=== PATIENT | male | born 1940 | race Caucasian/White ===

== ENCOUNTER 2023-12-04 20:51 | Emergency (ER) | payer MEDICARE, SELFPAY ==
--- NOTE | ~2023-12-04 | CT_ITS ---
EXAMINATION: CT brain wo con DATE: 12/04/2023 22:21 INDICATION: Head trauma TECHNIQUE: Computed tomography (CT) of the head was performed without intravenous contrast. Sagittal and coronal reconstructions were performed. The mA was adjusted according to patient size. Iterative reconstruction technique was employed. The dose-length product was 605.33 mGy-cm. COMPARISON: None FINDINGS: No fracture. Small region of encephalomalacia in the left parietal lobe consistent with old infarct. No acute intracranial hemorrhage, acute infarction or abnormal extra axial fluid collection. There is moderate scattered white matter hypoattenuation consistent with chronic small vessel ischemic diseas e. Symmetric prominence of the sulci and ventricles consistent with moderate age-appropriate diffuse cerebral volume loss. No mass/mass effect. Changes of bilateral intraocular lens replacement. The orb its and mastoid air cells are normal. Mild mucosal thickening the paranasal sinuses. IMPRESSION: 1. No fracture or acute intracranial process. 2. 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 3. Age-related changes including moderate diffuse volume loss and moderate scattered white matter hyp oattenuation consistent with chronic small vessel ischemic disease. Reviewed, dictated and finalized at location A. IN COIL WINDER IMPRESSION: 1. No fracture or acute intracranial process. 2. 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 3. Age-related changes including moderate diffuse volume loss and moderate scat tered white matter hypoattenuation consistent with chronic small vessel ischemi c disease.
--- NOTE | ~2023-12-04 | CT_ITS ---
EXAMINATION: CT cervical spine wo con DATE: 12/04/2023 22:25 INDICATION: Neck pain post fall TECHNIQUE: Computed tomography (CT) of the cervical spine was performed without intravenous contrast. Automated exposure control and iterative reconstruction technique were employed. The dose-length pro duct was 254.24 mGy-cm. COMPARISON: None FINDINGS: 3 mm anterolisthesis C5 on C6. 2 mm anterolisthesis C7 on T1. There is anterior fusion at C6-C7. Vert ebral body heights are normal. Small nondisplaced fracture extending along the anterior rim of the newell perior endplate of T3. There are some sclerosis in the underlying anterosuperior aspect of the verteb ral body which could be degenerative in etiology or trabecular impaction such with the fracture and s uggesting a hyperflexion injury. No other fractures identified. Severe atlantoaxial osteoarthritis wi th calcite pannus surrounding the dens. Moderate to severe disc height loss at C3-C4, C5-C6 and T1-T2 . Moderate disc height loss at C4-C5, T1-T2 and T3-T4. Mild disc height loss at C2-C3 and T2-T3. Disc bulges and posterior disc osteophyte complexes resulting in mild central canal stenosis from C2-C3 t hrough C5-C6. Additional mild central canal stenosis resulting from hypertrophic change at the fused C6-C7 disc space. There is multilevel moderate to severe cervical facet and uncovertebral osteoarthri tis which contributes to mild to moderate neural foraminal stenosis bilaterally at multiple levels in the cervical and upper thoracic spine. Atherosclerotic calcification is at the bilateral carotid bul bs. Cervical soft tissues are otherwise unremarkable. Mild emphysema the visualized upper lungs with mild biapical pleural-parenchymal scarring. IMPRESSION: 1. Small nondisplaced fracture along the anterior rim of the superior endplate of T3 likely related t o a hyperflexion injury. No acute osseous abnormality in the cervical spine. 2. Moderate to severe cervical and upper thoracic spondylosis. Reviewed, dictated and finalized at location A. STERED PHYSICAL THERAPIST IMPRESSION: 1. Small nondisplaced fracture along the anterior rim of the superior endplate of T3 likely related to a hyperflexion injury. No acute osseous abnormality in the cervical spine. 2. Moderate to severe cervical and upper thoracic spondylosis.
--- NOTE | ~2023-12-04 | XR_ITS ---
EXAMINATION: XR hip RT 2V w AP pelvis DATE: 12/04/2023 22:36 INDICATION: Right hip pain post fall TECHNIQUE: Anteroposterior view of the pelvis and anteroposterior and frog-leg lateral views of the r ight hip were obtained. COMPARISON: None. FINDINGS: Bone alignment is normal. No fracture. Mild osteoarthritis at the bilateral hips. Moderate osteoarthr itis at the bilateral sacroiliac joints. There is at least moderate lower lumbar spondylosis with lik angel severe facet osteoarthritis. A few phleboliths in the pelvis. IMPRESSION: 1. Degenerative skeletal changes in the pelvis and more prominently at the lower lumbar spine with no acute osseous abnormality. Reviewed, dictated and finalized at location A. DWORKS DESIGNER IMPRESSION: 1. Degenerative skeletal changes in the pelvis and more prominently at the lowe r lumbar spine with no acute osseous abnormality.
--- NOTE | ~2023-12-04 | XR_ITS ---
EXAMINATION: XR hand RT min 3V DATE: 12/04/2023 22:35 INDICATION: Right hand pain post fall TECHNIQUE: Posteroanterior, oblique and lateral views of the right hand were obtained. COMPARISON: None. FINDINGS: There is widening of the scapholunate interval along with increased scapholunate angle consistent wit h age-indeterminate tear of the scapholunate ligament. Bone alignment is otherwise normal. No fractur e. Polyarticular osteoarthritis, moderate severity at the distal radioulnar, wrist, triscaphe, first carpometacarpal, first metacarpophalangeal and second-fourth distal interphalangeal joints. Mild oste oarthritis at the remaining metacarpophalangeal and interphalangeal joints. Diffuse osteopenia. Soft tissues are unremarkable. IMPRESSION: 1. Age-indeterminate tear of the scapholunate ligament with widening of the scapholunate interval and increased scapholunate angle consistent with secondary dorsal intercalated segment instability (DISI ). 2. 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 Reviewed, dictated and finalized at location A. FINISHER IMPRESSION: 1. Age-indeterminate tear of the scapholunate ligament with widening of the sca pholunate interval and increased scapholunate angle consistent with secondary d orsal intercalated segment instability (DISI). 2. 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
[2023-12-04 20:52] VITALS: BP 102/78; PULSE 84; RESP 14; TEMP 37.2; O2SAT 98
--- NOTE | 2023-12-04 21:01 | ECG_ITS ---
Measurements Intervals [place] Rate: 80 P: 104 DE: 170 QRS: 42 QRSD: 101 T: 0 QT: 321 QTc: 371 Interpretive Statements SINUS RHYTHM ATRIAL AND VENTRICULAR PREMATURE COMPLEXES LOW QRS VOLTAGE IN PRECORDIAL LEADS MINIMAL Q WAVES- INFERIOR LEADS BORDERLINE ST-T WAVE ABNORMALITY- ANTEROLAT/INF LEADS BASELINE ARTIFACT- I, II, III, AVR, AVF, V1-V6 BORDERLINE ECG NO PREVIOUS ECG AVAILABLE FOR COMPARISON Electronically Signed On 12-05-2023 5:52:37 STRIPE MARKER by Tj Mosley D.O.
[2023-12-04 21:02] LABS: Glucose Point of Care 99 mg/dl (65-105)
[2023-12-04 22:13] VITALS: BP 194/63; PULSE 73; RESP 15; O2SAT 96
[2023-12-05 01:20] LABS: Appearance Urine Turbid (Clear); Color Urine Amber (Yellow)
[2023-12-05 01:21] LABS: Protein Urine 2+ mg/dL (Negative)
[2023-12-05 01:22] LABS: Glucose Urine UA Negative (Negative); Ketones Urine Negative (Negative)
[2023-12-05 01:23] LABS: Bilirubin Urine Negative (Negative); Blood Urine 3+ (Negative); Leukocyte Esterase Ur 3+ LEU/UL (Negative); Nitrate Urine Positive (Negative)
[2023-12-05 01:24] LABS: Bacteria Urine 2+ /hpf; RBC Urine >100 /hpf (0-2); WBC Clumps Urine Present /HPF; WBC Urine >100 /hpf
[2023-12-05 01:25] LABS: Non Pathogenic Casts Present
[2023-12-05 01:29] LABS: Add Urine Microscopic? YES
--- NOTE | 2023-12-05 01:32 | ED.GENADULT ---
HPI - General Adult General Chief complaint: Fall Stated complaint: FALL Time Seen by Provider: 12/04/23 21:53 History of Present Illness HPI narrative: patient is 83-year-old gentleman who presents to emergency department with chief complaint of fall while getting into his wheelchair patient fell backwards landing on the back of his head and right hip the patient also pulled out his Barry during this point as well the patient states that he has a little bit discomfort in his neck and also pain in his right hip area Related Data Allergies Allergy/AdvReac Type Severity Reaction Status Date / Time diphtheria toxoid,adsorbed Allergy Unknown Verified 12/04/23 21:02 fish derived Allergy Unknown Verified 12/04/23 21:02 iodine Allergy Unknown Verified 12/04/23 21:02 tetanus toxoid, adsorbed Allergy Unknown Verified 12/04/23 21:02 tositumomab Allergy Unknown Verified 12/04/23 21:02 Review of Systems Review of Systems: A 10 system review of systems was completed on the patient and is negative except for what is stated in the HPI. Nursing and ancillary documentation was reviewed. Exam Narrative: GENERAL: Well-appearing, well-nourished, and in no acute distress. HEAD: Normocephalic, atraumatic. EYES: PERRLA and EOMI. ENT: Nares clear, no rhinorrhea or epistaxis. Mucous membranes moist. NECK: Supple. CHEST: Clear to auscultation. No respiratory distress. HEART: Regular rate and rhythm. No murmur heard. Normal peripheral pulses. ABDOMEN: Soft, nontender, nondistended, normal active bowel sounds. EXTREMITIES: Normal range of motion. No edema. SKIN: Warm, dry, no rash. NEURO: No focal deficits. Alert and oriented x1. PSYCH: Normal mood and affect. Course Vital Signs Vital signs: Vital Signs Temperature 37.2 C 12/04/23 20:52 Pulse Rate 84 12/04/23 20:52 Respiratory Rate 14 12/04/23 20:52 Blood Pressure 102/78 12/04/23 20:52 Pulse Oximetry 98 12/04/23 20:52 Oxygen Delivery Room Air 12/04/23 20:52 Temperature 37.2 C 12/04/23 20:52 Pulse Rate 73 12/04/23 22:13 Respiratory Rate 15 12/04/23 22:13 Blood Pressure 194/63 H 12/04/23 22:13 Pulse Oximetry 96 12/04/23 22:13 Oxygen Delivery Room Air 12/04/23 20:52 Medical Decision Making MDM Narrative Medical decision making narrative: differential diagnosis includes intracranial hemorrhage, cervical spine fracture, hip fracture plain film x-rays were obtained of the hip and hand on the right side he showed no evidence of fracture. Patient does have full range of motion of both extremities CT head showed no evidence of acute intracranial hemorrhage CT C-spine showed a T3 endplate fracture that is not displaced Vital Signs Vital Signs: Vital Signs Temperature 37.2 C 12/04/23 20:52 Pulse Rate 84 12/04/23 20:52 Respiratory Rate 14 12/04/23 20:52 Blood Pressure 102/78 12/04/23 20:52 Pulse Oximetry 98 12/04/23 20:52 Oxygen Delivery Room Air 12/04/23 20:52 Temperature 37.2 C 12/04/23 20:52 Pulse Rate 73 12/04/23 22:13 Respiratory Rate 15 12/04/23 22:13 Blood Pressure 194/63 H 12/04/23 22:13 Pulse Oximetry 96 12/04/23 22:13 Oxygen Delivery Room Air 12/04/23 20:52 Lab Data Labs: Lab Results 12/04/23 12/05/23 Range/Units 20:59 00:37 POC Capillary Glucose 99 (65-105) mg/dl Urine Color Judy (Yellow) Urine Appearance Turbid H (Clear) Urine pH 6.0 (5.0-9.0) Ur Specific [place] 1.020 (1.001-1.035) Urine Protein 2+ H (Negative) mg/dL Urine Glucose (UA) Negative (Negative) mg/dL Urine Ketones Negative (Negative) mg/dL Ur Blood (Man) 3+ H (Negative) Urine Nitrate Positive H (Negative) Urine Bilirubin Negative (Negative) Urine Urobilinogen 1.0 (<2.0) mg/dL Leukocyte Esterase Rfl 3+ H (Negative) TONY/UL Urine RBC >100 H (0-2) /hpf Urine WBC >100 H /hpf Urine WBC Clumps Present H (None) /HPF Urine
== END 2023-12-05 03:00 ==
PROVIDERS: Emergency Provider Emergency Medicine
DX: S22.038A Other fracture of third thoracic vertebra, initial encounter for closed fracture (principal); S79.911A Unspecified injury of right hip, initial encounter; N39.0 Urinary tract infection, site not specified; M47.812 Spondylosis without myelopathy or radiculopathy, cervical region; M47.814 Spondylosis without myelopathy or radiculopathy, thoracic region; I49.1 Atrial premature depolarization; I49.3 Ventricular premature depolarization; R94.31 Abnormal electrocardiogram [ECG] [EKG]; M18.9 Osteoarthritis of first carpometacarpal joint, unspecified; M19.041 Primary osteoarthritis, right hand; M19.031 Primary osteoarthritis, right wrist; W18.39XA Other fall on same level, initial encounter
CPT/HCPCS: 70450; 72125; 73130; 73502; 81001; 82948; 87077; 87086; 87147; 87186; 93005; 99284

== ENCOUNTER 2023-12-24 14:31 | Emergency (ER) | payer MEDICARE, SELFPAY ==
[2023-12-24 14:34] VITALS: BP 132/80; PULSE 74; RESP 19; TEMP 36.7; O2SAT 99
--- NOTE | 2023-12-24 16:25 | ED.MALEGU ---
HPI - Male Genitourinary General Chief complaint: Urogenital-Male Stated complaint: hematuria Time Seen by Provider: 12/24/23 14:32 History of Present Illness HPI Narrative: Patient is an 83-year-old male presenting with hematuria. Patient is coming from a nursing facility. He has a chronic indwelling Barry and he pulled out today. He then developed hematuria. Patient is A&O x1 at baseline. History is limited secondary to his dementia. Denies current complaints. Related Data Allergies Allergy/AdvReac Type Severity Reaction Status Date / Time diphtheria toxoid,adsorbed Allergy Unknown Verified 12/04/23 21:02 fish derived Allergy Unknown Verified 12/04/23 21:02 iodine Allergy Unknown Verified 12/04/23 21:02 tetanus toxoid, adsorbed Allergy Unknown Verified 12/04/23 21:02 tositumomab Allergy Unknown Verified 12/04/23 21:02 Review of Systems Review of Systems: ROS unobtainable: Yes unobtainable due to mental status and other (underlying dementia) Exam Narrative: GENERAL: Nontoxic, no acute distress, pleasantly demented HEAD: Normocephalic, atraumatic. EYES: PERRLA and EOMI. ENT: Mucous membranes moist. NECK: Supple. CHEST: No respiratory distress. HEART: Regular rate and rhythm ABDOMEN: Soft, nontender, nondistended EXTREMITIES: Normal range of motion. No edema. SKIN: Warm, dry, no rash. NEURO: Alert and oriented x1 PSYCH: Normal mood and affect. Course Vital Signs Vital signs: Vital Signs Temperature 98.1 F 12/24/23 14:34 Pulse Rate 74 12/24/23 14:34 Respiratory Rate 19 12/24/23 14:34 Blood Pressure 132/80 12/24/23 14:34 Pulse Oximetry 99 12/24/23 14:34 Oxygen Delivery Room Air 12/24/23 14:34 Temperature 98.1 F 12/24/23 14:34 Pulse Rate 79 12/24/23 18:37 Respiratory Rate 20 12/24/23 18:37 Blood Pressure 142/76 H 12/24/23 18:37 Pulse Oximetry 97 12/24/23 18:37 Oxygen Delivery Room Air 12/24/23 14:34 MDM - Male Genitourinary MDM Narrative Medical decision making narrative: 83-year-old male presenting with hematuria after pulling out his Barry catheter. Vitals stable. Exam remarkable for the above. UA is concerning for UTI. Patient was actually just here a couple of weeks ago and treated for a UTI. His urine at that time grew MRSA and E coli. Both are sensitive to Macrobid which will start today. Barry catheter was replaced, is draining well. Will send in for Macrobid. Recommend PCP follow-up. Discharged in stable condition. Differential Diagnosis Differential diagnosis: Likely urinary tract infection, urethritis and other ( Barry catheter complication) Medical Records Attestation: I reviewed the patient's medical records. Lab Data Attestation: I reviewed the patient's lab results. Labs: Lab Results 12/24/23 Range/Units 16:29 Urine Color Yellow (Yellow) Urine Appearance Turbid H (Clear) Urine pH 7.0 (5.0-9.0) Ur Specific [place] 1.022 (1.001-1.035) Urine Protein 1+ H (Negative) mg/dL Urine Glucose (UA) Negative (Negative) mg/dL Urine Ketones Trace H (Negative) mg/dL Ur Blood (Man) 3+ H (Negative) Urine Nitrate Negative (Negative) Urine Bilirubin Negative (Negative) Urine Urobilinogen 2.0 H (<2.0) mg/dL Add Ur Microanalysis Reviewed Leukocyte Esterase Rfl 3+ H (Negative) TONY/UL Urine RBC >100 H (0-2) /hpf Urine WBC >100 H /hpf Ur Squamous Epith Cells None seen (Few) /hpf Calcium Oxalate Crystal Present (None) /hpf Urine Bacteria 4+ H /hpf Urine Casts 6-10 Critical Care Time Critical Care Time Critical Care Time: No Discharge Plan Discharge Clinical Impression: Urinary tract infection, Encounter for Barry catheter replacement Patient Disposition: NH Senior Care/Asst Living Condition: Stable Instructions: Antibiotic Form, Urinary Tract Infection in Men (ED), Barry Catheter Placement and Care (ED) Additional Instructions: we have started you on
[2023-12-24 16:52] LABS: Appearance Urine Turbid (Clear); Bacteria Urine 4+ /hpf; Bilirubin Urine Negative (Negative); Blood Urine 3+ (Negative); Calcium Oxalate Crystals Urine Present /hpf; Color Urine Yellow (Yellow); Glucose Urine UA Negative (Negative); Ketones Urine Trace mg/dL (Negative); Leukocyte Esterase Ur 3+ LEU/UL (Negative); Need Manual Microscopic Reviewed; Nitrate Urine Negative (Negative); Protein Urine 1+ mg/dL (Negative); RBC Urine >100 /hpf (0-2); Specific Grav Ur 1.022 (1.001-1.035); Squamous Epithelial Cell Urine None seen /hpf (Few); WBC Urine >100 /hpf
[2023-12-24 17:15] LABS: Add Urine Microscopic? YES
[2023-12-24] MEDS: NITROFURANTOIN MONOHYD MACROCR 100 MG CAP PO (18:25)
[2023-12-24 18:37] VITALS: BP 142/76; PULSE 79; RESP 20; O2SAT 97
== END 2023-12-24 18:39 ==
PROVIDERS: Emergency Provider Emergency Medicine; PCP Nurse Practitioner Family
DX: N39.0 Urinary tract infection, site not specified (principal); Z46.6 Encounter for fitting and adjustment of urinary device
CPT/HCPCS: 51702; 81001; 87077; 87086; 87186; 99283; A9270

== ENCOUNTER 2024-01-06 09:31 | Emergency (ER) | payer MEDICARE, SELFPAY ==
[2024-01-06 09:33] VITALS: BP 104/54; PULSE 68; RESP 14; TEMP 36.5; O2SAT 97
--- NOTE | 2024-01-06 10:01 | ED.MALEGU ---
HPI - Male Genitourinary General Chief complaint: Urogenital-Male Stated complaint: catheter pulled out Time Seen by Provider: 01/06/24 09:56 Source: patient Mode of arrival: ambulatory Limitations: no limitations History of Present Illness HPI Narrative: This is a 83-year-old male that presents to the emergency department for dislodged Alonzo catheter. Patient reportedly pulled out his catheter at nursing facility. They noted some bleeding after this which prompted to send him in for evaluation. Patient is alert and oriented x1, resting comfortably. His Alonzo catheter was advanced and balloon reinflated in the ED. Is now draining well. No active bleeding Related Data Allergies Allergy/AdvReac Type Severity Reaction Status Date / Time diphtheria toxoid,adsorbed Allergy Unknown Verified 01/06/24 09:39 fish derived Allergy Unknown Verified 01/06/24 09:39 iodine Allergy Unknown Verified 01/06/24 09:39 tetanus toxoid, adsorbed Allergy Unknown Verified 01/06/24 09:39 tositumomab Allergy Unknown Verified 01/06/24 09:39 Review of Systems Review of Systems: ROS unobtainable: Yes unobtainable due to medical condition [facility] Past Medical History Medical History (Updated 01/06/24 @ 11:09 by Nimisha Callaway PA-C) History of dementia History of hyperlipidemia History of hypertension History of hypothyroidism Social History Social History (Updated 01/06/24 @ 10:05 by Nimisha Callaway PA-C) Substance use: never Exam Narrative: GENERAL: Elderly, well-nourished, and in no acute distress. HEAD: Normocephalic, atraumatic. EYES: EOMI. ENT: Nares clear, no rhinorrhea or epistaxis. Mucous membranes moist. CHEST: Clear to auscultation. No respiratory distress. No wheezes rales or rhonchi HEART: Regular rate and rhythm. No murmur heard. Normal peripheral pulses. ABDOMEN: Soft, nontender, nondistended, normal active bowel sounds. EXTREMITIES: Normal range of motion. No edema. SKIN: Warm, dry, no rash. NEURO: No focal deficits. Alert and oriented x1. PSYCH: Normal mood and affect Course Course Emergency Course: UA with evidence of infection. No further bleeding while in the ED. Will be started on oral antibiotics based on previous culture results Vital Signs Vital signs: Vital Signs Temperature 97.7 F 01/06/24 09:33 Pulse Rate 68 01/06/24 09:33 Respiratory Rate 14 01/06/24 09:33 Blood Pressure 104/54 L 01/06/24 09:33 Pulse Oximetry 97 01/06/24 09:33 Oxygen Delivery Room Air 01/06/24 09:33 Temperature 97.7 F 01/06/24 09:33 Pulse Rate 68 01/06/24 09:33 Respiratory Rate 14 01/06/24 09:33 Blood Pressure 104/54 L 01/06/24 09:33 Pulse Oximetry 97 01/06/24 09:33 Oxygen Delivery Room Air 01/06/24 09:33 MDM - Male Genitourinary MDM Narrative Medical decision making narrative: Patient presents to the emergency department for Alonzo catheter malfunction. Patient had pulled out partially at the nursing facility. It was not anchored to his leg. We were able to deflate balloon and advance it and reinflate. It is draining well. There has been no active bleeding while he has been in the ED. Catheter was anchored to his leg. UA obtained which shows evidence of infection. Will be started on Macrobid based on his previous culture results. Given warnings to return to the ER Differential Diagnosis Differential diagnosis: Likely urinary tract infection and other (alonzo catheter malfunction) Lab Data Attestation: I reviewed the patient's lab results. Labs: Lab Results 01/06/24 Range/Units 10:28 Urine Color Yellow (Yellow) Urine Appearance Turbid H (Clear) Urine pH 6.0 (5.0-9.0) Ur Specific [place] 1.018 (1.001-1.035) Urine Protein 1+ H (Negative) mg/dL Urine Glucose (UA) Negative (Negative) mg/dL Urine Ketones Trace H (Negative) mg/dL Ur Blood (Man) 3+ H (Negative) Urine Nitrate Positive H (Negative) Urine Bilirubin Negative (Negative)
--- NOTE | 2024-01-06 10:21 | PC.NURSE ---
Sitter at bedside due to pt attempting to get up, pulling at alonzo.
[2024-01-06 10:51] LABS: Appearance Urine Turbid (Clear); Bacteria Urine 4+ /hpf; Bilirubin Urine Negative (Negative); Blood Urine 3+ (Negative); Color Urine Yellow (Yellow); Glucose Urine UA Negative (Negative); Ketones Urine Trace mg/dL (Negative); Leukocyte Esterase Ur 3+ LEU/UL (Negative); Need Manual Microscopic Reviewed; Nitrate Urine Positive (Negative); Non Pathogenic Casts >20; Protein Urine 1+ mg/dL (Negative); RBC Urine >100 /hpf (0-2); Specific Grav Ur 1.018 (1.001-1.035); Squamous Epithelial Cell Urine Occasional /hpf (Few); WBC Urine >100 /hpf
[2024-01-06 11:01] LABS: Add Urine Microscopic? YES
[2024-01-06 11:17] VITALS: BP 111/65; PULSE 70; RESP 17; O2SAT 96
--- NOTE | 2024-01-06 11:49 | PC.NURSE ---
Lunch tray ordered for pt while awaiting EMS back to [place], sitter remains at bedside.
== END 2024-01-06 13:07 ==
PROVIDERS: Emergency Provider Physician Assistant; PCP Nurse Practitioner Family
DX: T83.021A Displacement of indwelling urethral catheter, initial encounter (principal); N39.0 Urinary tract infection, site not specified; F03.90 Unspecified dementia, unspecified severity, without behavioral disturbance, psychotic disturbance, mood disturbance, and anxiety; E78.5 Hyperlipidemia, unspecified; I10 Essential (primary) hypertension; E03.9 Hypothyroidism, unspecified
CPT/HCPCS: 51702; 81001; 87077; 87086; 87186; 99283

== ENCOUNTER 2024-02-17 07:45 | Emergency (ER) | payer MEDICARE, SELFPAY ==
[2024-02-17 07:41] VITALS: BP 142/75; PULSE 81; RESP 18; TEMP 36.3; O2SAT 98
--- NOTE | 2024-02-17 08:04 | ED.MALEGU ---
HPI - Male Genitourinary General Chief complaint: Urogenital-Male Stated complaint: unable to urinate Time Seen by Provider: 02/17/24 07:47 Source: EMS and RN notes reviewed Mode of arrival: EMS Limitations: dementia History of Present Illness HPI Narrative: 83-year-old with a history of dementia was brought in for urinary retention patient had his Barry catheter removed yesterday and was unable to urinate all night long. Complaint: other (Urinary retention) Onset (ago): day(s) (1) Duration: constant Context: other (Recent removal of Barry catheter) Associated symptoms: Reports denies other symptoms Related Data Allergies Allergy/AdvReac Type Severity Reaction Status Date / Time diphtheria toxoid,adsorbed Allergy Unknown Verified 01/06/24 09:39 fish derived Allergy Unknown Verified 01/06/24 09:39 iodine Allergy Unknown Verified 01/06/24 09:39 tetanus toxoid, adsorbed Allergy Unknown Verified 01/06/24 09:39 tositumomab Allergy Unknown Verified 01/06/24 09:39 Review of Systems Review of Systems: ROS unobtainable: Yes other (Dementia) PMFSH Past Medical History Medical History History of dementia History of hyperlipidemia History of hypertension History of hypothyroidism Social History Social History Substance use: never Exam Narrative: GENERAL: Well-appearing, well-nourished, and in no acute distress. HEAD: Normocephalic, atraumatic. EYES: PERRLA and EOMI. ENT: Nares clear, no rhinorrhea or epistaxis. NECK: Supple. CHEST: Clear to auscultation. No respiratory distress. HEART: Regular rate and rhythm. No murmur heard. Normal peripheral pulses. ABDOMEN: Soft, nontender, nondistended, normal active bowel sounds. EXTREMITIES: Normal range of motion. No edema. SKIN: Warm, dry, no rash. NEURO: No focal deficits. Alert and oriented x1 PSYCH: Normal mood and affect. Course Course Emergency Course: Patient had some suprapubic fullness Barry catheter was placed clear urine. UA is positive for uti , i did reviewed his Urine cultures from previous visit positive for ecoli and pseudomonas sensitive to Cipro . will discharge to [place] with Cipro Vital Signs Vital signs: Vital Signs Temperature 36.3 C L 02/17/24 07:41 Pulse Rate 81 02/17/24 07:41 Respiratory Rate 18 02/17/24 07:41 Blood Pressure 142/75 H 02/17/24 07:41 Pulse Oximetry 98 02/17/24 07:41 Oxygen Delivery Room Air 02/17/24 07:41 Temperature 36.3 C L 02/17/24 07:41 Pulse Rate 73 02/17/24 08:22 Respiratory Rate 18 02/17/24 08:22 Blood Pressure 147/71 H 02/17/24 08:22 Pulse Oximetry 98 02/17/24 08:22 Oxygen Delivery Room Air 02/17/24 07:41 MDM - Male Genitourinary Lab Data Labs: Lab Results 02/17/24 Range/Units 08:19 Urine Color Yellow (Yellow) Urine Appearance Cloudy H (Clear) Urine pH 7.0 (5.0-9.0) Ur Specific [place] 1.018 (1.001-1.035) Urine Protein Negative (Negative) mg/dL Urine Glucose (UA) Negative (Negative) mg/dL Urine Ketones Trace H (Negative) mg/dL Ur Blood (Man) Negative (Negative) Urine Nitrate Negative (Negative) Urine Bilirubin Negative (Negative) Urine Urobilinogen 1.0 (<2.0) mg/dL Leukocyte Esterase Rfl 3+ H (Negative) TONY/UL Urine RBC 3-5 H (0-2) /hpf Urine WBC >100 H (0-3) /hpf Ur Squamous Epith Cells None seen (Few) /hpf Urine Bacteria 4+ H /hpf Urine Casts 0-2 Urine Characteristics Clear Discharge Plan Discharge Clinical Impression: Acute retention of urine Urinary tract infection Qualifiers: Urinary tract infection type: site unspecified Hematuria presence: without hematuria Qualified Code(s): N39.0 - Urinary tract infection, site not specified Patient Disposition: NH Fdc/Asst Living Condition: Stable Instructio
[2024-02-17 08:22] VITALS: BP 147/71; PULSE 73; RESP 18; O2SAT 98
[2024-02-17 08:31] LABS: Appearance Urine Cloudy (Clear); Bacteria Urine 4+ /hpf; Bilirubin Urine Negative (Negative); Blood Urine Negative (Negative); Color Urine Yellow (Yellow); Glucose Urine UA Negative (Negative); Ketones Urine Trace mg/dL (Negative); Leukocyte Esterase Ur 3+ LEU/UL (Negative); Nitrate Urine Negative (Negative); Non Pathogenic Casts 0-2; Protein Urine Negative (Negative); Specific Grav Ur 1.018 (1.001-1.035); Squamous Epithelial Cell Urine None Seen /hpf (Few); WBC Urine >100 /hpf (0-3)
[2024-02-17 08:45] LABS: Add Urine Microscopic? YES
[2024-02-17 09:46] VITALS: BP 135/68; PULSE 74; RESP 18; O2SAT 100
== END 2024-02-17 10:02 ==
PROVIDERS: Emergency Provider Family Medicine; PCP Nurse Practitioner Family
DX: N39.0 Urinary tract infection, site not specified (principal); R33.9 Retention of urine, unspecified; F03.90 Unspecified dementia, unspecified severity, without behavioral disturbance, psychotic disturbance, mood disturbance, and anxiety; I10 Essential (primary) hypertension; E78.5 Hyperlipidemia, unspecified; E03.9 Hypothyroidism, unspecified
CPT/HCPCS: 81001; 87077; 87086; 87088; 87181; 99283

== ENCOUNTER 2024-02-24 13:12 | Emergency (ER) | payer MEDICARE, SELFPAY ==
[2024-02-24] VITALS (7 sets, daily range): BP systolic 107–127; BP diastolic 48–77; PULSE 61–72; RESP 14–16; TEMP 36.3–36.6; O2SAT 97–100
--- NOTE | ~2024-02-24 | XR_ITS ---
EXAMINATION: XR chest 1V DATE: 02/24/2024 14:02 INDICATION: Fall. TECHNIQUE: A single frontal view of the chest was obtained on 2 radiographs. COMPARISON: None. FINDINGS: There is a moderate-sized loculated right pleural effusion. There is a diffuse interstitial pattern in the lungs. There are airspace opacities in all right lung zones with a peripheral predomi nance. No pneumothorax. The heart size is normal. Median sternotomy wires and mediastinal surgical cl ips are seen, likely from prior coronary artery bypass grafting. There is a healing fracture of left ninth rib. IMPRESSION: 1. Moderate-sized loculated right pleural effusion. 2. Diffuse lung disease, right worse than left, consistent with pulmonary edema versus pneumonia. Reviewed, dictated and finalized at location E.
--- NOTE | ~2024-02-24 | XR_ITS ---
EXAMINATION: XR pelvis 1-2V DATE: 02/24/2024 14:02 INDICATION: Fall. TECHNIQUE: An anteroposterior view of the pelvis was obtained. COMPARISON: Pelvis and right hip radiographs 12/04/2023 FINDINGS: There is lumbar levoscoliosis and severe spondylosis. No fracture. There is mild osteoarthr itis of the hips. A catheter overlies the bladder. IMPRESSION: 1. Mild osteoarthritis of the hips. Reviewed, dictated and finalized at location E.
--- NOTE | ~2024-02-24 | CT_ITS ---
EXAMINATION: CT cervical spine wo con DATE: 02/24/2024 13:56 INDICATION: Neck pain. Fall. TECHNIQUE: Computed tomography (CT) of the cervical spine was performed without intravenous contrast. Automated exposure control and iterative reconstruction technique were employed. The dose-length pro duct was 216.71 mGy-cm. COMPARISON: CT cervical spine 12/04/23 FINDINGS: There is a loculated right pleural effusion. There is 2 mm anterolisthesis of C5 on C6 and C7 on T1. There is interbody fusion at C6-C7. There is mild chronic anterior wedging of T1, T2, and T 3 vertebral bodies. There is mildly decreased disc height at C2-C3, severely decreased disc height at C3-C4, C4-C5, and C5-C6, and mildly decreased disc height at C7-T1. The following disc levels are sp ecifically discussed: C2-C3: There is severe right and moderate left uncovertebral joint osteoarthritis. There is severe bi lateral facet joint osteoarthritis. There is mild right neural foraminal stenosis. There is mild cent ral canal stenosis. C3-C4: There is severe bilateral uncovertebral joint osteoarthritis. There is severe bilateral facet joint osteoarthritis. There is mild right and moderate left neural foraminal stenosis. There is mild central canal stenosis. C4-C5: There is severe bilateral uncovertebral joint osteoarthritis. There is moderate right and emeka re left facet joint osteoarthritis. There is mild bilateral neural foraminal stenosis. There is mild central canal stenosis. C5-C6: There is severe bilateral uncovertebral joint osteoarthritis. There is severe bilateral facet joint osteoarthritis. There is mild bilateral neural foraminal stenosis. There is mild central canal stenosis. C6-C7: There is moderate bilateral uncovertebral joint hypertrophy. There is mild bilateral facet nick nt hypertrophy. There is mild bilateral neural foraminal stenosis. There is mild central canal stenos is. C7-T1: There is mild bilateral uncovertebral joint osteoarthritis. There is severe bilateral facet nish int osteoarthritis. There is moderate right and mild left neural foraminal stenosis. There is no cent ral canal stenosis. IMPRESSION: 1. No acute fracture. 2. Severe cervical spondylosis. 3. Loculated right pleural effusion. Reviewed, dictated and finalized at location E.
--- NOTE | ~2024-02-24 | CT_ITS ---
EXAMINATION: CT brain wo con DATE: 02/24/2024 13:55 INDICATION: Fall. TECHNIQUE: Computed tomography (CT) of the head was performed without intravenous contrast. The mA wa s adjusted according to patient size. Iterative reconstruction technique was employed. The dose-lengt h product was 605.33 mGy-cm. COMPARISON: Head CT 12/04/2023 FINDINGS: There is an old infarct in left parietal lobe. There is an old infarct in the left caudate nucleus. There are scattered areas of low attenuation in the cerebral white matter. There is no intra cranial hemorrhage, acute infarction, or abnormal intracranial mass lesion. The ventricles are normal in size. There is mild mucosal thickening in the paranasal sinuses. The mastoid air cells are normal . There are likely changes of ocular lens replacement surgeries. IMPRESSION: 1. 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 2. Stable mild nonspecific cerebral white matter disease, which likely represents chronic small vesse l ischemic disease. Reviewed, dictated and finalized at location E. IMPRESSION: 1. 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 2. Stable mild nonspecific cerebral white matter disease, which likely represen ts chronic small vessel ischemic disease.
--- NOTE | 2024-02-24 13:35 | ED.FALL ---
HPI - Fall General Chief Complaint: Fall Stated Complaint: witnessed fall History of Present Illness HPI Narrative: Patient is an 83-year-old male with history of dementia here after a witnessed fall. He reportedly was in a seated position and fell forward hitting his face on the ground. Fall was witnessed by staff. No reported LOC. Patient was initially complaining of some pain to staff, was transported in for evaluation. Patient currently denying any pain or injuries. Family reportedly did not want patient transported into the ER. Related Data Allergies Allergy/AdvReac Type Severity Reaction Status Date / Time diphtheria toxoid,adsorbed Allergy Unknown Verified 01/06/24 09:39 fish derived Allergy Unknown Verified 01/06/24 09:39 iodine Allergy Unknown Verified 01/06/24 09:39 tetanus toxoid, adsorbed Allergy Unknown Verified 01/06/24 09:39 tositumomab Allergy Unknown Verified 01/06/24 09:39 Review of Systems Review of Systems: ROS unobtainable: Yes unobtainable due to mental status (dementia) PMFSH Past Medical History Medical History History of dementia History of hyperlipidemia History of hypertension History of hypothyroidism Social History Social History Substance use: never Exam Narrative: GENERAL: Well-appearing, well-nourished, and in no acute distress. HEAD: Normocephalic, atraumatic. EYES: PERRLA and EOMI. ENT: Nares clear. Mucous membranes moist. NECK: Supple. No c-spine tenderness, stepoffs. CHEST: Clear to auscultation. No respiratory distress. No chest wall tenderness. HEART: Regular rate and rhythm. Normal peripheral pulses. ABDOMEN: Soft, nontender, nondistended. EXTREMITIES: Normal range of motion. No edema. No pelvis tenderness, normal ROM of hips bilaterally. Bilateral upper and lower extremities atraumatic with no obvious injuries or pain. SKIN: Warm, dry, no rash. NEURO: No focal deficits. Alert and oriented x1 Course Course Emergency Course: Chart review performed, patient here after a witnessed fall at his halfway out of a wheelchair. Triage vitals normal. Last visit here was on 02/17/2024, was seen for urinary retention, had a Barry catheter replaced. They note history of dementia as well in their note. Patient seen evaluated, nontoxic appearing, no obvious traumatic injury appreciated on exam. Will do screening CT head, cervical spine, chest x-ray, pelvis x-ray and anticipate discharge back to facility. CT brain and cervical spine negative for acute injury. Pelvis XR negative. Moderate sized loculated effusion on the right side. Pulmonary edema versus pneumonia bilaterally, worse on the right than the left. Patient has had no hypoxia he has been here in the emergency department. I did discuss the case with patient's prior contact, his daughter Irena. Discussed options regarding admission for possible drainage of the pleural effusion versus coordinating this outpatient given he has had no respiratory symptoms and this was found incidentally. She would prefer to have him discharged to coordinated through his facility. The results of pertinent diagnostic studies and exam findings were discussed. The patient?s provisional diagnosis and plan of care were discussed with the family. The patient and/or present family expressed understanding of the diagnosis and plan. The nurse was instructed to provide written instructions and appropriate follow-up information. The patient understands their need and responsibility to obtain additional follow-up as instructed. The risks of medications administered and prescribed were discussed with the family. Vital Signs Vital signs: Vital Signs Temperature 97.6 F 02/24/24 13:25 Pulse Rate 72 02/24/24 13:25 Respiratory Rate 16 02/24/24 13:25 Blood Pressure 117/74 02/24/24 13:25 Pulse Oximetry 97 02/24/24 13:25 Oxygen
== END 2024-02-24 18:14 ==
PROVIDERS: Emergency Provider Student in an Organized Health Care Education/Training Program; PCP Nurse Practitioner Family
DX: J90 Pleural effusion, not elsewhere classified (principal); Z04.3 Encounter for examination and observation following other accident; W07.XXXA Fall from chair, initial encounter; F03.90 Unspecified dementia, unspecified severity, without behavioral disturbance, psychotic disturbance, mood disturbance, and anxiety; E78.5 Hyperlipidemia, unspecified; I10 Essential (primary) hypertension; E03.9 Hypothyroidism, unspecified
CPT/HCPCS: 70450; 71045; 72125; 72170; 99284

== ENCOUNTER 2024-03-02 13:39 | Emergency (ER) | payer MEDICARE, SELFPAY ==
--- NOTE | ~2024-03-02 | CT_ITS ---
EXAMINATION: CT chest abdomen pelvis wo con DATE: 03/02/2024 14:49 INDICATION: AMS, abdominal pain . TECHNIQUE: Computed tomography (CT) of the chest, abdomen, and pelvis was performed with 100 mL Omnip aque-350 intravenous contrast. Automated exposure control and iterative reconstruction technique were employed. The dose-length product was 402.02 mGy-cm. COMPARISON: None FINDINGS: Exam limited by noncontrast technique and arm down positioning. CHEST: No thoracic aortic injury, within the limits of noncontrast examination. Moderate atherosclerotic luis cifications. No mediastinal hematoma. No pericardial effusion. Heavy coronary artery calcification. Aortic valve calcification. No acute lung injury. Right lower lobe consolidation, likely compressive atelectasis. Sub six mill[address] right upper lobe nodule. No pneumothorax. Large volume right pleural fluid collection, mostly simple density with small volume layering hyperdense material. ABDOMEN/PELVIS: No solid organ injury. Simple right renal cysts. 9 mm right midpole calcification. No evidence of bowel or mesenteric injury. Mild diffuse mesenteric edema. Scattered diverticuli witho ut diverticulosis. No free fluid or free air. No retroperitoneal hematoma. Atherosclerotic calcifications. Pelvic contents are atraumatic. Urinary bladder decompressed by Barry catheter. Multiple urinary blad addis calcifications. Rectal wall thickening. MUSCULOSKELETAL: No acute fracture. Subacute left lateral ninth and posterior 12th rib fractures. No fracture or traumatic malalignment of the thoracic or lumbar spine. IMPRESSION: Large right pleural effusion. Small volume layering hyperdensity within the fluid may represent prote inaceous or hemorrhagic material. Right lower lobe atelectasis. Subacute left rib fractures. No other traumatic, or potentially traumatic process detected in the chest, abdomen, or pelvis. Sub-6 mm right upper lobe nodule, requiring no additional evaluation unless the patient is at high ri sk, in which case consider an optional low-dose noncontrast CT of the chest in 12 months. Mild diffuse mesenteric edema. Nonobstructive right nephrolithiasis. Bladder stones and calcifications around the Barry catheter balloon. Correlate for Barry function and consider tube exchange depending on date of placement. Rectal wall thickening, may represent proctitis, a rectal wall mass is not excluded. Reviewed, dictated and finalized at location K. IMPRESSION: Large right pleural effusion. Small volume layering hyperdensity within the flu id may represent proteinaceous or hemorrhagic material. Right lower lobe atelec tasis. Subacute left rib fractures. No other traumatic, or potentially traumatic process detected in the chest, abd omen, or pelvis. Sub-6 mm right upper lobe nodule, requiring no additional evaluation unless the patient is at high risk, in which case consider an optional low-dose noncontra st CT of the chest in 12 months. Mild diffuse mesenteric edema. Nonobstructive right nephrolithiasis. Bladder stones and calcifications around the Brary catheter balloon. Correlate for Barry function and consider tube exchange depending on date of placement. Rectal wall thickening, may represent proctitis, a rectal wall mass is not excl uded.
--- NOTE | ~2024-03-02 | CT_ITS ---
EXAMINATION: CT brain wo con DATE: 03/02/2024 14:49 INDICATION: trauma . TECHNIQUE: Computed tomography (CT) of the head was performed without intravenous contrast. The mA wa s adjusted according to patient size. Iterative reconstruction technique was employed. The dose-lengt h product was 605.33 mGy-cm. COMPARISON: 02/24/2024. FINDINGS: No acute intracranial hemorrhage or extra-axial fluid collection. No hydrocephalus, mass, or herniation. No acute ischemic infarct. Unremarkable dural venous sinus attenuation. No acute osseous abnormality. Small retention cyst/polyp in the left maxillary sinus, the remaining aerated spaces are clear. Moderate atrophy and chronic white matter change. Atherosclerotic intracranial calcification. Bilater al lens replacements. Focal left parietal encephalomalacia. Old lacunar infarct in the left caudate h ead. IMPRESSION: No acute intracranial process. Reviewed, dictated and finalized at location K.
--- NOTE | ~2024-03-02 | XR_ITS ---
EXAMINATION: XR chest 2V Exam Date/Time: 03/02/2024 14:45 CDT HISTORY: weakness Comparison: 02/24/2024. RESULT: Lines, tubes, and devices: Intact sternotomy wires. Mediastinal surgical clips and ostial markers. Lungs and pleura: Slightly improved diffuse reticular opacities. Slightly improved right lung airspa ce disease. Slightly decreased right costophrenic angle blunting. Cardiomediastinal silhouette: Stable. Other: No acute osseous or upper abdominal finding. IMPRESSION: Improving edema/pneumonia and right pleural effusion. Reviewed, dictated and finalized at location K.
[2024-03-02 13:40] VITALS: BP 131/70; PULSE 82; RESP 16; TEMP 36.6; O2SAT 100
[2024-03-02 13:59] LABS: Basophils Percent Auto 0.3 % (0.2-1.2); Eosinophils Absolute Auto 0.1 K/mm3 (0-0.3); Eosinophils Percent Auto 0.9 % (0-4.4); Hematocrit 28.9 % (42.0-52.0); Hemoglobin 8.5 g/dL (14.0-18.0); Immature Granulocyte Absolute 0.04 K/mm3 (0.00-0.031); Immature Granulocyte Percent A 0.4 % (0-0.5); Lymphocytes Absolute Auto 1.49 K/mm3 (0.9-3.2); Lymphocytes Percent Auto 13.9 % (18.3-44.2); Mean Corpuscular HGB Conc 29.4 g/dl (32-36); Mean Corpuscular Hemoglobin 25.7 pg (26-34); Mean Corpuscular Volume 87.3 fl (80-100); Mean Platelet Volume 9.9 fl (7.4-10.4); Monocytes Absolute Auto 0.5 K/mm3 (0.1-0.6); Monocytes Percent Auto 4.4 % (2.6-8.5); Neutrophils Absolute Auto 8.6 K/mm3 (1.3-6.7); Neutrophils Percent Auto 80.1 % (45.5-73.1); Platelet Count Result 196 k/mm3 (150-375); Red Blood Count 3.31 M/mm3 (4.6-6.20); Red Cell Distribution Width 21.2 % (11.5-14.5); White Blood Count 10.7 K/mm3 (4.5-10.0)
--- NOTE | 2024-03-02 14:06 | ECG_ITS ---
Measurements Intervals [place] Rate: 81 P: 61 VA: 199 QRS: 47 QRSD: 107 T: -16 QT: 299 Avg RR: 738 QTc: 336 QTcB: 348 QTcF: 330 Interpretive Statements SINUS RHYTHM WITH OCCASIONAL VENTRICULAR PREMATURE COMPLEXES POSSIBLE INFERIOR MYOCARDIAL INFARCTION, PROBALBY OLD [30 ms Q WAVE IN II/aVF] BORDERLINE ECG SEE SCANNED COPY FOR SIGNATURE MTDD
[2024-03-02 14:17] LABS: Alanine Aminotransferase 27 U/L (6-50); Albumin Level 2.8 g/dL (3.5-5.1); Alkaline Phosphatase 172 U/L (38-126); Anion Gap 4 mmol/L (4-12); Aspartate Amino Transferase 30 U/L (17-59); Bilirubin,Total 0.4 mg/dL (0.2-1.3); Blood Urea Nitrogen 13 mg/dL (9-20); Carbon Dioxide 28 mmol/L (22-30); Chloride 109 mmol/L (98-107); Estimated CRCL calculation 55 ml/min; Estimated Glomerular Filt Rate > 60; Glucose 131 mg/dL (65-110); Potassium 3.1 mmol/L (3.4-5.0); Sodium 141 mmol/L (137-145)
[2024-03-02 14:20] LABS: Hypochromasia 1+; Platelet Estimate Adequate (Adequate); Schistocytes Rare
--- NOTE | 2024-03-02 14:26 | PC.NURSE ---
#16 FR alonzo catheter removed, urine dark angely with foul odor. Alonzo replaced with #16 FR. less than 20 ml obtained with new device. Pts penis with transverse laceration draining pus.
--- NOTE | 2024-03-02 14:29 | ED.FALL ---
HPI - Fall General Chief Complaint: Fall Stated Complaint: repeated falls Time Seen by Provider: 03/02/24 13:45 History of Present Illness HPI Narrative: 83-year-old male presenting emergency department for evaluation of increased generalized weakness and frequent falls over the last few days. Patient does complain of lower abdominal tenderness but denies any pain. Patient does have known dementia. Patient is resting comfortably in the emergency department and appears to be in no distress. Related Data Allergies Allergy/AdvReac Type Severity Reaction Status Date / Time diphtheria toxoid,adsorbed Allergy Unknown Verified 01/06/24 09:39 fish derived Allergy Unknown Verified 01/06/24 09:39 iodine Allergy Unknown Verified 01/06/24 09:39 tetanus toxoid, adsorbed Allergy Unknown Verified 01/06/24 09:39 [email or web address] Allergy Unknown Verified 01/06/24 09:39 Review of Systems Review of Systems: All systems reviewed & are unremarkable except as noted in HPI and below PMFSH Past Medical History Medical History History of dementia History of hyperlipidemia History of hypertension History of hypothyroidism Social History Social History Substance use: never Exam Narrative: APPEARANCE: Well appearing, no pain, no distress, well-nourished. HEAD: normocephalic, atraumatic. EYES: PERRLA/EOMI, conjunctivae clear. NOSE: Normal no drainage EARS:TMS clear with good light reflex. THROAT: Pharynx clear, no exudate. NECK: Supple. No adenopathy, no masses. RESPIRATORY: Airway patent, respirations nonlabored. Clear to auscultation bilaterally, no rales, rhonchi, wheezing. CARDIOVASCULAR: Regular rate and rhythm without murmurs rubs or gallops. ABDOMINAL: Soft, suprapubic tenderness to palpation MUSCULOSKELETAL: Moves all extremities. Strength/ROM intact, No edema, No calf tenderness. NEURO: Alert. Cranial nerves II through XII intact. Good gait. Good coordination SKIN: Warm, dry. Normal Color Course Course Emergency Course: [age] old male was discharged back to his care facility. Vital Signs Vital signs: Vital Signs Temperature 97.9 F 03/02/24 13:40 Pulse Rate 82 03/02/24 13:40 Respiratory Rate 16 03/02/24 13:40 Blood Pressure 131/70 03/02/24 13:40 Pulse Oximetry 100 03/02/24 13:40 Oxygen Delivery Room Air 03/02/24 13:40 Temperature 97.9 F 03/02/24 13:40 Pulse Rate 88 03/02/24 15:50 Respiratory Rate 16 03/02/24 15:50 Blood Pressure 166/93 H 03/02/24 15:50 Pulse Oximetry 98 03/02/24 15:50 Oxygen Delivery Room Air 03/02/24 13:40 MDM - Fall MDM Narrative Medical decision making narrative: 83-year-old male presenting to the emergency department for evaluation per having increased falls. Patient's head CT was negative. Patient's abdominal CT did show a known pleural effusion. Patient is afebrile but does have leukocytosis of 10.7 hemoglobin 8.5. No previous hemoglobins are on file. CMP shows no acute abnormality. UA does have high bacteria and white blood cells, patient may be colonized. Urine culture is pending. Case was discussed with the patient's family and she prefers to have the patient transferred back to his facility. Differential Diagnosis Differential diagnosis: Likely concussion with loss of consciousness and concussion without loss of consciousness Lab Data Attestation: I reviewed the patient's lab results. 03/02/24 13:55 03/02/24 13:55 Labs: Lab Results 03/02/24 03/02/24 Range/Units 13:55 15:08 WBC 10.7 H (4.5-10.0) K/mm3 RBC 3.31 L (4.6-6.20) M/mm3 Hgb 8.5 L (14.0-18.0) g/dL Hct 28.9 L (42.0-52.0) % MCV 87.3 (80-100) fl MCH 25.7 L (26-34) pg MCHC 29.4 L (32-36) g/dl RDW 21.2 H (11.5-14.5) % Plt Count 196 (150-375) k/mm3 MPV 9.9 (7.4-10.4) fl Immature Gran % (Auto) 0.4
--- NOTE | 2024-03-02 14:34 | PC.NURSE ---
No abrasion, bruising or laceration noted from frequent falls reported by NH
[2024-03-02] MEDS: SODIUM CHLORIDE 0.9% IV 1,000 ML 500 ML IV CONT (14:56)
[2024-03-02 14:57] VITALS: BP 123/71; PULSE 75; RESP 16; O2SAT 97
[2024-03-02 15:48] LABS: Appearance Urine Turbid (Clear); Bacteria Urine 4+ /hpf; Bilirubin Urine Negative (Negative); Blood Urine 3+ (Negative); Color Urine Yellow (Yellow); Glucose Urine UA Negative (Negative); Ketones Urine Trace mg/dL (Negative); Leukocyte Esterase Ur 3+ LEU/UL (Negative); Need Manual Microscopic Reviewed; Nitrate Urine Negative (Negative); Protein Urine 2+ mg/dL (Negative); RBC Urine >100 /hpf (0-2); Specific Grav Ur 1.021 (1.001-1.035); Squamous Epithelial Cell Urine None Seen /hpf (Few); WBC Urine >100 /hpf (0-3); pH Urine 6.5 (5.0-9.0)
[2024-03-02 15:49] LABS: Add Urine Microscopic? YES
[2024-03-02 15:50] VITALS: BP 166/93; PULSE 88; RESP 16; O2SAT 98
--- NOTE | 2024-03-02 16:37 | PC.NURSE ---
Pts daughter Irena Zamorano called per Dr. Lewis request. Informed of ER visit POC to send back to [facility] for further follow up for UTI & pleural effusion. Daughter in agreement with POC. Informed urine results may be from colonization.
== END 2024-03-02 18:10 ==
PROVIDERS: Emergency Provider Emergency Medicine; PCP Nurse Practitioner Family
DX: R29.6 Repeated falls (principal); J90 Pleural effusion, not elsewhere classified; R82.998 Other abnormal findings in urine; F03.90 Unspecified dementia, unspecified severity, without behavioral disturbance, psychotic disturbance, mood disturbance, and anxiety; I10 Essential (primary) hypertension; E78.5 Hyperlipidemia, unspecified; E03.9 Hypothyroidism, unspecified
CPT/HCPCS: 36415; 51702; 70450; 71046; 71250; 74176; 80053; 81001; 85025; 87086; 93005; 96360; 99284; J7030

== ENCOUNTER 2024-03-08 21:58 | Inpatient (IN) | payer MEDICARE, SELFPAY ==
--- NOTE | ~2024-03-08 | XR_ITS ---
EXAMINATION: XR chest 1V DATE: 03/10/2024 11:40 INDICATION: Altered mental status TECHNIQUE: frontal view of the chest was obtained. COMPARISON: Chest CT dated 03/02/2024 FINDINGS: Opacities in the right mid and lower lung zone corresponding to a prior right pleural effusion with a ssociated atelectasis. Superimposed pneumonia not excludable. Left lung remains clear with no left pl eural effusion. No pneumothorax. Heart size is normal. Median sternotomy wires, ostial markers and me diastinal surgical clips consistent with prior coronary artery bypass grafting. Degenerative changes in the spine and at both shoulders with loose osteochondral bodies along the right long head biceps tendon sheath. IMPRESSION: 1. Opacities in the right mid and lower lung zone likely related to persistent small to moderate-size d pleural effusion with associated atelectasis and/or pneumonia. Reviewed, dictated and finalized at location A. IMPRESSION: 1. Opacities in the right mid and lower lung zone likely related to persistent small to moderate-sized pleural effusion with associated atelectasis and/or pne umonia.
--- NOTE | ~2024-03-08 | CT_ITS ---
EXAMINATION: CT brain wo con DATE: 03/10/2024 12:02 INDICATION: Altered mental status TECHNIQUE: Computed tomography (CT) of the head was performed without intravenous contrast. Sagittal and coronal reconstructions were performed. The mA was adjusted according to patient size. Iterative reconstruction technique was employed. The dose-length product was 605.33 mGy-cm. 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 Additional small old lacunar infarct at the head of the left ca udate nucleus. There is moderate scattered white matter hypoattenuation consistent with chronic small vessel ischemic disease. No acute intracranial hemorrhage, acute infarction or abnormal extra axial fluid collection. Symmetric prominence of the sulci and ventricles consistent with moderate age-appro priate diffuse cerebral volume loss. No mass/mass effect. Changes of bilateral intraocular lens repla cement. Small mucous retention cyst in the left maxillary sinus. Mastoid air cells and middle ear cav ities are clear. Intracranial calcified cerebral atherosclerosis is noted. IMPRESSION: 1. 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 No acute intracranial process. 2. Age-related changes including moderate diffuse volume loss and moderate scattered white matter hyp oattenuation consistent with chronic small vessel ischemic disease. Reviewed, dictated and finalized at location A. IMPRESSION: 1. 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 No acute intracranial process. 2. Age-related changes including moderate diffuse volume loss and moderate scat tered white matter hypoattenuation consistent with chronic small vessel ischemi c disease.
[2024-03-08 21:58] VITALS: BP 130/118; PULSE 97; RESP 20; TEMP 36.2; O2SAT 100
[2024-03-08 22:18] VITALS: BP 140/74; PULSE 95; RESP 19; O2SAT 98
--- NOTE | 2024-03-08 22:41 | ED.GENADULT ---
HPI - General Adult General Chief complaint: Urogenital-Male Stated complaint: no urine output Time Seen by Provider: 03/08/24 22:01 Source: patient Mode of arrival: EMS Limitations: altered mental status History of Present Illness HPI narrative: This is an 83-year-old male with PMH of dementia, HLD, HTN, indwelling Alonzo catheter who presents to the ED via EMS from [facility] for decreased urine output. Staff reports that his Alonzo bag was not draining for the past 24 hours. They were able to pull some dark brown urine, about 25 mL. The staff here notes that the patient is grabbing at alonzo and grimacing. They report that he says yes to pain but does not say where. When asked the patient was hurting he is not able to give any kind of meaningful response. He is noted to be A&O x1 baseline. Per chart review, patient has had numerous visits to this ER with multiple documented UTIs. On arrival our nursing staff was able to replace the Alonzo catheter and got initial 600 mL of urine off. While I am in the room with the urine bag is almost full to 1 L. Related Data Allergies Allergy/AdvReac Type Severity Reaction Status Date / Time diphtheria toxoid,adsorbed Allergy Unknown Verified 01/06/24 09:39 fish derived Allergy Unknown Verified 01/06/24 09:39 iodine Allergy Unknown Verified 01/06/24 09:39 tetanus toxoid, adsorbed Allergy Unknown Verified 01/06/24 09:39 [email or web address] Allergy Unknown Verified 02 09:39 Review of Systems Review of Systems: All systems as dictated in [facility] Past Medical History Medical History History of dementia History of hyperlipidemia History of hypertension History of hypothyroidism Social History Social History Substance use: never Exam Narrative: GENERAL: Appears elderly and frail. HEAD: Normocephalic, atraumatic. EYES: PERRLA and EOMI. ENT: Nares clear, no rhinorrhea or epistaxis. Mucous membranes moist. Oropharynx without tonsillar hypertrophy exudate or other lesions. NECK: Supple. No adenopathy or masses. CHEST: No respiratory distress. Clear to auscultation. No wheezes rales or rhonchi HEART: Regular rate and rhythm. No murmur heard. Normal peripheral pulses. ABDOMEN: Soft, nontender, nondistended, normal active bowel sounds. MSK: Normal range of motion. No edema. SKIN: Warm, dry, no rash. NEURO: Alert. Turns his head when I call his name. Not he able to participate with history or further mental status exam. Moves extremities spontaneously PSYCH: Normal mood and affect. Urine bag is actively draining dark urine. Course Course Emergency Course: Patient's nurse was able to get in contact with family member. They family member states that based on his presentation today, it sounds like he is very much in his mental status baseline. Vital Signs Vital signs: Vital Signs Temperature 97.1 F L 03/08/24 21:58 Pulse Rate 97 03/08/24 21:58 Respiratory Rate 20 03/08/24 21:58 Blood Pressure 130/118 H 03/08/24 21:58 Pulse Oximetry 100 03/08/24 21:58 Oxygen Delivery Room Air 03/08/24 21:58 Temperature 97.1 F L 03/08/24 21:58 Pulse Rate 93 03/09/24 01:23 Respiratory Rate 12 03/09/24 01:23 Blood Pressure 129/70 03/09/24 01:23 Pulse Oximetry 97 03/09/24 01:23 Oxygen Delivery Room Air 03/08/24 21:58 Medical Decision Making [facility] Narrative Medical decision making narrative: This is a 83-year-old male who presents to the ED from [facility] for chief complaint of decreased urine output. The patient has indwelling Alonzo catheter had significant sediment and was replaced here. Immediately drained 600 mL of fluid. Vitals are normal. Afebrile. Mental status baseline according to [facility] and family member over the phone. Lab work shows elevated white count 13.5. CMP shows slight elevation in BUN as well
--- NOTE | 2024-03-08 22:56 | PC.NURSE ---
Attempted to call [facility] for more information on patient. No answer.
--- NOTE | 2024-03-08 23:00 | PC.NURSE ---
this rn assumed care of patient. this rn took patient report from Reanna Suarez.
[2024-03-08 23:01] LABS: Basophils Percent Auto 0.1 % (0.2-1.2); Hematocrit 29.9 % (42.0-52.0); Hemoglobin 8.9 g/dL (14.0-18.0); Immature Granulocyte Absolute 0.06 K/mm3 (0.00-0.031); Immature Granulocyte Percent A 0.4 % (0-0.5); Lymphocytes Absolute Auto 0.68 K/mm3 (0.9-3.2); Mean Corpuscular HGB Conc 29.8 g/dl (32-36); Mean Corpuscular Hemoglobin 25.5 pg (26-34); Mean Corpuscular Volume 85.7 fl (80-100); Mean Platelet Volume 9.7 fl (7.4-10.4); Monocytes Absolute Auto 0.4 K/mm3 (0.1-0.6); Monocytes Percent Auto 2.7 % (2.6-8.5); Neutrophils Absolute Auto 12.4 K/mm3 (1.3-6.7); Neutrophils Percent Auto 91.8 % (45.5-73.1); Platelet Count Result 241 k/mm3 (150-375); Red Blood Count 3.49 M/mm3 (4.6-6.20); Red Cell Distribution Width 21.7 % (11.5-14.5); White Blood Count 13.5 K/mm3 (4.5-10.0)
[2024-03-08 23:11] VITALS: BP 120/55; PULSE 86; RESP 20; O2SAT 99
[2024-03-08 23:16] LABS: Alanine Aminotransferase 22 U/L (6-50); Albumin Level 2.8 g/dL (3.5-5.1); Alkaline Phosphatase 130 U/L (38-126); Anion Gap 3 mmol/L (4-12); Aspartate Amino Transferase 24 U/L (17-59); Bilirubin,Total 0.5 mg/dL (0.2-1.3); Blood Urea Nitrogen 21 mg/dL (9-20); Calcium 9.2 mg/dL (8.4-10.2); Carbon Dioxide 30 mmol/L (22-30); Chloride 111 mmol/L (98-107); Estimated CRCL calculation 40 ml/min; Estimated Glomerular Filt Rate > 60; Glucose 135 mg/dL (65-110); Potassium 3.5 mmol/L (3.4-5.0); Sodium 144 mmol/L (137-145)
[2024-03-08 23:16] LABS: Appearance Urine Turbid (Clear); Bilirubin Urine Negative (Negative); Blood Urine Trace (Negative); Glucose Urine UA Negative (Negative); Ketones Urine Trace mg/dL (Negative); Leukocyte Esterase Ur 3+ LEU/UL (Negative); Nitrate Urine Negative (Negative); Protein Urine 4+ mg/dL (Negative); Specific Grav Ur 1.017 (1.001-1.035); Urobilinogen Urine 0.2 mg/dL (<2.0); pH Urine 8.5 (5.0-9.0)
[2024-03-08 23:18] LABS: Lactic Acid Reflex 2.1 mmol/L (0.7-2.0)
[2024-03-08 23:19] LABS: Color Urine Brown (Yellow)
[2024-03-08 23:22] LABS: Bacteria Urine 3+ /hpf
[2024-03-08 23:22] LABS: CRP 3.6 mg/dL (<1.0)
[2024-03-08 23:23] LABS: Squamous Epithelial Cell Urine Rare /hpf (Few); WBC Urine 31-50 /hpf (0-3)
[2024-03-08 23:28] LABS: Add Urine Microscopic? YES; Amorphous Sediment Urine Moderate
[2024-03-08 23:32] LABS: Platelet Estimate Adequate (Adequate)
[2024-03-08 23:33] LABS: Hypochromasia 1+; Poikilocytosis 1+; Schistocytes Rare
[2024-03-08] MEDS: SODIUM CHLORIDE 0.9% IV 1,000 ML 999 ML IV CONT (23:33)
--- NOTE | 2024-03-08 23:42 | PC.NURSE ---
this rn spoke with nasir, pt guardian who states pt is normally not able to answer questions. pt guardian also states that pt usually mumbles to communicate and sometimes pt is able to follow commands. pt has a hx of dementia.
[2024-03-09] VITALS (8 sets, daily range): BP systolic 102–129; BP diastolic 66–77; PULSE 74–100; RESP 12–20; TEMP 36.6–37; O2SAT 97–100; BMI 18.4
[2024-03-09] MEDS: SODIUM CHLORIDE 0.9% IV 500 ML 999 ML IV CONT (00:14)
[2024-03-09] MEDS: AMPICILLIN SULB 1.5 GM/NS 50ML 1.5 GM/50 ML VIAL IVPB (00:14)
--- NOTE | 2024-03-09 00:39 | PC.NURSE ---
this rn spoke with GEOVANNY Rawls from [facility] to give update on pt.
[2024-03-09] MEDS: SODIUM CHLORIDE 0.9% IV 1,000 ML 75 ML IV CONT ×2 (01:15→17:11)
[2024-03-09 01:32] LABS: Procalcitonin 0.1 ng/mL
[2024-03-09 02:07] LABS: Reflex Lactic Acid Yes or No Add Lactic
--- NOTE | 2024-03-09 02:31 | ADMGEN ---
This patient, Stewart La, was admitted to Medical Room 344-01. Patient/family oriented to hospital policies and general routines including ID bracelet, bed and alarms, visiting hours, pain management, procedures, bathroom and other care routines, personal items, smoking policy, room service/diet, and visiting hours. Information on how to activate the Rapid Response Team has been discussed. Patient/Family are encouraged to report perceived risks to care and to ask questions if they do not understand what they are told or what they should do.
--- NOTE | 2024-03-09 02:48 | PM.IMHP ---
H&P: HPI History of Present Illness Date/Time: 03/09/24 02:48 Chief Complaint: No urine output from catheter Narrative: 83-year-old male with past medical history of advanced dementia, normocytic anemia, hypothyroidism, essential hypertension, COPD nephrolithiasis, and BPH with chronic urinary retention with chronic Barry catheter who presented to the ER from [facility] via EMS due to decreased urine output from Barry catheter. The patient has been to our ER 7 times in November, 4 of which were due to dislodgement of the Barry catheter or recurrent urinary retention and to which were due to falls. Patient's Barry catheter initially been removed on February 15 and had to be replaced on the due to recurrent retention. At that time patient's urine culture grew out Enterococcus which was pansensitive. He had a repeat urine culture performed on the return visit that was negative. He was evaluated at that time due to worsening generalized weakness and increased falls. CT Imaging at that time demonstrated large right pleural effusion and right lower lobe atelectasis, subacute left rib fractures, 6 mm right upper lobe lung nodule, diffuse mesenteric edema, nonobstructive right nephrolithiasis, bladder stones and calcifications around the catheter balloon and rectal wall thickening may represent proctitis with mass not exclude. With chest x-ray at that time demonstrated improving edema/pneumonia and right pleural effusion. It appears patient was discharged back to [facility] facility without intervention as he did not have evidence of acute infection. Family for for the patient be transferred back to the facility. Today the patient was brought in the patient had no urine output in 24 hours. The staff at the residential was eventually able to get out 25 mL of dark brown urine. Patient was grabbing at the Barry catheter in grimacing. He was moaning and appeared to be in pain but could not verbalize. ER staff checked with the patient's family who stated that this was the patient's baseline that he would ground moan when asked questions but was not specifically able to answer questions. In the ER patient's Barry catheter was exchanged at which time nursing staff cot return of immediate 700 mL of urine output in greater than 1 L of urine output prior to leaving the ER. The patient's white count had increased from 10 up to 13.5 but hemoglobin remains stable. Patient did have mild lactic acidosis at 2.1 his BUN has slightly increased to 21. His CRP was mildly elevated at 3.6 and urine was brown in color turbid with 4+ protein trace ketones, 3+ esterase 3-5 RBCs and 31-50 wbc's with moderate sediment in 3+ bacteria urine was sent for culture and the patient was started on Unasyn due to patient's prior urine culture from 2 ER visits ago growing out pansensitive Enterococcus. Patient does have known history of bladder stones and nonobstructing nephrolithiasis. Patient had significant improvement in evidence of his discomfort after Barry catheter was exchanged. Patient was given 1 L fluid bolus and was started on gentle IV fluid hydration at 75 mL an hour. The patient is subsequently admitted for observation. At the time of my evaluation the patient was having intermittent episodes witnessed apnea while sleeping. He would wake up to loud verbal and noxious stimuli but would fall back asleep quickly. Patient did not follow commands or answer questions. Source of information is from various ER records, residential records in physician report. Extensive chart review was completed including multiple imaging studies from November through February of this year. Review of Systems Review of Systems: ROS unobtainable: Yes unobtainable due to medical condition (Dementia) [facility] Past Medical History Medical History (Updated 03/09/24 @ 03:27 by Amena Aviles, DO) Bladder stone BPH with urinary obstruction Chronic indwelling Barry catheter COPD (chronic obst
[2024-03-09 03:37] LABS: Lactic Acid 1.4 mmol/L (0.7-2.0)
[2024-03-09] MEDS: AMPICILLIN SULB 3 GM/NS 100 ML 3 GM/100 ML VIAL IVPB ×3 (05:03→17:11)
[2024-03-09] MEDS: CLOPIDOGREL BISULFATE 75 MG TABLET PO (08:49)
[2024-03-09] MEDS: TAMSULOSIN HCL 0.4 MG CAPSULE PO (08:49)
[2024-03-09] MEDS: METOPROLOL SUCCINATE EXT REL 12.5 MG TABCR PO ×2 (08:49→20:43)
[2024-03-09] MEDS: FINASTERIDE 5 MG TABLET PO (08:49)
[2024-03-09] MEDS: SERTRALINE HCL 25 MG TABLET PO (08:50)
[2024-03-09] MEDS: UMECLIDINIUM BROMIDE 62.5 MCG ELLIPTA 1 PUFF INHALATION (11:10)
[2024-03-09] MEDS: QUEtiapine FUMARATE 25 MG TABLET PO ×2 (12:04→20:45)
[2024-03-09] MEDS: PYRIDOXINE HCL 50 MG TABLET 100 MG PO (12:04)
[2024-03-09] MEDS: QUEtiapine FUMARATE 25 MG TABLET 50 MG PO ×2 (12:04→20:45)
--- NOTE | 2024-03-09 13:35 | PM.IMPN ---
Progress Note: A&P Assessment and Plan (1) UTI (urinary tract infection) due to urinary indwelling Barry catheter: Qualifiers: Indwelling urinary catheter type: indwelling urethral catheter Encounter type: initial encounter Qualified Code(s): T83.511A - Infection and inflammatory reaction due to indwelling urethral catheter, initial encounter; N39.0 - Urinary tract infection, site not specified Code(s): T83.511A - Infection and inflammatory reaction due to indwelling urethral catheter, initial encounter; N39.0 - Urinary tract infection, site not specified Status: Acute Assessment and Plan: Suspected urinary tract infection given elevated white count and in the setting of obstructed Barry catheter with abnormal urinalysis. Patient been placed on empiric antibiotic therapy with Unasyn is patient has previously grown out Enterococcus within the last month. Urine cultures pending. Blood culture pending. Adjust antibiotics to culture results. (2) Obstruction of Barry catheter: Qualifiers: Encounter type: initial encounter Qualified Code(s): T83.091A - Other mechanical complication of indwelling urethral catheter, initial encounter Code(s): T83.091A - Other mechanical complication of indwelling urethral catheter, initial encounter Status: Acute Assessment and Plan: Likely due to sediment possibly associated with acute infection. (3) BPH with urinary obstruction: Code(s): N40.1 - Benign prostatic hyperplasia with lower urinary tract symptoms; N13.8 - Other obstructive and reflux uropathy Status: Acute Assessment and Plan: Continue home Flomax and finasteride. (4) Chronic indwelling Barry catheter: Code(s): Z97.8 - Presence of other specified devices Status: Acute Assessment and Plan: See above (5) Pleural effusion on right: Code(s): J90 - Pleural effusion, not elsewhere classified Status: Acute Assessment and Plan: Chronic and asymptomatic. Not likely attributing to the patient's current admission. (6) Hypothyroidism: Qualifiers: Hypothyroidism type: unspecified Qualified Code(s): E03.9 - Hypothyroidism, unspecified Code(s): E03.9 - Hypothyroidism, unspecified Status: Acute Assessment and Plan: Continue home levothyroxine (7) Dementia: Qualifiers: Dementia type: vascular dementia Dementia severity: severe Dementia behavioral or psychological symptom: with other behavioral disturbance Qualified Code(s): F01.C18 - Vascular dementia, severe, with other behavioral disturbance Code(s): F03.90 - Unspecified dementia, unspecified severity, without behavioral disturbance, psychotic disturbance, mood disturbance, and anxiety Status: Acute Assessment and Plan: Continue home psychiatric and depression medications. Avoid additional sedating medications. Placed on fall precautions. 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 When I examined the patient he was able to be awoken. He was unable to answer questions but was able to eat with assistance. It appears that patient's baseline is A&O times 0. Plan to continue IV antibiotics. Urine cultures pending. Exam Narrative: GENERAL: Comfortable, no acute distress, HENMT: moist mucous membranes EYES: EOM intact b/l NECK: no lymphadenopathy RESPIRATORY: clear to auscultation, no increased respiratory effort CARDIO: Regular rate and rhythm GI: soft, nontender, bowel sounds present SKIN/EXTREMITIES: no rashes, no edema, no redness or tenderness NEURO: A&O x0 Objective Data Vital Signs Vital Signs: Vital Signs - 24 hr 03/08/24 21:58 03/08/24 22:18 03/08/24 23:11 Temperature 97.1 F L Pulse Rate 97 95 86 Respiratory Ra
--- NOTE | 2024-03-09 14:37 | PCCCNOTE ---
On 03/09/24, the student, [Cynthia Roberts], provided care and completed [facility] documentation on this patient. I have reviewed the student's documentation and agree with the findings.
[2024-03-09] MEDS: ATORVASTATIN 40 MG TABLET 80 MG PO (20:45)
[2024-03-10] MEDS: AMPICILLIN SULB 3 GM/NS 100 ML 3 GM/100 ML VIAL IVPB ×4 (00:06→17:24)
[2024-03-10 04:56] VITALS: BP 112/63; PULSE 91; RESP 14; TEMP 36.4; O2SAT 95
[2024-03-10 05:44] LABS: Hematocrit 25.5 % (42.0-52.0); Hemoglobin 7.5 g/dL (14.0-18.0); Mean Corpuscular HGB Conc 29.4 g/dl (32-36); Mean Corpuscular Hemoglobin 25.7 pg (26-34); Mean Corpuscular Volume 87.3 fl (80-100); Platelet Count Result 182 k/mm3 (150-375); Red Blood Count 2.92 M/mm3 (4.6-6.20); Red Cell Distribution Width 21.6 % (11.5-14.5); White Blood Count 9.3 K/mm3 (4.5-10.0)
[2024-03-10 05:58] LABS: Anion Gap 0 mmol/L (4-12); Blood Urea Nitrogen 12 mg/dL (9-20); Calcium 8.4 mg/dL (8.4-10.2); Carbon Dioxide 27 mmol/L (22-30); Chloride 118 mmol/L (98-107); Estimated CRCL calculation 54 ml/min; Estimated Glomerular Filt Rate > 60; Glucose 80 mg/dL (65-110); Potassium 2.8 mmol/L (3.4-5.0); Sodium 145 mmol/L (137-145)
[2024-03-10] MEDS: POTASSIUM CHLORIDE 20 MEQ ER TABLET 40 MEQ PO (06:13)
[2024-03-10] MEDS: LEVOTHYROXINE SODIUM 125 MCG TABLET PO (06:14)
[2024-03-10] MEDS: POTASSIUM CHLORIDE INJ 40 MEQ in SODIUM CHLORIDE 0.9% IV 500 ML 130 MEQ IVPB (06:22)
[2024-03-10 06:26] LABS: Magnesium 1.7 mg/dL (1.6-2.3)
[2024-03-10] MEDS: SODIUM CHLORIDE 0.9% IV 1,000 ML 75 ML IV CONT (06:35)
[2024-03-10 08:50] LABS: Iron 17 ug/dL (49-181)
[2024-03-10 09:00] LABS: Percent Iron Saturation 9 % (20-50)
[2024-03-10] MEDS: CLOPIDOGREL BISULFATE 75 MG TABLET PO (09:09)
[2024-03-10] MEDS: QUEtiapine FUMARATE 25 MG TABLET PO ×2 (09:09→20:27)
[2024-03-10] MEDS: PYRIDOXINE HCL 50 MG TABLET 100 MG PO (09:09)
[2024-03-10 09:10] VITALS: PULSE 76; RESP 14; O2SAT 95
[2024-03-10] MEDS: QUEtiapine FUMARATE 25 MG TABLET 50 MG PO ×2 (09:10→20:27)
[2024-03-10] MEDS: TAMSULOSIN HCL 0.4 MG CAPSULE PO (09:10)
[2024-03-10] MEDS: SERTRALINE HCL 25 MG TABLET PO (09:10)
[2024-03-10] MEDS: FINASTERIDE 5 MG TABLET PO (09:10)
[2024-03-10] MEDS: METOPROLOL SUCCINATE EXT REL 12.5 MG TABCR PO ×2 (09:10→20:27)
[2024-03-10 09:58] LABS: Folic Acid 4.7 ng/mL (2.76->20)
--- NOTE | 2024-03-10 11:43 | PM.IMPN ---
Progress Note: A&P Assessment and Plan (1) UTI (urinary tract infection) due to urinary indwelling Barry catheter: Qualifiers: Encounter type: initial encounter Indwelling urinary catheter type: indwelling urethral catheter Qualified Code(s): T83.511A - Infection and inflammatory reaction due to indwelling urethral catheter, initial encounter; N39.0 - Urinary tract infection, site not specified Code(s): T83.511A - Infection and inflammatory reaction due to indwelling urethral catheter, initial encounter; N39.0 - Urinary tract infection, site not specified Status: Acute Assessment and Plan: Suspected urinary tract infection given elevated white count and in the setting of obstructed Barry catheter with abnormal urinalysis. Patient been placed on empiric antibiotic therapy with Unasyn is patient has previously grown out Enterococcus within the last month. Urine culture final, mixed genital estrdaa. Blood culture pending. Adjust antibiotics to culture results. (2) Pneumonia: Code(s): J18.9 - Pneumonia, unspecified organism Status: Acute Assessment and Plan: Concern for infection and UC came back no growth. CXR concerning for PNA but not treated on 03/02/24. Repeat CXR again showing PNA (personal read) Rocephin started on 03/08. Add Azithromycin on 03/10 Albuterol PRN Mucinex PRN (3) Anemia: Code(s): D64.9 - Anemia, unspecified Status: Acute Assessment and Plan: Patient presented with a hemoglobin of 8.9. A couple weeks ago patient's hemoglobin was 8.5. Patient received labs over 24 hours and repeat labs showed a hemoglobin of 7.5. Anemia workup with iron, ferritin, TIBC, % saturation, TSH, B12 and folate ordered. Patient with low iron and % saturation Iron infusion x3 Continue to monitor H&H. (4) Obstruction of Barry catheter: Qualifiers: Encounter type: initial encounter Qualified Code(s): T83.091A - Other mechanical complication of indwelling urethral catheter, initial encounter Code(s): T83.091A - Other mechanical complication of indwelling urethral catheter, initial encounter Status: Acute Assessment and Plan: Likely due to sediment possibly associated with acute infection. (5) BPH with urinary obstruction: Code(s): N40.1 - Benign prostatic hyperplasia with lower urinary tract symptoms; N13.8 - Other obstructive and reflux uropathy Status: Acute Assessment and Plan: Continue home Flomax and finasteride. (6) Chronic indwelling Barry catheter: Code(s): Z97.8 - Presence of other specified devices Status: Acute Assessment and Plan: See above (7) Pleural effusion on right: Code(s): J90 - Pleural effusion, not elsewhere classified Status: Acute Assessment and Plan: Chronic and asymptomatic. Not likely attributing to the patient's current admission. (8) Hypothyroidism: Qualifiers: Hypothyroidism type: unspecified Qualified Code(s): E03.9 - Hypothyroidism, unspecified Code(s): E03.9 - Hypothyroidism, unspecified Status: Acute Assessment and Plan: Continue home levothyroxine (9) Dementia: Qualifiers: Dementia behavioral or psychological symptom: with other behavioral disturbance Dementia severity: severe Dementia type: vascular dementia Qualified Code(s): F01.C18 - Vascular dementia, severe, with other behavioral disturbance Code(s): F03.90 - Unspecified dementia, unspecified severity, without behavioral disturbance, psychotic disturbance, mood disturbance, and anxiety Status: Acute Assessment and Plan: Continue home psychiatric and depression medications. Avoid additional sedating medications. Placed on fall precautions. Plan Patient not eating well and pocketing food: swallow eval was ordered. Subjective Date/time seen:
[2024-03-10] MEDS: UMECLIDINIUM BROMIDE 62.5 MCG ELLIPTA 1 PUFF INHALATION (11:52)
--- NOTE | 2024-03-10 12:16 | PCSTNOTE ---
Bedside swallowing evaluation completed. Report of a witnessed choking episode. Per nurse patient has been unable to swallow pills. Patient positioned upright with head of bed elevated. Unable to follow commands. Trials of thin liquid by spoon and cup were followed by coughing. Vocal quality could not be assessed due to patient not responding to most questions. Trial of pureed consistency by spoon, noted increased oral transit time and delayed triggering of swallow, but no signs of aspiration (no coughing or shortness of breath). Moderately thickened liquids given by straw were also within normal limits, no signs of aspiration observed. Recommendation: pureed diet with moderately thickened liquids, no straws, crush pills and place in applesauce or yogurt. A modified barium swallow study could be completed to determine more specific details regarding aspiration, however, at this point in time patient's altered mental status would need to be taken into consideration. Patient would need to be able to follow simple instructions to participate in MBSS. No further speech therapy is recommended. Thank you for the referral of this patient.
[2024-03-10] MEDS: IRON SUCROSE COMPLEX 500 MG in SODIUM CHLORIDE 0.9% IV 250 ML 79 MG IVPB (12:49)
[2024-03-10 12:59] LABS: Anion Gap 2 mmol/L (4-12); Blood Urea Nitrogen 12 mg/dL (9-20); Calcium 8.9 mg/dL (8.4-10.2); Carbon Dioxide 23 mmol/L (22-30); Chloride 122 mmol/L (98-107); Estimated CRCL calculation 62 ml/min; Estimated Glomerular Filt Rate > 60; Glucose 115 mg/dL (65-110); Potassium 3.7 mmol/L (3.4-5.0); Sodium 147 mmol/L (137-145)
[2024-03-10 14:05] VITALS: BP 120/50; PULSE 81; RESP 18; TEMP 36.5; O2SAT 96
[2024-03-10] MEDS: DEXTROSE 5%/LACTATED RINGERS 1,000 ML 75 ML IV CONT ×2 (14:17→20:31)
[2024-03-10 17:50] LABS: Free T4 Free Thyroxine Reflex 1.22 ng/dL (0.78-2.19)
[2024-03-10] MEDS: AZITHROMYCIN 500 MG/NS 250 ML 500 MG/250 ML BAG 250 MG IVPB (18:30)
[2024-03-10 19:09] LABS: Total Triiodothyronine (T3) 0.58 NG/ML (0.97-1.69)
[2024-03-10] MEDS: ATORVASTATIN 40 MG TABLET 80 MG PO (20:26)
[2024-03-10 20:27] VITALS: PULSE 72
[2024-03-10 22:17] VITALS: BP 145/62; PULSE 84; RESP 16; TEMP 37.1; O2SAT 95
[2024-03-11] MEDS: AMPICILLIN SULB 3 GM/NS 100 ML 3 GM/100 ML VIAL IVPB ×3 (01:16→12:33)
[2024-03-11] MEDS: LEVOTHYROXINE SODIUM 125 MCG TABLET PO (05:18)
[2024-03-11 05:27] LABS: Hematocrit 26.5 % (42.0-52.0); Hemoglobin 7.8 g/dL (14.0-18.0); Mean Corpuscular HGB Conc 29.4 g/dl (32-36); Mean Corpuscular Hemoglobin 26.2 pg (26-34); Mean Corpuscular Volume 88.9 fl (80-100); Mean Platelet Volume 9.6 fl (7.4-10.4); Platelet Count Result 183 k/mm3 (150-375); Red Blood Count 2.98 M/mm3 (4.6-6.20); Red Cell Distribution Width 21.8 % (11.5-14.5); White Blood Count 8.4 K/mm3 (4.5-10.0)
[2024-03-11 06:47] VITALS: BP 135/58; PULSE 83; RESP 16; TEMP 36.3; O2SAT 94
[2024-03-11] MEDS: UMECLIDINIUM BROMIDE 62.5 MCG ELLIPTA 1 PUFF INHALATION (08:05)
[2024-03-11 08:07] VITALS: O2SAT 95
[2024-03-11 08:40] LABS: Anion Gap -2 mmol/L (4-12); Blood Urea Nitrogen 10 mg/dL (9-20); Calcium 8.8 mg/dL (8.4-10.2); Carbon Dioxide 30 mmol/L (22-30); Chloride 119 mmol/L (98-107); Estimated CRCL calculation 62 ml/min; Estimated Glomerular Filt Rate > 60; Glucose 92 mg/dL (65-110); Potassium 3.3 mmol/L (3.4-5.0); Sodium 147 mmol/L (137-145)
[2024-03-11] MEDS: AZITHROMYCIN 500 MG/NS 250 ML 500 MG/250 ML BAG 250 MG IVPB (09:37)
[2024-03-11] MEDS: METOPROLOL SUCCINATE EXT REL 12.5 MG TABCR PO ×2 (09:41→20:53)
[2024-03-11] MEDS: QUEtiapine FUMARATE 25 MG TABLET 50 MG PO ×2 (09:41→20:56)
[2024-03-11] MEDS: PYRIDOXINE HCL 50 MG TABLET 100 MG PO (09:41)
[2024-03-11] MEDS: FINASTERIDE 5 MG TABLET PO (09:41)
[2024-03-11] MEDS: SERTRALINE HCL 25 MG TABLET PO (09:41)
[2024-03-11] MEDS: CLOPIDOGREL BISULFATE 75 MG TABLET PO (09:41)
[2024-03-11] MEDS: TAMSULOSIN HCL 0.4 MG CAPSULE PO (09:41)
[2024-03-11] MEDS: QUEtiapine FUMARATE 25 MG TABLET PO ×2 (09:41→20:55)
[2024-03-11] MEDS: DEXTROSE 5%/LACTATED RINGERS 1,000 ML 75 ML IV CONT (09:48)
[2024-03-11 11:33] VITALS: BMI 18.4
[2024-03-11] MEDS: IRON SUCROSE COMPLEX 500 MG in SODIUM CHLORIDE 0.9% IV 250 ML 79 MG IVPB (11:34)
[2024-03-11] MEDS: POTASSIUM CHLORIDE 20 MEQ ER TABLET 40 MEQ PO (12:32)
--- NOTE | 2024-03-11 13:58 | PM.IMPN ---
Progress Note: A&P Assessment and Plan (1) Pneumonia: Code(s): J18.9 - Pneumonia, unspecified organism Status: Acute Assessment and Plan: Concern for infection and UC came back no growth. CXR concerning for PNA but not treated on 03/02/24. Repeat CXR again showing PNA (personal read) Rocephin started on 03/08. Add Azithromycin on 03/10 Albuterol PRN, Mucinex PRN Mental status improving with therapy. Consider discharge tomorrow if he continues to improve. (2) Anemia: Code(s): D64.9 - Anemia, unspecified Status: Acute Assessment and Plan: Patient presented with a hemoglobin of 8.9. A couple weeks ago patient's hemoglobin was 8.5. Patient received labs over 24 hours and repeat labs showed a hemoglobin of 7.5. Anemia workup with iron, ferritin, TIBC, % saturation, TSH, B12 and folate ordered. Patient with low iron and % saturation Iron infusion x3 Continue to monitor H&H. (3) UTI (urinary tract infection) due to urinary indwelling Barry catheter: Qualifiers: Indwelling urinary catheter type: indwelling urethral catheter Encounter type: initial encounter Qualified Code(s): T83.511A - Infection and inflammatory reaction due to indwelling urethral catheter, initial encounter; N39.0 - Urinary tract infection, site not specified Code(s): T83.511A - Infection and inflammatory reaction due to indwelling urethral catheter, initial encounter; N39.0 - Urinary tract infection, site not specified Status: Ruled-out Assessment and Plan: Suspected urinary tract infection given elevated white count and in the setting of obstructed Barry catheter with abnormal urinalysis. Patient been placed on empiric antibiotic therapy with Unasyn is patient has previously grown out Enterococcus within the last month. Urine culture final, mixed genital estrada. Blood culture NGTD. (4) Obstruction of Barry catheter: Qualifiers: Encounter type: initial encounter Qualified Code(s): T83.091A - Other mechanical complication of indwelling urethral catheter, initial encounter Code(s): T83.091A - Other mechanical complication of indwelling urethral catheter, initial encounter Status: Chronic Assessment and Plan: Likely due to sediment possibly associated with acute infection. (5) BPH with urinary obstruction: Code(s): N40.1 - Benign prostatic hyperplasia with lower urinary tract symptoms; N13.8 - Other obstructive and reflux uropathy Status: Chronic Assessment and Plan: Continue home Flomax and finasteride. (6) Chronic indwelling Barry catheter: Code(s): Z97.8 - Presence of other specified devices Status: Chronic Assessment and Plan: See above (7) Pleural effusion on right: Code(s): J90 - Pleural effusion, not elsewhere classified Status: Acute Assessment and Plan: Chronic and asymptomatic. Not likely attributing to the patient's current admission. (8) Hypothyroidism: Qualifiers: Hypothyroidism type: unspecified Qualified Code(s): E03.9 - Hypothyroidism, unspecified Code(s): E03.9 - Hypothyroidism, unspecified Status: Chronic Assessment and Plan: Continue home levothyroxine (9) Dementia: Qualifiers: Dementia type: vascular dementia Dementia severity: severe Dementia behavioral or psychological symptom: with other behavioral disturbance Qualified Code(s): F01.C18 - Vascular dementia, severe, with other behavioral disturbance Code(s): F03.90 - Unspecified dementia, unspecified severity, without behavioral disturbance, psychotic disturbance, mood disturbance, and anxiety Status: Chronic Assessment and Plan: Continue home psychiatric and depression medications. Avoid additional sedating medications. Placed on fall precautions. Plan Patient not eating
[2024-03-11 14:00] VITALS: BP 128/61; PULSE 80; RESP 18; TEMP 36.6; O2SAT 99
[2024-03-11 20:53] VITALS: PULSE 74
[2024-03-11] MEDS: ATORVASTATIN 40 MG TABLET 80 MG PO (20:53)
[2024-03-11] MEDS: AMOXICILLIN/CLAVULANATE K 875-125 MG TAB 1 TABLET PO (20:54)
[2024-03-11 22:00] VITALS: BP 133/68; PULSE 74; RESP 16; TEMP 36.6; O2SAT 94
[2024-03-12] MEDS: DEXTROSE 5%/LACTATED RINGERS 1,000 ML 75 ML IV CONT (05:54)
[2024-03-12] MEDS: LEVOTHYROXINE SODIUM 125 MCG TABLET PO (05:55)
[2024-03-12 06:00] VITALS: BP 139/66; PULSE 77; RESP 16; TEMP 36.1; O2SAT 95
[2024-03-12 06:09] LABS: Hematocrit 25.6 % (42.0-52.0); Hemoglobin 7.3 g/dL (14.0-18.0); Mean Corpuscular HGB Conc 28.5 g/dl (32-36); Mean Corpuscular Hemoglobin 25.5 pg (26-34); Mean Corpuscular Volume 89.5 fl (80-100); Mean Platelet Volume 9.4 fl (7.4-10.4); Platelet Count Result 167 k/mm3 (150-375); Red Blood Count 2.86 M/mm3 (4.6-6.20); Red Cell Distribution Width 21.3 % (11.5-14.5)
[2024-03-12 06:19] LABS: Anion Gap 1 mmol/L (4-12); Blood Urea Nitrogen 10 mg/dL (9-20); Calcium 9.2 mg/dL (8.4-10.2); Carbon Dioxide 27 mmol/L (22-30); Chloride 118 mmol/L (98-107); Estimated CRCL calculation 62 ml/min; Estimated Glomerular Filt Rate > 60; Glucose 103 mg/dL (65-110); Potassium 3.2 mmol/L (3.4-5.0); Sodium 146 mmol/L (137-145)
[2024-03-12] MEDS: UMECLIDINIUM BROMIDE 62.5 MCG ELLIPTA 1 PUFF INHALATION (08:31)
[2024-03-12 08:32] VITALS: O2SAT 95
--- NOTE | 2024-03-12 09:23 | P.CONGI_ITS ---
I, Jesús Jackman MD, have provided a substantive portion of the care of this patient and discussed the patient with my Nurse Practitioner. I have reviewed any new relevant radiographic and laboratory results including medications. I agree with her documentation as noted below.?I personally performed the medical decision making and much of the history and exam for this encounter. briefly, he has advanced dementia and history mostly from records. He has complication with BPH and Barry, here for decrease urine output and UTI, also found to have pneumonia, anemia with hgb mid 7, CT scan noted possible proctitis and primary asked to evaluate patient. Plan is to do colonoscopy probably in 2 days, hold plavix for now and assess if colon is source of anemia. Assessment and Plan Assessment and plan (1) Abnormal digestive system diagnostic imaging: Code(s): R93.3 - Abnormal findings on diagnostic imaging of other parts of digestive tract Status: Acute (2) Iron deficiency anemia: Qualifiers: Iron deficiency anemia type: chronic blood loss Qualified Code(s): D50.0 - Iron deficiency anemia secondary to blood loss (chronic) Code(s): D50.9 - Iron deficiency anemia, unspecified Status: Acute (3) Hypernatremia: Code(s): E87.0 - Hyperosmolality and hypernatremia Status: Acute (4) Hypokalemia: Code(s): E87.6 - Hypokalemia Status: Acute (5) Proctitis: Code(s): K62.89 - Other specified diseases of anus and rectum Status: Acute Plan 1) Abnormal imaging digestive/proctitis: Patient with advanced dementia unable to provide any EGD or colonoscopy history. Patient with multiple ER visits since November for indwelling Barry catheter complications. During 1 of these workups he had a CT of 03/02/2024 and was noted to have rectal wall thickening which may represent colitis but rectal mass cannot be excluded. No prior abdominal imaging for comparison. CRP elevated at 3.6. Patient currently on Plavix and was on Plavix prior to admission. * Continue antibiotics * Stool studies ordered to R/O infectious etiology * Depending on hospital course and if hospitalist is ok with holding Plavix for a minimum of 3 days and electrolytes are corrected we can consider inpatient colonoscopy 2) Iron deficiency anemia: Likely mixed etiology. Labs show HGB 7, HCT 26, platelets 167, iron 17, TIBC 182, iron saturation 9%, ferritin 75. B12 folate normal. No signs of active GI bleeding noted. * Patient receiving IV iron, continue * Primary care team to continue monitoring H/H and transfuse as needed to keep Hgb > 7 3) Hypernatremia/hypokalemia: Labs today show sodium 146 and potassium at 3.2. * Primary care team to monitor and correct prior to possible colonoscopy GI Consult Note Consult date/time: 03/12/24 09:23 Reason for consult: Anemia and possible rectal mass HPI: Stewart La is a 83 year old male With past medical surgical history including advanced dementia, hypothyroidism, HTN, COPD, BPH with urinary retention and chronic Barry catheter. Patient presented to the emergency room from [facility] for decreased urine output. Since the beginning of the year the patient has been seen 7 times for Barry catheter complications. Patient with severe dementia so unable to provide any subjective information For past medical history ENDOSCOPY HISTORY: Past EGD and colonoscopy history unknown IMAGING: CT chest/abd/pelvis w/o contrast 03/02/2024 CHEST: No thoracic aortic injury, w
--- NOTE | 2024-03-12 09:23 | WPDGICN ---
Assessment and Plan Assessment and plan (1) Abnormal digestive system diagnostic imaging: Code(s): R93.3 - Abnormal findings on diagnostic imaging of other parts of digestive tract Status: Acute (2) Iron deficiency anemia: Qualifiers: Iron deficiency anemia type: chronic blood loss Qualified Code(s): D50.0 - Iron deficiency anemia secondary to blood loss (chronic) Code(s): D50.9 - Iron deficiency anemia, unspecified Status: Acute (3) Hypernatremia: Code(s): E87.0 - Hyperosmolality and hypernatremia Status: Acute (4) Hypokalemia: Code(s): E87.6 - Hypokalemia Status: Acute (5) Proctitis: Code(s): K62.89 - Other specified diseases of anus and rectum Status: Acute Plan 1) Abnormal imaging digestive/proctitis: Patient with advanced dementia unable to provide any EGD or colonoscopy history. Patient with multiple ER visits since November for indwelling Barry catheter complications. During 1 of these workups he had a CT of 03/02/2024 and was noted to have rectal wall thickening which may represent colitis but rectal mass cannot be excluded. No prior abdominal imaging for comparison. CRP elevated at 3.6. Patient currently on Plavix and was on Plavix prior to admission. Continue antibiotics Stool studies ordered to R/O infectious etiology Depending on hospital course and if hospitalist is ok with holding Plavix for a minimum of 3 days and electrolytes are corrected we can consider inpatient colonoscopy 2) Iron deficiency anemia: Likely mixed etiology. Labs show HGB 7, HCT 26, platelets 167, iron 17, TIBC 182, iron saturation 9%, ferritin 75. B12 folate normal. No signs of active GI bleeding noted. Patient receiving IV iron, continue Primary care team to continue monitoring H/H and transfuse as needed to keep Hgb > 7 3) Hypernatremia/hypokalemia: Labs today show sodium 146 and potassium at 3.2. Primary care team to monitor and correct prior to possible colonoscopy GI Consult Note Consult date/time: 03/12/24 09:23 Reason for consult: Anemia and possible rectal mass HPI: Stewart La is a 83 year old male With past medical surgical history including advanced dementia, hypothyroidism, HTN, COPD, BPH with urinary retention and chronic Barry catheter. Patient presented to the emergency room from [place] for decreased urine output. Since the beginning of the year the patient has been seen 7 times for Barry catheter complications. Patient with severe dementia so unable to provide any subjective information For past medical history ENDOSCOPY HISTORY: Past EGD and colonoscopy history unknown IMAGING: CT chest/abd/pelvis w/o contrast 03/02/2024 CHEST: No thoracic aortic injury, within the limits of noncontrast examination. Moderate atherosclerotic calcifications. No mediastinal hematoma.? No pericardial effusion. Heavy coronary artery calcification. Aortic valve calcification. No acute lung injury. Right lower lobe consolidation, likely compressive atelectasis. Sub six millimeter right upper lobe nodule. No pneumothorax. Large volume right pleural fluid collection, mostly simple density with small volume layering hyperdense material. ABDOMEN/PELVIS: No solid organ injury. Simple right renal cysts. 9 mm right midpole calcification. No evidence of bowel or mesenteric injury. Mild diffuse mesenteric edema. Scattered diverticuli without diverticulosis. No free fluid or free air. No retroperitoneal hematoma. Atherosclerotic calcifications. Pelvic contents are atraumatic. Urinary bladder decompressed by Barry catheter. Multiple urinary bladder calcifications. Rectal wall thickening. MUSCULOSKELETAL: No acute fracture. Subacute left lateral ninth and posterior 12th rib fractures. No fracture or traumatic malalignment of the thoracic or lumbar spine. IMPRESSION: L
[2024-03-12] MEDS: SERTRALINE HCL 25 MG TABLET PO (10:37)
[2024-03-12] MEDS: PYRIDOXINE HCL 50 MG TABLET 100 MG PO (10:37)
[2024-03-12] MEDS: AMOXICILLIN/CLAVULANATE K 875-125 MG TAB 1 TABLET PO ×2 (10:37→20:36)
[2024-03-12] MEDS: AZITHROMYCIN 250 MG TABLET 500 MG PO (10:37)
[2024-03-12] MEDS: QUEtiapine FUMARATE 25 MG TABLET PO ×2 (10:37→20:36)
[2024-03-12] MEDS: TAMSULOSIN HCL 0.4 MG CAPSULE PO (10:37)
[2024-03-12] MEDS: CLOPIDOGREL BISULFATE 75 MG TABLET PO (10:37)
[2024-03-12 10:38] VITALS: PULSE 100
[2024-03-12] MEDS: FINASTERIDE 5 MG TABLET PO (10:38)
[2024-03-12] MEDS: METOPROLOL SUCCINATE EXT REL 12.5 MG TABCR PO ×2 (10:38→20:36)
[2024-03-12] MEDS: IRON SUCROSE COMPLEX 500 MG in SODIUM CHLORIDE 0.9% IV 250 ML 79 MG IVPB (10:43)
[2024-03-12] MEDS: QUEtiapine FUMARATE 25 MG TABLET 50 MG PO ×2 (10:45→20:36)
--- NOTE | 2024-03-12 13:26 | P.CDI_ITS ---
CDI Query Clarification Request BMI 18.4 Nutritional Diagnostic Statement Severe protein calorie malnutrition as related to inadequate protein- energy intake with increased protein energy needs in setting of chronic disease as evidenced by minimal oral intake for >1-2 months; severe subcutaneous fat loss (orbital fat pads) and severe muscle wasting (temporalis). Please refer to the comprehensive nutrition assessment for further information. Please clarify severity of protein calorie malnutrition if known: * Mild * Moderate * Severe * Other/Unspecified
[2024-03-12 14:27] VITALS: BP 124/66; PULSE 71; RESP 16; TEMP 36.2; O2SAT 98
--- NOTE | 2024-03-12 15:11 | PM.IMPN ---
Progress Note: A&P Assessment and Plan (1) Pneumonia: Code(s): J18.9 - Pneumonia, unspecified organism Status: Acute Assessment and Plan: Concern for infection and UC came back no growth. CXR concerning for PNA but not treated on 03/02/24. Repeat CXR again showing PNA (personal read) Rocephin started on 03/08, then transition to Augmentin on 03/11 Azithromycin on 03/10 Albuterol PRN, Mucinex PRN Mental status improving with therapy. Consider discharge tomorrow if he continues to improve. (2) Anemia: Code(s): D64.9 - Anemia, unspecified Status: Acute Assessment and Plan: Patient presented with a hemoglobin of 8.9. A couple weeks ago patient's hemoglobin was 8.5. Patient received labs over 24 hours and repeat labs showed a hemoglobin of 7.5. Anemia workup with iron, ferritin, TIBC, % saturation, TSH, B12 and folate ordered. Patient with low iron and % saturation Iron infusion x3 Continue to monitor H&H. CT of the chest abdomen pelvis on 03/02/2024 showed rectal wall thickening. Mass not excluded. Could be the cause of patient's anemia. Okay to hold Plavix for 3 days for colonoscopy. (3) UTI (urinary tract infection) due to urinary indwelling Barry catheter: Qualifiers: Encounter type: initial encounter Indwelling urinary catheter type: indwelling urethral catheter Qualified Code(s): T83.511A - Infection and inflammatory reaction due to indwelling urethral catheter, initial encounter; N39.0 - Urinary tract infection, site not specified Code(s): T83.511A - Infection and inflammatory reaction due to indwelling urethral catheter, initial encounter; N39.0 - Urinary tract infection, site not specified Status: Ruled-out Assessment and Plan: Suspected urinary tract infection given elevated white count and in the setting of obstructed Barry catheter with abnormal urinalysis. Patient been placed on empiric antibiotic therapy with Unasyn is patient has previously grown out Enterococcus within the last month. Urine culture final, mixed genital estrada. Blood culture NGTD. (4) Obstruction of Barry catheter: Qualifiers: Encounter type: initial encounter Qualified Code(s): T83.091A - Other mechanical complication of indwelling urethral catheter, initial encounter Code(s): T83.091A - Other mechanical complication of indwelling urethral catheter, initial encounter Status: Chronic Assessment and Plan: Likely due to sediment possibly associated with acute infection. (5) BPH with urinary obstruction: Code(s): N40.1 - Benign prostatic hyperplasia with lower urinary tract symptoms; N13.8 - Other obstructive and reflux uropathy Status: Chronic Assessment and Plan: Continue home Flomax and finasteride. (6) Chronic indwelling Barry catheter: Code(s): Z97.8 - Presence of other specified devices Status: Chronic Assessment and Plan: See above (7) Pleural effusion on right: Code(s): J90 - Pleural effusion, not elsewhere classified Status: Acute Assessment and Plan: Chronic and asymptomatic. Not likely attributing to the patient's current admission. (8) Hypothyroidism: Qualifiers: Hypothyroidism type: unspecified Qualified Code(s): E03.9 - Hypothyroidism, unspecified Code(s): E03.9 - Hypothyroidism, unspecified Status: Chronic Assessment and Plan: Continue home levothyroxine (9) Dementia: Qualifiers: Dementia behavioral or psychological symptom: with other behavioral disturbance Dementia severity: severe Dementia type: vascular dementia Qualified Code(s): F01.C18 - Vascular dementia, severe, with other behavioral disturbance Code(s): F03.90 - Unspecified dementia, unspecified severity, without behavioral disturbance, psychotic disturbance, mood disturbance, an
[2024-03-12] MEDS: POTASSIUM CHLORIDE 20 MEQ PACKET (FOR LIQUID) 40 MEQ PO (16:32)
[2024-03-12 20:35] VITALS: BP 141/70; PULSE 74; RESP 20; TEMP 36.4; O2SAT 95
[2024-03-12 20:36] VITALS: PULSE 77
[2024-03-12] MEDS: ATORVASTATIN 40 MG TABLET 80 MG PO (20:36)
[2024-03-12] MEDS: ACETAMINOPHEN 325 MG TABLET 650 MG PO (20:39)
[2024-03-13] MEDS: LEVOTHYROXINE SODIUM 125 MCG TABLET PO (04:58)
[2024-03-13 05:06] VITALS: BP 123/74; PULSE 60; RESP 20; TEMP 36.7; O2SAT 98
[2024-03-13 05:47] LABS: Hematocrit 27.3 % (42.0-52.0); Hemoglobin 7.6 g/dL (14.0-18.0); Mean Corpuscular HGB Conc 27.8 g/dl (32-36); Mean Corpuscular Volume 93.5 fl (80-100); Mean Platelet Volume 10.1 fl (7.4-10.4); Platelet Count Result 175 k/mm3 (150-375); Red Blood Count 2.92 M/mm3 (4.6-6.20); Red Cell Distribution Width 21.2 % (11.5-14.5); White Blood Count 6.6 K/mm3 (4.5-10.0)
[2024-03-13 06:17] LABS: Anion Gap 3 mmol/L (4-12); Blood Urea Nitrogen 9 mg/dL (9-20); Carbon Dioxide 23 mmol/L (22-30); Chloride 115 mmol/L (98-107); Estimated CRCL calculation 73 ml/min; Estimated Glomerular Filt Rate > 60; Glucose 73 mg/dL (65-110); Potassium 3.8 mmol/L (3.4-5.0); Sodium 141 mmol/L (137-145)
[2024-03-13] MEDS: UMECLIDINIUM BROMIDE 62.5 MCG ELLIPTA 1 PUFF INHALATION (08:08)
[2024-03-13 08:13] VITALS: O2SAT 96
[2024-03-13] MEDS: AZITHROMYCIN 250 MG TABLET 500 MG PO (09:06)
[2024-03-13] MEDS: QUEtiapine FUMARATE 25 MG TABLET PO ×2 (09:06→21:12)
[2024-03-13] MEDS: PYRIDOXINE HCL 50 MG TABLET 100 MG PO (09:06)
[2024-03-13] MEDS: QUEtiapine FUMARATE 25 MG TABLET 50 MG PO ×2 (09:06→21:12)
[2024-03-13 09:07] VITALS: PULSE 66
[2024-03-13] MEDS: TAMSULOSIN HCL 0.4 MG CAPSULE PO (09:07)
[2024-03-13] MEDS: AMOXICILLIN/CLAVULANATE K 875-125 MG TAB 1 TABLET PO ×2 (09:07→21:12)
[2024-03-13] MEDS: SERTRALINE HCL 25 MG TABLET PO (09:07)
[2024-03-13] MEDS: METOPROLOL SUCCINATE EXT REL 12.5 MG TABCR PO ×2 (09:07→21:11)
[2024-03-13] MEDS: FINASTERIDE 5 MG TABLET PO (09:07)
--- NOTE | 2024-03-13 09:37 | PM.IMPN ---
Progress Note: A&P Assessment and Plan (1) Severe protein-calorie malnutrition: Code(s): E43 - Unspecified severe protein-calorie malnutrition Status: Acute (2) BPH with urinary obstruction: Code(s): N40.1 - Benign prostatic hyperplasia with lower urinary tract symptoms; N13.8 - Other obstructive and reflux uropathy Status: Chronic (3) Iron deficiency anemia: Qualifiers: Iron deficiency anemia type: chronic blood loss Qualified Code(s): D50.0 - Iron deficiency anemia secondary to blood loss (chronic) Code(s): D50.9 - Iron deficiency anemia, unspecified Status: Acute (4) Mass in rectum: Code(s): K62.89 - Other specified diseases of anus and rectum Status: Acute (5) UTI (urinary tract infection) due to urinary indwelling Barry catheter: Qualifiers: Encounter type: initial encounter Indwelling urinary catheter type: indwelling urethral catheter Qualified Code(s): T83.511A - Infection and inflammatory reaction due to indwelling urethral catheter, initial encounter; N39.0 - Urinary tract infection, site not specified Code(s): T83.511A - Infection and inflammatory reaction due to indwelling urethral catheter, initial encounter; N39.0 - Urinary tract infection, site not specified Status: Ruled-out (6) Obstruction of Barry catheter: Qualifiers: Encounter type: initial encounter Qualified Code(s): T83.091A - Other mechanical complication of indwelling urethral catheter, initial encounter Code(s): T83.091A - Other mechanical complication of indwelling urethral catheter, initial encounter Status: Chronic (7) Chronic indwelling Barry catheter: Code(s): Z97.8 - Presence of other specified devices Status: Chronic (8) Pneumonia: Code(s): J18.9 - Pneumonia, unspecified organism Status: Acute (9) Proctitis: Code(s): K62.89 - Other specified diseases of anus and rectum Status: Acute Plan Pneumonia Bronchodilators. Chest x-ray Opacities in the right mid and lower lung zone likely related to persistent small to moderate-sized pleural effusion with associated atelectasis and/or pneumonia. incentive spirometry while awake. antibiotic therapy amoxicillin/azithromycin supplemental oxygen therapy to maintain oxygen 92% CMP/CBC daily Proctitis GI consulted CT of 03/02/2024 and was noted to have rectal wall thickening which may represent colitis but rectal mass cannot be excluded.? No prior abdominal imaging? for comparison. CRP elevated at 3.6. Patient currently on Plavix and was on Plavix prior to admission. Continue antibiotics Stool studies ordered to R/O infectious etiology Plavix being held for 3 days for colonoscopy Anemia Noted iron deficiency IV iron Iron PO started H&H daily Transfuse Hgb < 7.0 BPH and indwelling catheter Urine cultures and blood cultures Negative Resume Proscar and Flomax Monitor for retention from Barry catheter HX HTN: Resumed home medications/BP per unit protocol HX Dementia: Resumed sertraline/Seroquel HX of hypothyroidism: Resume levothyroxine HX CVA: Holding Plavix for colonoscopy Code status: DNR/DNI DVT prophylaxis: SCDs Stress ulcer prophylaxis: Protonix 40 daily PT/OT notes: PT/OT pending Disposition: Patient continues admission until placement is completed. Patient DNR/DNI family does not want any further interventions. Time Spent With Patient Time with patient: 15 - 25 minutes Subjective Date/time seen: 03/13/24 09:37 Interval history: 03/13: Patient alert to name but does not respond to appropriately when asked questions. RN spoke to family who requested patient be a DNR/DNI and do not want any further interventions including a colonoscopy. CC currently working on new placement. HGb 7.6 today will continue to monitor and transfuse <7.0 Review of Systems Review of S
[2024-03-13] MEDS: FERROUS SULFATE 325 MG TABLET DR PO ×2 (12:21→18:11)
--- NOTE | 2024-03-13 13:20 | PCPTNOTE ---
Attempted to see patient for PT, however patient unable to stay awake long enough to participate. Attempted multiple times to wake patient up to participate with therapy. Patient would open his eyes but would not keep them open.
[2024-03-13 14:00] VITALS: BP 130/77; PULSE 70; RESP 20; TEMP 36.6; O2SAT 96
--- NOTE | 2024-03-13 15:10 | WPDGIPROGNO ---
Progress Note: A&P Assessment and Plan (1) Proctitis: Code(s): K62.89 - Other specified diseases of anus and rectum Status: Acute Assessment and Plan: found by CT scan Family decided against colonoscopy, they do not want invasive procedures given advanced age and dementia will sign off (2) Iron deficiency anemia: Qualifiers: Iron deficiency anemia type: chronic blood loss Qualified Code(s): D50.0 - Iron deficiency anemia secondary to blood loss (chronic) Code(s): D50.9 - Iron deficiency anemia, unspecified Status: Acute Assessment and Plan: probably multifactorial, CT scan noted abnormal rectum (3) Dementia: Qualifiers: Dementia type: vascular dementia Dementia severity: severe Dementia behavioral or psychological symptom: with other behavioral disturbance Qualified Code(s): F01.C18 - Vascular dementia, severe, with other behavioral disturbance Code(s): F03.90 - Unspecified dementia, unspecified severity, without behavioral disturbance, psychotic disturbance, mood disturbance, and anxiety Status: Chronic (4) BPH with urinary obstruction: Code(s): N40.1 - Benign prostatic hyperplasia with lower urinary tract symptoms; N13.8 - Other obstructive and reflux uropathy Status: Chronic Subjective Date/time seen: 03/13/24 15:10 Interval history: he is awake but confused no major changes per staff Review of Systems Review of Systems: All systems reviewed & are unremarkable except as noted in HPI and below Exam Const: General: comfortable HENMT: Face/Nose/Sinus: Normal nares present Eyes: Sclera: sclerae normal Neck: Neck: supple Resp: Effort & Inspection: normal respiratory effort Cardio: Rate: regular rate GI: GI Palp: Yes Soft to palpation and No Tenderness to palpation present (GI) Urinary Catheter: Urinary Catheter: patent and draining Skin: General skin exam: normal color Neuro: Other: awake, alert but confused Extrem: General: normal to inspection Objective Data Vital Signs Vital Signs: Vital Signs - 24 hr 03/12/24 20:35 03/12/24 20:36 03/13/24 05:06 Temperature 97.6 F 98.0 F Pulse Rate 74 77 60 Respiratory Rate 20 20 Blood Pressure 141/70 H 123/74 Pulse Oximetry 95 98 Oxygen Delivery 03/13/24 08:13 03/13/24 09:07 03/13/24 08:00 Temperature Pulse Rate 66 Respiratory Rate Blood Pressure Pulse Oximetry 96 Oxygen Delivery Room Air Room Air 03/13/24 14:00 Temperature 97.9 F Pulse Rate 70 Respiratory Rate 20 Blood Pressure 130/77 Pulse Oximetry 96 Oxygen Delivery Intake/Output Intake/Output: Intake & Output 03/10/24 03/11/24 03/12/24 03/13/24 23:59 23:59 23:59 23:59 Intake Total 2782.5 3621.2 995 440 Output Total 1200 3000 1100 1000 Balance 1582.5 621.2 -785 -560 Meds/Results Medications: Active Medications Generic Name Dose Route Start Last Admin Trade Name Freq PRN Reason Stop Dose Admin Acetaminophen 650 mg 03/09/24 00:52 03/12/24 20:39 Acetaminophen 325 Mg Tablet PO 650 mg Q4H PRN Administration Mild Pain (1-3) or Fever Albuterol 2 puff 03/09/24 03:11 Albuterol Sulfate (*Sp) Aerosol 1 Puff INHALATION Q6HRT PRN Wheezing Albuterol 2.5 mg 03/10/24 12:43 Albuterol Sulfate Neb 2.5 Mg/3 Ml Inh INHALATION Q6HRT PRN Shortness Of Breath Amoxicillin/Clavulanate Potassium 1 tablet 03/11/24 21:00 03/13/24 09:07 Amoxicillin/Clavulanate K 875-125 Mg Tab PO 03/14/24 21:01 1 tablet Q12HR SAYRA Administration Atorvastatin Calcium 80 mg 03/09/24 21:00 03/12/24 20:36 Atorvastatin 40 Mg Tablet PO 80 mg HS SAYRA Administration Clopidogrel Bisulfate 75 mg 03/09/24 09:00 03/12/24 10:37 Clopidogrel Bisulfate 75 Mg Tablet PO 75 mg DAILY SAYRA Administration Ferrous Sulfate 325 mg 03/13/24 09:45 03/13/24 12:21 Ferrous Sulfate [address] PO 325 mg BID SAYRA Admi
[2024-03-13 21:03] VITALS: BP 145/75; PULSE 82; RESP 18; TEMP 36.5; O2SAT 95
[2024-03-13 21:11] VITALS: PULSE 82
[2024-03-13] MEDS: ATORVASTATIN 40 MG TABLET 80 MG PO (21:12)
[2024-03-14 04:49] VITALS: BP 136/71; PULSE 73; RESP 16; TEMP 36.5; O2SAT 97
[2024-03-14] MEDS: LEVOTHYROXINE SODIUM 125 MCG TABLET PO (04:57)
[2024-03-14 07:35] VITALS: PULSE 81; RESP 16; O2SAT 95
[2024-03-14] MEDS: UMECLIDINIUM BROMIDE 62.5 MCG ELLIPTA 1 PUFF INHALATION (07:35)
[2024-03-14] MEDS: FERROUS SULFATE 325 MG TABLET DR PO ×2 (08:43→17:18)
[2024-03-14] MEDS: FINASTERIDE 5 MG TABLET PO (08:43)
[2024-03-14] MEDS: TAMSULOSIN HCL 0.4 MG CAPSULE PO (08:43)
[2024-03-14] MEDS: AMOXICILLIN/CLAVULANATE K 875-125 MG TAB 1 TABLET PO ×2 (08:43→21:03)
[2024-03-14] MEDS: SERTRALINE HCL 25 MG TABLET PO (08:43)
[2024-03-14] MEDS: QUEtiapine FUMARATE 25 MG TABLET PO ×2 (08:44→21:03)
[2024-03-14] MEDS: PYRIDOXINE HCL 50 MG TABLET 100 MG PO (08:44)
[2024-03-14] MEDS: QUEtiapine FUMARATE 25 MG TABLET 50 MG PO ×2 (08:44→21:03)
--- NOTE | 2024-03-14 08:47 | PM.IMPN ---
Progress Note: A&P Assessment and Plan (1) Severe protein-calorie malnutrition: Code(s): E43 - Unspecified severe protein-calorie malnutrition Status: Acute (2) BPH with urinary obstruction: Code(s): N40.1 - Benign prostatic hyperplasia with lower urinary tract symptoms; N13.8 - Other obstructive and reflux uropathy Status: Chronic (3) Iron deficiency anemia: Qualifiers: Iron deficiency anemia type: chronic blood loss Qualified Code(s): D50.0 - Iron deficiency anemia secondary to blood loss (chronic) Code(s): D50.9 - Iron deficiency anemia, unspecified Status: Acute (4) Mass in rectum: Code(s): K62.89 - Other specified diseases of anus and rectum Status: Acute (5) UTI (urinary tract infection) due to urinary indwelling Barry catheter: Qualifiers: Encounter type: initial encounter Indwelling urinary catheter type: indwelling urethral catheter Qualified Code(s): T83.511A - Infection and inflammatory reaction due to indwelling urethral catheter, initial encounter; N39.0 - Urinary tract infection, site not specified Code(s): T83.511A - Infection and inflammatory reaction due to indwelling urethral catheter, initial encounter; N39.0 - Urinary tract infection, site not specified Status: Ruled-out (6) Obstruction of Barry catheter: Qualifiers: Encounter type: initial encounter Qualified Code(s): T83.091A - Other mechanical complication of indwelling urethral catheter, initial encounter Code(s): T83.091A - Other mechanical complication of indwelling urethral catheter, initial encounter Status: Chronic (7) Chronic indwelling Barry catheter: Code(s): Z97.8 - Presence of other specified devices Status: Chronic (8) Pneumonia: Code(s): J18.9 - Pneumonia, unspecified organism Status: Acute (9) Proctitis: Code(s): K62.89 - Other specified diseases of anus and rectum Status: Acute Plan Pneumonia Bronchodilators. Chest x-ray Opacities in the right mid and lower lung zone likely related to persistent small to moderate-sized pleural effusion with associated atelectasis and/or pneumonia. incentive spirometry while awake. antibiotic therapy amoxicillin/azithromycin supplemental oxygen therapy to maintain oxygen 92% CMP/CBC daily Proctitis GI consulted CT of 03/02/2024 and was noted to have rectal wall thickening which may represent colitis but rectal mass cannot be excluded.? No prior abdominal imaging? for comparison. CRP elevated at 3.6. Patient currently on Plavix and was on Plavix prior to admission. Continue antibiotics Stool studies ordered to R/O infectious etiology Plavix being held for 3 days for colonoscopy 03/14: Family refused colonoscopy will resume plavix Anemia Noted iron deficiency IV iron Iron PO started H&H daily Transfuse Hgb < 7.0 03/14 Hgb 8.5 stable BPH and indwelling catheter Urine cultures and blood cultures Negative Resume Proscar and Flomax Monitor for retention from Barry catheter HX HTN: Resumed home medications/BP per unit protocol HX Dementia: Resumed sertraline/Seroquel HX of hypothyroidism: Resume levothyroxine HX CVA: Holding Plavix for colonoscopy Code status: DNR/DNI DVT prophylaxis: SCDs Stress ulcer prophylaxis: Protonix 40 daily PT/OT notes: PT/OT pending Disposition: Patient continues admission until placement is completed. Patient DNR/DNI family does not want any further interventions. Time Spent With Patient Time with patient: 15 - 25 minutes Subjective Date/time seen: 03/14/24 08:47 Interval history: 03/13: Patient alert to name but does not respond to appropriately when asked questions. RN spoke to family who requested patient be a DNR/DNI and do not want any further interventions including a colonoscopy. CC currently working on new placement. HGb 7.6 today josué
[2024-03-14 09:01] VITALS: PULSE 72
[2024-03-14] MEDS: METOPROLOL SUCCINATE EXT REL 12.5 MG TABCR PO ×2 (09:01→21:01)
[2024-03-14] MEDS: CLOPIDOGREL BISULFATE 75 MG TABLET PO (09:02)
[2024-03-14 09:03] LABS: Hematocrit 28.7 % (42.0-52.0); Hemoglobin 8.5 g/dL (14.0-18.0); Mean Corpuscular HGB Conc 29.6 g/dl (32-36); Mean Corpuscular Hemoglobin 26.2 pg (26-34); Mean Corpuscular Volume 88.3 fl (80-100); Mean Platelet Volume 10.2 fl (7.4-10.4); Platelet Count Result 189 k/mm3 (150-375); Red Blood Count 3.25 M/mm3 (4.6-6.20); Red Cell Distribution Width 20.9 % (11.5-14.5); White Blood Count 9.9 K/mm3 (4.5-10.0)
[2024-03-14 09:15] LABS: Alanine Aminotransferase 29 U/L (6-50); Albumin Level 2.7 g/dL (3.5-5.1); Alkaline Phosphatase 128 U/L (38-126); Anion Gap 3 mmol/L (4-12); Aspartate Amino Transferase 37 U/L (17-59); Bilirubin,Total 0.4 mg/dL (0.2-1.3); Blood Urea Nitrogen 15 mg/dL (9-20); Calcium 8.9 mg/dL (8.4-10.2); Carbon Dioxide 27 mmol/L (22-30); Chloride 111 mmol/L (98-107); Estimated CRCL calculation 62 ml/min; Estimated Glomerular Filt Rate > 60; Glucose 92 mg/dL (65-110); Potassium 3.3 mmol/L (3.4-5.0); Sodium 141 mmol/L (137-145)
--- NOTE | 2024-03-14 09:19 | PCPTNOTE ---
Attempted to see patient for PT, however patient was eating breakfast.
--- NOTE | 2024-03-14 13:10 | PCOTNOTE ---
Per RN, very sleepy, Patient unable to stay awake and can not participate this date.
[2024-03-14 14:00] VITALS: BP 138/56; PULSE 80; RESP 20; TEMP 36.4; O2SAT 93
--- NOTE | 2024-03-14 15:20 | PM.DS ---
DS: Admitting Diagnosis Discharge Date 03/14/2024 Admitting Diagnosis PNA/Anemia/Indwelling alonzo catheter malfunction/Urine retention DS: Discharge Diagnosis Discharge Diagnosis (1) Severe protein-calorie malnutrition: Code(s): E43 - Unspecified severe protein-calorie malnutrition Status: Acute (2) BPH with urinary obstruction: Code(s): N40.1 - Benign prostatic hyperplasia with lower urinary tract symptoms; N13.8 - Other obstructive and reflux uropathy Status: Chronic (3) Iron deficiency anemia: Qualifiers: Iron deficiency anemia type: chronic blood loss Qualified Code(s): D50.0 - Iron deficiency anemia secondary to blood loss (chronic) Code(s): D50.9 - Iron deficiency anemia, unspecified Status: Acute (4) Mass in rectum: Code(s): K62.89 - Other specified diseases of anus and rectum Status: Acute (5) UTI (urinary tract infection) due to urinary indwelling Alonzo catheter: Qualifiers: Indwelling urinary catheter type: indwelling urethral catheter Encounter type: initial encounter Qualified Code(s): T83.511A - Infection and inflammatory reaction due to indwelling urethral catheter, initial encounter; N39.0 - Urinary tract infection, site not specified Code(s): T83.511A - Infection and inflammatory reaction due to indwelling urethral catheter, initial encounter; N39.0 - Urinary tract infection, site not specified Status: Ruled-out (6) Obstruction of Alonzo catheter: Qualifiers: Encounter type: initial encounter Qualified Code(s): T83.091A - Other mechanical complication of indwelling urethral catheter, initial encounter Code(s): T83.091A - Other mechanical complication of indwelling urethral catheter, initial encounter Status: Chronic (7) Chronic indwelling Alonzo catheter: Code(s): Z97.8 - Presence of other specified devices Status: Chronic (8) Pneumonia: Code(s): J18.9 - Pneumonia, unspecified organism Status: Acute (9) Proctitis: Code(s): K62.89 - Other specified diseases of anus and rectum Status: Acute Plan Pneumonia Bronchodilators. Chest x-ray Opacities in the right mid and lower lung zone likely related to persistent small to moderate-sized pleural effusion with associated atelectasis and/or pneumonia. incentive spirometry while awake. antibiotic therapy amoxicillin/azithromycin supplemental oxygen therapy to maintain oxygen 92% CMP/CBC daily Proctitis GI consulted CT of 03/02/2024 and was noted to have rectal wall thickening which may represent colitis but rectal mass cannot be excluded.? No prior abdominal imaging? for comparison. CRP elevated at 3.6. Patient currently on Plavix and was on Plavix prior to admission. Continue antibiotics Stool studies ordered to R/O infectious etiology Plavix being held for 3 days for colonoscopy 03/14: Family refused colonoscopy will resume plavix Anemia Noted iron deficiency IV iron Iron PO started H&H daily Transfuse Hgb < 7.0 03/14 Hgb 8.5 stable BPH and indwelling catheter Urine cultures and blood cultures Negative Resume Proscar and Flomax Monitor for retention from Alonzo catheter HX HTN: Resumed home medications/BP per unit protocol HX Dementia: Resumed sertraline/Seroquel HX of hypothyroidism: Resume levothyroxine HX CVA: Holding Plavix for colonoscopy Code status: DNR/DNI DS: Summary Hospital Course Reason for hospitalization: PNA/Anemia/Indwelling alonzo catheter malfunction/Urine retention Hospital Course: Admission: Medical Record Chief Complaint: No urine output from catheter Narrative: 83-year-old male with past medical history of advanced dementia, normocytic anemia, hypothyroidism, essential hypertension, COPD nephrolithiasis, and BPH with chronic urinary retention with chronic Alonzo catheter who presented to the ER from [facility]
[2024-03-14 16:40] LABS: SARS-CoV-2 RNA PCR Negative (Negative)
--- NOTE | 2024-03-14 19:00 | PC.NURSE ---
RN spoke with [facility] and they stated they spoke with their machine operator assistant and they are not expecting this patient until tomorrow as they have no beds available today. RN updated tire technician.
[2024-03-14 21:01] VITALS: PULSE 80
[2024-03-14] MEDS: ATORVASTATIN 40 MG TABLET 80 MG PO (21:01)
[2024-03-14 21:03] VITALS: BP 129/67; PULSE 80; RESP 18; TEMP 36.6; O2SAT 97
[2024-03-15 05:17] VITALS: BP 133/83; PULSE 71; RESP 16; TEMP 36.4; O2SAT 96
[2024-03-15] MEDS: LEVOTHYROXINE SODIUM 125 MCG TABLET PO (05:21)
[2024-03-15 06:10] LABS: Hematocrit 29.1 % (42.0-52.0); Hemoglobin 8.6 g/dL (14.0-18.0); Mean Corpuscular HGB Conc 29.6 g/dl (32-36); Mean Corpuscular Volume 87.9 fl (80-100); Mean Platelet Volume 10.3 fl (7.4-10.4); Platelet Count Result 199 k/mm3 (150-375); Red Blood Count 3.31 M/mm3 (4.6-6.20); Red Cell Distribution Width 21.6 % (11.5-14.5); White Blood Count 8.4 K/mm3 (4.5-10.0)
[2024-03-15 06:30] LABS: Alanine Aminotransferase 23 U/L (6-50); Albumin Level 2.5 g/dL (3.5-5.1); Alkaline Phosphatase 119 U/L (38-126); Anion Gap 2 mmol/L (4-12); Aspartate Amino Transferase 28 U/L (17-59); Bilirubin,Total 0.4 mg/dL (0.2-1.3); Blood Urea Nitrogen 13 mg/dL (9-20); Calcium 8.9 mg/dL (8.4-10.2); Carbon Dioxide 26 mmol/L (22-30); Chloride 112 mmol/L (98-107); Estimated CRCL calculation 62 ml/min; Estimated Glomerular Filt Rate > 60; Glucose 85 mg/dL (65-110); Potassium 3.2 mmol/L (3.4-5.0); Sodium 140 mmol/L (137-145)
--- NOTE | 2024-03-15 06:55 | PM.DS ---
DS: Admitting Diagnosis Discharge Date 03/15/2024 Admitting Diagnosis PNA/Anemia/Indwelling alonzo catheter malfunction/Urine retention DS: Discharge Diagnosis Discharge Diagnosis (1) Severe protein-calorie malnutrition: Code(s): E43 - Unspecified severe protein-calorie malnutrition Status: Acute (2) BPH with urinary obstruction: Code(s): N40.1 - Benign prostatic hyperplasia with lower urinary tract symptoms; N13.8 - Other obstructive and reflux uropathy Status: Chronic (3) Iron deficiency anemia: Qualifiers: Iron deficiency anemia type: chronic blood loss Qualified Code(s): D50.0 - Iron deficiency anemia secondary to blood loss (chronic) Code(s): D50.9 - Iron deficiency anemia, unspecified Status: Acute (4) Mass in rectum: Code(s): K62.89 - Other specified diseases of anus and rectum Status: Acute (5) UTI (urinary tract infection) due to urinary indwelling Alonzo catheter: Qualifiers: Encounter type: initial encounter Indwelling urinary catheter type: indwelling urethral catheter Qualified Code(s): T83.511A - Infection and inflammatory reaction due to indwelling urethral catheter, initial encounter; N39.0 - Urinary tract infection, site not specified Code(s): T83.511A - Infection and inflammatory reaction due to indwelling urethral catheter, initial encounter; N39.0 - Urinary tract infection, site not specified Status: Ruled-out (6) Obstruction of Alonzo catheter: Qualifiers: Encounter type: initial encounter Qualified Code(s): T83.091A - Other mechanical complication of indwelling urethral catheter, initial encounter Code(s): T83.091A - Other mechanical complication of indwelling urethral catheter, initial encounter Status: Chronic (7) Chronic indwelling Alonzo catheter: Code(s): Z97.8 - Presence of other specified devices Status: Chronic (8) Pneumonia: Code(s): J18.9 - Pneumonia, unspecified organism Status: Acute (9) Proctitis: Code(s): K62.89 - Other specified diseases of anus and rectum Status: Acute Plan Pneumonia Bronchodilators. Chest x-ray Opacities in the right mid and lower lung zone likely related to persistent small to moderate-sized pleural effusion with associated atelectasis and/or pneumonia. incentive spirometry while awake. antibiotic therapy amoxicillin/azithromycin supplemental oxygen therapy to maintain oxygen 92% CMP/CBC daily Proctitis GI consulted CT of 03/02/2024 and was noted to have rectal wall thickening which may represent colitis but rectal mass cannot be excluded.? No prior abdominal imaging? for comparison. CRP elevated at 3.6. Patient currently on Plavix and was on Plavix prior to admission. Continue antibiotics Stool studies ordered to R/O infectious etiology Plavix being held for 3 days for colonoscopy 03/14: Family refused colonoscopy will resume plavix Anemia Noted iron deficiency IV iron Iron PO started H&H daily Transfuse Hgb < 7.0 03/14 Hgb 8.5 stable BPH and indwelling catheter Urine cultures and blood cultures Negative Resume Proscar and Flomax Monitor for retention from Alonzo catheter HX HTN: Resumed home medications/BP per unit protocol HX Dementia: Resumed sertraline/Seroquel HX of hypothyroidism: Resume levothyroxine HX CVA: Holding Plavix for colonoscopy Code status: DNR/DNI DS: Summary Hospital Course Reason for hospitalization: PNA/Anemia/Indwelling alonzo catheter malfunction/Urine retention Hospital Course: Admission:? Medical Record Chief Complaint: No urine output from catheter Narrative: 83-year-old male with past medical history of advanced dementia, normocytic anemia, hypothyroidism, essential hypertension, COPD nephrolithiasis, and BPH with chronic urinary retention with chronic Alonzo catheter who presented to the ER from [facility]
[2024-03-15] MEDS: UMECLIDINIUM BROMIDE 62.5 MCG ELLIPTA 1 PUFF INHALATION (08:18)
[2024-03-15 08:19] VITALS: O2SAT 95
[2024-03-15 09:41] VITALS: PULSE 101
[2024-03-15] MEDS: METOPROLOL SUCCINATE EXT REL 12.5 MG TABCR PO (09:41)
[2024-03-15] MEDS: SERTRALINE HCL 25 MG TABLET PO (09:44)
[2024-03-15] MEDS: QUEtiapine FUMARATE 25 MG TABLET PO (09:44)
[2024-03-15] MEDS: CLOPIDOGREL BISULFATE 75 MG TABLET PO (09:45)
[2024-03-15] MEDS: PYRIDOXINE HCL 50 MG TABLET 100 MG PO (09:45)
[2024-03-15] MEDS: FERROUS SULFATE 325 MG TABLET DR PO (09:45)
[2024-03-15] MEDS: QUEtiapine FUMARATE 25 MG TABLET 50 MG PO (09:45)
[2024-03-15] MEDS: FINASTERIDE 5 MG TABLET PO (09:45)
[2024-03-15] MEDS: POTASSIUM CHLORIDE 20 MEQ PACKET (FOR LIQUID) 40 MEQ PO (09:46)
== END 2024-03-15 14:46 | DRG 698 ==
LOC: ANHED 03-09 01:54 → ANH3MED 03-09 02:12
PROVIDERS: Internal Medicine Critical Care Medicine; Admitting Provider Internal Medicine; Emergency Provider Physician Assistant; PCP Nurse Practitioner Family; Visit Provider Nurse Practitioner Family
DX: T83.091A Other mechanical complication of indwelling urethral catheter, initial encounter (principal); E43 Unspecified severe protein-calorie malnutrition; J18.9 Pneumonia, unspecified organism; N13.8 Other obstructive and reflux uropathy; Z68.1 Body mass index [BMI] 19.9 or less, adult; J90 Pleural effusion, not elsewhere classified; E87.21 Acute metabolic acidosis; N40.1 Benign prostatic hyperplasia with lower urinary tract symptoms; R33.8 Other retention of urine; F03.90 Unspecified dementia, unspecified severity, without behavioral disturbance, psychotic disturbance, mood disturbance, and anxiety; E03.9 Hypothyroidism, unspecified; D50.9 Iron deficiency anemia, unspecified; K62.89 Other specified diseases of anus and rectum; N21.0 Calculus in bladder; N20.0 Calculus of kidney; Z11.52 Encounter for screening for COVID-19; Z74.01 Bed confinement status
CPT/HCPCS: 36415; 70450; 71045; 80048; 80053; 81001; 82607; 82728; 82746; 83540; 83550; 83605; 83735; 84145; 84439; 84443; 84480; 85025; 85027; 86140; 87040; 87086; 87088; 87635; 92610; 94640; 96361; 96365; 96375; 97110; 97161; 97165; 97530; 99285; A9270; G0378; J0295; J0456; J1756; J3480; J7030; J7040; J7050; J7121

== ENCOUNTER 2024-03-19 12:06 | Emergency (ER) | payer MEDICARE, SELFPAY ==
--- NOTE | ~2024-03-19 | CT_ITS ---
EXAMINATION: CT cervical spine wo con DATE: 03/19/2024 12:32 INDICATION: Neck pain. Trauma. TECHNIQUE: Computed tomography (CT) of the cervical spine was performed without intravenous contrast. Automated exposure control and iterative reconstruction technique were employed. The dose-length pro duct was 166.45 mGy-cm. COMPARISON: CT cervical spine 02/24/2024 FINDINGS: There is mild emphysema. There is mild scarring at the lung apices. There is a small locula sofía right pleural effusion. There is 2 mm anterolisthesis of C5 on C6 and C7 on T1. There is mild chr onic anterior wedging of T2 and T3 vertebral bodies. There is moderately decreased disc height at C2- C3 and severely decreased disc height at C3-C4, C4-C5, and C5-C6. There is interbody fusion at C6-C7. The following disc levels are specifically discussed: C2-C3: There is mild bilateral uncovertebral joint osteoarthritis. There is severe bilateral facet nish int osteoarthritis. There is mild bilateral neural foraminal stenosis. There is mild central canal st enosis. C3-C4: There is severe bilateral uncovertebral joint osteoarthritis. There is severe bilateral facet joint osteoarthritis. There is mild right and moderate left neural foraminal stenosis. There is mild central canal stenosis. C4-C5: There is severe bilateral uncovertebral joint osteoarthritis. There is severe bilateral facet joint osteoarthritis. There is mild right and moderate left neural foraminal stenosis. There is mild central canal stenosis. C5-C6: There is severe bilateral uncovertebral joint osteoarthritis. There is severe bilateral facet joint osteoarthritis. There is mild bilateral neural foraminal stenosis. There is mild central canal stenosis. C6-C7: There is mild bilateral uncovertebral joint hypertrophy. There is ankylosis of left facet join t with mild hypertrophy. There is mild bilateral neural foraminal stenosis. There is mild central can al stenosis. C7-T1: There is no uncovertebral joint osteoarthritis. There is severe bilateral facet joint osteoart hritis. There is moderate right and mild left neural foraminal stenosis. There is no central canal st enosis. IMPRESSION: 1. No fracture. 2. Severe cervical spondylosis. 3. Loculated small right pleural effusion. Reviewed, dictated and finalized at location E.
--- NOTE | ~2024-03-19 | XR_ITS ---
EXAMINATION: XR knee RT 3V DATE: 03/19/2024 12:37 INDICATION: Right knee pain. Fall. TECHNIQUE: 3 views of right knee were obtained. COMPARISON: None. FINDINGS: There is varus angulation at the knee. No fracture. There is moderate osteoarthritis of med ial and patellofemoral compartments and mild osteoarthritis of lateral compartment. There is a small knee joint effusion. There are surgical clips in the medial calf. IMPRESSION: 1. Moderate right knee osteoarthritis. 2. Small right knee joint effusion. Reviewed, dictated and finalized at location E.
--- NOTE | ~2024-03-19 | CT_ITS ---
EXAMINATION: CT brain wo con DATE: 03/19/2024 12:32 INDICATION: Head injury. TECHNIQUE: Computed tomography (CT) of the head was performed without intravenous contrast. The mA wa s adjusted according to patient size. Iterative reconstruction technique was employed. The dose-lengt h product was 605.33 mGy-cm. COMPARISON: Head CT 03/10/2024 FINDINGS: There is an old infarct in left caudate nucleus. There is an old infarct in left parietal l obe. There is no intracranial hemorrhage, acute infarction, or abnormal intracranial mass lesion. The re are scattered areas of low attenuation in the cerebral white matter. The ventricles are normal in size. There are likely changes of ocular lens replacement surgeries. There is mild mucosal thickening in the paranasal sinuses. The mastoid air cells are normal. IMPRESSION: 1. Old infarcts involving the left caudate nucleus and left parietal lobe. 2. Stable moderate nonspecific cerebral white matter disease, which likely represents chronic small v essel ischemic disease. Reviewed, dictated and finalized at location E. IMPRESSION: 1. Old infarcts involving the left caudate nucleus and left parietal lobe. 2. Stable moderate nonspecific cerebral white matter disease, which likely repr esents chronic small vessel ischemic disease.
[2024-03-19 12:06] VITALS: BP 135/61; PULSE 69; RESP 12; TEMP 36.6; O2SAT 100
[2024-03-19 12:16] VITALS: BP 130/61; PULSE 70; RESP 13; O2SAT 100
[2024-03-19 12:41] VITALS: BP 126/69; PULSE 66; RESP 12; O2SAT 100
[2024-03-19 12:46] VITALS: BP 113/74; PULSE 67; RESP 15; O2SAT 100
[2024-03-19 13:00] VITALS: PULSE 74; RESP 14
--- NOTE | 2024-03-19 13:15 | ED.FALL ---
HPI - Fall General Chief Complaint: Fall Stated Complaint: fall Time Seen by Provider: 03/19/24 12:06 History of Present Illness HPI Narrative: This is an 83-year-old male, with history of stroke and dementia with baseline orientation status to self only, brought in by EMS from his longterm after a ground level fall. EMS reports nursing staff noted the patient was seated in a wheelchair, when he pitched himself forward and fell. He reportedly struck his head but did not lose consciousness. Patient complains of right knee pain but has no other complaints at this time. Review of longterm documentation shows patient is DNR. Related Data Home Medications Medication Instructions Recorded Confirmed acetaminophen 325 mg tablet 650 mg PO Q6H PRN Pain (Scale 03/09/24 03/09/24 Score 1-3) albuterol sulfate 90 mcg/actuation 2 puff inhalation Q6H PRN Wheezing 03/09/24 03/09/24 aerosol inhaler atorvastatin 80 mg tablet 80 mg PO HS 03/09/24 03/09/24 clopidogrel 75 mg tablet 75 mg PO DAILY 03/09/24 03/09/24 finasteride 5 mg tablet 5 mg PO DAILY 03/09/24 03/09/24 levothyroxine 125 mcg tablet 125 mcg PO DAILY 03/09/24 03/09/24 metoprolol succinate 25 mg 12.5 mg PO BID 03/09/24 03/09/24 tablet,extended release 24 hr pyridoxine (vitamin B6) 100 mg PO DAILY 03/09/24 03/09/24 quetiapine 25 mg tablet 25 mg PO BID 03/09/24 03/09/24 quetiapine 50 mg tablet 50 mg PO BID 03/09/24 03/09/24 sennosides 8.6 mg capsule (senna) 17.2 mg PO DAILY PRN Constipation 03/09/24 03/09/24 sertraline 25 mg tablet 25 mg PO DAILY 03/09/24 03/09/24 tamsulosin 0.4 mg capsule 0.4 mg PO DAILY 03/09/24 03/09/24 tiotropium bromide 18 mcg capsule 18 mcg inhalation DAILY 03/09/24 03/09/24 with inhalation device (Spiriva with HandiHaler) Allergies Allergy/AdvReac Type Severity Reaction Status Date / Time diphtheria toxoid,adsorbed Allergy Unknown Verified 03/19/24 12:23 fish derived Allergy Unknown Verified 03/19/24 12:23 iodine Allergy Unknown Verified 03/19/24 12:23 tetanus toxoid, adsorbed Allergy Unknown Verified 03/19/24 12:23 tositumomab Allergy Unknown Verified 03/19/24 12:23 Review of Systems Review of Systems: ROS unobtainable: Yes unobtainable due to mental status (Baseline dementia) PMFSH Past Medical History Medical History Bladder stone BPH with urinary obstruction Chronic indwelling Barry catheter COPD (chronic obstructive pulmonary disease) CVA (cerebral vascular accident) Focal left parietal encephalomalacia, old lacunar infarct left caudate nucleus, moderate atrophy and chronic white matter changes Dementia Essential hypertension History of nephrolithiasis Hyperlipidemia Hypothyroidism Normocytic hypochromic anemia Pleural effusion on right Surgical History Surgical History Status post cataract extraction of both eyes with insertion of intraocular lens Family History Family History Other Unknown family medical history Social History Social History Social History: Patient resides at [facility]. Code status: Full code (per longterm documentation) Smoking status: Unknown if ever smoked Alcohol intake: unknown Substance use: unknown Spiritual care concerns: No Exam Narrative: GENERAL: Well-developed, well-nourished, and in no acute distress. HEAD: Normocephalic, atraumatic. A 0.5 cm laceration is noted over the right parietal scalp, well-approximated with Steri-Strips. No active bleeding or purulent drainage is noted. EYES: PERRLA and EOMI. ENT: Nares clear, no rhinorrhea or epistaxis. Mucous membranes moist. Oropharynx without tonsillar hypertrophy exudate or other lesions. NECK: Supple. No midline spine tenderness to palpation, no step-off or crepitus CHEST: C
[2024-03-19 13:31] VITALS: BP 136/72; PULSE 68; RESP 13; O2SAT 99
== END 2024-03-19 14:29 ==
PROVIDERS: Emergency Provider Preventive Medicine Aerospace Medicine
DX: S01.01XA Laceration without foreign body of scalp, initial encounter (principal); S80.211A Abrasion, right knee, initial encounter; F03.90 Unspecified dementia, unspecified severity, without behavioral disturbance, psychotic disturbance, mood disturbance, and anxiety; J44.9 Chronic obstructive pulmonary disease, unspecified; N40.1 Benign prostatic hyperplasia with lower urinary tract symptoms; N13.8 Other obstructive and reflux uropathy; D50.9 Iron deficiency anemia, unspecified; Z66 Do not resuscitate; Z86.73 Personal history of transient ischemic attack (TIA), and cerebral infarction without residual deficits; Z87.442 Personal history of urinary calculi; W05.0XXA Fall from non-moving wheelchair, initial encounter
CPT/HCPCS: 70450; 72125; 73562; 99284

== ENCOUNTER 2024-03-21 03:58 | Emergency (ER) | payer MEDICARE, SELFPAY ==
--- NOTE | ~2024-03-21 | CT_ITS ---
CT head without contrast Indication: Status post fall COMPARISON: 03/19/2024 Technique: Serial scans were obtained through the brain without the administration of contrast. Dose reduction technique was used on this scan by utilizing automated exposure control and iterative recon struction technique. The dose-length product (DLP) was 605.33 mGy-cm. Findings: There is no evidence of intracranial hemorrhage, mass lesion, or acute infarct. Stable foca l left parietal lobe infarct. Stable lacunar infarct left caudate nucleus. The ventricles and subarac hnoid spaces are dilated, consistent with moderate atrophy. Low attenuation regions are seen within the periventricular white matter bilaterally, likely representing changes from chronic microvascular ischemic disease. There is no evidence of edema, mass effect or midline shift. The visualized paran franklyn sinuses and mastoid air cells are clear. Impression: No intracranial hemorrhage, mass, or acute infarct. Stable chronic infarcts, as above. Atrophy and chronic white matter changes, as above. Reviewed, dictated and finalized at location . Impression: No intracranial hemorrhage, mass, or acute infarct. Stable chronic infarcts, as above. Atrophy and chronic white matter changes, as above.
--- NOTE | ~2024-03-21 | CT_ITS ---
Noncontrast CT scan of the cervical spine Technique: Multiple contiguous axial [address] images of the cervical spine were obtained and rec onstructed in 2D sagittal and coronal planes on the acquisition scanner. Dose reduction technique was used on this scan by utilizing automated exposure control, adjustment of the mA and/or kV according to patient size. The dose-length product (DLP) was 144.34 mGy-cm. Clinical History: Pain COMPARISON: 03/19/2024 Findings: No acute fracture or subluxation identified. Osseous alignment is unchanged. Stable fusion across the C6-C7 disc space. There is advanced degenerative change at the articulation of the odontoi d process with the anterior arch of C1. Advanced facet joint degenerative change of the cervical spin e are stable from prior exam. Degenerative disc narrowing is again present, advanced at C3-C4, C4-C5, and C5-C6. There is left neural foraminal narrowing at C3-C4. There is bilateral neural foraminal na rrowing at C4-C5, C5-C6, and probably C6-C7. Partially imaged right apical pleural effusion present. No prevertebral soft tissue swelling. Impression: No acute abnormality. Stable advanced degenerative spondylosis, as detailed above. Partially imaged pleural effusion the right lung apex. Reviewed, dictated and finalized at [facility]. Impression: No acute abnormality. Stable advanced degenerative spondylosis, as detailed above. Partially imaged pleural effusion the right lung apex.
[2024-03-21 03:59] VITALS: BP 115/58; PULSE 70; RESP 12; O2SAT 94
--- NOTE | 2024-03-21 05:28 | ED.FALL ---
HPI - Fall General Chief Complaint: Fall Stated Complaint: falls Time Seen by Provider: 03/21/24 04:26 History of Present Illness HPI Narrative: Patient is an 83-year-old male who presents to the emergency department this morning from his [facility] due to two falls. Patient does have dementia and is alert and oriented to person only at baseline. One of the falls was witnessed and the other was not. Patient is currently denying any pain. He does have skin tears to his right forearm, otherwise, he is moving all 4 extremities spontaneously. Denies any headaches or neck pain. No additional concerns at this time. Related Data Home Medications Medication Instructions Recorded Confirmed acetaminophen 325 mg tablet 650 mg PO Q6H PRN Pain (Scale 03/09/24 03/09/24 Score 1-3) albuterol sulfate 90 mcg/actuation 2 puff inhalation Q6H PRN Wheezing 03/09/24 03/09/24 aerosol inhaler atorvastatin 80 mg tablet 80 mg PO HS 03/09/24 03/09/24 clopidogrel 75 mg tablet 75 mg PO DAILY 03/09/24 03/09/24 finasteride 5 mg tablet 5 mg PO DAILY 03/09/24 03/09/24 levothyroxine 125 mcg tablet 125 mcg PO DAILY 03/09/24 03/09/24 metoprolol succinate 25 mg 12.5 mg PO BID 03/09/24 03/09/24 tablet,extended release 24 hr pyridoxine (vitamin B6) 100 mg PO DAILY 03/09/24 03/09/24 quetiapine 25 mg tablet 25 mg PO BID 03/09/24 03/09/24 quetiapine 50 mg tablet 50 mg PO BID 03/09/24 03/09/24 sennosides 8.6 mg capsule (senna) 17.2 mg PO DAILY PRN Constipation 03/09/24 03/09/24 sertraline 25 mg tablet 25 mg PO DAILY 03/09/24 03/09/24 tamsulosin 0.4 mg capsule 0.4 mg PO DAILY 03/09/24 03/09/24 tiotropium bromide 18 mcg capsule 18 mcg inhalation DAILY 03/09/24 03/09/24 with inhalation device (Spiriva with HandiHaler) Allergies Allergy/AdvReac Type Severity Reaction Status Date / Time diphtheria toxoid,adsorbed Allergy Unknown Verified 03/21/24 04:17 fish derived Allergy Unknown Verified 03/21/24 04:17 iodine Allergy Unknown Verified 03/21/24 04:17 tetanus toxoid, adsorbed Allergy Unknown Verified 03/21/24 04:17 tositumomab Allergy Unknown Verified 03/21/24 04:17 Review of Systems Review of Systems: Unable to obtain fluid view of systems secondary to patient's dementia. [facility] Past Medical History Medical History Bladder stone BPH with urinary obstruction Chronic indwelling Barry catheter COPD (chronic obstructive pulmonary disease) CVA (cerebral vascular accident) Focal left parietal encephalomalacia, old lacunar infarct left caudate nucleus, moderate atrophy and chronic white matter changes Dementia Essential hypertension History of nephrolithiasis Hyperlipidemia Hypothyroidism Normocytic hypochromic anemia Pleural effusion on right Surgical History Surgical History Status post cataract extraction of both eyes with insertion of intraocular lens Family History Family History Other Unknown family medical history Social History Social History Social History: Patient resides at [facility]. Code status: Full code (per fpc documentation) Smoking status: Unknown if ever smoked Alcohol intake: unknown Substance use: unknown Spiritual care concerns: No Exam Narrative: General: Awake and alert, afebrile, in no acute distress. Cardiovascular: Regular rate and rhythm, no murmurs, rubs or gallops, no peripheral edema. Respiratory: Clear to auscultation bilaterally, no tachypnea, no wheezing, no rhonchi, no rubs, no respiratory distress. Abdomen: Soft, nontender, nondistended, no rebound, no guarding, no peritoneal signs. Musculoskeletal: No joint swelling or deformity, normal muscle tone, no cervical, thoracic or lumbar midline tenderness to palpation.. Skin: Two skin tears noted al
[2024-03-21 06:08] VITALS: BP 125/66; PULSE 71; RESP 16; O2SAT 94
[2024-03-21 06:51] VITALS: BP 119/80; PULSE 71; RESP 16; O2SAT 94
== END 2024-03-21 07:13 ==
PROVIDERS: Emergency Provider Emergency Medicine
DX: S51.811A Laceration without foreign body of right forearm, initial encounter (principal); S09.90XA Unspecified injury of head, initial encounter; S51.011A Laceration without foreign body of right elbow, initial encounter; F03.90 Unspecified dementia, unspecified severity, without behavioral disturbance, psychotic disturbance, mood disturbance, and anxiety; I10 Essential (primary) hypertension; J44.9 Chronic obstructive pulmonary disease, unspecified; E78.5 Hyperlipidemia, unspecified; E03.9 Hypothyroidism, unspecified; N40.1 Benign prostatic hyperplasia with lower urinary tract symptoms; D50.9 Iron deficiency anemia, unspecified; Z86.73 Personal history of transient ischemic attack (TIA), and cerebral infarction without residual deficits; Z96.1 Presence of intraocular lens; Z98.42 Cataract extraction status, left eye; Z98.41 Cataract extraction status, right eye; W19.XXXA Unspecified fall, initial encounter
CPT/HCPCS: 12001; 51702; 70450; 72125; 99284

== ENCOUNTER 2024-03-24 17:01 | Emergency (ER) | payer MEDICARE, SELFPAY ==
--- NOTE | ~2024-03-24 | CT_ITS ---
EXAMINATION: CT cervical spine wo con DATE: 03/24/2024 18:02 INDICATION: Head injury. Neck pain. TECHNIQUE: Computed tomography (CT) of the cervical spine was performed without intravenous contrast. Automated exposure control and iterative reconstruction technique were employed. The dose-length pro duct was 234.52 mGy-cm. COMPARISON: CT cervical spine 03/21/2024 FINDINGS: There is a moderate-sized loculated right pleural effusion. There is 11 degrees levoscolios is of the cervicothoracic spine. There is 2 mm anterolisthesis of C5 on C6 and C7 on T1. There is int erbody fusion at C6-C7. There is mild chronic anterior wedging of T2 vertebral body. There is mildly decreased disc height at C2-C3, severely decreased disc height from C3-C4 through C5-C6, and mildly d ecreased disc height at C7-T1. The following disc levels are specifically discussed: C2-C3: There is mild bilateral uncovertebral joint osteoarthritis. There is severe bilateral facet nish int osteoarthritis. There is no neural foraminal stenosis. There is no central canal stenosis. C3-C4: There is mild right and severe left uncovertebral joint osteoarthritis. There is severe bilate ral facet joint osteoarthritis. There is mild bilateral neural foraminal stenosis. There is mild cent ral canal stenosis. C4-C5: There is severe bilateral uncovertebral joint osteoarthritis. There is moderate right and emeka re left facet joint osteoarthritis. There is moderate bilateral neural foraminal stenosis. There is m ild central canal stenosis. C5-C6: There is severe bilateral uncovertebral joint osteoarthritis. There is severe bilateral facet joint osteoarthritis. There is mild bilateral neural foraminal stenosis. There is mild central canal stenosis. C6-C7: There is moderate bilateral uncovertebral joint hypertrophy. There is ankylosis of left facet joint without hypertrophy. There is mild bilateral neural foraminal stenosis. There is mild central c anal stenosis. C7-T1: There is no uncovertebral joint osteoarthritis. There is severe bilateral facet joint osteoart hritis. There is moderate right and mild left neural foraminal stenosis. There is no central canal st enosis. IMPRESSION: 1. No fracture. 2. Severe cervical spondylosis. 3. Moderate-sized loculated right pleural effusion. Reviewed, dictated and finalized at location E.
--- NOTE | ~2024-03-24 | XR_ITS ---
EXAMINATION: XR chest 2V DATE: 03/24/2024 17:40 INDICATION: Fall. TECHNIQUE: Frontal and lateral views of the chest were obtained. COMPARISON: Chest view 03/10/2024 FINDINGS: There is a moderate sized loculated right pleural effusion. There is a small left pleural e ffusion. There are airspace opacities in all right lung zones and in the left lower lung zone. No pne umothorax. The heart size is normal. Median sternotomy wires and mediastinal surgical clips are seen, likely from prior coronary artery bypass grafting. IMPRESSION: 1. Moderate-sized loculated right pleural effusion. Small left pleural effusion. 2. Airspace opacities in right lung and left lower lung zone with interval worsening, consistent with atelectasis versus pneumonia. Reviewed, dictated and finalized at location E. IMPRESSION: 1. Moderate-sized loculated right pleural effusion. Small left pleural effusion . 2. Airspace opacities in right lung and left lower lung zone with interval wors ening, consistent with atelectasis versus pneumonia.
--- NOTE | ~2024-03-24 | XR_ITS ---
EXAMINATION: XR pelvis 1-2V DATE: 03/24/2024 17:41 INDICATION: Fall. TECHNIQUE: An anteroposterior view of the pelvis was obtained. COMPARISON: Pelvis radiograph 02/24/2024 FINDINGS: Bone alignment is normal. No fracture. There is mild osteoarthritis of the hips. IMPRESSION: 1. Mild osteoarthritis of the hips. Reviewed, dictated and finalized at location E.
--- NOTE | ~2024-03-24 | CT_ITS ---
EXAMINATION: CT brain wo con DATE: 03/24/2024 18:02 INDICATION: Head injury. Fall. TECHNIQUE: Computed tomography (CT) of the head was performed without intravenous contrast. The mA wa s adjusted according to patient size. Iterative reconstruction technique was employed. The dose-lengt h product was 908.00 mGy-cm. COMPARISON: Head CT 03/21/2024 FINDINGS: There are scattered areas of low attenuation in the cerebral white matter. There is an old infarct in left parietal lobe. There is an old infarct in left caudate nucleus. There is no intracran ial hemorrhage, acute infarction, or abnormal intracranial mass lesion. The ventricles are normal in size. There are likely changes of ocular lens replacement surgeries. There is mild mucosal thickening in the paranasal sinuses. The mastoid air cells are normal. IMPRESSION: 1. Old infarcts in left caudate nucleus and left parietal lobe. 2. Stable moderate nonspecific cerebral white matter disease, which likely represents chronic small v essel ischemic disease. Reviewed, dictated and finalized at location E. IMPRESSION: 1. Old infarcts in left caudate nucleus and left parietal lobe. 2. Stable moderate nonspecific cerebral white matter disease, which likely repr esents chronic small vessel ischemic disease.
--- NOTE | ~2024-03-24 | CT_ITS ---
EXAMINATION: CT thoracic lumbar wo con DATE: 03/24/2024 18:03 INDICATION: Back pain. Fall. TECHNIQUE: Computed tomography (CT) of the thoracic and lumbar spine was performed without intravenou s contrast. Automated exposure control and iterative reconstruction technique were employed. The dose -length product was 1008.00 mGy-cm. COMPARISON: None FINDINGS: CT THORACIC SPINE: There is a moderate-sized loculated right pleural effusion with mild pleural thick ening. There is a small left pleural effusion. There are coronary artery calcifications. There are ca lcifications of the aortic valve. There is a 6 mm nodule in right lung upper lobe. There is mild emph ysema. There is mild atelectasis bilaterally. There are old healed bilateral rib fractures. There is kyphosis of thoracic spine. There are chronic compression fractures of T2 and T3 with less than 1/5 l oss of height. There is mild chronic anterior wedging of T8-T10 vertebral bodies. There is 4 degrees dextrocurvature of thoracic spine. There is decreased disc height at multiple levels, severe at T1-T2 , T6-T7, T8-T9, and T10-T11. There is multilevel facet joint osteoarthritis. There is mild neural for aminal stenosis at multiple levels bilaterally. There is mild central canal stenosis from T9-T10 thro h T12-L1. CT LUMBAR SPINE: There is a 6 mm stone right kidney. There is a 2.6 cm cyst in right kidney. There is calcified atherosclerosis of the aorta and many of the other arteries. There is a 2.4 cm stone versu s cluster of stones in the bladder. Stool distends the rectum. There is 11 degrees levoscoliosis of t horacolumbar spine. S1 is a transitional segment. There is mild chronic anterior wedging of L2 and L5 vertebral bodies. There is mildly decreased disc height at L1-L2 and decreased disc height from L2-L 3 through L5-S1. The following disc levels are specifically discussed: L1-L2: The disc is bulging. There is severe bilateral facet joint osteoarthritis. There is mild later al neural foraminal stenosis. There is mild central canal stenosis. L2-L3: The disc is bulging. There is moderate right and mild left facet joint osteoarthritis. There i s moderate right and mild left neural foraminal stenosis. There is mild central canal stenosis. L3-L4: The disc is bulging. There is severe right and mild left facet joint osteoarthritis. There is moderate bilateral neural foraminal stenosis. There is mild central canal stenosis. L4-L5: The disc is bulging. There is severe bilateral facet joint osteoarthritis. There is moderate b ilateral neural foraminal stenosis. There is mild central canal stenosis. L5-S1: The disc is bulging. There is severe bilateral facet joint osteoarthritis. There is moderate b ilateral neural foraminal stenosis. There is mild central canal stenosis. IMPRESSION: 1. No acute fracture. 2. Severe thoracic and lumbar spondylosis. 3. Moderate-sized loculated right pleural effusion. Small left pleural effusion. 4. Bladder stones. Nonobstructing right kidney stone. 5. 6 mm pulmonary nodule, probably benign. Consider noncontrast low-dose chest CT in 6-12 months. Reviewed, dictated and finalized at location E. IMPRESSION: 1. No acute fracture. 2. Severe thoracic and lumbar spondylosis. 3. Moderate-sized loculated right pleural effusion. Small left pleural effusion . 4. Bladder stones. Nonobstructing right kidney stone. 5. 6 mm pulmonary nodule, probably benign. Consider noncontrast low-dose chest CT in 6-12 months.
[2024-03-24 17:02] VITALS: BP 132/53; PULSE 72; RESP 17; TEMP 36.4; O2SAT 98
--- NOTE | 2024-03-24 17:09 | ECG_ITS ---
SEE SCANNED COPY FOR CONFIRMED REPORT MTDD
[2024-03-24 17:26] LABS: Basophils Percent Auto 0.6 % (0.2-1.2); Eosinophils Absolute Auto 0.2 K/mm3 (0-0.3); Eosinophils Percent Auto 2.4 % (0-4.4); Hematocrit 30.3 % (42.0-52.0); Hemoglobin 9.3 g/dL (14.0-18.0); Immature Granulocyte Absolute 0.02 K/mm3 (0.00-0.031); Immature Granulocyte Percent A 0.3 % (0-0.5); Lymphocytes Absolute Auto 1.42 K/mm3 (0.9-3.2); Lymphocytes Percent Auto 19.9 % (18.3-44.2); Mean Corpuscular HGB Conc 30.7 g/dl (32-36); Mean Corpuscular Hemoglobin 27.7 pg (26-34); Mean Corpuscular Volume 90.2 fl (80-100); Mean Platelet Volume 9.3 fl (7.4-10.4); Monocytes Absolute Auto 0.5 K/mm3 (0.1-0.6); Monocytes Percent Auto 6.7 % (2.6-8.5); Neutrophils Percent Auto 70.1 % (45.5-73.1); Platelet Count Result 210 k/mm3 (150-375); Red Blood Count 3.36 M/mm3 (4.6-6.20); Red Cell Distribution Width 23.8 % (11.5-14.5); White Blood Count 7.1 K/mm3 (4.5-10.0)
[2024-03-24 17:29] LABS: Add Urine Microscopic? YES; Appearance Urine Clear (Clear); Bacteria Urine 1+ /hpf; Bilirubin Urine Negative (Negative); Blood Urine Negative (Negative); Color Urine Yellow (Yellow); Glucose Urine UA Negative (Negative); Ketones Urine Negative (Negative); Leukocyte Esterase Ur 1+ LEU/UL (Negative); Nitrate Urine Negative (Negative); Non Pathogenic Casts 0-2; Protein Urine Negative (Negative); RBC Urine 0-2 /hpf (0-2); Specific Grav Ur 1.012 (1.001-1.035); Squamous Epithelial Cell Urine None Seen /hpf (Few); pH Urine 7.5 (5.0-9.0)
--- NOTE | 2024-03-24 17:31 | ED.FALL ---
HPI - Fall General Chief Complaint: Fall Stated Complaint: fall - head lac Time Seen by Provider: 03/24/24 17:08 Source: patient, EMS and RN notes reviewed Mode of arrival: EMS Limitations: dementia History of Present Illness HPI Narrative: This is a 83-year-old male that presents to the emergency department after a fall today with head injury. Patient is not able to provide much history due to his dementia. Reportedly patient fell at his facility and hit the back of his head. Patient was found on the floor. He does not report any pain currently. Related Data Home Medications Medication Instructions Recorded Confirmed acetaminophen 325 mg tablet 650 mg PO Q6H PRN Pain (Scale 03/09/24 03/09/24 Score 1-3) albuterol sulfate 90 mcg/actuation 2 puff inhalation Q6H PRN Wheezing 03/09/24 03/09/24 aerosol inhaler atorvastatin 80 mg tablet 80 mg PO HS 03/09/24 03/09/24 clopidogrel 75 mg tablet 75 mg PO DAILY 03/09/24 03/09/24 finasteride 5 mg tablet 5 mg PO DAILY 03/09/24 03/09/24 levothyroxine 125 mcg tablet 125 mcg PO DAILY 03/09/24 03/09/24 metoprolol succinate 25 mg 12.5 mg PO BID 03/09/24 03/09/24 tablet,extended release 24 hr pyridoxine (vitamin B6) 100 mg PO DAILY 03/09/24 03/09/24 quetiapine 25 mg tablet 25 mg PO BID 03/09/24 03/09/24 quetiapine 50 mg tablet 50 mg PO BID 03/09/24 03/09/24 sennosides 8.6 mg capsule (senna) 17.2 mg PO DAILY PRN Constipation 03/09/24 03/09/24 sertraline 25 mg tablet 25 mg PO DAILY 03/09/24 03/09/24 tamsulosin 0.4 mg capsule 0.4 mg PO DAILY 03/09/24 03/09/24 tiotropium bromide 18 mcg capsule 18 mcg inhalation DAILY 03/09/24 03/09/24 with inhalation device (Spiriva with HandiHaler) Allergies Allergy/AdvReac Type Severity Reaction Status Date / Time diphtheria toxoid,adsorbed Allergy Unknown Verified 03/21/24 04:17 fish derived Allergy Unknown Verified 03/21/24 04:17 iodine Allergy Unknown Verified 03/21/24 04:17 tetanus toxoid, adsorbed Allergy Unknown Verified 03/21/24 04:17 tositumomab Allergy Unknown Verified 03/21/24 04:17 Review of Systems Review of Systems: ROS unobtainable: Yes unobtainable due to medical condition PMFSH Past Medical History Medical History Bladder stone BPH with urinary obstruction Chronic indwelling Barry catheter COPD (chronic obstructive pulmonary disease) CVA (cerebral vascular accident) Focal left parietal encephalomalacia, old lacunar infarct left caudate nucleus, moderate atrophy and chronic white matter changes Dementia Essential hypertension History of nephrolithiasis Hyperlipidemia Hypothyroidism Normocytic hypochromic anemia Pleural effusion on right Surgical History Surgical History Status post cataract extraction of both eyes with insertion of intraocular lens Family History Family History Other Unknown family medical history Social History Social History Social History: Patient resides at [facility]. Code status: Full code (per group home documentation) Smoking status: Unknown if ever smoked Alcohol intake: unknown Substance use: unknown Spiritual care concerns: No Exam Narrative: GENERAL: Elderly, well-nourished, and in no acute distress. HEAD: Normocephalic. 3cm linear laceration into subcutaneous tissue to the top mid scalp EYES: PERRLA and EOMI. ENT: Nares clear, no rhinorrhea or epistaxis. Mucous membranes moist. Oropharynx without tonsillar hypertrophy exudate or other lesions. Bilateral TMs pearly cantor non-bulging NECK: Supple. No adenopathy or masses. Tender to palpation of midline lower cervical spine CHEST: No respiratory distress. Diminished lung sounds at the bases. No wheezes rales or rhonchi HEART: Regular rate and rhythm. No murmur heard. Normal periphera
[2024-03-24 17:36] LABS: Creatine Kinase 30 U/L (55-170)
[2024-03-24 17:38] LABS: Alanine Aminotransferase 31 U/L (6-50); Albumin Level 2.8 g/dL (3.5-5.1); Alkaline Phosphatase 175 U/L (38-126); Anion Gap 2 mmol/L (4-12); Aspartate Amino Transferase 41 U/L (17-59); Bilirubin,Total 0.3 mg/dL (0.2-1.3); Blood Urea Nitrogen 10 mg/dL (9-20); Calcium 8.8 mg/dL (8.4-10.2); Carbon Dioxide 28 mmol/L (22-30); Chloride 110 mmol/L (98-107); Estimated CRCL calculation 70 ml/min; Estimated Glomerular Filt Rate > 60; Glucose 110 mg/dL (65-110); Potassium 3.6 mmol/L (3.4-5.0); Prothrombin Time 13.9 Seconds (11.1-14.7); Sodium 140 mmol/L (137-145)
[2024-03-24 17:39] LABS: Partial Thromboplastin Time 36.6 Seconds (22.3-36.8)
--- NOTE | 2024-03-24 17:46 | PC.NURSE ---
Pt to CT/XRAY via stretcher at this time.
[2024-03-24 17:47] LABS: Platelet Estimate Adequate (Adequate)
[2024-03-24 17:54] LABS: Anisocytosis 2+; Schistocytes None Seen
[2024-03-24 18:55] VITALS: BP 141/71; PULSE 69; RESP 12; O2SAT 100
[2024-03-24 18:57] VITALS: TEMP 36.4
[2024-03-24 19:44] VITALS: BP 142/65; PULSE 82; RESP 16; O2SAT 100
== END 2024-03-24 20:20 ==
PROVIDERS: Emergency Medicine; Emergency Provider Physician Assistant
DX: S01.01XA Laceration without foreign body of scalp, initial encounter (principal); J90 Pleural effusion, not elsewhere classified; R91.1 Solitary pulmonary nodule; F03.90 Unspecified dementia, unspecified severity, without behavioral disturbance, psychotic disturbance, mood disturbance, and anxiety; J44.9 Chronic obstructive pulmonary disease, unspecified; N40.1 Benign prostatic hyperplasia with lower urinary tract symptoms; N13.8 Other obstructive and reflux uropathy; D50.9 Iron deficiency anemia, unspecified; E78.5 Hyperlipidemia, unspecified; E03.9 Hypothyroidism, unspecified; Z66 Do not resuscitate; Z86.73 Personal history of transient ischemic attack (TIA), and cerebral infarction without residual deficits; Z87.442 Personal history of urinary calculi; Z96.1 Presence of intraocular lens; Z98.42 Cataract extraction status, left eye; Z98.41 Cataract extraction status, right eye; M16.0 Bilateral primary osteoarthritis of hip; R90.82 White matter disease, unspecified; M47.812 Spondylosis without myelopathy or radiculopathy, cervical region; M47.816 Spondylosis without myelopathy or radiculopathy, lumbar region; M47.814 Spondylosis without myelopathy or radiculopathy, thoracic region; W19.XXXA Unspecified fall, initial encounter
CPT/HCPCS: 12002; 36415; 70450; 71046; 72125; 72128; 72131; 72170; 80053; 81001; 82550; 85025; 85610; 85730; 87077; 87086; 87088; 87186; 93005; 99284

== ENCOUNTER 2024-04-07 03:17 | Emergency (ER) | payer MEDICARE, SELFPAY ==
--- NOTE | ~2024-04-07 | CT_ITS ---
EXAMINATION: CT brain wo con DATE: 04/07/2024 03:59 INDICATION: Head injury. Patient fell out of chair. Erythema of right side of forehead. TECHNIQUE: Computed tomography (CT) of the head was performed without intravenous contrast. The mA wa s adjusted according to patient size. Iterative reconstruction technique was employed. Exam dose: 60 5.33 mGy-cm total exam DLP. COMPARISON: March 24, 2024 CT brain FINDINGS: Vertebral and carotid siphon internal carotid artery calcifications. There is nonspecific d iminished attenuation the cerebral white matter, likely due to chronic small vessel ischemic changes. Old infarct left parietal lobe and left caudate nucleus. There is central and cortical cerebral atrophy with prominence of the temporal horns. There is modera te cerebellar atrophy as well. No intracranial mass lesion or hemorrhage or more recent cerebrovascular accident, midline shift or m ass effect or subdural or epidural hematoma is detected. Small mucous retention cyst or polyp of the lateral wall of left maxillary antrum. The mastoid air ce lls and included paranasal sinuses are otherwise unremarkable. No fracture or bone destruction of the cranial fold. IMPRESSION: No skull fracture or acute intracranial finding Assessment change since March 24, 2024 Reviewed, dictated and finalized at Location [facility]. Reviewed, dictated and finalized at location A.
--- NOTE | ~2024-04-07 | XR_ITS ---
XR ankle RT min 3V DATE: 04/07/2024 03:54 INDICATION: Right ankle pain TECHNIQUE: 4 views COMPARISON: None FINDINGS: Plantar calcaneal enthesopathy without associated erosive change or periostitis. No fracture or dislocation of the ankle or disruption of the ankle mortise. No periosteal reaction or bone destruction. IMPRESSION: No fracture or dislocation of the ankle Plantar calcaneal enthesopathy Reviewed, dictated and finalized at location A.
--- NOTE | ~2024-04-07 | XR_ITS ---
XR knee LT 3V DATE: 04/07/2024 03:54 INDICATION: Left knee pain TECHNIQUE: 3 views including crosstable lateral COMPARISON: None FINDINGS: Moderate suprapatellar knee joint effusion. There is tricompartment osteoarthritis, most prominent at the medial compartment where there is moder ately severe loss of joint space height. No fracture, dislocation, periosteal reaction or bone destruction, radiopaque interarticular loose rocio dy or chondrocalcinosis is noted. Femoral arterial calcification. IMPRESSION: Tricompartment osteoarthritis, most prominent at the medial compartment Moderate suprapatellar knee joint effusion Reviewed, dictated and finalized at location A. IMPRESSION: Tricompartment osteoarthritis, most prominent at the medial compart ment Moderate suprapatellar knee joint effusion
--- NOTE | ~2024-04-07 | XR_ITS ---
XR knee RT 3V DATE: 04/07/2024 03:54 INDICATION: Right knee pain TECHNIQUE: 3 views including crosstable lateral COMPARISON: None FINDINGS: Moderate suprapatellar knee joint effusion. There is moderately severe loss of height of the medial compartment joint space. There is periarticul ar spurring at all 3 compartments. No fracture, dislocation, periosteal reaction or bone destruction is detected. Arterial calcifications. There are surgical clips along the medial lower leg. IMPRESSION: Tricompartment osteoarthritis, most severe at the medial compartment Moderate suprapatellar knee joint effusion Reviewed, dictated and finalized at location A. IMPRESSION: Tricompartment osteoarthritis, most severe at the medial compartmen t Moderate suprapatellar knee joint effusion
--- NOTE | ~2024-04-07 | CT_ITS ---
EXAMINATION: CT cervical spine wo con DATE: 04/07/2024 03:59 INDICATION: Fall out of chair. Head injury. Erythema over right forehead. TECHNIQUE: Computed tomography (CT) of the cervical spine was performed without intravenous contrast. Automated exposure control and iterative reconstruction technique were employed. Exam dose: 200.39 mGy-cm total exam DLP. COMPARISON: None FINDINGS: C1 and C2 are normally aligned. There is no degenerative change at the articulation of the anterior arch of C1 and odontoid process of C2. There is fusion at C6-7 intervertebral disc space. Mild degenerative disease at C2-3 and moderately severe degenerative disease at C3-4, C4-5 and C5-6. There is 1.9 mm anterolisthesis at C5-6. There is prominent degenerative change at the apophyseal nick nts throughout the cervical spine. There is prominent uncovertebral joint spurring in the mid and low er cervical spine. There is prominent upper thoracic spine degenerative disc disease. No fracture or dislocation or long facet or prevertebral soft tissue swelling is detected. Status post sternotomy. Particularly prominent hypertrophic degenerative changes at both sternoclavic ular joints Right pleural effusion extends up to the apical area. IMPRESSION: Severe cervical and upper thoracic spondylosis; no fracture or dislocation or locked fac et Reviewed, dictated and finalized at [facility]. Reviewed, dictated and finalized at location A. IMPRESSION: Severe cervical and upper thoracic spondylosis; no fracture or dis location or locked facet
[2024-04-07 03:23] VITALS: BP 127/67; PULSE 63; RESP 16; TEMP 36.6; O2SAT 100
--- NOTE | 2024-04-07 03:28 | ED.FALL ---
HPI - Fall General Chief Complaint: Fall Stated Complaint: fall History of Present Illness HPI Narrative: This is an 83-year-old male, with history of stroke on Plavix and dementia (baseline orientation times 1-2) brought in by EMS from his senior care after a suspected ground level fall. EMS reports her, nursing staff at his senior care found the patient groin on all four limbs this evening. Previously, the patient was seen sleeping in his recliner. The patient is not sure if he hit his head. He complains of mild bilateral knee pain and right ankle pain. He has no other complaints at this time. Related Data Home Medications Medication Instructions Recorded Confirmed acetaminophen 325 mg tablet 650 mg PO Q6H PRN Pain (Scale 03/09/24 03/09/24 Score 1-3) albuterol sulfate 90 mcg/actuation 2 puff inhalation Q6H PRN Wheezing 03/09/24 03/09/24 aerosol inhaler atorvastatin 80 mg tablet 80 mg PO HS 03/09/24 03/09/24 clopidogrel 75 mg tablet 75 mg PO DAILY 03/09/24 03/09/24 finasteride 5 mg tablet 5 mg PO DAILY 03/09/24 03/09/24 levothyroxine 125 mcg tablet 125 mcg PO DAILY 03/09/24 03/09/24 metoprolol succinate 25 mg 12.5 mg PO BID 03/09/24 03/09/24 tablet,extended release 24 hr pyridoxine (vitamin B6) 100 mg PO DAILY 03/09/24 03/09/24 quetiapine 25 mg tablet 25 mg PO BID 03/09/24 03/09/24 quetiapine 50 mg tablet 50 mg PO BID 03/09/24 03/09/24 sennosides 8.6 mg capsule (senna) 17.2 mg PO DAILY PRN Constipation 03/09/24 03/09/24 sertraline 25 mg tablet 25 mg PO DAILY 03/09/24 03/09/24 tamsulosin 0.4 mg capsule 0.4 mg PO DAILY 03/09/24 03/09/24 tiotropium bromide 18 mcg capsule 18 mcg inhalation DAILY 03/09/24 03/09/24 with inhalation device (Spiriva with HandiHaler) Allergies Allergy/AdvReac Type Severity Reaction Status Date / Time diphtheria toxoid,adsorbed Allergy Unknown Verified 04/25/24 04:17 fish derived Allergy Unknown Verified 03/21/24 04:17 iodine Allergy Unknown Verified 03/21/24 04:17 tetanus toxoid, adsorbed Allergy Unknown Verified 03/21/24 04:17 tositumomab Allergy Unknown Verified 03/21/24 04:17 Review of Systems Review of Systems: All systems reviewed & are unremarkable except as noted in HPI and below PMFSH Past Medical History Medical History Bladder stone BPH with urinary obstruction Chronic indwelling Barry catheter COPD (chronic obstructive pulmonary disease) CVA (cerebral vascular accident) Focal left parietal encephalomalacia, old lacunar infarct left caudate nucleus, moderate atrophy and chronic white matter changes Dementia Essential hypertension History of nephrolithiasis Hyperlipidemia Hypothyroidism Normocytic hypochromic anemia Pleural effusion on right Surgical History Surgical History Status post cataract extraction of both eyes with insertion of intraocular lens Family History Family History Other Unknown family medical history Social History Social History Social History: Patient resides at [facility]. Code status: Full code (per senior care documentation) Smoking status: Unknown if ever smoked Alcohol intake: unknown Substance use: unknown Spiritual care concerns: No Exam Narrative: GENERAL: Well-developed, well-nourished, and in no acute distress. HEAD: Normocephalic, atraumatic. EYES: PERRLA and EOMI. ENT: Nares clear, no rhinorrhea or epistaxis. Mucous membranes moist. Oropharynx without tonsillar hypertrophy exudate or other lesions. NECK: Supple. No midline spine tenderness to palpation, no step-off or crepitus CHEST: Clear to auscultation. No respiratory distress. No wheezes rales or rhonchi HEART: Regular rate and rhythm. No murmur heard. Normal peripheral pulses. ABDOMEN: Soft, nontender, no
[2024-04-07] MEDS: ACETAMINOPHEN 500 MG TABLET 1000 MG PO (03:34)
[2024-04-07 06:10] VITALS: BP 131/79; PULSE 70; RESP 16; O2SAT 97
[2024-04-07 06:57] VITALS: BP 125/52; PULSE 72; RESP 17; O2SAT 96
--- NOTE | 2024-04-07 06:58 | PC.NURSE ---
Report called to Ekta at [facility]. ED certified legal secretary specialist arranged transport. transport ETA 35 mins.
[2024-04-07 09:55] VITALS: BP 136/66; PULSE 70; RESP 18; O2SAT 96
[2024-04-07 10:59] VITALS: BP 114/76; PULSE 66; RESP 18; TEMP 36.4; O2SAT 100
== END 2024-04-07 11:00 ==
PROVIDERS: Emergency Provider Preventive Medicine Aerospace Medicine
DX: S89.92XA Unspecified injury of left lower leg, initial encounter (principal); S89.91XA Unspecified injury of right lower leg, initial encounter; S99.911A Unspecified injury of right ankle, initial encounter; F03.90 Unspecified dementia, unspecified severity, without behavioral disturbance, psychotic disturbance, mood disturbance, and anxiety; J44.9 Chronic obstructive pulmonary disease, unspecified; I10 Essential (primary) hypertension; E78.5 Hyperlipidemia, unspecified; E03.9 Hypothyroidism, unspecified; N40.0 Benign prostatic hyperplasia without lower urinary tract symptoms; D50.9 Iron deficiency anemia, unspecified; Z96.1 Presence of intraocular lens; Z98.42 Cataract extraction status, left eye; Z98.41 Cataract extraction status, right eye; Z87.442 Personal history of urinary calculi; M77.31 Calcaneal spur, right foot; M17.0 Bilateral primary osteoarthritis of knee; M47.812 Spondylosis without myelopathy or radiculopathy, cervical region; M47.814 Spondylosis without myelopathy or radiculopathy, thoracic region; W19.XXXA Unspecified fall, initial encounter
CPT/HCPCS: 70450; 72125; 73562; 73610; 99284; A9270

== ENCOUNTER 2024-05-02 07:15 | Inpatient (IN) | payer MEDICARE, SELFPAY ==
[2024-05-02] VITALS (17 sets, daily range): BP systolic 106–131; BP diastolic 58–90; PULSE 71–102; RESP 15–21; TEMP 36.6–37.1; O2SAT 90–100
--- NOTE | ~2024-05-02 | XR_ITS ---
Portable chest x-ray Comparison: 05/02/2024 Clinical History: Effusion Findings: Moderate right pleural effusion is unchanged. There is bibasilar/perihilar pulmonary edema . Cardiomediastinal silhouette is stable. Bones and soft tissues are unremarkable. Impression: Stable moderate right pleural effusion. Mild pulmonary edema pattern, as above. Reviewed, dictated and finalized at [facility]. Impression: Stable moderate right pleural effusion. Mild pulmonary edema pattern, as above.
--- NOTE | ~2024-05-02 | XR_ITS ---
EXAMINATION: [id number] DATE: 05/10/2024 10:10 INDICATION: Status post right thoracentesis TECHNIQUE: frontal view of the chest was obtained. COMPARISON: Chest radiograph dated 05/06/2024 FINDINGS: Interval decrease in size of a now very small right pleural effusion postthoracentesis with blunting at the costophrenic angle. Mild peripheral predominant opacities at the right lower lung zone most li china associated atelectasis although differential includes pneumonia. Small calcified nodule at the l ateral left midlung zone consistent with old granulomatous disease. There are also skin folds along t he lateral left lung. No pneumothorax or left-sided pleural effusion. The cardiomediastinal silhouett e is normal. Median sternotomy wires, ostial markers and mediastinal surgical clips consistent with p rior coronary artery bypass grafting. Osteoarthritis of the bilateral glenohumeral joints with loose osteochondral bodies along the long head biceps tendon sheaths. IMPRESSION: 1. Significant decrease in size of a now very small right pleural effusion with associated peripheral opacities in the right lower lung and favor atelectasis over pneumonia. Reviewed, dictated and finalized at location A.
--- NOTE | ~2024-05-02 | XR_ITS ---
EXAMINATION: XR chest 1V portable DATE: 05/02/2024 09:03 INDICATION: Cough. TECHNIQUE: A single frontal view of the chest was obtained. COMPARISON: Chest 2 views 03/24/2024 FINDINGS: There is a moderate-sized loculated right pleural effusion. A calcified left lung nodule an d calcified left hilar lymph nodes are consistent with old granulomatous disease. There are airspace opacities in right mid and lower lung zones. No pneumothorax. The heart size is normal. Median sterno dereck wires and mediastinal surgical clips are seen, likely from prior coronary artery bypass grafting . IMPRESSION: 1. Stable moderate-sized loculated right pleural effusion. 2. Airspace opacities in right mid and lower lung zones, consistent with atelectasis versus pneumonia . Reviewed, dictated and finalized at location A. IMPRESSION: 1. Stable moderate-sized loculated right pleural effusion. 2. Airspace opacities in right mid and lower lung zones, consistent with atelec tasis versus pneumonia.
--- NOTE | ~2024-05-02 | US_ITS ---
EXAMINATION: US thoracentesis DATE: 05/10/2024 10:13 INDICATION: Right pleural effusion TECHNIQUE: The procedure and its risks and benefits were discussed with the patient. Potential risks discussed included bleeding, infection, and pneumothorax. The patient understood the risks and agreed to proceed. The skin was prepped and draped in sterile fashion. 1% lidocaine was used for local anes thesia. Under ultrasound guidance, a 5 Fr catheter with trochar was advanced into the right pleural e ffusion. Fluid was aspirated. The catheter was removed, and a dressing was applied. There were no imm ediate complications. FINDINGS: Ultrasound images demonstrate a small to moderate-sized right pleural effusion and the catheter withi n the fluid. IMPRESSION: 1. Successful ultrasound-guided thoracentesis yielding 1000 mL of dark angely-colored fluid. Reviewed, dictated and finalized at location A. IMPRESSION: 1. Successful ultrasound-guided thoracentesis yielding 1000 mL of dark angely-c olored fluid.
--- NOTE | ~2024-05-02 | CT_ITS ---
EXAMINATION:CT diagnostic chest wo con DATE: 05/02/2024 13:33 INDICATION: Loculated pleural effusion. TECHNIQUE: Computed tomography (CT) of the chest was performed without intravenous contrast. Automate d exposure control and iterative reconstruction technique were employed. The dose-length product (DLP ) was 153.46 mGy-cm. COMPARISON: Chest CT 03/02/2024 FINDINGS: There is moderate emphysema. There is a moderate-sized loculated right pleural effusion. Th ere is mild scarring at the lung apices. There is mild atelectasis in the lungs. Calcified bilateral pulmonary nodules and calcified right hilar lymph nodes are consistent with old granulomatous disease . There is a 4 mm nodule in left upper lobe, likely benign. The heart size is normal. There are coron amira artery calcifications. No pericardial effusion. Calcifications in the spleen are consistent with old granulomatous disease. There is severe thoracic spondylosis. IMPRESSION: 1. Stable moderate-sized loculated right pleural effusion. 2. Moderate emphysema. Reviewed, dictated and finalized at location A.
[2024-05-02 07:38] LABS: Basophils Percent Auto 0.2 % (0.2-1.2); Hematocrit 33.4 % (42.0-52.0); Hemoglobin 10.7 g/dL (14.0-18.0); Immature Granulocyte Absolute 0.13 K/mm3 (0.00-0.031); Immature Granulocyte Percent A 0.7 % (0-0.5); Lymphocytes Absolute Auto 0.62 K/mm3 (0.9-3.2); Lymphocytes Percent Auto 3.3 % (18.3-44.2); Mean Corpuscular Hemoglobin 28.6 pg (26-34); Mean Corpuscular Volume 89.3 fl (80-100); Mean Platelet Volume 9.1 fl (7.4-10.4); Monocytes Absolute Auto 0.6 K/mm3 (0.1-0.6); Monocytes Percent Auto 2.9 % (2.6-8.5); Neutrophils Absolute Auto 17.7 K/mm3 (1.3-6.7); Neutrophils Percent Auto 92.9 % (45.5-73.1); Platelet Count Result 240 k/mm3 (150-375); Red Blood Count 3.74 M/mm3 (4.6-6.20); Red Cell Distribution Width 21.5 % (11.5-14.5)
[2024-05-02 07:46] LABS: INR 1.1; Prothrombin Time 14.4 Seconds (11.1-14.7)
[2024-05-02 07:47] LABS: Partial Thromboplastin Time 37.2 Seconds (22.3-36.8)
[2024-05-02 07:53] LABS: Alanine Aminotransferase 31 U/L (6-50); Alkaline Phosphatase 129 U/L (38-126); Anion Gap 5 mmol/L (4-12); Aspartate Amino Transferase 36 U/L (17-59); Bilirubin,Total 0.5 mg/dL (0.2-1.3); Blood Urea Nitrogen 26 mg/dL (9-20); Carbon Dioxide 27 mmol/L (22-30); Chloride 105 mmol/L (98-107); Estimated Glomerular Filt Rate > 60; Glucose 131 mg/dL (65-110); Potassium 4.2 mmol/L (3.4-5.0); Sodium 137 mmol/L (137-145)
[2024-05-02 08:01] LABS: Platelet Estimate Adequate (Adequate)
[2024-05-02 08:02] LABS: Anisocytosis 1+; Hypochromasia 1+; Poikilocytosis 1+; Schistocytes Rare
[2024-05-02] MEDS: PANTOPRAZOLE SODIUM IV 40 MG VIAL IV PUSH ×2 (08:07→20:13)
--- NOTE | 2024-05-02 08:17 | ED.GIBLEED ---
HPI - GI Bleed General Chief complaint: GI Bleed Stated complaint: gi bleed Time Seen by Provider: 05/02/24 07:50 History of Present Illness HPI Narrative: Pt reportedly had episode of coffe ground emesis this morning at [place]. Pt has some epigastric abdominal pain. Pt denies rectal bleeding now but reportedly told RN on arrival he passed some bright red blood. Related Data Home Medications Medication Instructions Recorded Confirmed acetaminophen 325 mg tablet 650 mg PO Q6H PRN Pain (Scale 03/09/24 03/09/24 Score 1-3) albuterol sulfate 90 mcg/actuation 2 puff inhalation Q6H PRN Wheezing 03/09/24 03/09/24 aerosol inhaler atorvastatin 80 mg tablet 80 mg PO HS 03/09/24 03/09/24 clopidogrel 75 mg tablet 75 mg PO DAILY 03/09/24 03/09/24 finasteride 5 mg tablet 5 mg PO DAILY 03/09/24 03/09/24 levothyroxine 125 mcg tablet 125 mcg PO DAILY 03/09/24 03/09/24 metoprolol succinate 25 mg 12.5 mg PO BID 03/09/24 03/09/24 tablet,extended release 24 hr pyridoxine (vitamin B6) 100 mg PO DAILY 03/09/24 03/09/24 quetiapine 25 mg tablet 25 mg PO BID 03/09/24 03/09/24 quetiapine 50 mg tablet 50 mg PO BID 03/09/24 03/09/24 sennosides 8.6 mg capsule (senna) 17.2 mg PO DAILY PRN Constipation 03/09/24 03/09/24 sertraline 25 mg tablet 25 mg PO DAILY 03/09/24 03/09/24 tamsulosin 0.4 mg capsule 0.4 mg PO DAILY 03/09/24 03/09/24 tiotropium bromide 18 mcg capsule 18 mcg inhalation DAILY 03/09/24 03/09/24 with inhalation device (Spiriva with HandiHaler) Allergies Allergy/AdvReac Type Severity Reaction Status Date / Time diphtheria toxoid,adsorbed Allergy Unknown Verified 05/02/24 07:30 fish derived Allergy Unknown Verified 05/02/24 07:30 iodine Allergy Unknown Verified 05/02/24 07:30 tetanus toxoid, adsorbed Allergy Unknown Verified 05/02/24 07:30 tositumomab Allergy Unknown Verified 05/02/24 07:30 Review of Systems Review of Systems: All systems reviewed & are unremarkable except as noted in HPI and below PMFSH Past Medical History Medical History Bladder stone BPH with urinary obstruction Chronic indwelling Barry catheter COPD (chronic obstructive pulmonary disease) CVA (cerebral vascular accident) Focal left parietal encephalomalacia, old lacunar infarct left caudate nucleus, moderate atrophy and chronic white matter changes Dementia Essential hypertension History of nephrolithiasis Hyperlipidemia Hypothyroidism Normocytic hypochromic anemia Pleural effusion on right Surgical History Surgical History Status post cataract extraction of both eyes with insertion of intraocular lens Family History Family History Other Unknown family medical history Social History Social History Social History: Patient resides at [facility]. Code status: Full code (per snf documentation) Smoking status: Unknown if ever smoked Alcohol intake: unknown Substance use: unknown Spiritual care concerns: No Exam Const: General: healthy appearing Nutritional Appearance: well nourished Orientation/consciousness: patient oriented x3 Limitations: no limitations Eyes: Conjunctivae: conjunctivae normal Neck: Neck: normal visual inspection Chest: Chest palpation & inspection: normal inspection of the chest Resp: Effort & Inspection: normal respiratory effort Auscultation: clear to auscultation bilaterally Cardio: Rate: regular rate Rhythm: regular rhythm GI: GI Palp: Yes Soft to palpation and Yes Tenderness to palpation present (GI) (epigastrum and LUQ) Skin: General skin exam: normal color Rashes: no rashes Wounds: no wounds Neuro: General: patient oriented x3, moves all extremities and no focal motor deficits Speech: normal speech Extrem: General: normal to inspection
--- NOTE | 2024-05-02 09:43 | PM.IMHP ---
H&P: HPI History of Present Illness Date/Time: 05/02/24 09:43 Chief Complaint: Episode of coffee ground emesis in the morning at the intermediate Narrative: The patient is 83-year-old male with history of CVA, dementia, hypothyroidism, BPH, anxiety, COPD, hypertension on Plavix was brought to the emergency room from a intermediate due to suspected coffee-ground emesis as reported by the nursing staff. Patient was sleeping in his recliner and was noted that he was in some discomfort then also noticed some coffee ground emesis along with a fall. Patient patient also complains complain of some knee pain no chest pain no shortness no fever chills nausea no diarrhea no tarry stools. Patient recently was admitted about 3 months ago seen by GI he refused a colonoscopy patient hemoglobin at that time was 8.5 and stable patient was also diagnosed with proctitis Review of Systems Review of Systems: All systems reviewed & are unremarkable except as noted in HPI and below PMFSH Past Medical History Medical History Bladder stone BPH with urinary obstruction Chronic indwelling Barry catheter COPD (chronic obstructive pulmonary disease) CVA (cerebral vascular accident) Focal left parietal encephalomalacia, old lacunar infarct left caudate nucleus, moderate atrophy and chronic white matter changes Dementia Essential hypertension History of nephrolithiasis Hyperlipidemia Hypothyroidism Normocytic hypochromic anemia Pleural effusion on right Surgical History Surgical History Status post cataract extraction of both eyes with insertion of intraocular lens Family History Family History Other Unknown family medical history Social History Social History Social History: Patient resides at [facility]. Code status: Full code (per intermediate documentation) Smoking status: Unknown if ever smoked Alcohol intake: unknown Substance use: unknown Spiritual care concerns: No Meds Home Medications and Allergies Home Medications Medication Instructions Recorded Confirmed Type acetaminophen 325 mg tablet 650 mg PO Q6H PRN Pain (Scale 03/09/24 03/09/24 History Score 1-3) albuterol sulfate 90 mcg/actuation 2 puff inhalation Q6H PRN Wheezing 03/09/24 03/09/24 History aerosol inhaler atorvastatin 80 mg tablet 80 mg PO HS 03/09/24 03/09/24 History clopidogrel 75 mg tablet 75 mg PO DAILY 03/09/24 03/09/24 History finasteride 5 mg tablet 5 mg PO DAILY 03/09/24 03/09/24 History levothyroxine 125 mcg tablet 125 mcg PO DAILY 03/09/24 03/09/24 History metoprolol succinate 25 mg 12.5 mg PO BID 03/09/24 03/09/24 History tablet,extended release 24 hr pyridoxine (vitamin B6) 100 mg PO DAILY 03/09/24 03/09/24 History quetiapine 25 mg tablet 25 mg PO BID 03/09/24 03/09/24 History quetiapine 50 mg tablet 50 mg PO BID 03/09/24 03/09/24 History sennosides 8.6 mg capsule (senna) 17.2 mg PO DAILY PRN Constipation 03/09/24 03/09/24 History sertraline 25 mg tablet 25 mg PO DAILY 03/09/24 03/09/24 History tamsulosin 0.4 mg capsule 0.4 mg PO DAILY 03/09/24 03/09/24 History tiotropium bromide 18 mcg capsule 18 mcg inhalation DAILY 03/09/24 03/09/24 History with inhalation device (Spiriva with HandiHaler) amoxicillin 875 mg-potassium 1 tablet PO Q12H #8 tabs 03/14/24 Rx clavulanate 125 mg tablet ferrous sulfate 325 mg (65 mg 325 mg PO BID #60 tabs 03/14/24 Rx iron) tablet,delayed release Allergies Allergy/AdvReac Type Severity Reaction Status Date / Time diphtheria toxoid,adsorbed Allergy Unknown Verified 05/02/24 07:30 fish derived Allergy Unknown Verified 05/02/24 07:30 iodine Allergy Unknown Verified 05/02/24 07:30 tetanus toxoid, adsorbed Allergy Unknown Verified 05/02/24 07:30 tositu
[2024-05-02] MEDS: cefTRIAXone 2 GM/NS 100 ML 2 GM/100 ML BAG IVPB (10:33)
[2024-05-02 10:34] LABS: Appearance Urine Cloudy (Clear); Bacteria Urine 4+ /hpf; Bilirubin Urine Negative (Negative); Blood Urine Non-Hemolyzed Trace (Negative); Color Urine Yellow (Yellow); Glucose Urine UA Negative (Negative); Ketones Urine Negative (Negative); Leukocyte Esterase Ur 3+ LEU/UL (Negative); Nitrate Urine Positive (Negative); Protein Urine 1+ mg/dL (Negative); RBC Urine 0-2 /hpf (0-2); Specific Grav Ur 1.011 (1.001-1.035); Squamous Epithelial Cell Urine None Seen /hpf (Few); Urobilinogen Urine 0.2 mg/dL (<2.0); WBC Urine >100 /hpf (0-3); pH Urine 8.5 (5.0-9.0)
[2024-05-02 10:46] LABS: Add Urine Microscopic? YES
[2024-05-02 10:51] LABS: Alanine Aminotransferase 28 U/L (6-50); Albumin Level 3.1 g/dL (3.5-5.1); Alkaline Phosphatase 126 U/L (38-126); Anion Gap 8 mmol/L (4-12); Aspartate Amino Transferase 36 U/L (17-59); Bilirubin,Total 0.6 mg/dL (0.2-1.3); Blood Urea Nitrogen 29 mg/dL (9-20); Calcium 8.9 mg/dL (8.4-10.2); Carbon Dioxide 25 mmol/L (22-30); Chloride 105 mmol/L (98-107); Estimated Glomerular Filt Rate 58; Glucose 119 mg/dL (65-110); Potassium 4.5 mmol/L (3.4-5.0); Sodium 138 mmol/L (137-145)
--- NOTE | 2024-05-02 11:10 | ADMGEN ---
This patient, Stewart La, was admitted to Medical Room 245-. Patient/family oriented to hospital policies and general routines including ID bracelet, bed and alarms, visiting hours, pain management, procedures, bathroom and other care routines, personal items, smoking policy, room service/diet, and visiting hours. Information on how to activate the Rapid Response Team has been discussed. Patient/Family are encouraged to report perceived risks to care and to ask questions if they do not understand what they are told or what they should do.
[2024-05-02] MEDS: DEXTROSE 5%/0.45% SOD CHL 1,000 ML 100 ML IV CONT (12:50)
[2024-05-02] MEDS: AZITHROMYCIN 500 MG/NS 250 ML 500 MG/250 ML BAG 250 MG IVPB (12:50)
[2024-05-02] MEDS: IPRATROPIUM 0.5 MG/ALBUTEROL SULFATE 2.5 MG AMPUL.NEB 3 ML INHALATION ×2 (13:40→21:23)
--- NOTE | 2024-05-02 14:25 | WPDGICN ---
Assessment and Plan Assessment and plan (1) Coffee ground emesis: Code(s): K92.0 - Hematemesis Status: Acute Assessment and Plan: probably esophagitis or pud but h/h stable continue with iv protonix no more episodes I had lengthy discussion with POA and she is against any invasive procedures given advanced age and dementia, continue with medical support (2) Acute GI bleeding: Code(s): K92.2 - Gastrointestinal hemorrhage, unspecified Status: Acute Assessment and Plan: no egd for now ok to advance diet as tolerated (3) Pleural effusion on right: Code(s): J90 - Pleural effusion, not elsewhere classified Status: Acute Assessment and Plan: CT scan reviewed (4) Iron deficiency anemia: Qualifiers: Iron deficiency anemia type: chronic blood loss Qualified Code(s): D50.0 - Iron deficiency anemia secondary to blood loss (chronic) Code(s): D50.9 - Iron deficiency anemia, unspecified Status: Acute Assessment and Plan: no scopes monitor (5) Chronic indwelling Barry catheter: Code(s): Z97.8 - Presence of other specified devices Status: Chronic (6) Dementia: Qualifiers: Dementia type: vascular dementia Dementia severity: severe Dementia behavioral or psychological symptom: with other behavioral disturbance Qualified Code(s): F01.C18 - Vascular dementia, severe, with other behavioral disturbance Code(s): F03.90 - Unspecified dementia, unspecified severity, without behavioral disturbance, psychotic disturbance, mood disturbance, and anxiety Status: Chronic Assessment and Plan: needs full care at custodial GI Consult Note Consult date/time: 05/02/24 14:25 Reason for consult: coffee ground emesis HPI: Stewart La is a 83 year old male with advanced dementia, chronic anemia, hypothyroidism, essential hypertension, COPD, and BPH with chronic urinary retention with chronic Barry catheter who came form custodial after witness emesis. I could not get any history from him. He had episode of coffee ground emesis and admitted to hospital. Recently was in the hospital after found to have more anemia hgb7-8, CT scan showed possible proctitis, family decided against any invasive procedures. Hgb now 10, bun 29. He is hemodynamically stable, no more report of bleeding. He did not provide any history. CT scan showed stable Rt sided pleural effusion Review of Systems Review of Systems: ROS unobtainable: Yes unobtainable due to mental status PMFSH Past Medical History Medical History (Updated 05/02/24 @ 14:29 by Jesús Jackman MD) Bladder stone BPH with urinary obstruction Chronic indwelling Barry catheter Coffee ground emesis COPD (chronic obstructive pulmonary disease) CVA (cerebral vascular accident) Focal left parietal encephalomalacia, old lacunar infarct left caudate nucleus, moderate atrophy and chronic white matter changes Dementia Essential hypertension History of nephrolithiasis Hyperlipidemia Hypothyroidism Normocytic hypochromic anemia Pleural effusion on right Surgical History Surgical History Status post cataract extraction of both eyes with insertion of intraocular lens Family History Family History Other Unknown family medical history Social History Social History Social History: Patient resides at [facility]. Code status: Full code (per custodial documentation) Smoking status: Unknown if ever smoked Alcohol intake: unknown Substance use: unknown Spiritual care concerns: No Meds Home Medications and Allergies Home Medications Medication Instructions Recorded Confirmed Type acetaminophen 325 mg tablet 650 mg PO Q6H PRN Pain (Scale 03/09/24 03/09/24 Histor
[2024-05-03] VITALS (20 sets, daily range): BP systolic 77–106; BP diastolic 37–58; PULSE 80–91; RESP 16–24; TEMP 36.2–37.2; O2SAT 96–100; BMI 18.3
--- NOTE | 2024-05-03 | ECHO_ITS ---
Patient Info Name: Stewart La Age: 83 years : 1940 Gender: Male Ht: 67 in Wt: 165 lbs BSA: 1.89 m2 HR: 87 bpm BP: 90 / 53 mmHg Heart Rhythm: Sinus Rhythm Technical Quality: Poor Exam Date: 05/03/2024 11:32 AM Exam Location: Echo Lab Patient Status: Inpatient Admit Date: 05/02/2024 Staff Ordering Physician: Katelynn Martins PA-C Lacing Cutter: Wagner Kebede RDCS Attending Provider: Katelynn Martins PA-C Referring Physician: Eliezer WINTERS; Exam Type: CA echo doppler color flow Study Info Indications - Staph Bacteremia Complete two-dimensional, color flow and Doppler transthoracic echocardiogram is performed. Reason for Poor Study: poor patient cooperation Summary 1. Complete two-dimensional, color flow and Doppler transthoracic echocardiogram is performed. 2. Normal left ventricular size and systolic function with grade 1 diastolic noncompliance. 3. Dilated left atrium. 4. Mild aortic stenosis valve area 1.5 cm2. 5. No valvular vegetations identified. Left Ventricle Left ventricular chamber dimension is normal. Left ventricular systolic function is normal, estimated at 55-60%. The left ventricular diastolic function is grade I diastolic dysfunction. Right Ventricle Right ventricular chamber dimension is normal. Left Atria Left atrial chamber dimension is mildly enlarged. Right Atria Right atrial chamber dimension is normal. Aortic Valve The aortic valve is trileaflet. There is mild aortic valve sclerosis. There is mild aortic valve stenosis with a peak velocity of 147 cm/s, mean gradient of 3 mmHg, and aortic valve area of 1.9 cm2. Pulmonic Valve The pulmonic valve is normal. Mitral Valve The mitral valve has normal leaflets. There is mild mitral valve regurgitation. Tricuspid Valve The tricuspid valve leaflets are normal. Pericardium/Pleural The pericardium appears normal. Aorta The aortic root size at the sinus of Valsalva is normal. Left Ventricular Outflow Tract Name Value Normal LVOT 2D LVOT Diameter 2.0 cm LVOT Doppler LVOT Peak Gradient 2 mmHg LVOT Mean Gradient 1 mmHg LVOT VTI 13 cm LVOT VTI/AV VTI Ratio 0.6 LVOT Stroke Volume 42 ml LVOT CO 3.0 l/min LVOT CI 1.6 l/min/m2 Pulmonic Valve Name Value Normal RVOT Doppler RVOT Peak Gradient 1 mmHg PV Doppler PV Peak Gradient 3 mmHg Mitral Valve Name Value Normal MV Doppler
[2024-05-03] MEDS: IPRATROPIUM 0.5 MG/ALBUTEROL SULFATE 2.5 MG AMPUL.NEB 3 ML INHALATION ×3 (02:26→20:16)
[2024-05-03] MEDS: DEXTROSE 5%/0.45% SOD CHL 1,000 ML 100 ML IV CONT ×2 (04:30→20:13)
--- NOTE | 2024-05-03 07:48 | PM.IMPN ---
Progress Note: A&P Assessment and Plan (1) Sepsis: Code(s): A41.9 - Sepsis, unspecified organism Status: Acute Assessment and Plan: Meets SIRS criteria: leukocytosis, positive blood cultures - lactic acid: 1.1 on 05/03 after receiving antibiotics - suspected source: pneumonia - Blood cultures collected on 05/02: Preliminary- Gram + cocci, new blood cultures ordered - Sputum cultures collected on 05/02 - UA: cloudy appearance, 1+ protein, positive nitrates, 3+ leukocytes, >100 WBC, 4+ bacteria - UC obtained on 05/02: pending - previous micro reviewed 12/05/23: MRSA and ecoli - ESBL resistance - Antibiotics: azithromycin and ceftriaxone started on 05/02, antibiotics transitioned to vancomycin and cefepime on 05/03, remains on azithromycin for atypical coverage (2) Pneumonia: Code(s): J18.9 - Pneumonia, unspecified organism Status: Acute Assessment and Plan: CXR: 1. Stable moderate-sized loculated right pleural effusion. 2. Airspace opacities in right mid and lower lung zones, consistent with atelectasis versus pneumonia. Chest CT: 1. Stable moderate-sized loculated right pleural effusion. 2. Moderate emphysema. - Viral PCR: negative for Flu/COVID/RSV - Lactic acid: ordered - Blood cultures collected on 05/02: Preliminary- Gram + cocci, new blood cultures ordered - Sputum cultures collected on 05/02 - no supplemental O2 requirement - gentle IV fluid resuscitation - Solu-medrol IV - started on CAP tx: azithromycin and ceftriaxone started on 05/02, antibiotics transitioned to vancomycin and meropenem (UTI coverage) on 05/03, remains on azithromycin for atypical coverage - supportive treatment tyl and ibu prn nebs prn tesslon perles prn - IR consulted and thoracentesis ordered - Monitor vital signs, I&Os, neuro status and patient is a fall risk - Follow WBC, serum electrolytes, temperature curves and cultures (3) Acute GI bleeding: Code(s): K92.2 - Gastrointestinal hemorrhage, unspecified Status: Acute Assessment and Plan: GI consulted, POA is against any invasive procedures given advanced age and dementia, continue with medical support - Use PPI IV - IV resuscitation. - Monitor electrolytes. - GI consult as needed - Watch for dysphagia and sudden weight loss - Monitor H&H routinely. (4) Urinary tract infection: Qualifiers: Encounter type: initial encounter Indwelling urinary catheter type: indwelling urethral catheter Urinary tract infection type: catheter-associated UTI Qualified Code(s): T83.511A - Infection and inflammatory reaction due to indwelling urethral catheter, initial encounter; N39.0 - Urinary tract infection, site not specified Code(s): N39.0 - Urinary tract infection, site not specified Status: Acute Assessment and Plan: - UA: cloudy appearance, 1+ protein, positive nitrates, 3+ leukocytes, >100 WBC, 4+ bacteria - UC obtained on 05/02: pending - previous micro reviewed 12/05/23: MRSA and ecoli - ESBL resistance - started on Rocephin in the ED, transitioned to meropenem on 05/03 (5) Anemia: Code(s): D64.9 - Anemia, unspecified Status: Acute Assessment and Plan: Chronic, appears to be around baseline. - Continue to monitor with daily labs - if hemoglobin< 7 transfuse (6) Hypertension: Code(s): I10 - Essential (primary) hypertension Status: Acute Assessment and Plan: Chronic, currently hypotensive. - Holding home medications, will restart when appropriate (7) Hypothyroidism: Qualifiers: Hypothyroidism type: unspecified Qualified Code(s): E03.9 - Hypothyroidism, unspecified Code(s): E03.9 - Hypothyroidism, unspecified Status: Chronic Assessment and Plan: Chronic. TSH 03/10/24: 5.530 Continue levothyroxine 150 mg daily (8) Dementia: Qualifiers: Dementia behavioral or psychological symptom: with other behavioral disturbance Dementia
[2024-05-03 08:18] LABS: Basophils Percent Auto 0.1 % (0.2-1.2); Eosinophils Absolute Auto 0.1 K/mm3 (0-0.3); Eosinophils Percent Auto 0.3 % (0-4.4); Hematocrit 25.1 % (42.0-52.0); Hemoglobin 7.9 g/dL (14.0-18.0); Immature Granulocyte Absolute 0.11 K/mm3 (0.00-0.031); Immature Granulocyte Percent A 0.7 % (0-0.5); Lymphocytes Percent Auto 10.1 % (18.3-44.2); Mean Corpuscular HGB Conc 31.5 g/dl (32-36); Mean Corpuscular Hemoglobin 28.4 pg (26-34); Mean Corpuscular Volume 90.3 fl (80-100); Mean Platelet Volume 8.8 fl (7.4-10.4); Monocytes Absolute Auto 0.8 K/mm3 (0.1-0.6); Monocytes Percent Auto 5.1 % (2.6-8.5); Neutrophils Absolute Auto 13.2 K/mm3 (1.3-6.7); Neutrophils Percent Auto 83.7 % (45.5-73.1); Platelet Count Result 178 k/mm3 (150-375); Red Blood Count 2.78 M/mm3 (4.6-6.20); Red Cell Distribution Width 21.5 % (11.5-14.5); White Blood Count 15.8 K/mm3 (4.5-10.0)
[2024-05-03] MEDS: PANTOPRAZOLE SODIUM IV 40 MG VIAL IV PUSH (08:32)
[2024-05-03] MEDS: AZITHROMYCIN 250 MG TABLET 500 MG PO (08:33)
[2024-05-03] MEDS: CEFEPIME 2 GM/NS 50 ML 2 GM/50 ML BAG IVPB (08:33)
--- NOTE | 2024-05-03 08:51 | PCPTNOTE ---
Spoke with hospitalist, Katelynn Martins PA-C, KENISHA to remove bedrest orders for pt. RN aware.
[2024-05-03 08:58] LABS: Lactic Acid Reflex 1.1 mmol/L (0.7-2.0)
[2024-05-03 09:43] LABS: Alanine Aminotransferase 19 U/L (6-50); Albumin Level 2.2 g/dL (3.5-5.1); Alkaline Phosphatase 83 U/L (38-126); Anion Gap 2 mmol/L (4-12); Aspartate Amino Transferase 26 U/L (17-59); Bilirubin,Total 0.2 mg/dL (0.2-1.3); Blood Urea Nitrogen 30 mg/dL (9-20); Calcium 8.3 mg/dL (8.4-10.2); Carbon Dioxide 25 mmol/L (22-30); Chloride 109 mmol/L (98-107); Estimated Glomerular Filt Rate > 60; Glucose 96 mg/dL (65-110); Potassium 3.5 mmol/L (3.4-5.0); Sodium 136 mmol/L (137-145)
[2024-05-03] MEDS: MEROPENEM 1 GM/NS 100 ML 1 GM/100 ML BAG IVPB ×2 (10:40→20:06)
[2024-05-03] MEDS: VANCOMYCIN 1,250 MG/NS 250 ML 1,250 MG/250 ML BAG 166.67 MG IVPB (12:00)
[2024-05-03 13:26] LABS: MRSA (PCR) NOT DETECTED (NOT DETECTE)
--- NOTE | 2024-05-03 14:10 | PC.NURSE ---
Patient off floor to GI lab via bed.
[2024-05-03] MEDS: LACTATED RINGERS 1,000 ML 150 ML IV CONT (14:11)
--- NOTE | 2024-05-03 14:30 | WPDANESEPPF ---
Anes - Initial Pre Proc Eval Procedure: Operation Date: 05/03/24 16:00 Proposed Procedures p Esophagogastroduodenoscopy - Jesús Jackman MD Date/Time: 05/03/24 14:30 Surgeon: Katelynn Martins PA-C Pre Op Diagnosis: gi bleed Patient Data Age: 83 Gender: M Height: 1.6 m Weight: 47 kg Last Vital Signs Temp 36.2 C L 05/03/24 14:15 Pulse 80 05/03/24 14:15 Resp 20 05/03/24 14:15 BP 106/50 L 05/03/24 14:15 Pulse Ox 98 05/03/24 14:15 O2 Del Method Room Air 05/03/24 14:15 FiO2 21 05/02/24 13:40 Allergies Allergy/AdvReac Type Severity Reaction Status Date / Time diphtheria toxoid,adsorbed Allergy Unknown Verified 05/03/24 14:13 fish derived Allergy Unknown Verified 05/03/24 14:13 iodine Allergy Unknown Verified 05/03/24 14:13 tetanus toxoid, adsorbed Allergy Unknown Verified 05/03/24 14:13 tositumomab Allergy Unknown Verified 05/03/24 14:13 Home Medications Medication Instructions Recorded Confirmed Type acetaminophen 325 mg tablet 650 mg PO Q6H PRN Pain (Scale 03/09/24 05/02/24 History Score 1-3) albuterol sulfate 90 mcg/actuation 2 puff inhalation Q6H PRN Wheezing 03/09/24 05/02/24 History aerosol inhaler atorvastatin 80 mg tablet 80 mg PO HS 03/09/24 05/02/24 History clopidogrel 75 mg tablet 75 mg PO DAILY 03/09/24 05/02/24 History finasteride 5 mg tablet 5 mg PO DAILY 03/09/24 05/02/24 History levothyroxine 125 mcg tablet 125 mcg PO DAILY 03/09/24 05/02/24 History metoprolol succinate 25 mg 12.5 mg PO BID 03/09/24 05/02/24 History tablet,extended release 24 hr pyridoxine (vitamin B6) 100 mg PO DAILY 03/09/24 05/02/24 History quetiapine 25 mg tablet 25 mg PO Q12H 03/09/24 05/02/24 History quetiapine 50 mg tablet 50 mg PO Q12H 03/09/24 05/02/24 History sennosides 8.6 mg capsule (senna) 17.2 mg PO DAILY PRN Constipation 03/09/24 05/02/24 History sertraline 25 mg tablet 25 mg PO DAILY 03/09/24 05/02/24 History tamsulosin 0.4 mg capsule 0.4 mg PO HS 03/09/24 05/02/24 History tiotropium bromide 18 mcg capsule 18 mcg inhalation DAILY 03/09/24 05/02/24 History with inhalation device (Spiriva with HandiHaler) cephalexin 500 mg capsule 500 mg PO Q6H 05/02/24 05/02/24 History cholecalciferol (vitamin D3) 10 10 mcg PO DAILY 05/02/24 05/02/24 History mcg (400 unit) tablet ferrous sulfate 325 mg (65 mg 325 mg PO DAILY 05/02/24 05/02/24 History iron) tablet,delayed release hydroxyzine HCl 50 mg tablet 50 mg PO TID PRN Anxiety 05/02/24 05/02/24 History levothyroxine 150 mcg tablet 150 mcg PO DAILY 05/02/24 05/02/24 History Laboratory Tests 05/03/24 05/03/24 05/03/24 08:10 08:36 12:04 WBC 15.8 H K/mm3 (4.5-10.0) RBC 2.78 L M/mm3 (4.6-6.20) Hgb 7.9 L g/dL (14.0-18.0) Hct 25.1 L % (42.0-52.0) MCV 90.3 fl (80-100) MCH 28.4 pg (26-34) MCHC 31.5 L g/dl (32-36) RDW 21.5 H % (11.5-14.5) Plt Count 178 k/mm3 (150-375) MPV 8.8 fl (7.4-10.4) Immature Gran % (Auto) 0.7 H % (0-0.5) Neut % (Auto) 83.7 H % (45.5-73.1) Lymph % (Auto) 10.1 L % (18.3-44.2) Parker % (Auto) 5.1 % (2.6-8.5) Eos % (Auto) 0.3 % (0-4.4) Baso % (Auto) 0.1 L % (0.2-1.2) Lymph # (Auto) 1.60 K/mm3 (0.9-3.2) Parker # (Auto) 0.8 H K/mm3 (0.1-0.6) Eos # (Auto) 0.1 K/mm3 (0-0.3) Baso # (Auto) 0.0 K/mm3 (0.0-0.1) Abs Immat Gran (auto) 0.11 H K/mm3 (0.00-0.031) Absolute Neuts (auto) 13.2 H K/mm3 (1.3-6.7) Absolute Nucleated RBC 0.000 K/mm3 (0.0-0.012) Nucleated RBC % 0.0 % (0.0-0.2) Sodium 136 L mmol/L (137-145) Potassium 3.5 mmol/L (3.4-5.0) Chloride 109 H mmol/L (98-107) Carbon Dioxide 25 mmol/L (22-30) Anion Gap 2 L mmol/L (4-12) BUN 30 H mg/dL (9
--- NOTE | 2024-05-03 16:32 | PC.NURSE ---
Patient returned to floor via bed from GI lab. Report received from JUDE Martinez. No patient complaints at this time.
[2024-05-03 19:17] LABS: INR 1.2; Prothrombin Time 16.1 Seconds (11.1-14.7)
[2024-05-03 19:25] LABS: Albumin Level 2.4 g/dL (3.5-5.1); Amylase 54 U/L (30-110); Bilirubin,Total 0.2 mg/dL (0.2-1.3); Cholesterol 81 mg/dL (0-200); Glucose 80 mg/dL (65-110); Lactate Dehydrogenase 123 U/L (120-246); Triglycerides 67 mg/dL (<150)
[2024-05-03] MEDS: QUEtiapine FUMARATE 25 MG TABLET 50 MG PO (20:05)
[2024-05-03] MEDS: QUEtiapine FUMARATE 25 MG TABLET PO (20:05)
[2024-05-03] MEDS: ATORVASTATIN 40 MG TABLET 80 MG PO (20:05)
[2024-05-03] MEDS: ACETAMINOPHEN 325 MG TABLET 650 MG PO (20:05)
[2024-05-04] VITALS (18 sets, daily range): BP systolic 90–106; BP diastolic 40–48; PULSE 77–102; RESP 14–20; TEMP 36.8–36.9; O2SAT 91–97
[2024-05-04] MEDS: IPRATROPIUM 0.5 MG/ALBUTEROL SULFATE 2.5 MG AMPUL.NEB 3 ML INHALATION ×4 (02:11→20:17)
[2024-05-04] MEDS: SODIUM CHLOR 3% 15 ML NEB (RESPIRATORY THERAPY) 6 ML INHALATION (03:58)
[2024-05-04 05:33] LABS: Basophils Percent Auto 0.2 % (0.2-1.2); Eosinophils Absolute Auto 0.2 K/mm3 (0-0.3); Eosinophils Percent Auto 1.5 % (0-4.4); Hematocrit 24.3 % (42.0-52.0); Hemoglobin 7.6 g/dL (14.0-18.0); Immature Granulocyte Absolute 0.05 K/mm3 (0.00-0.031); Immature Granulocyte Percent A 0.5 % (0-0.5); Lymphocytes Absolute Auto 1.07 K/mm3 (0.9-3.2); Lymphocytes Percent Auto 10.6 % (18.3-44.2); Mean Corpuscular HGB Conc 31.3 g/dl (32-36); Mean Corpuscular Hemoglobin 28.7 pg (26-34); Mean Corpuscular Volume 91.7 fl (80-100); Mean Platelet Volume 9.3 fl (7.4-10.4); Monocytes Absolute Auto 0.5 K/mm3 (0.1-0.6); Monocytes Percent Auto 4.6 % (2.6-8.5); Neutrophils Absolute Auto 8.3 K/mm3 (1.3-6.7); Neutrophils Percent Auto 82.6 % (45.5-73.1); Platelet Count Result 182 k/mm3 (150-375); Red Blood Count 2.65 M/mm3 (4.6-6.20); Red Cell Distribution Width 21.4 % (11.5-14.5); White Blood Count 10.1 K/mm3 (4.5-10.0)
[2024-05-04] MEDS: DEXTROSE 5%/0.45% SOD CHL 1,000 ML 100 ML IV CONT ×3 (05:38→20:16)
[2024-05-04] MEDS: LEVOTHYROXINE SODIUM 150 MCG TABLET PO (05:39)
[2024-05-04 05:46] LABS: Alanine Aminotransferase 18 U/L (6-50); Albumin Level 2.1 g/dL (3.5-5.1); Alkaline Phosphatase 81 U/L (38-126); Anion Gap 0 mmol/L (4-12); Aspartate Amino Transferase 24 U/L (17-59); Bilirubin,Total 0.2 mg/dL (0.2-1.3); Blood Urea Nitrogen 20 mg/dL (9-20); Calcium 8.2 mg/dL (8.4-10.2); Carbon Dioxide 27 mmol/L (22-30); Chloride 112 mmol/L (98-107); Estimated CRCL calculation 36 ml/min; Estimated Glomerular Filt Rate > 60; Glucose 103 mg/dL (65-110); Potassium 3.2 mmol/L (3.4-5.0); Sodium 139 mmol/L (137-145)
--- NOTE | 2024-05-04 08:24 | WPDANESPN ---
Anes - Prog Note Post-Op Date/Time: 05/04/24 08:24 Cardiovascular status: other (anemia) Respiratory status: normal Airway patency: baseline Mental status: baseline Post-Op hydration status: normal Vital Signs: Last Vital Signs Temp 36.8 C 05/04/24 05:00 Pulse 93 05/04/24 07:35 Resp 18 05/04/24 07:35 BP 106/40 L 05/04/24 05:00 Pulse Ox 93 05/04/24 07:27 O2 Del Method Room Air 05/04/24 07:27 FiO2 21 05/04/24 07:27 Pain Score (VAS): 01/06 I/O: Intake & Output 05/03/24 05/04/24 05/04/24 23:59 07:59 15:59 Intake Total 690 991.7 Output Total 1150 1400 Balance -460 -408.3 Laboratory Tests 05/04/24 04:49 05/04/24 04:49 05/03/24 05/03/24 05/03/24 08:10 08:36 12:04 WBC RBC Hgb Hct MCV MCH MCHC RDW Plt Count MPV Immature Gran % (Auto) Neut % (Auto) Lymph % (Auto) Tucker % (Auto) Eos % (Auto) Baso % (Auto) Lymph # (Auto) Tucker # (Auto) Eos # (Auto) Baso # (Auto) Abs Immat Gran (auto) Absolute Neuts (auto) Absolute Nucleated RBC Nucleated RBC % PT INR Sodium 136 L Potassium 3.5 Chloride 109 H Carbon Dioxide 25 Anion Gap 2 L BUN 30 H Creatinine 1.00 Estim Creat Clear Calc Not Reportable Estimated GFR > 60 Glucose 96 Lactic Acid 1.1 Calcium 8.3 L Total Bilirubin 0.2 AST 26 ALT 19 Alkaline Phosphatase 83 Lactate Dehydrogenase Total Protein 5.0 L Albumin 2.2 L Triglycerides Cholesterol Amylase Adenosine Deaminase Nasal MRSA (PCR) Not detected 05/03/24 05/04/24 18:52 04:49 WBC 10.1 H RBC 2.65 L Hgb 7.6 L Hct 24.3 L MCV 91.7 MCH 28.7 MCHC 31.3 L RDW 21.4 H Plt Count 182 MPV 9.3 Immature Gran % (Auto) 0.5 Neut % (Auto) 82.6 H Lymph % (Auto) 10.6 L Tucker % (Auto) 4.6 Eos % (Auto) 1.5 Baso % (Auto) 0.2 Lymph # (Auto) 1.07 Tucker # (Auto) 0.5 Eos # (Auto) 0.2 Baso # (Auto) 0.0 Abs Immat Gran (auto) 0.05 H Absolute Neuts (auto) 8.3 H Absolute Nucleated RBC 0.000 Nucleated RBC % 0.0 PT 16.1 H INR 1.2 Sodium 139 Potassium 3.2 L Chloride 112 H Carbon Dioxide 27 Anion Gap 0 L BUN 20 D Creatinine 0.90 Estim Creat Clear Calc 36 Estimated GFR > 60 Glucose 80 103 Lactic Acid Calcium 8.2 L Total Bilirubin 0.2 0.2 AST 24 ALT 18 Alkaline Phosphatase 81 Lactate Dehydrogenase 123 Total Protein 6.0 L 5.0 L Albumin 2.4 L 2.1 L Triglycerides 67 Cholesterol 81 Amylase 54 Adenosine Deaminase Pending Nasal MRSA (PCR) Microbiology 05/03/24 08:36 Blood Blood Culture - Preliminary Gram positive cocci in pairs 05/03/24 08:46 Blood Blood Culture - Preliminary Gram positive cocci in pairs 05/02/24 10:06 Unspecified Urine Culture - Preliminary Gram negative bacilli isolated 05/02/24 10:25 Blood Blood Culture - Preliminary Gram positive cocci in pairs 05/02/24 10:34 Blood Blood Culture - Preliminary Gram positive cocci in pairs Post-procedural complaints: none Patient Feedback: Patient satisfied with anesthetic care.
[2024-05-04] MEDS: PANTOPRAZOLE SODIUM IV 40 MG VIAL IV PUSH (09:23)
[2024-05-04] MEDS: FERROUS SULFATE 325 MG TABLET DR PO (09:24)
[2024-05-04] MEDS: SERTRALINE HCL 25 MG TABLET PO (09:24)
[2024-05-04] MEDS: PYRIDOXINE HCL 50 MG TABLET 100 MG PO (09:24)
[2024-05-04] MEDS: CHOLECALCIFEROL 400 UNITS TABLET (VIT D) PO (09:24)
[2024-05-04] MEDS: CLOPIDOGREL BISULFATE 75 MG TABLET PO (09:25)
[2024-05-04] MEDS: FINASTERIDE 5 MG TABLET PO (09:25)
[2024-05-04] MEDS: QUEtiapine FUMARATE 25 MG TABLET PO ×2 (09:25→20:16)
[2024-05-04] MEDS: AZITHROMYCIN 250 MG TABLET 500 MG PO (09:25)
[2024-05-04 09:26] LABS: Hematocrit 24.8 % (42.0-52.0); Hemoglobin 7.9 g/dL (14.0-18.0)
[2024-05-04] MEDS: QUEtiapine FUMARATE 25 MG TABLET 50 MG PO ×2 (09:31→20:16)
--- NOTE | 2024-05-04 09:46 | PM.IMPN ---
Progress Note: A&P Assessment and Plan (1) Sepsis: Code(s): A41.9 - Sepsis, unspecified organism Status: Resolved Assessment and Plan: Meets SIRS criteria: leukocytosis, positive blood cultures - lactic acid: 1.1 on 05/03 after receiving antibiotics - suspected source: pneumonia - Blood cultures collected on 05/02: Preliminary- Gram + cocci, new blood cultures ordered - Sputum cultures collected on 05/02 - UA: cloudy appearance, 1+ protein, positive nitrates, 3+ leukocytes, >100 WBC, 4+ bacteria - UC obtained on 05/02: pending - previous micro reviewed 12/05/23: MRSA and ecoli - ESBL resistance - Antibiotics: azithromycin and ceftriaxone started on 05/02, antibiotics transitioned to vancomycin and cefepime on 05/03, remains on azithromycin for atypical coverage (2) Pneumonia: Code(s): J18.9 - Pneumonia, unspecified organism Status: Acute Assessment and Plan: CXR: 1. Stable moderate-sized loculated right pleural effusion. 2. Airspace opacities in right mid and lower lung zones, consistent with atelectasis versus pneumonia. Chest CT: 1. Stable moderate-sized loculated right pleural effusion. 2. Moderate emphysema. - Viral PCR: negative for Flu/COVID/RSV - Lactic acid: ordered - Blood cultures collected on 05/02: Preliminary- Gram + cocci, new blood cultures ordered - Sputum cultures collected on 05/02 - no supplemental O2 requirement - gentle IV fluid resuscitation - continue Solu-medrol IV - started on CAP tx: azithromycin and ceftriaxone started on 05/02, antibiotics transitioned to vancomycin and meropenem (UTI coverage) on 05/03, remains on azithromycin for atypical coverage - supportive treatment tyl and ibu prn nebs prn tesslon perles prn - IR consulted and thoracentesis ordered - Monitor vital signs, I&Os, neuro status and patient is a fall risk - Follow WBC, serum electrolytes, temperature curves and cultures (3) Acute GI bleeding: Code(s): K92.2 - Gastrointestinal hemorrhage, unspecified Status: Acute Assessment and Plan: GI consulted, POA is against any invasive procedures given advanced age and dementia, continue with medical support - continue PPI IV - continue IV resuscitation. - Monitor electrolytes. - GI consult as needed - Watch for dysphagia and sudden weight loss - Monitor H&H routinely. (4) Urinary tract infection: Qualifiers: Encounter type: initial encounter Indwelling urinary catheter type: indwelling urethral catheter Urinary tract infection type: catheter-associated UTI Qualified Code(s): T83.511A - Infection and inflammatory reaction due to indwelling urethral catheter, initial encounter; N39.0 - Urinary tract infection, site not specified Code(s): N39.0 - Urinary tract infection, site not specified Status: Acute Assessment and Plan: - UA: cloudy appearance, 1+ protein, positive nitrates, 3+ leukocytes, >100 WBC, 4+ bacteria - UC obtained on 05/02: pending - previous micro reviewed 12/05/23: MRSA and ecoli - ESBL resistance - started on Rocephin in the ED, transitioned to meropenem on 05/03 (5) Anemia: Code(s): D64.9 - Anemia, unspecified Status: Acute Assessment and Plan: Chronic, appears to be around baseline. -trend H&H q 6hrs x3 - Continue to monitor with daily labs - if hemoglobin< 7 transfuse (6) Hypertension: Code(s): I10 - Essential (primary) hypertension Status: Acute Assessment and Plan: Chronic, currently hypotensive. 106/40 - continue Holding home medications, will restart when appropriate (7) Hypothyroidism: Qualifiers: Hypothyroidism type: unspecified Qualified Code(s): E03.9 - Hypothyroidism, unspecified Code(s): E03.9 - Hypothyroidism, unspecified Status: Chronic Assessment and Plan: Chronic. TSH 03/10/24: 5.530 Continue levothyroxine 150 mg daily (8) Dementia: Qualifiers: Dementia behavioral or p
[2024-05-04] MEDS: MEROPENEM 1 GM/NS 100 ML 1 GM/100 ML BAG IVPB ×2 (09:49→20:16)
[2024-05-04] MEDS: POTASSIUM CHLORIDE 20 MEQ ER TABLET 40 MEQ PO (10:14)
[2024-05-04 10:31] LABS: Iron 25 ug/dL (49-181)
[2024-05-04 10:40] LABS: Percent Iron Saturation 16 % (20-50)
[2024-05-04 11:38] LABS: Folic Acid 5.7 ng/mL (2.76->20)
[2024-05-04 16:00] LABS: Hematocrit 26.5 % (42.0-52.0); Hemoglobin 7.7 g/dL (14.0-18.0)
[2024-05-04] MEDS: ACETAMINOPHEN 325 MG TABLET 650 MG PO (17:41)
[2024-05-04] MEDS: ATORVASTATIN 40 MG TABLET 80 MG PO (20:16)
[2024-05-04 22:13] LABS: Hematocrit 22.8 % (42.0-52.0); Hemoglobin 7.3 g/dL (14.0-18.0)
[2024-05-05] VITALS (9 sets, daily range): BP systolic 106–120; BP diastolic 48–57; PULSE 81–95; RESP 14–20; TEMP 36.3–37.1; O2SAT 95–97
[2024-05-05] MEDS: VANCOMYCIN 1,000 MG/NS 250 ML 1,000 MG/250 ML BAG 250 MG IVPB (00:01)
[2024-05-05] MEDS: IPRATROPIUM 0.5 MG/ALBUTEROL SULFATE 2.5 MG AMPUL.NEB 3 ML INHALATION ×3 (02:57→13:31)
[2024-05-05] MEDS: SODIUM CHLOR 3% 15 ML NEB (RESPIRATORY THERAPY) 6 ML INHALATION (05:05)
--- NOTE | 2024-05-05 05:10 | PCRCNOTE ---
Unable to obtain sputum specimen. Pt confused and combative.
[2024-05-05 05:58] LABS: Basophils Percent Auto 0.4 % (0.2-1.2); Eosinophils Absolute Auto 0.3 K/mm3 (0-0.3); Eosinophils Percent Auto 2.9 % (0-4.4); Hematocrit 25.2 % (42.0-52.0); Hemoglobin 7.9 g/dL (14.0-18.0); Immature Granulocyte Absolute 0.05 K/mm3 (0.00-0.031); Immature Granulocyte Percent A 0.6 % (0-0.5); Lymphocytes Absolute Auto 0.86 K/mm3 (0.9-3.2); Lymphocytes Percent Auto 10.1 % (18.3-44.2); Mean Corpuscular HGB Conc 31.3 g/dl (32-36); Mean Corpuscular Hemoglobin 28.4 pg (26-34); Mean Corpuscular Volume 90.6 fl (80-100); Mean Platelet Volume 9.3 fl (7.4-10.4); Monocytes Absolute Auto 0.4 K/mm3 (0.1-0.6); Monocytes Percent Auto 4.8 % (2.6-8.5); Neutrophils Percent Auto 81.2 % (45.5-73.1); Platelet Count Result 189 k/mm3 (150-375); Red Blood Count 2.78 M/mm3 (4.6-6.20); Red Cell Distribution Width 21.2 % (11.5-14.5); White Blood Count 8.6 K/mm3 (4.5-10.0)
[2024-05-05 06:08] LABS: Alanine Aminotransferase 18 U/L (6-50); Albumin Level 2.1 g/dL (3.5-5.1); Alkaline Phosphatase 78 U/L (38-126); Anion Gap -2 mmol/L (4-12); Aspartate Amino Transferase 26 U/L (17-59); Bilirubin,Total 0.3 mg/dL (0.2-1.3); Blood Urea Nitrogen 12 mg/dL (9-20); Calcium 8.4 mg/dL (8.4-10.2); Carbon Dioxide 27 mmol/L (22-30); Chloride 113 mmol/L (98-107); Estimated CRCL calculation 45 ml/min; Estimated Glomerular Filt Rate > 60; Glucose 94 mg/dL (65-110); Potassium 3.5 mmol/L (3.4-5.0); Sodium 138 mmol/L (137-145)
--- NOTE | 2024-05-05 08:25 | PM.IMPN ---
Progress Note: A&P Assessment and Plan (1) Sepsis: Code(s): A41.9 - Sepsis, unspecified organism Status: Resolved Assessment and Plan: Met SIRS criteria: leukocytosis, positive blood cultures - lactic acid: 1.1 on 05/03 after receiving antibiotics - suspected source: pneumonia - Blood cultures collected on 05/02: Preliminary- Gram + cocci, new blood cultures ordered - Sputum cultures collected on 05/02 - UA: cloudy appearance, 1+ protein, positive nitrates, 3+ leukocytes, >100 WBC, 4+ bacteria - UC obtained on 05/02: pending - previous micro reviewed 12/05/23: MRSA and ecoli - ESBL resistance - Antibiotics: azithromycin and ceftriaxone started on 05/02, antibiotics transitioned to vancomycin and cefepime on 05/03, remains on azithromycin for atypical coverage new 05/05/2024: Blood cultures collected on 05/02 reveal preliminary gram positive cocci new blood culture ordered -continue vancomycin, and meropenem (2) Pneumonia: Code(s): J18.9 - Pneumonia, unspecified organism Status: Acute Assessment and Plan: CXR: 1. Stable moderate-sized loculated right pleural effusion. 2. Airspace opacities in right mid and lower lung zones, consistent with atelectasis versus pneumonia. Chest CT: 1. Stable moderate-sized loculated right pleural effusion. 2. Moderate emphysema. continue - supportive treatment tyl and ibu prn nebs prn tesslon perles prn - IR consulted and thoracentesis ordered - Monitor vital signs, I&Os, neuro status and patient is a fall risk - Follow WBC, serum electrolytes, temperature curves and cultures (3) Acute GI bleeding: Code(s): K92.2 - Gastrointestinal hemorrhage, unspecified Status: Acute Assessment and Plan: GI consulted, POA is against any invasive procedures given advanced age and dementia, continue with medical support - continue PPI IV - continue IV resuscitation. - Monitor electrolytes. - GI consult as needed - Watch for dysphagia and sudden weight loss - Monitor H&H routinely. (4) Urinary tract infection: Qualifiers: Encounter type: initial encounter Indwelling urinary catheter type: indwelling urethral catheter Urinary tract infection type: catheter-associated UTI Qualified Code(s): T83.511A - Infection and inflammatory reaction due to indwelling urethral catheter, initial encounter; N39.0 - Urinary tract infection, site not specified Code(s): N39.0 - Urinary tract infection, site not specified Status: Acute Assessment and Plan: hx of chronic indwelling Barry catheter -concern for wound noted to meatus -consult urology -continue meropenem and vancomycin (5) Anemia: Code(s): D64.9 - Anemia, unspecified Status: Acute Assessment and Plan: Chronic, appears to be around baseline. -trend H&H daily - Continue to monitor with daily labs - if hemoglobin< 7 transfuse (6) Hypertension: Code(s): I10 - Essential (primary) hypertension Status: Acute Assessment and Plan: Chronic, has been hypotensive since admission -please check vital signs q.4 hours - continue Holding home medications, will restart when appropriate (7) Hypothyroidism: Qualifiers: Hypothyroidism type: unspecified Qualified Code(s): E03.9 - Hypothyroidism, unspecified Code(s): E03.9 - Hypothyroidism, unspecified Status: Chronic Assessment and Plan: Chronic. Continue levothyroxine 150 mg daily (8) Dementia: Qualifiers: Dementia behavioral or psychological symptom: with other behavioral disturbance Dementia severity: severe Dementia type: vascular dementia Qualified Code(s): F01.C18 - Vascular dementia, severe, with other behavioral disturbance Code(s): F03.90 - Unspecified dementia, unspecified severity, without behavioral disturbance, psychotic disturbance, mood disturbance, and anxiety Status: Chronic Assessment and Plan: Contin
[2024-05-05] MEDS: IRON SUCROSE COMPLEX 500 MG in SODIUM CHLORIDE 0.9% IV 250 ML 79 MG IVPB (09:22)
[2024-05-05] MEDS: PYRIDOXINE HCL 50 MG TABLET 100 MG PO (09:23)
[2024-05-05] MEDS: AZITHROMYCIN 250 MG TABLET 500 MG PO (09:23)
[2024-05-05] MEDS: CLOPIDOGREL BISULFATE 75 MG TABLET PO (09:23)
[2024-05-05] MEDS: SERTRALINE HCL 25 MG TABLET PO (09:24)
[2024-05-05] MEDS: FERROUS SULFATE 325 MG TABLET DR PO (09:24)
[2024-05-05] MEDS: CHOLECALCIFEROL 400 UNITS TABLET (VIT D) PO (09:24)
[2024-05-05] MEDS: QUEtiapine FUMARATE 25 MG TABLET PO ×2 (09:24→21:27)
[2024-05-05] MEDS: FINASTERIDE 5 MG TABLET PO (09:24)
[2024-05-05] MEDS: QUEtiapine FUMARATE 25 MG TABLET 50 MG PO ×2 (09:24→21:27)
[2024-05-05] MEDS: PANTOPRAZOLE SODIUM IV 40 MG VIAL IV PUSH (09:25)
[2024-05-05] MEDS: MEROPENEM 1 GM/NS 100 ML 1 GM/100 ML BAG IVPB ×2 (09:51→21:28)
[2024-05-05] MEDS: ACETAMINOPHEN 325 MG TABLET 650 MG PO (16:29)
[2024-05-05 17:19] LABS: Hematocrit 26.6 % (42.0-52.0); Hemoglobin 8.4 g/dL (14.0-18.0)
[2024-05-05] MEDS: ATORVASTATIN 40 MG TABLET 80 MG PO (21:27)
[2024-05-06] VITALS (8 sets, daily range): BP systolic 108–137; BP diastolic 56–91; PULSE 75–90; RESP 14–20; TEMP 36.6–36.9; O2SAT 94–98
[2024-05-06] MEDS: SODIUM CHLOR 3% 15 ML NEB (RESPIRATORY THERAPY) 6 ML INHALATION (05:47)
[2024-05-06] MEDS: LEVOTHYROXINE SODIUM 150 MCG TABLET PO (05:49)
--- NOTE | 2024-05-06 07:17 | PM.IMPN ---
Progress Note: A&P Assessment and Plan (1) Sepsis: Code(s): A41.9 - Sepsis, unspecified organism Status: Resolved Assessment and Plan: Met SIRS criteria: leukocytosis, positive blood cultures - lactic acid: 1.1 on 05/03 after receiving antibiotics - suspected source: pneumonia - Blood cultures collected on 05/02: Preliminary- Gram + cocci, new blood cultures ordered - Sputum cultures collected on 05/02 - UA: cloudy appearance, 1+ protein, positive nitrates, 3+ leukocytes, >100 WBC, 4+ bacteria - UC obtained on 05/02: pending - previous micro reviewed 12/05/23: MRSA and ecoli - ESBL resistance - Antibiotics: azithromycin and ceftriaxone started on 05/02, antibiotics transitioned to vancomycin and cefepime on 05/03, remains on azithromycin for atypical coverage new 05/05/2024: Blood cultures collected on 05/02 reveal preliminary gram positive cocci new blood culture ordered -continue vancomycin, and meropenem 05/06: Third set of blood cultures pending, waiting for clearance of infection. On vancomycin, meropenem. Completed azithromycin 5 day course. Most recent cultures growing Enterococcus. Proteus has been eradicated. We should be able to continue vancomycin and deescalate meropenem to Rocephin. Will discuss with ID pharmacist. Leukocytosis has resolved. Patient is afebrile. (2) Pneumonia: Code(s): J18.9 - Pneumonia, unspecified organism Status: Acute Assessment and Plan: CXR: 1. Stable moderate-sized loculated right pleural effusion. 2. Airspace opacities in right mid and lower lung zones, consistent with atelectasis versus pneumonia. Chest CT: 1. Stable moderate-sized loculated right pleural effusion. 2. Moderate emphysema. continue - supportive treatment tyl and ibu prn nebs prn tesslon perles prn - IR consulted and thoracentesis ordered - Monitor vital signs, I&Os, neuro status and patient is a fall risk - Follow WBC, serum electrolytes, temperature curves and cultures 05/06: Moderate loculated effusion to right lower lobe. Repeat chest x-ray this morning. Patient's Plavix was held initially when he came in with suspected GI bleeding. Patient's Plavix was restarted yesterday in lieu of thoracentesis today. Plavix is back on hold. Radiology says they will not do a thoracentesis until Plavix has been held for 5 days. (3) Acute GI bleeding: Code(s): K92.2 - Gastrointestinal hemorrhage, unspecified Status: Acute Assessment and Plan: GI consulted, POA is against any invasive procedures given advanced age and dementia, continue with medical support - continue PPI IV - continue IV resuscitation. - Monitor electrolytes. - GI consult as needed - Watch for dysphagia and sudden weight loss - Monitor H&H routinely. 05/06: Patient had EGD on 05/03. Findings include hiatal hernia. No gastritis, esophagitis, AVMs, or ulceration seen. Hemoglobin has remained stable, currently 9.3 today. (4) Urinary tract infection: Qualifiers: Encounter type: initial encounter Indwelling urinary catheter type: indwelling urethral catheter Urinary tract infection type: catheter-associated UTI Qualified Code(s): T83.511A - Infection and inflammatory reaction due to indwelling urethral catheter, initial encounter; N39.0 - Urinary tract infection, site not specified Code(s): N39.0 - Urinary tract infection, site not specified Status: Acute Assessment and Plan: hx of chronic indwelling Barry catheter -concern for wound noted to meatus -consult urology -continue meropenem and vancomycin 05/06: Patient has a split meatus from chronic Barry. No concerning signs or symptoms of infection. No obvious wound present. (5) Anemia: Code(s): D64.9 - Anemia, unspecified Status: Acute Assessment and Plan: Chronic, appears to be around baseline. -trend H&H daily - Continue to monitor with daily labs - if hemoglobin< 7 transfuse
[2024-05-06 07:43] LABS: Basophils Percent Auto 0.3 % (0.2-1.2); Eosinophils Absolute Auto 0.3 K/mm3 (0-0.3); Eosinophils Percent Auto 3.2 % (0-4.4); Hematocrit 30.1 % (42.0-52.0); Hemoglobin 9.3 g/dL (14.0-18.0); Immature Granulocyte Absolute 0.03 K/mm3 (0.00-0.031); Immature Granulocyte Percent A 0.3 % (0-0.5); Lymphocytes Absolute Auto 0.91 K/mm3 (0.9-3.2); Lymphocytes Percent Auto 9.7 % (18.3-44.2); Mean Corpuscular HGB Conc 30.9 g/dl (32-36); Mean Corpuscular Hemoglobin 28.4 pg (26-34); Mean Corpuscular Volume 91.8 fl (80-100); Mean Platelet Volume 9.1 fl (7.4-10.4); Monocytes Absolute Auto 0.4 K/mm3 (0.1-0.6); Monocytes Percent Auto 4.6 % (2.6-8.5); Neutrophils Absolute Auto 7.7 K/mm3 (1.3-6.7); Neutrophils Percent Auto 81.9 % (45.5-73.1); Platelet Count Result 215 k/mm3 (150-375); Red Blood Count 3.28 M/mm3 (4.6-6.20); Red Cell Distribution Width 20.7 % (11.5-14.5); White Blood Count 9.4 K/mm3 (4.5-10.0)
[2024-05-06 07:59] LABS: Alanine Aminotransferase 26 U/L (6-50); Albumin Level 2.6 g/dL (3.5-5.1); Alkaline Phosphatase 99 U/L (38-126); Anion Gap 0 mmol/L (4-12); Aspartate Amino Transferase 34 U/L (17-59); Bilirubin,Total 0.5 mg/dL (0.2-1.3); Blood Urea Nitrogen 11 mg/dL (9-20); Calcium 8.9 mg/dL (8.4-10.2); Carbon Dioxide 29 mmol/L (22-30); Chloride 111 mmol/L (98-107); Estimated CRCL calculation 40 ml/min; Estimated Glomerular Filt Rate > 60; Glucose 80 mg/dL (65-110); Magnesium 1.8 mg/dL (1.6-2.3); Potassium 3.8 mmol/L (3.4-5.0); Sodium 140 mmol/L (137-145)
[2024-05-06] MEDS: FINASTERIDE 5 MG TABLET PO (09:32)
[2024-05-06] MEDS: PYRIDOXINE HCL 50 MG TABLET 100 MG PO (09:32)
[2024-05-06] MEDS: QUEtiapine FUMARATE 25 MG TABLET 50 MG PO ×2 (09:32→20:59)
[2024-05-06] MEDS: AZITHROMYCIN 250 MG TABLET 500 MG PO (09:32)
[2024-05-06] MEDS: QUEtiapine FUMARATE 25 MG TABLET PO ×2 (09:32→20:59)
[2024-05-06] MEDS: SERTRALINE HCL 25 MG TABLET PO (09:32)
[2024-05-06] MEDS: MEROPENEM 1 GM/NS 100 ML 1 GM/100 ML BAG IVPB (09:33)
[2024-05-06] MEDS: CHOLECALCIFEROL 400 UNITS TABLET (VIT D) PO (09:33)
[2024-05-06] MEDS: FERROUS SULFATE 325 MG TABLET DR PO ×2 (09:33→17:31)
[2024-05-06] MEDS: PANTOPRAZOLE SODIUM IV 40 MG VIAL IV PUSH (09:33)
[2024-05-06 09:58] LABS: Mean Platelet Volume 9.2 fl (7.4-10.4); Platelet Count Result 187 k/mm3 (150-375)
[2024-05-06 10:10] LABS: INR 1.2; Prothrombin Time 15.9 Seconds (11.1-14.7)
[2024-05-06 10:11] LABS: Partial Thromboplastin Time 44.6 Seconds (22.3-36.8)
[2024-05-06 10:30] LABS: Vancomycin Trough 5.7 ug/mL (10.0-20.0)
--- NOTE | 2024-05-06 11:51 | PCNFU ---
Nutrition Follow-Up Complete: Severe Protein Calorie Malnutrition as related to inadequate protein-energy intake with increased protein-energy needs in setting of chronic disease as evidenced by minimal oral intake: significant weight loss of 21%(27 ibs) in 2 months; severe subcutaneous fat loss (orbital fat pads) and muscle wasting (calf). Meet estimated nutritional needs. - Progressing. Intakes sporadic 0-100% due to dementia Goal: Pt current nutrition is Regular diet, soft & bite sized level 6. Ensure Compact BID for additional 220 kcal and 9 g protein each. Nutrition recommendation: No new nutrition recommendations. Continue with current nutrition care plan and orders. Agree with orders. Last recorded weight is 47 kg. Bowel Motility: 0 BMs charted Labs Reviewed: Hgb 9.3, HCt 20.1, Alb 2.6 Meds Noted: Zofran, protonix, plavix Skin: No skin issues Additional Notes: Intakes are sporadic. Pt is at baseline level of confusion. Discharge planning to SNF Will monitor weight, labs, skin, oral intake, meds every 3 days.
[2024-05-06] MEDS: VANCOMYCIN 1,000 MG/NS 250 ML 1,000 MG/250 ML BAG 250 MG IVPB (12:05)
[2024-05-06] MEDS: METOPROLOL SUCCINATE EXT REL 12.5 MG TABCR PO (17:32)
[2024-05-06] MEDS: cefTRIAXone 2 GM/NS 100 ML 2 GM/100 ML BAG IVPB (20:59)
[2024-05-06] MEDS: ATORVASTATIN 40 MG TABLET 80 MG PO (20:59)
[2024-05-07] VITALS (9 sets, daily range): BP systolic 103–128; BP diastolic 50–68; PULSE 65–82; RESP 15–18; TEMP 36.4–37.2; O2SAT 97–100
[2024-05-07] MEDS: VANCOMYCIN 1,000 MG/NS 250 ML 1,000 MG/250 ML BAG 250 MG IVPB ×2 (05:24→23:19)
[2024-05-07] MEDS: LEVOTHYROXINE SODIUM 150 MCG TABLET PO (05:28)
[2024-05-07 05:47] LABS: Basophils Absolute Auto 0.1 K/mm3 (0.0-0.1); Basophils Percent Auto 0.5 % (0.2-1.2); Eosinophils Absolute Auto 0.3 K/mm3 (0-0.3); Eosinophils Percent Auto 2.8 % (0-4.4); Hematocrit 30.2 % (42.0-52.0); Hemoglobin 9.4 g/dL (14.0-18.0); Immature Granulocyte Absolute 0.03 K/mm3 (0.00-0.031); Immature Granulocyte Percent A 0.3 % (0-0.5); Lymphocytes Absolute Auto 1.46 K/mm3 (0.9-3.2); Lymphocytes Percent Auto 14.9 % (18.3-44.2); Mean Corpuscular HGB Conc 31.1 g/dl (32-36); Mean Corpuscular Hemoglobin 28.5 pg (26-34); Mean Corpuscular Volume 91.5 fl (80-100); Mean Platelet Volume 9.3 fl (7.4-10.4); Monocytes Absolute Auto 0.5 K/mm3 (0.1-0.6); Monocytes Percent Auto 5.4 % (2.6-8.5); Neutrophils Absolute Auto 7.5 K/mm3 (1.3-6.7); Neutrophils Percent Auto 76.1 % (45.5-73.1); Platelet Count Result 204 k/mm3 (150-375); Red Cell Distribution Width 20.4 % (11.5-14.5); White Blood Count 9.8 K/mm3 (4.5-10.0)
[2024-05-07 05:49] LABS: Alanine Aminotransferase 30 U/L (6-50); Albumin Level 2.5 g/dL (3.5-5.1); Alkaline Phosphatase 99 U/L (38-126); Anion Gap 0 mmol/L (4-12); Aspartate Amino Transferase 35 U/L (17-59); Bilirubin,Total 0.3 mg/dL (0.2-1.3); Blood Urea Nitrogen 13 mg/dL (9-20); Calcium 8.7 mg/dL (8.4-10.2); Carbon Dioxide 29 mmol/L (22-30); Chloride 109 mmol/L (98-107); Estimated CRCL calculation 40 ml/min; Estimated Glomerular Filt Rate > 60; Glucose 74 mg/dL (65-110); Potassium 3.8 mmol/L (3.4-5.0); Sodium 138 mmol/L (137-145)
--- NOTE | 2024-05-07 08:26 | PM.IMPN ---
Progress Note: A&P Assessment and Plan (1) Sepsis: Code(s): A41.9 - Sepsis, unspecified organism Status: Resolved Assessment and Plan: Met SIRS criteria: leukocytosis, positive blood cultures - lactic acid: 1.1 on 05/03 after receiving antibiotics - suspected source: pneumonia - Blood cultures collected on 05/02: Preliminary- Gram + cocci, new blood cultures ordered - Sputum cultures collected on 05/02 - UA: cloudy appearance, 1+ protein, positive nitrates, 3+ leukocytes, >100 WBC, 4+ bacteria - UC obtained on 05/02: pending - previous micro reviewed 12/05/23: MRSA and ecoli - ESBL resistance - Antibiotics: azithromycin and ceftriaxone started on 05/02, antibiotics transitioned to vancomycin and cefepime on 05/03, remains on azithromycin for atypical coverage new 05/05/2024: Blood cultures collected on 05/02 reveal preliminary gram positive cocci new blood culture ordered -continue vancomycin, and meropenem 05/06: Third set of blood cultures pending, waiting for clearance of infection. On vancomycin, meropenem. Completed azithromycin 5 day course. Most recent cultures growing Enterococcus. Proteus has been eradicated. We should be able to continue vancomycin and deescalate meropenem to Rocephin. Will discuss with ID pharmacist. Leukocytosis has resolved. Patient is afebrile. 05/07/24: 3rd set of blood cultures showing no growth to date on preliminary read Continue Rocephin and Vancomycin (2) Pneumonia: Code(s): J18.9 - Pneumonia, unspecified organism Status: Acute Assessment and Plan: CXR: 1. Stable moderate-sized loculated right pleural effusion. 2. Airspace opacities in right mid and lower lung zones, consistent with atelectasis versus pneumonia. Chest CT: 1. Stable moderate-sized loculated right pleural effusion. 2. Moderate emphysema. continue - supportive treatment tyl and ibu prn nebs prn tesslon perles prn - IR consulted and thoracentesis ordered - Monitor vital signs, I&Os, neuro status and patient is a fall risk - Follow WBC, serum electrolytes, temperature curves and cultures 05/06: Moderate loculated effusion to right lower lobe. Repeat chest x-ray this morning. Patient's Plavix was held initially when he came in with suspected GI bleeding. Patient's Plavix was restarted yesterday in lieu of thoracentesis today. Plavix is back on hold. Radiology says they will not do a thoracentesis until Plavix has been held for 5 days. 05/07/24: Moderate right loculated pleural effusion, plan thoracentesis on Continue to hold Plavix (3) Acute GI bleeding: Code(s): K92.2 - Gastrointestinal hemorrhage, unspecified Status: Acute Assessment and Plan: GI consulted, POA is against any invasive procedures given advanced age and dementia, continue with medical support - continue PPI IV - continue IV resuscitation. - Monitor electrolytes. - GI consult as needed - Watch for dysphagia and sudden weight loss - Monitor H&H routinely. 05/06: Patient had EGD on 05/03. Findings include hiatal hernia. No gastritis, esophagitis, AVMs, or ulceration seen. Hemoglobin has remained stable, currently 9.3 today. 05/07/24: Continue Protonix No change to current treatment (4) Urinary tract infection: Qualifiers: Encounter type: initial encounter Indwelling urinary catheter type: indwelling urethral catheter Urinary tract infection type: catheter-associated UTI Qualified Code(s): T83.511A - Infection and inflammatory reaction due to indwelling urethral catheter, initial encounter; N39.0 - Urinary tract infection, site not specified Code(s): N39.0 - Urinary tract infection, site not specified Status: Acute Assessment and Plan: hx of chronic indwelling Barry catheter -concern for wound noted to meatus -consult urology -continue meropenem and vancomycin 05/06: Patient has a split meatus from chronic Barry. No concerning signs or sy
[2024-05-07] MEDS: SERTRALINE HCL 25 MG TABLET PO (08:50)
[2024-05-07] MEDS: FERROUS SULFATE 325 MG TABLET DR PO ×2 (08:50→17:11)
[2024-05-07] MEDS: FINASTERIDE 5 MG TABLET PO (08:50)
[2024-05-07] MEDS: QUEtiapine FUMARATE 25 MG TABLET PO ×2 (08:51→20:46)
[2024-05-07] MEDS: METOPROLOL SUCCINATE EXT REL 12.5 MG TABCR PO ×2 (08:51→17:11)
[2024-05-07] MEDS: QUEtiapine FUMARATE 25 MG TABLET 50 MG PO ×2 (08:51→20:46)
[2024-05-07] MEDS: CHOLECALCIFEROL 400 UNITS TABLET (VIT D) PO (08:52)
[2024-05-07] MEDS: PYRIDOXINE HCL 50 MG TABLET 100 MG PO (08:53)
[2024-05-07] MEDS: PANTOPRAZOLE SODIUM IV 40 MG VIAL IV PUSH (08:53)
[2024-05-07] MEDS: cefTRIAXone 2 GM/NS 100 ML 2 GM/100 ML BAG IVPB (20:46)
[2024-05-07] MEDS: ATORVASTATIN 40 MG TABLET 80 MG PO (20:46)
[2024-05-08] VITALS (9 sets, daily range): BP systolic 100–124; BP diastolic 57–70; PULSE 65–80; RESP 16–21; TEMP 36.5–36.8; O2SAT 95–99
[2024-05-08 05:22] LABS: Basophils Percent Auto 0.3 % (0.2-1.2); Eosinophils Absolute Auto 0.2 K/mm3 (0-0.3); Eosinophils Percent Auto 2.1 % (0-4.4); Hematocrit 29.3 % (42.0-52.0); Hemoglobin 9.1 g/dL (14.0-18.0); Immature Granulocyte Absolute 0.06 K/mm3 (0.00-0.031); Immature Granulocyte Percent A 0.6 % (0-0.5); Lymphocytes Absolute Auto 1.58 K/mm3 (0.9-3.2); Lymphocytes Percent Auto 16.9 % (18.3-44.2); Mean Corpuscular HGB Conc 31.1 g/dl (32-36); Mean Corpuscular Hemoglobin 28.7 pg (26-34); Mean Corpuscular Volume 92.4 fl (80-100); Mean Platelet Volume 9.2 fl (7.4-10.4); Monocytes Absolute Auto 0.5 K/mm3 (0.1-0.6); Monocytes Percent Auto 5.1 % (2.6-8.5); Platelet Count Result 218 k/mm3 (150-375); Red Blood Count 3.17 M/mm3 (4.6-6.20); Red Cell Distribution Width 20.1 % (11.5-14.5); White Blood Count 9.4 K/mm3 (4.5-10.0)
[2024-05-08] MEDS: LEVOTHYROXINE SODIUM 150 MCG TABLET PO (05:31)
[2024-05-08 05:32] LABS: Alanine Aminotransferase 30 U/L (6-50); Albumin Level 2.5 g/dL (3.5-5.1); Alkaline Phosphatase 106 U/L (38-126); Anion Gap 1 mmol/L (4-12); Aspartate Amino Transferase 39 U/L (17-59); Bilirubin,Total 0.3 mg/dL (0.2-1.3); Blood Urea Nitrogen 16 mg/dL (9-20); Calcium 8.8 mg/dL (8.4-10.2); Carbon Dioxide 30 mmol/L (22-30); Chloride 107 mmol/L (98-107); Estimated CRCL calculation 36 ml/min; Estimated Glomerular Filt Rate > 60; Glucose 86 mg/dL (65-110); Potassium 3.7 mmol/L (3.4-5.0); Sodium 138 mmol/L (137-145)
[2024-05-08] MEDS: QUEtiapine FUMARATE 25 MG TABLET PO ×2 (08:44→20:36)
[2024-05-08] MEDS: PYRIDOXINE HCL 50 MG TABLET 100 MG PO (08:44)
[2024-05-08] MEDS: FERROUS SULFATE 325 MG TABLET DR PO ×2 (08:45→17:18)
[2024-05-08] MEDS: QUEtiapine FUMARATE 25 MG TABLET 50 MG PO ×2 (08:45→20:37)
[2024-05-08] MEDS: METOPROLOL SUCCINATE EXT REL 12.5 MG TABCR PO ×2 (08:45→17:17)
[2024-05-08] MEDS: FINASTERIDE 5 MG TABLET PO (08:46)
[2024-05-08] MEDS: SERTRALINE HCL 25 MG TABLET PO (08:46)
[2024-05-08] MEDS: CHOLECALCIFEROL 400 UNITS TABLET (VIT D) PO (08:50)
[2024-05-08] MEDS: PANTOPRAZOLE SODIUM IV 40 MG VIAL IV PUSH (09:18)
--- NOTE | 2024-05-08 13:46 | PM.IMPN ---
Progress Note: A&P Assessment and Plan (1) Sepsis: Code(s): A41.9 - Sepsis, unspecified organism Status: Resolved Assessment and Plan: Met SIRS criteria: leukocytosis, positive blood cultures - lactic acid: 1.1 on 05/03 after receiving antibiotics - suspected source: pneumonia - Blood cultures collected on 05/02: Preliminary- Gram + cocci, new blood cultures ordered - Sputum cultures collected on 05/02 - UA: cloudy appearance, 1+ protein, positive nitrates, 3+ leukocytes, >100 WBC, 4+ bacteria - UC obtained on 05/02: pending - previous micro reviewed 12/05/23: MRSA and ecoli - ESBL resistance - Antibiotics: azithromycin and ceftriaxone started on 05/02, antibiotics transitioned to vancomycin and cefepime on 05/03, remains on azithromycin for atypical coverage new 05/05/2024: Blood cultures collected on 05/02 reveal preliminary gram positive cocci new blood culture ordered -continue vancomycin, and meropenem 05/06: Third set of blood cultures pending, waiting for clearance of infection. On vancomycin, meropenem. Completed azithromycin 5 day course. Most recent cultures growing Enterococcus. Proteus has been eradicated. We should be able to continue vancomycin and deescalate meropenem to Rocephin. Will discuss with ID pharmacist. Leukocytosis has resolved. Patient is afebrile. 05/07/24: 3rd set of blood cultures showing no growth to date on preliminary read Continue Rocephin and Vancomycin 05/08/24: Third set of blood cultures still showing no growth to date on preliminary read Continue with Rocephin and vancomycin (2) Pneumonia: Code(s): J18.9 - Pneumonia, unspecified organism Status: Acute Assessment and Plan: CXR: 1. Stable moderate-sized loculated right pleural effusion. 2. Airspace opacities in right mid and lower lung zones, consistent with atelectasis versus pneumonia. Chest CT: 1. Stable moderate-sized loculated right pleural effusion. 2. Moderate emphysema. continue - supportive treatment tyl and ibu prn nebs prn tesslon perles prn - IR consulted and thoracentesis ordered - Monitor vital signs, I&Os, neuro status and patient is a fall risk - Follow WBC, serum electrolytes, temperature curves and cultures 05/06: Moderate loculated effusion to right lower lobe. Repeat chest x-ray this morning. Patient's Plavix was held initially when he came in with suspected GI bleeding. Patient's Plavix was restarted yesterday in lieu of thoracentesis today. Plavix is back on hold. Radiology says they will not do a thoracentesis until Plavix has been held for 5 days. 05/07/24: Moderate right loculated pleural effusion, plan thoracentesis on Continue to hold Plavix 05/08/24: Plan for thoracentesis on the , so a is agreeable to this plan Continue to hold Plavix Continue IV antibiotics (3) Acute GI bleeding: Code(s): K92.2 - Gastrointestinal hemorrhage, unspecified Status: Acute Assessment and Plan: GI consulted, POA is against any invasive procedures given advanced age and dementia, continue with medical support - continue PPI IV - continue IV resuscitation. - Monitor electrolytes. - GI consult as needed - Watch for dysphagia and sudden weight loss - Monitor H&H routinely. 05/06: Patient had EGD on 05/03. Findings include hiatal hernia. No gastritis, esophagitis, AVMs, or ulceration seen. Hemoglobin has remained stable, currently 9.3 today. 05/07/24: Continue Protonix No change to current treatment 05/08/24: No change to current treatment plan (4) Urinary tract infection: Qualifiers: Encounter type: initial encounter Indwelling urinary catheter type: indwelling urethral catheter Urinary tract infection type: catheter-associated UTI Qualified Code(s): T83.511A - Infection and inflammatory reaction due to indwelling urethral catheter, initial encounter; N39.0 - Urinary tract infection, site not specified Cod
[2024-05-08 18:05] LABS: Vancomycin Trough 10.7 ug/mL (10.0-20.0)
[2024-05-08] MEDS: VANCOMYCIN 1,000 MG/NS 250 ML 1,000 MG/250 ML BAG 250 MG IVPB (19:19)
[2024-05-08] MEDS: ATORVASTATIN 40 MG TABLET 80 MG PO (20:35)
[2024-05-08] MEDS: cefTRIAXone 2 GM/NS 100 ML 2 GM/100 ML BAG IVPB (20:40)
[2024-05-09] VITALS (8 sets, daily range): BP systolic 99–127; BP diastolic 50–74; PULSE 73–80; RESP 17–18; TEMP 36.2–36.9; O2SAT 96–99
[2024-05-09] MEDS: AMPICILLIN SULB 3 GM/NS 100 ML 3 GM/100 ML VIAL IVPB ×3 (05:56→17:59)
[2024-05-09] MEDS: LEVOTHYROXINE SODIUM 150 MCG TABLET PO (05:58)
[2024-05-09] MEDS: FERROUS SULFATE 325 MG TABLET DR PO ×2 (08:49→17:53)
[2024-05-09] MEDS: QUEtiapine FUMARATE 25 MG TABLET PO ×2 (08:49→21:34)
[2024-05-09] MEDS: FINASTERIDE 5 MG TABLET PO (08:49)
[2024-05-09] MEDS: QUEtiapine FUMARATE 25 MG TABLET 50 MG PO ×2 (08:49→21:34)
[2024-05-09] MEDS: CHOLECALCIFEROL 400 UNITS TABLET (VIT D) PO (08:49)
[2024-05-09] MEDS: PYRIDOXINE HCL 50 MG TABLET 100 MG PO (08:50)
[2024-05-09] MEDS: METOPROLOL SUCCINATE EXT REL 12.5 MG TABCR PO ×2 (08:50→17:53)
[2024-05-09] MEDS: PANTOPRAZOLE SODIUM IV 40 MG VIAL IV PUSH (08:55)
[2024-05-09] MEDS: SERTRALINE HCL 25 MG TABLET PO (08:56)
[2024-05-09 09:07] LABS: Basophils Absolute Auto 0.1 K/mm3 (0.0-0.1); Basophils Percent Auto 0.6 % (0.2-1.2); Eosinophils Absolute Auto 0.3 K/mm3 (0-0.3); Eosinophils Percent Auto 2.6 % (0-4.4); Hematocrit 31.2 % (42.0-52.0); Hemoglobin 9.6 g/dL (14.0-18.0); Immature Granulocyte Absolute 0.04 K/mm3 (0.00-0.031); Immature Granulocyte Percent A 0.4 % (0-0.5); Lymphocytes Absolute Auto 1.51 K/mm3 (0.9-3.2); Lymphocytes Percent Auto 15.4 % (18.3-44.2); Mean Corpuscular HGB Conc 30.8 g/dl (32-36); Mean Corpuscular Hemoglobin 28.4 pg (26-34); Mean Corpuscular Volume 92.3 fl (80-100); Mean Platelet Volume 9.1 fl (7.4-10.4); Monocytes Absolute Auto 0.4 K/mm3 (0.1-0.6); Monocytes Percent Auto 4.5 % (2.6-8.5); Neutrophils Absolute Auto 7.5 K/mm3 (1.3-6.7); Neutrophils Percent Auto 76.5 % (45.5-73.1); Platelet Count Result 236 k/mm3 (150-375); Red Blood Count 3.38 M/mm3 (4.6-6.20); Red Cell Distribution Width 20.2 % (11.5-14.5); White Blood Count 9.8 K/mm3 (4.5-10.0)
[2024-05-09 09:22] LABS: Anion Gap 4 mmol/L (4-12); Blood Urea Nitrogen 16 mg/dL (9-20); Calcium 8.7 mg/dL (8.4-10.2); Carbon Dioxide 28 mmol/L (22-30); Chloride 108 mmol/L (98-107); Estimated CRCL calculation 40 ml/min; Estimated Glomerular Filt Rate > 60; Glucose 82 mg/dL (65-110); Potassium 3.7 mmol/L (3.4-5.0); Sodium 140 mmol/L (137-145)
--- NOTE | 2024-05-09 10:26 | PM.IMPN ---
Progress Note: A&P Assessment and Plan (1) Sepsis: Code(s): A41.9 - Sepsis, unspecified organism Status: Resolved Assessment and Plan: Meets SIRS criteria: leukocytosis, positive blood cultures - lactic acid: 1.1 on 05/03 after receiving antibiotics - suspected source: pneumonia - Blood cultures collected on 05/02: Preliminary- Gram + cocci, new blood cultures ordered - Sputum cultures collected on 05/02 - UA: cloudy appearance, 1+ protein, positive nitrates, 3+ leukocytes, >100 WBC, 4+ bacteria - UC obtained on 05/02: pending - previous micro reviewed 12/05/23: MRSA and ecoli - ESBL resistance - Antibiotics: azithromycin and ceftriaxone started on 05/02, antibiotics transitioned to vancomycin and cefepime on 05/03, remains on azithromycin for atypical coverage 05/05/2024: Blood cultures collected on 05/02 reveal preliminary gram positive cocci new blood culture ordered -continue vancomycin, and meropenem 05/06: Third set of blood cultures pending, waiting for clearance of infection. On vancomycin, meropenem. Completed azithromycin 5 day course. Most recent cultures growing Enterococcus. Proteus has been eradicated. We should be able to continue vancomycin and deescalate meropenem to Rocephin. Will discuss with ID pharmacist. Leukocytosis has resolved. Patient is afebrile. 05/07/24: 3rd set of blood cultures showing no growth to date on preliminary read Continue Rocephin and Vancomycin 05/08/24: Third set of blood cultures still showing no growth to date on preliminary read Continue with Rocephin and vancomycin 05/09/24: 3rd set of blood cultures still showing no growth to date on preliminary read Continue with Rocephin and Vancomycin. (2) Pneumonia: Code(s): J18.9 - Pneumonia, unspecified organism Status: Acute Assessment and Plan: CXR: 1. Stable moderate-sized loculated right pleural effusion. 2. Airspace opacities in right mid and lower lung zones, consistent with atelectasis versus pneumonia. Chest CT: 1. Stable moderate-sized loculated right pleural effusion. 2. Moderate emphysema. - Viral PCR: negative for Flu/COVID/RSV - Lactic acid: ordered - Blood cultures collected on 05/02: Preliminary- Gram + cocci, new blood cultures ordered - Sputum cultures collected on 05/02 - no supplemental O2 requirement - gentle IV fluid resuscitation - Solu-medrol IV - started on CAP tx: azithromycin and ceftriaxone started on 05/02, antibiotics transitioned to vancomycin and meropenem (UTI coverage) on 05/03, remains on azithromycin for atypical coverage - supportive treatment tyl and ibu prn nebs prn tesslon perles prn - IR consulted and thoracentesis ordered - Monitor vital signs, I&Os, neuro status and patient is a fall risk - Follow WBC, serum electrolytes, temperature curves and cultures 05/06: Moderate loculated effusion to right lower lobe. Repeat chest x-ray this morning. Patient's Plavix was held initially when he came in with suspected GI bleeding. Patient's Plavix was restarted yesterday in lieu of thoracentesis today. Plavix is back on hold. Radiology says they will not do a thoracentesis until Plavix has been held for 5 days. 05/07/24: Moderate right loculated pleural effusion, plan thoracentesis on Continue to hold Plavix 05/08/24: Plan for thoracentesis on the , so a is agreeable to this plan Continue to hold Plavix Continue IV antibiotics 05/09/24: continue with current treatment plan Cytology, cultures and labs ordered for tomorrow Plan for thoracentesis tomorrow, will likely need light sedative to tolerate the procedure given history of dementia (3) Acute GI bleeding: Code(s): K92.2 - Gastrointestinal hemorrhage, unspecified Status: Acute Assessment and Plan: GI consulted, POA is against any invasive procedures given advanced age and dementia, continue with medical support - Use PPI IV - IV resuscitation. - Monitor electrolytes. - GI c
--- NOTE | 2024-05-09 10:51 | PCNFU ---
Nutrition Follow-Up Complete: Severe Protein Calorie Malnutrition as related to inadequate protein-energy intake with increased protein-energy needs in setting of chronic disease as evidenced by minimal oral intake: significant weight loss of 21%(27 ibs) in 2 months; severe subcutaneous fat loss (orbital fat pads) and muscle wasting (calf). Goal: Meet estimated nutritional needs. Pt current nutrition is Soft and bite sized level 6, regular, Ensure compact BID. Nutrition recommendation: continue with current plan of care Last recorded weight is 47 kg. Bowel Motility: No BM recorded Labs Reviewed: Hgb:9.6, HCT:31.2 Meds Noted: zofran, protonix Skin: No skin issues Additional Notes: Pt con a soft and bite sized diet, intake 50-100%, supplements in place. Agree with diet orders Will monitor weight, labs, skin, oral intake, meds every 5 days.
[2024-05-09] MEDS: ATORVASTATIN 40 MG TABLET 80 MG PO (21:33)
[2024-05-10] VITALS (9 sets, daily range): BP systolic 98–119; BP diastolic 46–70; PULSE 70–76; RESP 17–18; TEMP 36–36.6; O2SAT 92–99
[2024-05-10] MEDS: AMPICILLIN SULB 3 GM/NS 100 ML 3 GM/100 ML VIAL IVPB ×5 (00:50→23:17)
[2024-05-10 05:20] LABS: Hematocrit 28.6 % (42.0-52.0); Mean Corpuscular HGB Conc 31.5 g/dl (32-36); Mean Corpuscular Hemoglobin 28.9 pg (26-34); Mean Platelet Volume 9.6 fl (7.4-10.4); Platelet Count Result 224 k/mm3 (150-375); Red Blood Count 3.11 M/mm3 (4.6-6.20); Red Cell Distribution Width 20.4 % (11.5-14.5)
[2024-05-10 05:32] LABS: INR 1.2; Prothrombin Time 15.1 Seconds (11.1-14.7)
[2024-05-10 05:33] LABS: Partial Thromboplastin Time 40.8 Seconds (22.3-36.8)
[2024-05-10 05:34] LABS: Anion Gap 5 mmol/L (4-12); Blood Urea Nitrogen 20 mg/dL (9-20); Calcium 8.6 mg/dL (8.4-10.2); Carbon Dioxide 27 mmol/L (22-30); Chloride 110 mmol/L (98-107); Estimated CRCL calculation 40 ml/min; Estimated Glomerular Filt Rate > 60; Glucose 82 mg/dL (65-110); Potassium 3.6 mmol/L (3.4-5.0); Sodium 142 mmol/L (137-145)
[2024-05-10] MEDS: LEVOTHYROXINE SODIUM 150 MCG TABLET PO (06:19)
[2024-05-10] MEDS: METOPROLOL SUCCINATE EXT REL 12.5 MG TABCR PO ×2 (08:20→17:42)
[2024-05-10] MEDS: QUEtiapine FUMARATE 25 MG TABLET 50 MG PO ×2 (08:20→21:30)
[2024-05-10] MEDS: FINASTERIDE 5 MG TABLET PO (08:20)
[2024-05-10] MEDS: PYRIDOXINE HCL 50 MG TABLET 100 MG PO (08:20)
[2024-05-10] MEDS: QUEtiapine FUMARATE 25 MG TABLET PO ×2 (08:21→21:30)
[2024-05-10] MEDS: PANTOPRAZOLE SODIUM IV 40 MG VIAL IV PUSH (08:22)
[2024-05-10] MEDS: SERTRALINE HCL 25 MG TABLET PO (08:26)
[2024-05-10 10:21] LABS: pH Pleural Fluid 7.495 (7.210-7.500)
[2024-05-10 12:25] LABS: Appearance Pleural Fluid Clear (Clear); Color Pleural Fluid Yellow (Colorless); Lymphocytes Pleural Fluid 78 %; Macrophages Pleural Fluid 1 %; Monocytes Pleural Fluid 17 %; Neutrophils Pleural Fluid 4 % (0-25); Pleural fluid source Pleural fluid
[2024-05-10 13:04] LABS: Nucleated Cell Pleural Fluid 70 /uL (0-1000); RBC Pleural Fluid < 2000 /uL (0-10000)
--- NOTE | 2024-05-10 13:30 | PM.IMPN ---
Progress Note: A&P Assessment and Plan (1) Sepsis: Code(s): A41.9 - Sepsis, unspecified organism Status: Resolved Assessment and Plan: Meets SIRS criteria: leukocytosis, positive blood cultures - lactic acid: 1.1 on 05/03 after receiving antibiotics - suspected source: pneumonia - Blood cultures collected on 05/02: Preliminary- Gram + cocci, new blood cultures ordered - Sputum cultures collected on 05/02 - UA: cloudy appearance, 1+ protein, positive nitrates, 3+ leukocytes, >100 WBC, 4+ bacteria - UC obtained on 05/02: pending - previous micro reviewed 12/05/23: MRSA and ecoli - ESBL resistance - Antibiotics: azithromycin and ceftriaxone started on 05/02, antibiotics transitioned to vancomycin and cefepime on 05/03, remains on azithromycin for atypical coverage 05/05/2024: Blood cultures collected on 05/02 reveal preliminary gram positive cocci new blood culture ordered -continue vancomycin, and meropenem 05/06: Third set of blood cultures pending, waiting for clearance of infection. On vancomycin, meropenem. Completed azithromycin 5 day course. Most recent cultures growing Enterococcus. Proteus has been eradicated. We should be able to continue vancomycin and deescalate meropenem to Rocephin. Will discuss with ID pharmacist. Leukocytosis has resolved. Patient is afebrile. 05/07/24: 3rd set of blood cultures showing no growth to date on preliminary read Continue Rocephin and Vancomycin 05/08/24: Third set of blood cultures still showing no growth to date on preliminary read Continue with Rocephin and vancomycin 05/09/24: 3rd set of blood cultures still showing no growth to date on preliminary read Continue with Rocephin and Vancomycin. (2) Pneumonia: Code(s): J18.9 - Pneumonia, unspecified organism Status: Acute Assessment and Plan: CXR: 1. Stable moderate-sized loculated right pleural effusion. 2. Airspace opacities in right mid and lower lung zones, consistent with atelectasis versus pneumonia. Chest CT: 1. Stable moderate-sized loculated right pleural effusion. 2. Moderate emphysema. - Viral PCR: negative for Flu/COVID/RSV - Lactic acid: ordered - Blood cultures collected on 05/02: Preliminary- Gram + cocci, new blood cultures ordered - Sputum cultures collected on 05/02 - no supplemental O2 requirement - gentle IV fluid resuscitation - Solu-medrol IV - started on CAP tx: azithromycin and ceftriaxone started on 05/02, antibiotics transitioned to vancomycin and meropenem (UTI coverage) on 05/03, remains on azithromycin for atypical coverage - supportive treatment tyl and ibu prn nebs prn tesslon perles prn - IR consulted and thoracentesis ordered - Monitor vital signs, I&Os, neuro status and patient is a fall risk - Follow WBC, serum electrolytes, temperature curves and cultures 05/06: Moderate loculated effusion to right lower lobe. Repeat chest x-ray this morning. Patient's Plavix was held initially when he came in with suspected GI bleeding. Patient's Plavix was restarted yesterday in lieu of thoracentesis today. Plavix is back on hold. Radiology says they will not do a thoracentesis until Plavix has been held for 5 days. 05/07/24: Moderate right loculated pleural effusion, plan thoracentesis on Continue to hold Plavix 05/08/24: Plan for thoracentesis on the , so a is agreeable to this plan Continue to hold Plavix Continue IV antibiotics 05/09/24: continue with current treatment plan Cytology, cultures and labs ordered for tomorrow Plan for thoracentesis tomorrow, will likely need light sedative to tolerate the procedure given history of dementia 05/10/24: Thoracentesis today with 1L fluid removal, cytology and labs sent Continue IV antibiotics Plan to deesculate to oral antibiotics tomorrow Will obtain chest x-ray in the morning (3) Acute GI bleeding: Code(s): K92.2 - Gastrointestinal hemorrhage, unspecified Status: Acute Assessment and
[2024-05-10] MEDS: FERROUS SULFATE 325 MG TABLET DR PO (17:42)
[2024-05-10] MEDS: ATORVASTATIN 40 MG TABLET 80 MG PO (21:31)
[2024-05-11 04:00] VITALS: BP 101/54; PULSE 68; RESP 18; TEMP 36.6; O2SAT 98
[2024-05-11] MEDS: AMPICILLIN SULB 3 GM/NS 100 ML 3 GM/100 ML VIAL IVPB ×2 (05:03→11:18)
[2024-05-11] MEDS: LEVOTHYROXINE SODIUM 150 MCG TABLET PO (05:03)
[2024-05-11 08:43] VITALS: PULSE 68
[2024-05-11] MEDS: PANTOPRAZOLE SODIUM IV 40 MG VIAL IV PUSH (08:43)
[2024-05-11] MEDS: FINASTERIDE 5 MG TABLET PO (08:43)
[2024-05-11] MEDS: METOPROLOL SUCCINATE EXT REL 12.5 MG TABCR PO (08:43)
[2024-05-11] MEDS: SERTRALINE HCL 25 MG TABLET PO (08:43)
[2024-05-11 08:44] VITALS: RESP 18; O2SAT 98
[2024-05-11] MEDS: CHOLECALCIFEROL 400 UNITS TABLET (VIT D) PO (08:44)
[2024-05-11] MEDS: QUEtiapine FUMARATE 25 MG TABLET PO (08:44)
[2024-05-11] MEDS: FERROUS SULFATE 325 MG TABLET DR PO (08:44)
[2024-05-11] MEDS: QUEtiapine FUMARATE 25 MG TABLET 50 MG PO (08:44)
[2024-05-11] MEDS: PYRIDOXINE HCL 50 MG TABLET 100 MG PO (08:44)
--- NOTE | 2024-05-11 08:55 | PM.DS ---
DS: Admitting Diagnosis Discharge Date 05/11/24 Admitting Diagnosis acute GI bleeding acute bilateral knee pain severe protein calorie malnutrition hypokalemia hypothyroidism DS: Discharge Diagnosis Discharge Diagnosis (1) Sepsis: Code(s): A41.9 - Sepsis, unspecified organism Status: Resolved (2) Pneumonia: Code(s): J18.9 - Pneumonia, unspecified organism Status: Acute (3) Acute GI bleeding: Code(s): K92.2 - Gastrointestinal hemorrhage, unspecified Status: Acute (4) Urinary tract infection: Qualifiers: Encounter type: initial encounter Indwelling urinary catheter type: indwelling urethral catheter Urinary tract infection type: catheter-associated UTI Qualified Code(s): T83.511A - Infection and inflammatory reaction due to indwelling urethral catheter, initial encounter; N39.0 - Urinary tract infection, site not specified Code(s): N39.0 - Urinary tract infection, site not specified Status: Acute (5) Anemia: Code(s): D64.9 - Anemia, unspecified Status: Acute (6) Hypertension: Code(s): I10 - Essential (primary) hypertension Status: Acute (7) Hypothyroidism: Qualifiers: Hypothyroidism type: unspecified Qualified Code(s): E03.9 - Hypothyroidism, unspecified Code(s): E03.9 - Hypothyroidism, unspecified Status: Chronic (8) Dementia: Qualifiers: Dementia behavioral or psychological symptom: with other behavioral disturbance Dementia severity: severe Dementia type: vascular dementia Qualified Code(s): F01.C18 - Vascular dementia, severe, with other behavioral disturbance Code(s): F03.90 - Unspecified dementia, unspecified severity, without behavioral disturbance, psychotic disturbance, mood disturbance, and anxiety Status: Chronic (9) Severe malnutrition: Code(s): E43 - Unspecified severe protein-calorie malnutrition Status: Acute DS: Summary Hospital Course Reason for hospitalization: acute GI bleeding acute bilateral knee pain severe protein calorie malnutrition hypokalemia hypothyroid Hospital Course: 05/07/24: This is an 83 year old male who presented to the hospital on 05/02/24 with coffee ground emesis and found to be Septic secondary to Bacteremia and loculated pneumonia. Blood cultures shown proteus mirabilis and enterococcus faecalis on 1st set of blood cultures. 2nd set of blood cultures shown enterococcus faecalis. 3rd set of blood cultures are showing no growth on preliminary read. Patient awaits a thoracentesis for the loculated right pleural effusion. Patient currently has plavix on hold and will need to be held for a total of 5 days prior to thoracentesis. On examination today patient is alert and confused. Labs today reveal a hgb 9.4, otherwise unremarkable. Patient continues on Rocephin and Vancomycin. GI seen patient and deemed his coffee ground emesis to PUD and placed patient on Protonix. 05/08/24: Spoke with POA today and she is agreeable to move forward with thoracentesis on Monday. He denies any new complaints today. Labs today show a hemoglobin of 9.1, otherwise unremarkable. 05/09/24: Patient confused at baseline. Unable to engage in conversation. Plan for thoracentesis tomorrow with cytology and labs. He may need a light sedative to tolerate the procedure. Labs unremarkable. 05/10/24: Patient had thoracentesis today with 1 L fluid removal of dark angely colored pleural fluid. Cytology and labs sent. Patient tolerated procedure well. Labs today show a hemoglobin of 9.0, INR was 1.2, otherwise unremarkable. We will check labs and x-ray in the morning. Patient might be able to go home tomorrow while awaiting results. 05/11/24: cytology and labs are still pending. Labs today are essentially unremarkable patient is stable for discharge back to his facility today. We will call with the results of his pleural fluid. He will need to finish his a
[2024-05-11 11:36] VITALS: BP 102/41; PULSE 75; RESP 18; TEMP 36.2; O2SAT 98
[2024-05-11 12:05] LABS: SARS-CoV-2 RNA PCR Negative (Negative)
[2024-05-14 20:53] LABS: Albumin Pleural Fluid 1.3 g/dL; Amylase, Pleural Fluid 28 U/L; Glucose Pleural Fluid 81 mg/dL; LDH Pleural Fluid 106 U/L; Total Protein Pleural Fluid 3.4 g/dL
== END 2024-05-11 16:30 | DRG 698 ==
LOC: ANHED 09:41 → ANH2MED 10:06
PROVIDERS: Internal Medicine; Internal Medicine Gastroenterology; Nurse Practitioner; Nurse Practitioner Acute Care; Student in an Organized Health Care Education/Training Program; Admitting Provider Hospitalist; Emergency Provider Emergency Medicine; Visit Provider Nurse Practitioner Acute Care
PROC: 0DJ08ZZ Inspection of Upper Intestinal Tract, Via Natural or Artificial Opening Endoscopic (ICD-10-PCS; CPT 43235; principal; 2024-05-03 16:00)
DX: T83.511A Infection and inflammatory reaction due to indwelling urethral catheter, initial encounter (principal); A41.59 Other Gram-negative sepsis; E43 Unspecified severe protein-calorie malnutrition; J18.9 Pneumonia, unspecified organism; A41.81 Sepsis due to Enterococcus; J90 Pleural effusion, not elsewhere classified; K92.2 Gastrointestinal hemorrhage, unspecified; J44.0 Chronic obstructive pulmonary disease with (acute) lower respiratory infection; N39.0 Urinary tract infection, site not specified; D50.9 Iron deficiency anemia, unspecified; E87.6 Hypokalemia; E78.5 Hyperlipidemia, unspecified; E03.9 Hypothyroidism, unspecified; F03.90 Unspecified dementia, unspecified severity, without behavioral disturbance, psychotic disturbance, mood disturbance, and anxiety; F41.9 Anxiety disorder, unspecified; I10 Essential (primary) hypertension; K21.9 Gastro-esophageal reflux disease without esophagitis; J43.9 Emphysema, unspecified; K44.9 Diaphragmatic hernia without obstruction or gangrene; M25.561 Pain in right knee; M25.562 Pain in left knee; N40.1 Benign prostatic hyperplasia with lower urinary tract symptoms; R33.8 Other retention of urine; Z11.52 Encounter for screening for COVID-19; Z79.02 Long term (current) use of antithrombotics/antiplatelets; Z86.73 Personal history of transient ischemic attack (TIA), and cerebral infarction without residual deficits; Z96.1 Presence of intraocular lens; Z87.442 Personal history of urinary calculi; Z98.41 Cataract extraction status, right eye; Z98.42 Cataract extraction status, left eye
CPT/HCPCS: 32555; 36415; 71045; 71250; 80048; 80053; 80202; 81001; 82040; 82042; 82150; 82247; 82465; 82607; 82746; 82945; 82947; 83540; 83550; 83605; 83615; 83735; 83986; 84155; 84157; 84311; 84478; 85014; 85018; 85025; 85027; 85049; 85610; 85730; 86850; 86900; 86901; 87015; 87040; 87070; 87075; 87077; 87086; 87088; 87116; 87181; 87186; 87205; 87206; 87635; 87641; 88108; 88305; 89051; 93306; 94640; 96374; 97110; 97116; 97161; 97530; 99285; A9270; C9113; J0295; J0456; J0692; J0696; J1756; J2185; J2704; J3370; J7050; J7120

== ENCOUNTER 2024-09-06 13:00 | Inpatient (IN) | payer MEDICARE, SELFPAY ==
[2024-09-06] VITALS (9 sets, daily range): BP systolic 80–165; BP diastolic 40–94; PULSE 73–107; RESP 16–20; TEMP 37.7–39.2; O2SAT 94–99; BMI 19.0
--- NOTE | ~2024-09-06 | CT_ITS ---
EXAMINATION: CT abdomen pelvis wo con DATE: 09/06/2024 14:40 INDICATION: Sepsis. Hematuria. Altered mental status. TECHNIQUE: Computed tomography (CT) of the abdomen and pelvis was performed without intravenous contr ast. Automated exposure control and iterative reconstruction technique were employed. The dose-length product was 547.86 mGy-cm. COMPARISON: CT 05/02/2024 FINDINGS: The visualized portions of the lung bases demonstrate emphysema. There is smooth septal thi ckening, consistent with mild pulmonary edema. There is mild atelectasis bilaterally. There are small right and trace left pleural effusions. The heart size is normal. There are coronary artery calcific ations. There are calcifications of the aortic valve. No pericardial effusion. Calcifications in the liver and spleen are consistent with old granulomatous disease. The gallbladder is contracted. The pa ncreas and adrenal glands are normal. There are cysts in right kidney measuring up to 2.5 cm. There i s an 8 mm stone in right kidney. The bladder is decompressed by a Barry catheter. There are multiple stones in the bladder measuring up to 11 mm. Left kidney is normal. There are no dilated loops of bow el. There are no pathologically enlarged lymph nodes. There is no free intraperitoneal fluid. There a re old healed bilateral rib fractures. There is severe cervical thoracic spondylosis. There is mild c hronic anterior wedging of multiple thoracic vertebral bodies. IMPRESSION: 1. Mild pulmonary edema. 2. Small right pleural effusion. 3. Stones in the right kidney and the bladder. Reviewed, dictated and finalized at location A.
--- NOTE | ~2024-09-06 | XR_ITS ---
EXAMINATION: XR chest 1V portable DATE: 09/06/2024 14:47 INDICATION: Fever. TECHNIQUE: A single frontal view of the chest was obtained. COMPARISON: Chest single view 05/10/2024, CT abdomen and pelvis 09/06/2024 FINDINGS: There are lucencies and interstitial opacities in the lungs, consistent with emphysema and mild pulmonary edema. There is a chronic small right pleural effusion. No pneumothorax. The heart siz e is normal. 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 There is an old healed left rib fracture. IMPRESSION: 1. Mild pulmonary edema. 2. Emphysema. 3. Chronic small right pleural effusion. Reviewed, dictated and finalized at location A.
--- NOTE | 2024-09-06 13:26 | ECG_ITS ---
Test Date: 2024-09-06 14:22:01 Measurements Intervals [place] Rate: 113 P: 0 OH: 0 QRS: -15 QRSD: 109 T: 132 QT: 317 QTc: 435 Interpretive Statements SUPRAVENTRICULAR TACHYCARDIA VOLTAGE CRITERIA FOR LVH [MEETS CRITERIA IN ONE OF: R(aVL), S(V1), R(V5), R(V5/V6)+S(V1)] INFERIOR MYOCARDIAL INFARCTION , PROBABLY OLD [40+ ms Q WAVE AND/OR ST/T ABNORMALITY IN II/aVF] ST DEPRESSION, CONSIDER SUBENDOCARDIAL INJURY [0.1+ mV ST DEPRESSION] No previous ECG available for comparison POOR QUALITY EKG DUE TO artifact Electronically Signed On 09-07-2024 08:25:44 CDT by Tami Cooper M.D.
[2024-09-06] MEDS: HALOPERIDOL LACTATE 5 MG/ML VIAL 2.5 MG IM (13:35)
[2024-09-06 13:37] LABS: Bacteria Urine 4+ /hpf; Need Manual Microscopic Reviewed; RBC Urine >100 /hpf (0-2); Squamous Epithelial Cell Urine None Seen /hpf (Few); WBC Urine >100 /hpf (0-3)
[2024-09-06 13:38] LABS: Add Urine Microscopic? YES; Appearance Urine Turbid (Clear); Bilirubin Urine Negative (Negative); Blood Urine 3+ (Negative); Glucose Urine UA Negative (Negative); Ketones Urine Negative (Negative); Leukocyte Esterase Ur 3+ LEU/UL (Negative); Nitrate Urine Positive (Negative); Protein Urine 2+ mg/dL (Negative); Specific Grav Ur 1.015 (1.001-1.035); Urobilinogen Urine 0.2 mg/dL (<2.0); pH Urine 5.5 (5.0-9.0)
[2024-09-06 13:40] LABS: Color Urine Red (Yellow)
--- NOTE | 2024-09-06 13:48 | ED.MALEGU ---
HPI - Male Genitourinary General Chief complaint: Urogenital-Male Stated complaint: dark urine Time Seen by Provider: 09/06/24 13:12 History of Present Illness HPI Narrative: Sent from shelter with reported foul smelling urine, patient unable to provide any other history, history of dementia A& O x1 at baseline Related Data Home Medications Medication Instructions Recorded Confirmed acetaminophen 325 mg tablet 650 mg PO Q6H PRN Pain (Scale 03/09/24 05/02/24 Score 1-3) albuterol sulfate 90 mcg/actuation 2 puff inhalation Q6H PRN Wheezing 03/09/24 05/02/24 aerosol inhaler atorvastatin 80 mg tablet 80 mg PO HS 03/09/24 05/02/24 clopidogrel 75 mg tablet 75 mg PO DAILY 03/09/24 05/02/24 finasteride 5 mg tablet 5 mg PO DAILY 03/09/24 05/02/24 levothyroxine 125 mcg tablet 125 mcg PO DAILY 03/09/24 05/02/24 metoprolol succinate 25 mg 12.5 mg PO BID 03/09/24 05/02/24 tablet,extended release 24 hr pyridoxine (vitamin B6) 100 mg PO DAILY 03/09/24 05/02/24 quetiapine 25 mg tablet 25 mg PO Q12H 03/09/24 05/02/24 quetiapine 50 mg tablet 50 mg PO Q12H 03/09/24 05/02/24 sennosides 8.6 mg capsule (senna) 17.2 mg PO DAILY PRN Constipation 03/09/24 05/02/24 sertraline 25 mg tablet 25 mg PO DAILY 03/09/24 05/02/24 tamsulosin 0.4 mg capsule 0.4 mg PO HS 03/09/24 05/02/24 tiotropium bromide 18 mcg capsule 18 mcg inhalation DAILY 03/09/24 05/02/24 with inhalation device (Spiriva with HandiHaler) cephalexin 500 mg capsule 500 mg PO Q6H 05/02/24 05/02/24 cholecalciferol (vitamin D3) 10 10 mcg PO DAILY 05/02/24 05/02/24 mcg (400 unit) tablet ferrous sulfate 325 mg (65 mg 325 mg PO DAILY 05/02/24 05/02/24 iron) tablet,delayed release hydroxyzine HCl 50 mg tablet 50 mg PO TID PRN Anxiety 05/02/24 05/02/24 levothyroxine 150 mcg tablet 150 mcg PO DAILY 05/02/24 05/02/24 Allergies Allergy/AdvReac Type Severity Reaction Status Date / Time diphtheria toxoid,adsorbed Allergy Unknown Verified 05/03/24 14:13 fish derived Allergy Unknown Verified 05/03/24 14:13 iodine Allergy Unknown Verified 05/03/24 14:13 tetanus toxoid, adsorbed Allergy Unknown Verified 05/03/24 14:13 tositumomab Allergy Unknown Verified 05/03/24 14:13 Review of Systems Review of Systems: ROS unobtainable: Yes unobtainable due to mental status PMFSH Past Medical History Medical History Bladder stone BPH with urinary obstruction Chronic indwelling Barry catheter Coffee ground emesis COPD (chronic obstructive pulmonary disease) CVA (cerebral vascular accident) Focal left parietal encephalomalacia, old lacunar infarct left caudate nucleus, moderate atrophy and chronic white matter changes Dementia Essential hypertension History of nephrolithiasis Hyperlipidemia Hypothyroidism Normocytic hypochromic anemia Pleural effusion on right Surgical History Surgical History Status post cataract extraction of both eyes with insertion of intraocular lens Family History Family History Other Unknown family medical history Social History Social History Social History: Patient resides at [facility]. Code status: Full code (per shelter documentation) Smoking status: Never smoker Alcohol intake: unknown Substance use: unknown Spiritual care concerns: No Exam Narrative: EXAMINATION OF ORGAN SYSTEMS/BODY AREAS: Constitutional: Vital signs per nursing GENERAL: Aggressively pushing away the nurses; lots of dried feces HEAD: Normal with no signs of head trauma. EYES: EOMI, conjunctiva normal LUNGS: Nonlabored breathing. Yelling out HEART: Slightly tachycardic ABD: [Soft], nondistended EXT: Normal range of motion SKIN: No obvious decubitus ulcers NEURO: [Alert. No gross focal sensory or strength
[2024-09-06 14:15] LABS: Basophils Percent Auto 0.2 % (0.2-1.2); Eosinophils Absolute Auto 0.1 K/mm3 (0-0.3); Eosinophils Percent Auto 0.8 % (0-4.4); Hematocrit 31.6 % (42.0-52.0); Hemoglobin 10.1 g/dL (14.0-18.0); Immature Granulocyte Absolute 0.04 K/mm3 (0.00-0.031); Immature Granulocyte Percent A 0.3 % (0-0.5); Lymphocytes Absolute Auto 0.65 K/mm3 (0.9-3.2); Lymphocytes Percent Auto 5.4 % (18.3-44.2); Mean Corpuscular Hemoglobin 31.4 pg (26-34); Mean Corpuscular Volume 98.1 fl (80-100); Mean Platelet Volume 9.5 fl (7.4-10.4); Monocytes Absolute Auto 0.5 K/mm3 (0.1-0.6); Monocytes Percent Auto 3.8 % (2.6-8.5); Neutrophils Absolute Auto 10.7 K/mm3 (1.3-6.7); Neutrophils Percent Auto 89.5 % (45.5-73.1); Platelet Count Result 222 k/mm3 (150-375); Red Blood Count 3.22 M/mm3 (4.6-6.20)
[2024-09-06] MEDS: ACETAMINOPHEN 650 MG SUPPOSITORY RECTAL (14:22)
[2024-09-06 14:49] LABS: Alanine Aminotransferase 27 U/L (6-50); Alkaline Phosphatase 106 U/L (38-126); Anion Gap 7 mmol/L (4-12); Aspartate Amino Transferase 32 U/L (17-59); Bilirubin,Total 0.4 mg/dL (0.2-1.3); Blood Urea Nitrogen 18 mg/dL (9-20); CRP 3.9 mg/dL (<1.0); Calcium 9.4 mg/dL (8.4-10.2); Carbon Dioxide 29 mmol/L (22-30); Chloride 109 mmol/L (98-107); Estimated CRCL calculation 103 ml/min; Estimated Glomerular Filt Rate > 60; Glucose 128 mg/dL (65-110); Lactic Acid Reflex 3.3 mmol/L (0.7-2.0); Sodium 145 mmol/L (137-145)
[2024-09-06] MEDS: PIPERACILLN/TAZ 3.375GM/NS50ML 3.375 GM/50 ML BAG IVPB (16:00)
[2024-09-06] MEDS: LACTATED RINGERS 1,000 ML 999 ML IV CONT (16:15)
[2024-09-06] MEDS: POTASSIUM CHLORIDE INJ 40 MEQ in SODIUM CHLORIDE 0.9% IV 500 ML 130 MEQ IVPB ×2 (16:24→23:20)
--- NOTE | 2024-09-06 16:53 | WPDURCON ---
Assessment and Plan Assessment and plan (1) Acute on chronic urinary retention: Code(s): R33.9 - Retention of urine, unspecified Status: Acute (2) Urinary tract infection: Code(s): N39.0 - Urinary tract infection, site not specified Status: Acute (3) Chronic indwelling Barry catheter: Code(s): Z97.8 - Presence of other specified devices Status: Chronic Assessment and Plan: Given patient's mental status is chronic urinary retention can probably only be managed with an indwelling catheter. His bladder stones will not be an issue if he is managed with an indwelling catheter. He likely has a wrist to traumatically removed the catheter so I would recommend inflating the Barry balloon to 30 cc and securely fastening the catheter to his thigh. The 8 mm nonobstructing stone in his right kidney is not clinically significant at this point Urology Consult Note HPI Date Seen: 09/06/24 Requesting Physician: Ike Clark MD Primary Care Provider: UNKNOWN,DOCTOR Consult Narrative Narrative: Stewart La is a 83 year old male who was seen once in our practice by Dr. Higginbotham in January 2024. patient has advanced dementia and known urinary retention. Recommendation was made for a chronic indwelling catheter. The patient's daughter had some trepidation about that because of difficulty in managing in his halfway. He was not seen since and it is unclear to me how his retention has been managed. He presents to the emergency department with foul smelling urine. He is unable to supply a reliable history. CT imaging demonstrates a nonobstructing 8 mm stone in his right kidney and some smallish stones in his bladder. Review of Systems Review of Systems: ROS unobtainable: Yes unobtainable due to mental status PMFSH Past Medical History Medical History Bladder stone BPH with urinary obstruction Chronic indwelling Barry catheter Coffee ground emesis COPD (chronic obstructive pulmonary disease) CVA (cerebral vascular accident) Focal left parietal encephalomalacia, old lacunar infarct left caudate nucleus, moderate atrophy and chronic white matter changes Dementia Essential hypertension History of nephrolithiasis Hyperlipidemia Hypothyroidism Normocytic hypochromic anemia Pleural effusion on right Surgical History Surgical History Status post cataract extraction of both eyes with insertion of intraocular lens Family History Family History Other Unknown family medical history Social History Social History Social History: Patient resides at [facility]. Code status: Full code (per halfway documentation) Smoking status: Never smoker Alcohol intake: unknown Substance use: unknown Spiritual care concerns: No Meds Home Medications and Allergies Home Medications Medication Instructions Recorded Confirmed Type acetaminophen 325 mg tablet 650 mg PO Q6H PRN Pain (Scale 03/09/24 05/02/24 History Score 1-3) albuterol sulfate 90 mcg/actuation 2 puff inhalation Q6H PRN Wheezing 03/09/24 05/02/24 History aerosol inhaler atorvastatin 80 mg tablet 80 mg PO HS 03/09/24 05/02/24 History clopidogrel 75 mg tablet 75 mg PO DAILY 03/09/24 05/02/24 History finasteride 5 mg tablet 5 mg PO DAILY 03/09/24 05/02/24 History levothyroxine 125 mcg tablet 125 mcg PO DAILY 03/09/24 05/02/24 History metoprolol succinate 25 mg 12.5 mg PO BID 03/09/24 05/02/24 History tablet,extended release 24 hr pyridoxine (vitamin B6) 100 mg PO DAILY 03/09/24 05/02/24 History quetiapine 25 mg tablet 25 mg PO Q12H 03/09/24 05/02/24 History quetiapine 50 mg tablet 50 mg PO Q12H 03/09/24 05/02/24 History sennosides 8.6 mg capsule (senna) 17.2 mg
--- NOTE | 2024-09-06 16:55 | PM.IMHP ---
H&P: HPI History of Present Illness Date/Time: 09/06/24 16:55 Chief Complaint: Tremors and dark urine. Narrative: This is an 83-year-old male with advanced dementia, hypertension, heart failure with preserved ejection fraction, hypothyroidism, anemia, chronic obstructive pulmonary disease, benign prostatic hyperplasia with chronic retention and indwelling urinary catheter, kidney and bladder stones, and history of urine cultures growing Pseudomonas aeruginosa and multidrug resistant Proteus mirabilis and Enterococcus faecalis who presented to the emergency department via EMS from [facility] for evaluation of tremors and dark urine. He is not able to provide an accurate history due to his underlying dementia and a majority of the following is obtained via a review of his EMR. Staff at the facility note that he was shaking uncontrollably this morning and that his urine is darker than normal. On arrival to the triage the patient stated he was shaking because he was cold. At the time my evaluation he is is somnolent and alert but not answering questions or following commands. In the ED: Temperature was as high as 102.5? F. Blood pressures have been stable. Pulse is 107 on arrival. Labs are significant for WBC count of 12.0, hemoglobin 10.1, potassium 3.0, BUN 18, creatinine 0.60, lactic acid 3.3, CRP 3.3. Urinalysis was positive for 2+ protein, 3+ blood, nitrates, 3+ leukocyte esterase, greater than 100 RBC and WBC, and 4+ bacteria. CT of the abdomen and pelvis showed mild pulmonary edema, small right pleural effusion, and stones in the right kidney and the bladder. He was given potassium, acetaminophen, and piperacillin/tazobactam he is being admitted in this setting for further treatment. Given his stable vital signs and findings of pulmonary edema on imaging, he was not given a full 30 mL/kg IV fluid bolus and instead was given 1 L of LR. Review of Systems Review of Systems: Unable to obtain accurately given underlying dementia. [facility] Past Medical History Medical History Benign prostatic hyperplasia with urinary retention Bladder stone Cerebrovascular accident Focal left parietal encephalomalacia, old lacunar infarct left caudate nucleus, moderate atrophy and chronic white matter changes. Chronic anemia Chronic indwelling Barry catheter Chronic obstructive pulmonary disease Dementia Essential hypertension Heart failure with preserved ejection fraction Echo in 04/2024 showed normal left ventricular size and systolic function with grade 1 diastolic noncompliance. History of nephrolithiasis Hyperlipidemia Hypothyroidism Kidney stones Surgical History Surgical History History of cataract extraction with lens replacement Family History Family History Other Unknown family medical history Social History Social History (Updated 09/06/24 @ 22:05 by Rosa Malik PA-C) Social History: Legal guardian: Irena Zamorano Code status: Do not resuscitate. Smoking status: Never smoker Alcohol intake: unknown Substance use: unknown Living arrangements: skilled nursing Additional living arrangements comments: [facility]. Spiritual care concerns: No Meds Home Medications and Allergies Home Medications Medication Instructions Recorded Confirmed Type acetaminophen 325 mg tablet 650 mg PO Q6H PRN Pain (Scale 03/09/24 09/06/24 History Score 1-3) albuterol sulfate 90 mcg/actuation 2 puff inhalation Q6H PRN Wheezing 03/09/24 09/06/24 History aerosol inhaler atorvastatin 80 mg tablet 80 mg PO HS 03/09/24 09/06/24 History clopidogrel 75 mg tablet 75 mg PO DAILY 03/09/24 09/06/24 History finasteride 5 mg tablet 5 mg PO DAILY 03/09/24 09/06/24 History metoprolol succinate 25 mg 12.5 mg PO BID 03/09/24 09/06/24 History tablet,extended release 24 hr
[2024-09-06 17:07] LABS: Reflex Lactic Acid Yes or No Add Lactic
[2024-09-06] MEDS: IBUPROFEN IV 400 MG in SODIUM CHLORIDE 0.9% IV 100 ML 208 MG IVPB (17:50)
[2024-09-06] MEDS: MEROPENEM 1 GM/NS 100 ML 1 GM/100 ML BAG IVPB (17:58)
[2024-09-06 18:20] LABS: Lactic Acid 1.4 mmol/L (0.7-2.0)
--- NOTE | 2024-09-06 18:34 | ADMGEN ---
This patient, Stewart La, was admitted to [facility] Surg Room 333-01. Patient/family oriented to hospital policies and general routines including ID bracelet, bed and alarms, visiting hours, pain management, procedures, bathroom and other care routines, personal items, smoking policy, room service/diet, and visiting hours. Information on how to activate the Rapid Response Team has been discussed. Patient/Family are encouraged to report perceived risks to care and to ask questions if they do not understand what they are told or what they should do.
[2024-09-06 20:23] LABS: Lactic Acid Reflex 0.8 mmol/L (0.7-2.0)
[2024-09-06 20:24] LABS: Magnesium 1.8 mg/dL (1.6-2.3); Potassium 2.9 mmol/L (3.4-5.0)
[2024-09-06] MEDS: VANCOMYCIN 1,250 MG/NS 250 ML 1,250 MG/250 ML BAG 166.67 MG IVPB (21:12)
[2024-09-06] MEDS: ALBUMIN HUMAN 25% 25 GM/100 ML 100 ML IVPB (22:37)
--- NOTE | 2024-09-06 22:43 | PC.NURSE ---
Got DNR faxed from [facility] and put in chart.
[2024-09-07] VITALS (16 sets, daily range): BP systolic 102–128; BP diastolic 55–78; PULSE 62–98; RESP 12–20; TEMP 36.6–37; O2SAT 93–100
[2024-09-07] MEDS: MEROPENEM 1 GM/NS 100 ML 1 GM/100 ML BAG IVPB ×3 (02:15→18:19)
[2024-09-07 05:25] LABS: Toxigenic C. Diff NEGATIVE (NEGATIVE)
[2024-09-07] MEDS: LEVOTHYROXINE SODIUM 150 MCG TABLET PO (06:11)
[2024-09-07] MEDS: UMECLIDINIUM BROMIDE 62.5 MCG ELLIPTA 1 PUFF INHALATION (08:18)
[2024-09-07] MEDS: SERTRALINE HCL 25 MG TABLET PO (09:01)
[2024-09-07] MEDS: FINASTERIDE 5 MG TABLET PO (09:01)
[2024-09-07] MEDS: FERROUS SULFATE 325 MG TABLET DR PO (09:01)
[2024-09-07] MEDS: CHOLECALCIFEROL 400 UNITS TABLET (VIT D) PO (09:01)
[2024-09-07] MEDS: METOPROLOL SUCCINATE EXT REL 12.5 MG TABCR PO ×2 (09:01→21:28)
[2024-09-07] MEDS: CLOPIDOGREL BISULFATE 75 MG TABLET PO (09:01)
[2024-09-07] MEDS: PYRIDOXINE HCL 50 MG TABLET 100 MG PO (09:30)
--- NOTE | 2024-09-07 11:28 | PM.IMPN ---
Progress Note: A&P Assessment and Plan (1) Sepsis: Code(s): A41.9 - Sepsis, unspecified organism Status: Acute Assessment and Plan: Meropenem 1 gm IVPB q 8 and Vancomycin 1,250 mg IVPB q 18. History of Pseudomonas aeruginosa and Enterococcus faecalis WBC 12.0> 11.1 Lactic acid 3.3> 0.8 Urine culture preliminary- gram negative bacilli Blood cultures no growth to date. (2) Urinary tract infection: Code(s): N39.0 - Urinary tract infection, site not specified Status: Acute Assessment and Plan: Meropenem 1 gm IVPB q 8 and Vancomycin 1,250 mg IVPB q 18. History of Pseudomonas aeruginosa and Enterococcus faecalis WBC 12.0> 11.1 Urine culture preliminary- gram negative bacilli (3) Hypokalemia: Code(s): E87.6 - Hypokalemia Status: Acute Assessment and Plan: Potassium 2.9. Give Potassium Chloride 40 meq PO q4 x 2 doses. Recheck BMP at 10:00 PM. (4) Bladder stones: Code(s): N21.0 - Calculus in bladder Status: Acute Assessment and Plan: monitor symptoms and temperature. Urology consulted (5) Kidney stones: Code(s): N20.0 - Calculus of kidney Status: Acute Assessment and Plan: monitor symptoms Urology consulted (6) Heart failure with preserved ejection fraction: Code(s): I50.30 - Unspecified diastolic (congestive) heart failure Status: Acute Assessment and Plan: Metoprolol succinate 12.5 mg PO q 12. void over-hydration given history of congestive heart failure as he already has pulmonary edema on imaging. (7) Chronic anemia: Code(s): D64.9 - Anemia, unspecified Status: Acute Assessment and Plan: Hemoglobin 9.2, Hematocrit 28.2 Subjective Date/time seen: 09/07/24 11:28 Interval history: Patient lying in bed. Patient denies chest pain, palpitations, shortness of breath, nausea, or vomiting. Review of Systems Review of Systems: All systems reviewed & are unremarkable except as noted in HPI and below Exam Const: General: comfortable and no acute distress Eyes: Sclera: sclerae normal Neck: Neck: supple Resp: Auscultation: diminished lung sounds Cardio: Rate: regular rate Rhythm: regular rhythm GI: GI Palp: Yes Soft to palpation Auscultation: normal bowel sounds Urinary Catheter: Urinary Catheter: patent and draining (angely) Extrem: Other: Extremities are warm and perfused. Atrophy of the leg muscles. Psych: Affect: normal affect Objective Data Vital Signs Vital Signs: Vital Signs - 24 hr 09/06/24 13:23 09/06/24 14:57 09/06/24 16:11 Temperature 100.4 F H 102.5 F H Pulse Rate 107 H 98 92 Respiratory Rate 16 20 18 Blood Pressure 154/85 H 165/94 H 115/52 L Pulse Oximetry 97 98 97 Oxygen Delivery Fraction of Inspired Oxygen 09/06/24 16:32 09/06/24 17:50 09/06/24 18:14 Temperature 99.9 F H Pulse Rate 93 Respiratory Rate 17 Blood Pressure 132/51 L 80/56 L Pulse Oximetry Oxygen Delivery Fraction of Inspired Oxygen 09/06/24 18:13 09/06/24 19:50 09/06/24 20:00 Temperature 99.8 F H 100 F H Pulse Rate 92 76 Respiratory Rate 18 18 Blood Pressure 94/40 L Pulse Oximetry 99 94 Oxygen Delivery Room Air Fraction of Inspired Oxygen 09/06/24 22:38 09/07/24 00:00 09/07/24 04:00 Temperature Pulse Rate 73 70 68 Respiratory Rate Blood Pressure Pulse Oximetry Oxygen Delivery Fraction of Inspired Oxygen 09/07/24 06:00 09/07/24 08:21 09/07/24 08:00 Temperature 98.5 F Pulse Rate 65 65 Respiratory Rate 18 Blood Pressure 102/55 L Pulse Oximetry 93 93 Oxygen Delivery Room Air Fraction of Inspired Oxygen 21 09/07/24 08:00 Temperature Pulse Rate 65 Respiratory Rate 18 Blood Pressure Pulse Oximetry 93 Oxygen Delivery Room Air Fraction of Inspired Oxygen 21 Intake/Output Intake/Output: Intake & Output 09/04/24 09/05/24 09/06/24 09/07/24 23
[2024-09-07 13:36] LABS: Hematocrit 28.2 % (42.0-52.0); Hemoglobin 9.2 g/dL (14.0-18.0); Mean Corpuscular HGB Conc 32.6 g/dl (32-36); Mean Corpuscular Hemoglobin 31.7 pg (26-34); Mean Corpuscular Volume 97.2 fl (80-100); Mean Platelet Volume 9.4 fl (7.4-10.4); Platelet Count Result 202 k/mm3 (150-375); Red Cell Distribution Width 14.3 % (11.5-14.5); White Blood Count 11.1 K/mm3 (4.5-10.0)
[2024-09-07 13:51] LABS: Anion Gap 4 mmol/L (4-12); Blood Urea Nitrogen 17 mg/dL (9-20); Calcium 9.1 mg/dL (8.4-10.2); Carbon Dioxide 29 mmol/L (22-30); Chloride 110 mmol/L (98-107); Estimated CRCL calculation 66 ml/min; Estimated Glomerular Filt Rate > 60; Glucose 99 mg/dL (65-110); Potassium 2.9 mmol/L (3.4-5.0); Sodium 143 mmol/L (137-145)
[2024-09-07] MEDS: VANCOMYCIN 1,250 MG/NS 250 ML 1,250 MG/250 ML BAG 166.67 MG IVPB (14:03)
[2024-09-07] MEDS: HALOPERIDOL LACTATE 5 MG/ML VIAL 2.5 MG IM (14:20)
[2024-09-07] MEDS: POTASSIUM CHLORIDE 20 MEQ ER TABLET 40 MEQ PO ×2 (14:49→18:22)
[2024-09-07] MEDS: TAMSULOSIN HCL 0.4 MG CAPSULE PO (21:29)
[2024-09-07] MEDS: ATORVASTATIN 40 MG TABLET 80 MG PO (21:29)
[2024-09-07 22:20] LABS: Potassium 3.5 mmol/L (3.4-5.0)
[2024-09-07 22:22] LABS: Anion Gap 2 mmol/L (4-12); Blood Urea Nitrogen 15 mg/dL (9-20); Calcium 9.1 mg/dL (8.4-10.2); Carbon Dioxide 30 mmol/L (22-30); Chloride 111 mmol/L (98-107); Estimated CRCL calculation 57 ml/min; Estimated Glomerular Filt Rate > 60; Glucose 115 mg/dL (65-110); Sodium 143 mmol/L (137-145)
[2024-09-08] VITALS (12 sets, daily range): BP systolic 116–134; BP diastolic 51–54; PULSE 59–83; RESP 16–18; TEMP 36.2–36.6; O2SAT 93–99
[2024-09-08] MEDS: MEROPENEM 1 GM/NS 100 ML 1 GM/100 ML BAG IVPB ×3 (01:39→17:14)
[2024-09-08] MEDS: LEVOTHYROXINE SODIUM 150 MCG TABLET PO (05:35)
[2024-09-08 06:40] LABS: Basophils Percent Auto 0.3 % (0.2-1.2); Eosinophils Absolute Auto 0.3 K/mm3 (0-0.3); Hematocrit 28.5 % (42.0-52.0); Hemoglobin 8.8 g/dL (14.0-18.0); Immature Granulocyte Absolute 0.05 K/mm3 (0.00-0.031); Immature Granulocyte Percent A 0.6 % (0-0.5); Lymphocytes Percent Auto 18.3 % (18.3-44.2); Mean Corpuscular HGB Conc 30.9 g/dl (32-36); Mean Corpuscular Hemoglobin 30.9 pg (26-34); Mean Platelet Volume 9.8 fl (7.4-10.4); Monocytes Absolute Auto 0.6 K/mm3 (0.1-0.6); Monocytes Percent Auto 7.3 % (2.6-8.5); Neutrophils Absolute Auto 6.2 K/mm3 (1.3-6.7); Neutrophils Percent Auto 70.5 % (45.5-73.1); Platelet Count Result 204 k/mm3 (150-375); Red Blood Count 2.85 M/mm3 (4.6-6.20); Red Cell Distribution Width 14.2 % (11.5-14.5); White Blood Count 8.7 K/mm3 (4.5-10.0)
[2024-09-08 07:01] LABS: Alanine Aminotransferase 21 U/L (6-50); Albumin Level 2.5 g/dL (3.5-5.1); Alkaline Phosphatase 86 U/L (38-126); Anion Gap 5 mmol/L (4-12); Aspartate Amino Transferase 26 U/L (17-59); Bilirubin,Total 0.5 mg/dL (0.2-1.3); Blood Urea Nitrogen 12 mg/dL (9-20); Calcium 8.8 mg/dL (8.4-10.2); Carbon Dioxide 26 mmol/L (22-30); Chloride 110 mmol/L (98-107); Estimated CRCL calculation 68 ml/min; Estimated Glomerular Filt Rate > 60; Glucose 99 mg/dL (65-110); Sodium 141 mmol/L (137-145)
[2024-09-08] MEDS: UMECLIDINIUM BROMIDE 62.5 MCG ELLIPTA 1 PUFF INHALATION (08:43)
[2024-09-08] MEDS: CHOLECALCIFEROL 400 UNITS TABLET (VIT D) PO (09:03)
[2024-09-08] MEDS: PYRIDOXINE HCL 50 MG TABLET 100 MG PO (09:03)
[2024-09-08] MEDS: FINASTERIDE 5 MG TABLET PO (09:03)
[2024-09-08] MEDS: METOPROLOL SUCCINATE EXT REL 12.5 MG TABCR PO ×2 (09:03→20:41)
[2024-09-08] MEDS: SERTRALINE HCL 25 MG TABLET PO (09:03)
[2024-09-08] MEDS: FERROUS SULFATE 325 MG TABLET DR PO (09:03)
[2024-09-08] MEDS: CLOPIDOGREL BISULFATE 75 MG TABLET PO (09:04)
[2024-09-08] MEDS: POTASSIUM CHLORIDE 20 MEQ ER TABLET 40 MEQ PO (09:06)
[2024-09-08] MEDS: VANCOMYCIN 1,250 MG/NS 250 ML 1,250 MG/250 ML BAG 166.67 MG IVPB (09:08)
[2024-09-08] MEDS: ACETAMINOPHEN 325 MG TABLET 650 MG PO (11:12)
[2024-09-08] MEDS: hydrOXYzine HCL 25 MG TABLET 50 MG PO ×2 (11:12→17:16)
--- NOTE | 2024-09-08 11:18 | P.PNIM_ITS ---
Progress Note: A&P Assessment and Plan (1) Sepsis: Code(s): A41.9 - Sepsis, unspecified organism Status: Acute Assessment and Plan: * Meropenem 1 gm IVPB q 8 and Vancomycin 1,250 mg IVPB q 18. History of Pseudom onas aeruginosa and Enterococcus faecalis * WBC 12.0> 11.1 * Lactic acid 3.3> 0.8 * Urine culture- Escherichia Coli * Blood cultures no growth to date. * Stool cultures pending. (2) Urinary tract infection: Code(s): N39.0 - Urinary tract infection, site not specified Status: Acute Assessment and Plan: * Meropenem 1 gm IVPB q 8 and Vancomycin 1,250 mg IVPB q 18. History of Pseudomonas aeruginosa and Enterococcus faecalis * WBC 12.0>11.1>8.7 * Urine culture preliminary- gram negative bacilli (3) Hypokalemia: Code(s): E87.6 - Hypokalemia Status: Acute Assessment and Plan: * Potassium 3.0 * Give Potassium Chloride 40 meq PO x1 * Monitor labs. (4) Bladder stones: Code(s): N21.0 - Calculus in bladder Status: Acute Assessment and Plan: * monitor symptoms and temperature. * Urology consulted (5) Kidney stones: Code(s): N20.0 - Calculus of kidney Status: Acute Assessment and Plan: * monitor symptoms * Urology consulted, recs appreciated. Recommend inflating the Barry balloon to 30 cc and securely fastening the catheter to his thigh. (6) Heart failure with preserved ejection fraction: Code(s): I50.30 - Unspecified diastolic (congestive) heart failure Status: Acute Assessment and Plan: * Metoprolol succinate 12.5 mg PO q 12. * void over-hydration given history of congestive heart failure as he already has pulmonary edema on imaging. (7) Chronic anemia: Code(s): D64.9 - Anemia, unspecified Status: Acute Assessment and Plan: * Hemoglobin 8.8, Hematocrit 28.5 * Ferrous sulfate 325 mg PO daily. Subjective Date/time seen: 09/08/24 11:18 Interval history: Patient lying in bed with sitter at his bedside, patient calm at present. Patient denies chest pain, palpitations, shortness of breath, nausea, or vomiting. Review of Systems Review of Systems: All systems reviewed & are unremarkable except as noted in HPI and below Exam Const: General: comfortable and no acute distress Resp: Auscultation: diminished lung sounds Cardio: Rate: regular rate Rhythm: regular rhythm Other: SR-76 GI: GI Palp: Yes Soft to palpation Auscultation: normal bowel sounds Other: Last BM on 09/07 patient had 2 BM's. Extrem: Other: Extremities are warm and perfused. Atrophy of the leg muscles. Psych: Other: Calm at present with sitter at bedside. Objective Data Vital Signs Vital Signs: Vital Signs - 24 hr 09/07/24 14:00 09/07/24 14:31 09/07/24 14:46 Temperature 98.6 F 97.8 F Pulse Rate 96 92 Respiratory Rate 20 12 16 Blood Pressure 127/62 122/58 L Pulse Oximetry 99 98 Oxygen Delivery 09/07/24 15:01 09/07/24 15:16 09/07/24 12:00 Temperature 97.8 F 97.8 F Pulse Rate 92 98 81 Respiratory Rate 16 12 Blood Pressure 128/78 128/72 Pulse Oximetry 99 100 Oxygen Delivery 09/07/24 16:16 09/07/24
--- NOTE | 2024-09-08 11:18 | PM.IMPN ---
Progress Note: A&P Assessment and Plan (1) Sepsis: Code(s): A41.9 - Sepsis, unspecified organism Status: Acute Assessment and Plan: Meropenem 1 gm IVPB q 8 and Vancomycin 1,250 mg IVPB q 18. History of Pseudomonas aeruginosa and Enterococcus faecalis WBC 12.0> 11.1 Lactic acid 3.3> 0.8 Urine culture- Escherichia Coli Blood cultures no growth to date. Stool cultures pending. (2) Urinary tract infection: Code(s): N39.0 - Urinary tract infection, site not specified Status: Acute Assessment and Plan: Meropenem 1 gm IVPB q 8 and Vancomycin 1,250 mg IVPB q 18. History of Pseudomonas aeruginosa and Enterococcus faecalis WBC 12.0>11.1>8.7 Urine culture preliminary- gram negative bacilli (3) Hypokalemia: Code(s): E87.6 - Hypokalemia Status: Acute Assessment and Plan: Potassium 3.0 Give Potassium Chloride 40 meq PO x1 Monitor labs. (4) Bladder stones: Code(s): N21.0 - Calculus in bladder Status: Acute Assessment and Plan: monitor symptoms and temperature. Urology consulted (5) Kidney stones: Code(s): N20.0 - Calculus of kidney Status: Acute Assessment and Plan: monitor symptoms Urology consulted, recs appreciated. Recommend inflating the Barry balloon to 30 cc and securely fastening the catheter to his thigh. (6) Heart failure with preserved ejection fraction: Code(s): I50.30 - Unspecified diastolic (congestive) heart failure Status: Acute Assessment and Plan: Metoprolol succinate 12.5 mg PO q 12. void over-hydration given history of congestive heart failure as he already has pulmonary edema on imaging. (7) Chronic anemia: Code(s): D64.9 - Anemia, unspecified Status: Acute Assessment and Plan: Hemoglobin 8.8, Hematocrit 28.5 Ferrous sulfate 325 mg PO daily. Subjective Date/time seen: 09/08/24 11:18 Interval history: Patient lying in bed with sitter at his bedside, patient calm at present. Patient denies chest pain, palpitations, shortness of breath, nausea, or vomiting. Review of Systems Review of Systems: All systems reviewed & are unremarkable except as noted in HPI and below Exam Const: General: comfortable and no acute distress Resp: Auscultation: diminished lung sounds Cardio: Rate: regular rate Rhythm: regular rhythm Other: SR-76 GI: GI Palp: Yes Soft to palpation Auscultation: normal bowel sounds Other: Last BM on 09/07 patient had 2 BM's. Extrem: Other: Extremities are warm and perfused. Atrophy of the leg muscles. Psych: Other: Calm at present with sitter at bedside. Objective Data Vital Signs Vital Signs: Vital Signs - 24 hr 09/07/24 14:00 09/07/24 14:31 09/07/24 14:46 Temperature 98.6 F 97.8 F Pulse Rate 96 92 Respiratory Rate 20 12 16 Blood Pressure 127/62 122/58 L Pulse Oximetry 99 98 Oxygen Delivery 09/07/24 15:01 09/07/24 15:16 09/07/24 12:00 Temperature 97.8 F 97.8 F Pulse Rate 92 98 81 Respiratory Rate 16 12 Blood Pressure 128/78 128/72 Pulse Oximetry 99 100 Oxygen Delivery 09/07/24 16:16 09/07/24 16:00 09/07/24 17:16 Temperature 98.0 F 98.1 F Pulse Rate 95 81 62 Respiratory Rate 16 16 Blood Pressure 122/75 Pulse Oximetry 99 Oxygen Delivery 09/07/24 21:28 09/07/24 20:00 09/07/24 20:00 Temperature Pulse Rate 66 73 Respiratory Rate Blood Pressure Pulse Oximetry Oxygen Delivery Room Air 09/08/24 00:00 09/08/24 04:27 09/08/24 04:00 Temperature 98 F Pulse Rate 74 80 71 Respiratory Rate 18 Blood Pressure 120/54 L Pulse Oximetry 95 Oxygen Delivery 09/08/24 08:44 09/08/24 09:03 09/08/24 08:00 Temperature Pulse Rate 83 71 Respiratory Rate Blood Pressure Pulse Oximetry 93 Oxygen Delivery Room Air Intake/Output Intake/Output: Intake & Output 09/05/24 09/06/24 09/07/24
[2024-09-08] MEDS: TAMSULOSIN HCL 0.4 MG CAPSULE PO (20:41)
[2024-09-08] MEDS: ATORVASTATIN 40 MG TABLET 80 MG PO (20:41)
[2024-09-09] VITALS (12 sets, daily range): BP systolic 122–134; BP diastolic 64–74; PULSE 66–80; RESP 18; TEMP 36.5–37.6; O2SAT 91–97; BMI 19.5
[2024-09-09] MEDS: MEROPENEM 1 GM/NS 100 ML 1 GM/100 ML BAG IVPB ×3 (02:09→17:55)
[2024-09-09 02:50] LABS: Vancomycin Trough 13.5 ug/mL (10.0-20.0)
[2024-09-09] MEDS: VANCOMYCIN 1,250 MG/NS 250 ML 1,250 MG/250 ML BAG 166.67 MG IVPB (03:08)
[2024-09-09 06:58] LABS: Alanine Aminotransferase 25 U/L (6-50); Albumin Level 2.2 g/dL (3.5-5.1); Alkaline Phosphatase 88 U/L (38-126); Anion Gap 2 mmol/L (4-12); Aspartate Amino Transferase 31 U/L (17-59); Bilirubin,Total 0.5 mg/dL (0.2-1.3); Blood Urea Nitrogen 13 mg/dL (9-20); Calcium 8.9 mg/dL (8.4-10.2); Carbon Dioxide 30 mmol/L (22-30); Chloride 112 mmol/L (98-107); Estimated CRCL calculation 59 ml/min; Estimated Glomerular Filt Rate > 60; Glucose 99 mg/dL (65-110); Magnesium 1.8 mg/dL (1.6-2.3); Potassium 3.6 mmol/L (3.4-5.0); Sodium 144 mmol/L (137-145)
[2024-09-09] MEDS: METOPROLOL SUCCINATE EXT REL 12.5 MG TABCR PO (08:08)
[2024-09-09] MEDS: hydrOXYzine HCL 25 MG TABLET 50 MG PO (08:10)
[2024-09-09] MEDS: PYRIDOXINE HCL 50 MG TABLET 100 MG PO (08:10)
[2024-09-09] MEDS: SERTRALINE HCL 25 MG TABLET PO (08:10)
[2024-09-09] MEDS: FERROUS SULFATE 325 MG TABLET DR PO (08:10)
[2024-09-09] MEDS: FINASTERIDE 5 MG TABLET PO (08:10)
[2024-09-09] MEDS: CLOPIDOGREL BISULFATE 75 MG TABLET PO (08:11)
[2024-09-09] MEDS: CHOLECALCIFEROL 400 UNITS TABLET (VIT D) PO (08:11)
[2024-09-09] MEDS: UMECLIDINIUM BROMIDE 62.5 MCG ELLIPTA 1 PUFF INHALATION (08:24)
[2024-09-09 08:57] LABS: Basophils Absolute Auto 0.1 K/mm3 (0.0-0.1); Basophils Percent Auto 0.5 % (0.2-1.2); Eosinophils Absolute Auto 0.3 K/mm3 (0-0.3); Eosinophils Percent Auto 3.4 % (0-4.4); Hematocrit 31.3 % (42.0-52.0); Hemoglobin 9.6 g/dL (14.0-18.0); Immature Granulocyte Absolute 0.04 K/mm3 (0.00-0.031); Immature Granulocyte Percent A 0.4 % (0-0.5); Lymphocytes Absolute Auto 1.18 K/mm3 (0.9-3.2); Mean Corpuscular HGB Conc 30.7 g/dl (32-36); Mean Corpuscular Hemoglobin 30.4 pg (26-34); Mean Corpuscular Volume 99.1 fl (80-100); Mean Platelet Volume 9.4 fl (7.4-10.4); Monocytes Absolute Auto 0.5 K/mm3 (0.1-0.6); Monocytes Percent Auto 5.8 % (2.6-8.5); Neutrophils Percent Auto 76.9 % (45.5-73.1); Platelet Count Result 237 k/mm3 (150-375); Red Blood Count 3.16 M/mm3 (4.6-6.20); Red Cell Distribution Width 14.2 % (11.5-14.5); White Blood Count 9.1 K/mm3 (4.5-10.0)
--- NOTE | 2024-09-09 10:13 | P.PNIM_ITS ---
Progress Note: A&P Assessment and Plan (1) Sepsis: Code(s): A41.9 - Sepsis, unspecified organism Status: Acute Assessment and Plan: * Meropenem 1 gm IVPB q 8. History of Pseudomonas aeruginosa and Enterococcus f aecalis. * WBC 12.0> 11.1>8.7>9.1 * Lactic acid 3.3> 0.8 * Urine culture- Escherichia Coli * Blood cultures no growth to date. * Stool cultures pending. (2) Urinary tract infection: Code(s): N39.0 - Urinary tract infection, site not specified Status: Acute Assessment and Plan: * Meropenem 1 gm IVPB q 8. History of Pseudomonas aeruginosa and Enterococcus faecalis. * WBC 12.0>11.1>8.7>9.1 * Urine culture preliminary- gram negative bacilli (3) Hypokalemia: Code(s): E87.6 - Hypokalemia Status: Acute Assessment and Plan: * Potassium 3.6. * Monitor labs. (4) Bladder stones: Code(s): N21.0 - Calculus in bladder Status: Acute Assessment and Plan: * monitor symptoms and temperature. * Urology consulted (5) Kidney stones: Code(s): N20.0 - Calculus of kidney Status: Acute Assessment and Plan: * monitor symptoms * Urology consulted, recs appreciated. Recommend inflating the Barry balloon to 30 cc and securely fastening the catheter to his thigh. (6) Heart failure with preserved ejection fraction: Code(s): I50.30 - Unspecified diastolic (congestive) heart failure Status: Acute Assessment and Plan: * Metoprolol succinate 12.5 mg PO q 12. * void over-hydration given history of congestive heart failure as he already has pulmonary edema on imaging. (7) Chronic anemia: Code(s): D64.9 - Anemia, unspecified Status: Acute Assessment and Plan: * Hemoglobin 9.6, Hematocrit 31.3 * Ferrous sulfate 325 mg PO daily. Subjective Date/time seen: 09/09/24 10:13 Interval history: Patient denies chest pain, palpitations, or shortness of breath. Patient calm with sitter at bedside. Review of Systems Review of Systems: All systems reviewed & are unremarkable except as noted in HPI and below Exam Const: General: comfortable and no acute distress Resp: Auscultation: diminished lung sounds Cardio: Rate: regular rate Rhythm: regular rhythm Other: SR-70 GI: GI Palp: Yes Soft to palpation Auscultation: normal bowel sounds Other: Last BM 09/08/24 Urinary Catheter: Urinary Catheter: patent and draining Extrem: Other: Extremities are warm and perfused. Atrophy of the leg muscles. Psych: Other: Calm at present with sitter at bedside. Objective Data Vital Signs Vital Signs: Vital Signs - 24 hr 09/08/24 12:00 09/08/24 14:00 09/08/24 16:00 Temperature 97.6 F Pulse Rate 73 59 L 67 Respiratory Rate 16 Blood Pressure 116/53 L Pulse Oximetry 99 Oxygen Delivery 09/08/24 20:41 09/08/24 20:51 09/08/24 20:00 Temperature 97.1 F L Pulse Rate 70 70 Respiratory Rate 16 Blood Pressure 134/51 L Pulse Oximetry 98 Oxygen Delivery Room Air 09/08/24 20:00 09/09/24 00:00 09/09/24 05:41 Temperature 97.7 F Pulse Rate 68 79 72 Respiratory Rate 18
--- NOTE | 2024-09-09 10:13 | PM.IMPN ---
Progress Note: A&P Assessment and Plan (1) Sepsis: Code(s): A41.9 - Sepsis, unspecified organism Status: Acute Assessment and Plan: Meropenem 1 gm IVPB q 8. History of Pseudomonas aeruginosa and Enterococcus faecalis. WBC 12.0> 11.1>8.7>9.1 Lactic acid 3.3> 0.8 Urine culture- Escherichia Coli Blood cultures no growth to date. Stool cultures pending. (2) Urinary tract infection: Code(s): N39.0 - Urinary tract infection, site not specified Status: Acute Assessment and Plan: Meropenem 1 gm IVPB q 8. History of Pseudomonas aeruginosa and Enterococcus faecalis. WBC 12.0>11.1>8.7>9.1 Urine culture preliminary- gram negative bacilli (3) Hypokalemia: Code(s): E87.6 - Hypokalemia Status: Acute Assessment and Plan: Potassium 3.6. Monitor labs. (4) Bladder stones: Code(s): N21.0 - Calculus in bladder Status: Acute Assessment and Plan: monitor symptoms and temperature. Urology consulted (5) Kidney stones: Code(s): N20.0 - Calculus of kidney Status: Acute Assessment and Plan: monitor symptoms Urology consulted, recs appreciated. Recommend inflating the Barry balloon to 30 cc and securely fastening the catheter to his thigh. (6) Heart failure with preserved ejection fraction: Code(s): I50.30 - Unspecified diastolic (congestive) heart failure Status: Acute Assessment and Plan: Metoprolol succinate 12.5 mg PO q 12. void over-hydration given history of congestive heart failure as he already has pulmonary edema on imaging. (7) Chronic anemia: Code(s): D64.9 - Anemia, unspecified Status: Acute Assessment and Plan: Hemoglobin 9.6, Hematocrit 31.3 Ferrous sulfate 325 mg PO daily. Subjective Date/time seen: 09/09/24 10:13 Interval history: Patient denies chest pain, palpitations, or shortness of breath. Patient calm with sitter at bedside. Review of Systems Review of Systems: All systems reviewed & are unremarkable except as noted in HPI and below Exam Const: General: comfortable and no acute distress Resp: Auscultation: diminished lung sounds Cardio: Rate: regular rate Rhythm: regular rhythm Other: SR-70 GI: GI Palp: Yes Soft to palpation Auscultation: normal bowel sounds Other: Last BM 09/08/24 Urinary Catheter: Urinary Catheter: patent and draining Extrem: Other: Extremities are warm and perfused. Atrophy of the leg muscles. Psych: Other: Calm at present with sitter at bedside. Objective Data Vital Signs Vital Signs: Vital Signs - 24 hr 09/08/24 12:00 09/08/24 14:00 09/08/24 16:00 Temperature 97.6 F Pulse Rate 73 59 L 67 Respiratory Rate 16 Blood Pressure 116/53 L Pulse Oximetry 99 Oxygen Delivery 09/08/24 20:41 09/08/24 20:51 09/08/24 20:00 Temperature 97.1 F L Pulse Rate 70 70 Respiratory Rate 16 Blood Pressure 134/51 L Pulse Oximetry 98 Oxygen Delivery Room Air 09/08/24 20:00 09/09/24 00:00 09/09/24 05:41 Temperature 97.7 F Pulse Rate 68 79 72 Respiratory Rate 18 Blood Pressure 134/64 Pulse Oximetry 96 Oxygen Delivery 09/09/24 04:00 09/09/24 08:08 09/09/24 08:27 Temperature Pulse Rate 75 72 Respiratory Rate Blood Pressure Pulse Oximetry 92 Oxygen Delivery Room Air Intake/Output Intake/Output: Intake & Output 09/06/24 09/07/24 09/08/24 09/09/24 23:59 23:59 23:59 23:59 Intake Total 924 3450 925 718 Output Total 1375 1350 800 Balance 924 2075 -425 -82 Meds/Results Medications: Active Medications Generic Name Dose Route Start Last Admin Trade Name Yecenia PRN Reason Stop Dose Admin Acetaminophen 650 mg 09/06/24 17:20 09/08/24 11:12 Acetaminophen 325 Mg Tablet PO 650 mg Q6H PRN Administration Mild Pain (1-3) or Fever Acetaminophen 650 mg 09/06/24 17:22 Acetaminophen 650 Mg Suppository RECT
[2024-09-10] VITALS (12 sets, daily range): BP systolic 119–154; BP diastolic 61–95; PULSE 68–93; RESP 18; TEMP 36.6–38.6; O2SAT 92–97
[2024-09-10] MEDS: MEROPENEM 1 GM/NS 100 ML 1 GM/100 ML BAG IVPB ×3 (01:49→18:00)
[2024-09-10 08:02] LABS: Basophils Percent Auto 0.3 % (0.2-1.2); Eosinophils Absolute Auto 0.2 K/mm3 (0-0.3); Eosinophils Percent Auto 2.5 % (0-4.4); Hematocrit 29.1 % (42.0-52.0); Hemoglobin 9.2 g/dL (14.0-18.0); Immature Granulocyte Absolute 0.04 K/mm3 (0.00-0.031); Immature Granulocyte Percent A 0.5 % (0-0.5); Lymphocytes Absolute Auto 1.29 K/mm3 (0.9-3.2); Lymphocytes Percent Auto 14.9 % (18.3-44.2); Mean Corpuscular HGB Conc 31.6 g/dl (32-36); Mean Corpuscular Hemoglobin 30.5 pg (26-34); Mean Corpuscular Volume 96.4 fl (80-100); Mean Platelet Volume 9.3 fl (7.4-10.4); Monocytes Absolute Auto 0.6 K/mm3 (0.1-0.6); Monocytes Percent Auto 6.4 % (2.6-8.5); Neutrophils Absolute Auto 6.5 K/mm3 (1.3-6.7); Neutrophils Percent Auto 75.4 % (45.5-73.1); Platelet Count Result 223 k/mm3 (150-375); Red Blood Count 3.02 M/mm3 (4.6-6.20); Red Cell Distribution Width 13.9 % (11.5-14.5); White Blood Count 8.6 K/mm3 (4.5-10.0)
[2024-09-10 08:11] LABS: Alanine Aminotransferase 21 U/L (6-50); Albumin Level 2.4 g/dL (3.5-5.1); Alkaline Phosphatase 84 U/L (38-126); Anion Gap 1 mmol/L (4-12); Aspartate Amino Transferase 31 U/L (17-59); Bilirubin,Total 0.5 mg/dL (0.2-1.3); Blood Urea Nitrogen 12 mg/dL (9-20); Calcium 8.7 mg/dL (8.4-10.2); Carbon Dioxide 33 mmol/L (22-30); Chloride 107 mmol/L (98-107); Estimated CRCL calculation 64 ml/min; Estimated Glomerular Filt Rate > 60; Glucose 83 mg/dL (65-110); Potassium 3.2 mmol/L (3.4-5.0); Sodium 141 mmol/L (137-145)
[2024-09-10] MEDS: FINASTERIDE 5 MG TABLET PO (09:06)
[2024-09-10] MEDS: METOPROLOL SUCCINATE EXT REL 12.5 MG TABCR PO ×2 (09:06→21:17)
[2024-09-10] MEDS: PYRIDOXINE HCL 50 MG TABLET 100 MG PO (09:06)
[2024-09-10] MEDS: CHOLECALCIFEROL 400 UNITS TABLET (VIT D) PO (09:07)
[2024-09-10] MEDS: SERTRALINE HCL 25 MG TABLET PO (09:07)
[2024-09-10] MEDS: FERROUS SULFATE 325 MG TABLET DR PO (09:07)
[2024-09-10] MEDS: CLOPIDOGREL BISULFATE 75 MG TABLET PO (09:07)
[2024-09-10] MEDS: POTASSIUM CHLORIDE 20 MEQ ER TABLET 40 MEQ PO (09:09)
--- NOTE | 2024-09-10 11:48 | P.PNIM_ITS ---
Progress Note: A&P Assessment and Plan (1) Sepsis: Code(s): A41.9 - Sepsis, unspecified organism Status: Acute Assessment and Plan: * Meropenem 1 gm IVPB q 8. History of Pseudomonas aeruginosa and Enterococcus f aecalis. * WBC 12.0> 11.1>8.7>9.1>8.6 * Lactic acid 3.3> 0.8 * Urine culture- Escherichia Coli * Blood cultures no growth to date. * Stool cultures pending for Salmonella/Shigella * Stool culture negative fro Shiga toxin and Campylobacter (2) Urinary tract infection: Code(s): N39.0 - Urinary tract infection, site not specified Status: Acute Assessment and Plan: * Meropenem 1 gm IVPB q 8. History of Pseudomonas aeruginosa and Enterococcus faecalis. * WBC 12.0>11.1>8.7>9.1>8.6 * Urine culture- positive for E coli (3) Hypokalemia: Code(s): E87.6 - Hypokalemia Status: Acute Assessment and Plan: * Potassium 3.2. Potassium Chloride 40 meq PO x1 given. * Monitor labs. (4) Bladder stones: Code(s): N21.0 - Calculus in bladder Status: Acute Assessment and Plan: * monitor symptoms and temperature. * Urology consulted (5) Kidney stones: Code(s): N20.0 - Calculus of kidney Status: Acute Assessment and Plan: * monitor symptoms * Urology consulted, recs appreciated. Recommend inflating the Barry balloon to 30 cc and securely fastening the catheter to his thigh. (6) Heart failure with preserved ejection fraction: Code(s): I50.30 - Unspecified diastolic (congestive) heart failure Status: Acute Assessment and Plan: * Metoprolol succinate 12.5 mg PO q 12. * void over-hydration given history of congestive heart failure as he already has pulmonary edema on imaging. (7) Chronic anemia: Code(s): D64.9 - Anemia, unspecified Status: Acute Assessment and Plan: * Hemoglobin 9.2, Hematocrit 29.1. * Ferrous sulfate 325 mg PO daily. Subjective Date/time seen: 09/10/24 11:48 Interval history: Patient denies chest pain, palpitations, or shortness of breath. Patient calm with sitter at bedside. Review of Systems Review of Systems: All systems reviewed & are unremarkable except as noted in HPI and below Exam Const: General: comfortable and no acute distress Resp: Auscultation: diminished lung sounds Cardio: Rate: regular rate Rhythm: regular rhythm Other: SR-70 GI: GI Palp: Yes Soft to palpation Auscultation: normal bowel sounds Other: Last BM 09/08/24 Urinary Catheter: Urinary Catheter: patent and draining and other (angely) Extrem: Other: Extremities are warm and perfused. Atrophy of the leg muscles. Psych: Other: Calm at present with sitter at bedside. Objective Data Vital Signs Vital Signs: Vital Signs - 24 hr 09/09/24 12:00 09/09/24 14:00 09/09/24 16:00 Temperature 99.7 F H Pulse Rate 74 80 66 Respiratory Rate 18 Blood Pressure 122/74 Pulse Oximetry 97 Oxygen Delivery 09/09/24 21:25 09/09/24 22:27 09/09/24 20:00 Temperature 97.8 F Pulse Rate 74 74 Respiratory Rate 18 Blood Pressure Pulse Oximetry 91 Oxygen Delivery Room Air 09/09/24 20:00 09/10
--- NOTE | 2024-09-10 11:48 | PM.IMPN ---
Progress Note: A&P Assessment and Plan (1) Sepsis: Code(s): A41.9 - Sepsis, unspecified organism Status: Acute Assessment and Plan: Meropenem 1 gm IVPB q 8. History of Pseudomonas aeruginosa and Enterococcus faecalis. WBC 12.0> 11.1>8.7>9.1>8.6 Lactic acid 3.3> 0.8 Urine culture- Escherichia Coli Blood cultures no growth to date. Stool cultures pending for Salmonella/Shigella Stool culture negative fro Shiga toxin and Campylobacter (2) Urinary tract infection: Code(s): N39.0 - Urinary tract infection, site not specified Status: Acute Assessment and Plan: Meropenem 1 gm IVPB q 8. History of Pseudomonas aeruginosa and Enterococcus faecalis. WBC 12.0>11.1>8.7>9.1>8.6 Urine culture- positive for E coli (3) Hypokalemia: Code(s): E87.6 - Hypokalemia Status: Acute Assessment and Plan: Potassium 3.2. Potassium Chloride 40 meq PO x1 given. Monitor labs. (4) Bladder stones: Code(s): N21.0 - Calculus in bladder Status: Acute Assessment and Plan: monitor symptoms and temperature. Urology consulted (5) Kidney stones: Code(s): N20.0 - Calculus of kidney Status: Acute Assessment and Plan: monitor symptoms Urology consulted, recs appreciated. Recommend inflating the Barry balloon to 30 cc and securely fastening the catheter to his thigh. (6) Heart failure with preserved ejection fraction: Code(s): I50.30 - Unspecified diastolic (congestive) heart failure Status: Acute Assessment and Plan: Metoprolol succinate 12.5 mg PO q 12. void over-hydration given history of congestive heart failure as he already has pulmonary edema on imaging. (7) Chronic anemia: Code(s): D64.9 - Anemia, unspecified Status: Acute Assessment and Plan: Hemoglobin 9.2, Hematocrit 29.1. Ferrous sulfate 325 mg PO daily. Subjective Date/time seen: 09/10/24 11:48 Interval history: Patient denies chest pain, palpitations, or shortness of breath. Patient calm with sitter at bedside. Review of Systems Review of Systems: All systems reviewed & are unremarkable except as noted in HPI and below Exam Const: General: comfortable and no acute distress Resp: Auscultation: diminished lung sounds Cardio: Rate: regular rate Rhythm: regular rhythm Other: SR-70 GI: GI Palp: Yes Soft to palpation Auscultation: normal bowel sounds Other: Last BM 09/08/24 Urinary Catheter: Urinary Catheter: patent and draining and other (angely) Extrem: Other: Extremities are warm and perfused. Atrophy of the leg muscles. Psych: Other: Calm at present with sitter at bedside. Objective Data Vital Signs Vital Signs: Vital Signs - 24 hr 09/09/24 12:00 09/09/24 14:00 09/09/24 16:00 Temperature 99.7 F H Pulse Rate 74 80 66 Respiratory Rate 18 Blood Pressure 122/74 Pulse Oximetry 97 Oxygen Delivery 09/09/24 21:25 09/09/24 22:27 09/09/24 20:00 Temperature 97.8 F Pulse Rate 74 74 Respiratory Rate 18 Blood Pressure Pulse Oximetry 91 Oxygen Delivery Room Air 09/09/24 20:00 09/10/24 00:00 09/10/24 04:00 Temperature Pulse Rate 77 73 75 Respiratory Rate Blood Pressure Pulse Oximetry Oxygen Delivery 09/10/24 05:40 09/10/24 08:00 09/10/24 08:00 Temperature 97.8 F Pulse Rate 69 69 Respiratory Rate 18 Blood Pressure 132/67 Pulse Oximetry 92 Oxygen Delivery Room Air Intake/Output Intake/Output: Intake & Output 09/07/24 09/08/24 09/09/24 09/10/24 23:59 23:59 23:59 23:59 Intake Total 3450 925 818 150 Output Total 1375 1350 1575 750 Balance 2075 -425 -757 -600 Meds/Results Medications: Active Medications Generic Name Dose Route Start Last Admin Trade Name Freq PRN Reason Stop Dose Admin Acetaminophen 650 mg 09/06/24 17:20 09/08/24 11:12 Acetaminophen 325 Mg Tablet PO 650 mg Q6H MT
[2024-09-10] MEDS: ATORVASTATIN 40 MG TABLET 80 MG PO (21:16)
[2024-09-10] MEDS: TAMSULOSIN HCL 0.4 MG CAPSULE PO (21:16)
[2024-09-10] MEDS: ACETAMINOPHEN 325 MG TABLET 650 MG PO (21:16)
[2024-09-11] VITALS (10 sets, daily range): BP systolic 95–128; BP diastolic 58–70; PULSE 61–77; RESP 16; TEMP 36.2–37.3; O2SAT 94–98
[2024-09-11] MEDS: MEROPENEM 1 GM/NS 100 ML 1 GM/100 ML BAG IVPB ×3 (01:56→17:29)
[2024-09-11] MEDS: LEVOTHYROXINE SODIUM 150 MCG TABLET PO (05:47)
[2024-09-11 06:24] LABS: Basophils Percent Auto 0.4 % (0.2-1.2); Eosinophils Absolute Auto 0.3 K/mm3 (0-0.3); Eosinophils Percent Auto 2.7 % (0-4.4); Hematocrit 28.6 % (42.0-52.0); Hemoglobin 9.3 g/dL (14.0-18.0); Immature Granulocyte Absolute 0.04 K/mm3 (0.00-0.031); Immature Granulocyte Percent A 0.4 % (0-0.5); Lymphocytes Absolute Auto 1.38 K/mm3 (0.9-3.2); Mean Corpuscular HGB Conc 32.5 g/dl (32-36); Mean Corpuscular Hemoglobin 31.3 pg (26-34); Mean Corpuscular Volume 96.3 fl (80-100); Mean Platelet Volume 9.5 fl (7.4-10.4); Monocytes Absolute Auto 0.7 K/mm3 (0.1-0.6); Monocytes Percent Auto 7.1 % (2.6-8.5); Neutrophils Absolute Auto 7.5 K/mm3 (1.3-6.7); Neutrophils Percent Auto 75.4 % (45.5-73.1); Platelet Count Result 235 k/mm3 (150-375); Red Blood Count 2.97 M/mm3 (4.6-6.20); Red Cell Distribution Width 13.6 % (11.5-14.5); White Blood Count 9.9 K/mm3 (4.5-10.0)
[2024-09-11 06:42] LABS: Alanine Aminotransferase 26 U/L (6-50); Albumin Level 2.4 g/dL (3.5-5.1); Alkaline Phosphatase 80 U/L (38-126); Anion Gap 2 mmol/L (4-12); Aspartate Amino Transferase 36 U/L (17-59); Bilirubin,Total 0.6 mg/dL (0.2-1.3); Blood Urea Nitrogen 15 mg/dL (9-20); Calcium 8.7 mg/dL (8.4-10.2); Carbon Dioxide 31 mmol/L (22-30); Chloride 105 mmol/L (98-107); Estimated CRCL calculation 64 ml/min; Estimated Glomerular Filt Rate > 60; Glucose 90 mg/dL (65-110); Potassium 3.3 mmol/L (3.4-5.0); Sodium 138 mmol/L (137-145)
[2024-09-11] MEDS: UMECLIDINIUM BROMIDE 62.5 MCG ELLIPTA 1 PUFF INHALATION (08:15)
--- NOTE | 2024-09-11 08:56 | PM.IMPN ---
Progress Note: A&P Assessment and Plan (1) Sepsis: Code(s): A41.9 - Sepsis, unspecified organism Status: Acute Assessment and Plan: Meets SIRS criteria: WBC, lactic acid - lactic acid: 3.3 > 0.8 - suspected source: UTI - blood cultures drawn on 09/06: NGTD - Urine culture- Escherichia Coli ESBL - Stool culture negative for Salmonella/Shigella, Shiga toxin and Campylobacter - Antibiotics: Meropenem 1 gm IVPB q 8, course to be completed on 09/13. History of Pseudomonas aeruginosa and Enterococcus faecalis. (2) Urinary tract infection: Code(s): N39.0 - Urinary tract infection, site not specified Status: Acute Assessment and Plan: - UA: red color with turbid appearance, 2+ protein, 3+ blood, positive nitrates, 3+ leukocytes, >100 RBC, > 100 WBC, 4+ bacteria - UC obtained on 09/06: EColi with ESBL - started on Meropenem 1 gm IVPB q 8. History of Pseudomonas aeruginosa and Enterococcus faecalis. (3) Hypokalemia: Code(s): E87.6 - Hypokalemia Status: Acute Assessment and Plan: Potassium 3.3. Potassium Chloride 40 meq PO x1 given. Monitor labs. (4) Kidney stones: Code(s): N20.0 - Calculus of kidney Status: Acute Assessment and Plan: CT abdomen/pelvis: Stones in the right kidney and the bladder. - monitor I/O and renal function - Urology consulted, recs appreciated. Given patient's mental status is chronic, urinary retention can probably only be managed with an indwelling catheter. His bladder stones will not be an issue if he is managed with an indwelling catheter. Risk of traumatically removing catheter so recommend inflating the Barry balloon to 30 cc and securely fastening the catheter to his thigh. The 8 mm nonobstructing stone in his right kidney is not clinically significant at this point (5) Bladder stones: Code(s): N21.0 - Calculus in bladder Status: Acute Assessment and Plan: monitor symptoms and temperature. Urology consulted see plan above #4 kidney stones (6) Heart failure with preserved ejection fraction: Code(s): I50.30 - Unspecified diastolic (congestive) heart failure Status: Acute Assessment and Plan: Metoprolol succinate 12.5 mg PO q 12. avoid over-hydration given history of congestive heart failure as he already has pulmonary edema on imaging. (7) Chronic anemia: Code(s): D64.9 - Anemia, unspecified Status: Acute Assessment and Plan: Hemoglobin 9.3, Hematocrit 28.6 Ferrous sulfate 325 mg PO daily. Time Spent With Patient Time with patient: 25 - 35 minutes Subjective Date/time seen: 09/11/24 08:56 Interval history: 83-year-old male with advanced dementia, hypertension, heart failure with preserved ejection fraction, hypothyroidism, anemia, chronic obstructive pulmonary disease, benign prostatic hyperplasia with chronic retention and indwelling urinary catheter, kidney and bladder stones, and history of urine cultures growing Pseudomonas aeruginosa and multidrug resistant Proteus mirabilis and Enterococcus faecalis who presented to the emergency department via EMS [facility] for evaluation of tremors and dark urine. Patient is pleasant sitting up in his bed with sitter bedside. Per RN sitter was placed due to patient pulling out his IVs and tugging on his Barry catheter. Patient remains A&O times 0 unable to follow commands and not talking through my assessment. Patient will have to be a sitter free for 24 hours before returning to his facility for care coordination. Review of Systems Review of Systems: ROS unobtainable: Yes unobtainable due to mental status Exam Narrative: AF HR 70 RR 16 Spo2 95 BP 110/58 General: frail male in no acute respiratory distress who is nontoxic appearing, lying semi recumbent in bed. HEENT: Normocephalic. Atraumatic. Extraocular movement intact. Sclera clear and anicteric. No facial asymmetry. Chest: Lungs are cl
[2024-09-11] MEDS: PYRIDOXINE HCL 50 MG TABLET 100 MG PO (09:30)
[2024-09-11] MEDS: CLOPIDOGREL BISULFATE 75 MG TABLET PO (09:31)
[2024-09-11] MEDS: CHOLECALCIFEROL 400 UNITS TABLET (VIT D) PO (09:31)
[2024-09-11] MEDS: METOPROLOL SUCCINATE EXT REL 12.5 MG TABCR PO (09:31)
[2024-09-11] MEDS: FERROUS SULFATE 325 MG TABLET DR PO (09:31)
[2024-09-11] MEDS: FINASTERIDE 5 MG TABLET PO (09:31)
[2024-09-11] MEDS: SERTRALINE HCL 25 MG TABLET PO (09:31)
[2024-09-11] MEDS: POTASSIUM CHLORIDE 20 MEQ ER TABLET 40 MEQ PO (09:36)
[2024-09-11] MEDS: ACETAMINOPHEN 325 MG TABLET 650 MG PO (10:29)
[2024-09-12] MEDS: MEROPENEM 1 GM/NS 100 ML 1 GM/100 ML BAG IVPB ×3 (01:49→17:23)
[2024-09-12 05:31] VITALS: BP 124/71; PULSE 70; RESP 16; TEMP 36.7; O2SAT 99
[2024-09-12] MEDS: LEVOTHYROXINE SODIUM 150 MCG TABLET PO (05:31)
[2024-09-12 06:22] LABS: Basophils Percent Auto 0.3 % (0.2-1.2); Eosinophils Absolute Auto 0.3 K/mm3 (0-0.3); Eosinophils Percent Auto 3.7 % (0-4.4); Hematocrit 28.6 % (42.0-52.0); Hemoglobin 9.2 g/dL (14.0-18.0); Immature Granulocyte Absolute 0.04 K/mm3 (0.00-0.031); Immature Granulocyte Percent A 0.4 % (0-0.5); Lymphocytes Absolute Auto 1.38 K/mm3 (0.9-3.2); Lymphocytes Percent Auto 15.4 % (18.3-44.2); Mean Corpuscular HGB Conc 32.2 g/dl (32-36); Mean Corpuscular Hemoglobin 30.9 pg (26-34); Mean Platelet Volume 9.8 fl (7.4-10.4); Monocytes Absolute Auto 0.6 K/mm3 (0.1-0.6); Monocytes Percent Auto 6.5 % (2.6-8.5); Neutrophils Absolute Auto 6.6 K/mm3 (1.3-6.7); Neutrophils Percent Auto 73.7 % (45.5-73.1); Platelet Count Result 248 k/mm3 (150-375); Red Blood Count 2.98 M/mm3 (4.6-6.20); Red Cell Distribution Width 13.9 % (11.5-14.5)
[2024-09-12 06:33] LABS: Alanine Aminotransferase 25 U/L (6-50); Albumin Level 2.3 g/dL (3.5-5.1); Alkaline Phosphatase 91 U/L (38-126); Anion Gap 3 mmol/L (4-12); Aspartate Amino Transferase 33 U/L (17-59); Bilirubin,Total 0.3 mg/dL (0.2-1.3); Blood Urea Nitrogen 17 mg/dL (9-20); Calcium 8.7 mg/dL (8.4-10.2); Carbon Dioxide 30 mmol/L (22-30); Chloride 104 mmol/L (98-107); Estimated CRCL calculation 57 ml/min; Estimated Glomerular Filt Rate > 60; Glucose 91 mg/dL (65-110); Potassium 3.6 mmol/L (3.4-5.0); Sodium 137 mmol/L (137-145)
[2024-09-12] MEDS: UMECLIDINIUM BROMIDE 62.5 MCG ELLIPTA 1 PUFF INHALATION (07:28)
[2024-09-12 07:30] VITALS: PULSE 67; RESP 18; O2SAT 93
--- NOTE | 2024-09-12 07:53 | PM.IMPN ---
Progress Note: A&P Assessment and Plan (1) Sepsis: Code(s): A41.9 - Sepsis, unspecified organism Status: Acute Assessment and Plan: Meets SIRS criteria: WBC, lactic acid - lactic acid: 3.3 > 0.8 - suspected source: UTI - blood cultures drawn on 09/06: Final - Negative - Urine culture- Escherichia Coli ESBL - Stool culture negative for Salmonella/Shigella, Shiga toxin and Campylobacter - Antibiotics: Meropenem 1 gm IVPB q 8, course to be completed on 09/13. History of Pseudomonas aeruginosa and Enterococcus faecalis. (2) Urinary tract infection: Code(s): N39.0 - Urinary tract infection, site not specified Status: Acute Assessment and Plan: - UA: red color with turbid appearance, 2+ protein, 3+ blood, positive nitrates, 3+ leukocytes, >100 RBC, > 100 WBC, 4+ bacteria - UC obtained on 09/06: EColi with ESBL - started on Meropenem 1 gm IVPB q 8. History of Pseudomonas aeruginosa and Enterococcus faecalis. (3) Hypokalemia: Code(s): E87.6 - Hypokalemia Status: Acute Assessment and Plan: Potassium 3.6 on am labs. Monitor labs. (4) Kidney stones: Code(s): N20.0 - Calculus of kidney Status: Acute Assessment and Plan: CT abdomen/pelvis: Stones in the right kidney and the bladder. - monitor I/O and renal function - Urology consulted, recs appreciated. Given patient's mental status is chronic, urinary retention can probably only be managed with an indwelling catheter. His bladder stones will not be an issue if he is managed with an indwelling catheter. Risk of traumatically removing catheter so recommend inflating the Barry balloon to 30 cc and securely fastening the catheter to his thigh. The 8 mm nonobstructing stone in his right kidney is not clinically significant at this point (5) Bladder stones: Code(s): N21.0 - Calculus in bladder Status: Acute Assessment and Plan: monitor symptoms and temperature. Urology consulted see plan above #4 kidney stones (6) Heart failure with preserved ejection fraction: Code(s): I50.30 - Unspecified diastolic (congestive) heart failure Status: Acute Assessment and Plan: Metoprolol succinate 12.5 mg PO q 12. avoid over-hydration given history of congestive heart failure as he already has pulmonary edema on imaging. (7) Chronic anemia: Code(s): D64.9 - Anemia, unspecified Status: Acute Assessment and Plan: Hemoglobin 9.3, Hematocrit 28.6 Ferrous sulfate 325 mg PO daily. Time Spent With Patient Time with patient: 25 - 35 minutes Subjective Date/time seen: 09/12/24 07:53 Interval history: 83-year-old male with advanced dementia, hypertension, heart failure with preserved ejection fraction, hypothyroidism, anemia, chronic obstructive pulmonary disease, benign prostatic hyperplasia with chronic retention and indwelling urinary catheter, kidney and bladder stones, and history of urine cultures growing Pseudomonas aeruginosa and multidrug resistant Proteus mirabilis and Enterococcus faecalis who presented to the emergency department via EMS from [facility] for evaluation of tremors and dark urine. Patient is pleasant lying in bed. He is alert, but does not answer questions or follow commands. He remains on meropenem to complete the course for his antibiotic. Review of Systems Review of Systems: ROS unobtainable: Yes unobtainable due to mental status Exam Narrative: AF HR 70 RR 16 SpO2 99 BP 124/71 General: frail male in no acute respiratory distress who is nontoxic appearing, lying semi recumbent in bed. HEENT: Normocephalic. Atraumatic. Extraocular movement intact. Sclera clear and anicteric. No facial asymmetry. Chest: Lungs are clear to auscultation bilaterally. No wheezes or crackles. CV: Heart was regular rate and rhythm. S1/S2. No murmurs, gallops, or rubs. Abd: Abdomen was soft. Nontender. Nondistended. Positive bowel sounds. No org
--- NOTE | 2024-09-12 10:04 | PCNFU ---
Nutrition Follow-Up Complete: Unintentional weight loss related to reduced appetite and intake as evidenced by noted weight loss in EMR Goal:PO intake 75% of meals and supplement Pt meeting goal, continue with same goal. Pt current nutrition is Heart health, Ensure compact BID. Nutrition recommendation: continue with current plan of care Last recorded weight is 59.4 kg. Bowel Motility: +BM 09/11 Labs Reviewed: Hgb:9.2, HCT:28.6, Alb:2.3 Meds Noted: senakot Skin: WNL Additional Notes: Pt continues on a heart healthy diet, intake 50-75% of meals, plus Ensure compact. Encourage po intake. Agree with diet orders. Monitor intake, wt, labs. Follow up in 7 days.
[2024-09-12] MEDS: CLOPIDOGREL BISULFATE 75 MG TABLET PO (12:06)
[2024-09-12] MEDS: PYRIDOXINE HCL 50 MG TABLET 100 MG PO (12:06)
[2024-09-12 12:07] VITALS: PULSE 68
[2024-09-12] MEDS: METOPROLOL SUCCINATE EXT REL 12.5 MG TABCR PO ×2 (12:07→21:28)
[2024-09-12] MEDS: FERROUS SULFATE 325 MG TABLET DR PO (12:07)
[2024-09-12] MEDS: FINASTERIDE 5 MG TABLET PO (12:07)
[2024-09-12] MEDS: CHOLECALCIFEROL 400 UNITS TABLET (VIT D) PO (12:09)
[2024-09-12] MEDS: SERTRALINE HCL 25 MG TABLET PO (12:09)
[2024-09-12 14:00] VITALS: BP 107/57; PULSE 65; RESP 14; TEMP 37; O2SAT 99
[2024-09-12 20:44] VITALS: BP 119/63; PULSE 62; RESP 16; TEMP 36.9; O2SAT 99
[2024-09-12 21:28] VITALS: PULSE 62
[2024-09-12] MEDS: ATORVASTATIN 40 MG TABLET 80 MG PO (21:29)
[2024-09-13] MEDS: MEROPENEM 1 GM/NS 100 ML 1 GM/100 ML BAG IVPB ×3 (01:45→16:19)
[2024-09-13 05:25] VITALS: BP 115/62; PULSE 67; RESP 16; TEMP 37; O2SAT 100
[2024-09-13] MEDS: LEVOTHYROXINE SODIUM 150 MCG TABLET PO (06:09)
[2024-09-13 06:32] LABS: Basophils Percent Auto 0.4 % (0.2-1.2); Eosinophils Absolute Auto 0.3 K/mm3 (0-0.3); Eosinophils Percent Auto 3.9 % (0-4.4); Hematocrit 30.8 % (42.0-52.0); Hemoglobin 9.9 g/dL (14.0-18.0); Immature Granulocyte Absolute 0.04 K/mm3 (0.00-0.031); Immature Granulocyte Percent A 0.5 % (0-0.5); Lymphocytes Absolute Auto 1.38 K/mm3 (0.9-3.2); Lymphocytes Percent Auto 16.4 % (18.3-44.2); Mean Corpuscular HGB Conc 32.1 g/dl (32-36); Mean Corpuscular Hemoglobin 31.2 pg (26-34); Mean Corpuscular Volume 97.2 fl (80-100); Mean Platelet Volume 9.5 fl (7.4-10.4); Monocytes Absolute Auto 0.5 K/mm3 (0.1-0.6); Monocytes Percent Auto 5.8 % (2.6-8.5); Neutrophils Absolute Auto 6.1 K/mm3 (1.3-6.7); Platelet Count Result 288 k/mm3 (150-375); Red Blood Count 3.17 M/mm3 (4.6-6.20); Red Cell Distribution Width 13.8 % (11.5-14.5); White Blood Count 8.4 K/mm3 (4.5-10.0)
[2024-09-13 06:42] LABS: Alanine Aminotransferase 33 U/L (6-50); Albumin Level 2.5 g/dL (3.5-5.1); Alkaline Phosphatase 93 U/L (38-126); Anion Gap 0 mmol/L (4-12); Aspartate Amino Transferase 51 U/L (17-59); Bilirubin,Total 0.4 mg/dL (0.2-1.3); Blood Urea Nitrogen 14 mg/dL (9-20); Calcium 9.2 mg/dL (8.4-10.2); Carbon Dioxide 34 mmol/L (22-30); Chloride 103 mmol/L (98-107); Estimated CRCL calculation 66 ml/min; Estimated Glomerular Filt Rate > 60; Glucose 92 mg/dL (65-110); Potassium 3.7 mmol/L (3.4-5.0); Sodium 137 mmol/L (137-145)
[2024-09-13] MEDS: UMECLIDINIUM BROMIDE 62.5 MCG ELLIPTA 1 PUFF INHALATION (08:53)
[2024-09-13 09:52] VITALS: PULSE 67
[2024-09-13] MEDS: CLOPIDOGREL BISULFATE 75 MG TABLET PO (09:52)
[2024-09-13] MEDS: FERROUS SULFATE 325 MG TABLET DR PO (09:52)
[2024-09-13] MEDS: PYRIDOXINE HCL 50 MG TABLET 100 MG PO (09:52)
[2024-09-13] MEDS: CHOLECALCIFEROL 400 UNITS TABLET (VIT D) PO (09:52)
[2024-09-13] MEDS: METOPROLOL SUCCINATE EXT REL 12.5 MG TABCR PO ×2 (09:52→20:04)
[2024-09-13] MEDS: SERTRALINE HCL 25 MG TABLET PO (09:52)
[2024-09-13] MEDS: FINASTERIDE 5 MG TABLET PO (09:52)
[2024-09-13 13:57] VITALS: BP 102/58; PULSE 66; RESP 16; TEMP 37.2; O2SAT 98
--- NOTE | 2024-09-13 16:22 | PM.DS ---
DS: Admitting Diagnosis Discharge Date 09/13/2024 Admitting Diagnosis Sepsis UTI Hypokalemia Kidney stones Bladder stones Head failure with preserved EF Chronic anemia DS: Discharge Diagnosis Discharge Diagnosis (1) Sepsis: Code(s): A41.9 - Sepsis, unspecified organism Status: Acute (2) Urinary tract infection: Code(s): N39.0 - Urinary tract infection, site not specified Status: Acute (3) Hypokalemia: Code(s): E87.6 - Hypokalemia Status: Acute (4) Kidney stones: Code(s): N20.0 - Calculus of kidney Status: Acute (5) Bladder stones: Code(s): N21.0 - Calculus in bladder Status: Acute (6) Heart failure with preserved ejection fraction: Code(s): I50.30 - Unspecified diastolic (congestive) heart failure Status: Acute (7) Chronic anemia: Code(s): D64.9 - Anemia, unspecified Status: Acute DS: Summary Hospital Course Reason for hospitalization: Sepsis UTI Hypokalemia Kidney stones Bladder stones Head failure with preserved EF Chronic anemia Hospital Course: 83-year-old male with advanced dementia, hypertension, heart failure with preserved ejection fraction, hypothyroidism, anemia, chronic obstructive pulmonary disease, benign prostatic hyperplasia with chronic retention and indwelling urinary catheter, kidney and bladder stones, and history of urine cultures growing Pseudomonas aeruginosa and multidrug resistant Proteus mirabilis and Enterococcus faecalis who presented to the emergency department via EMS from [facility] for evaluation of tremors and dark urine. On admission patient was meeting SIRS with leukocytosis and lactic acidosis. Lactic acidosis resolved with fluid bolus. Patient discharged back to his facility in a stable condition. He is to follow up with urology and his PCP in the outpatient setting. Status at Discharge Functional status at discharge: uses cane/walker Time Spent with Patient Time attestation: Total time spent providing and/or coordinating discharge services: Time spent: Greater than 30 minutes Exam Narrative: AF HR 66 RR 16 SpO2 98 BP 102/58 General: frail male in no acute respiratory distress who is nontoxic appearing, lying semi recumbent in bed. HEENT: Normocephalic. Atraumatic. Extraocular movement intact. Sclera clear and anicteric. No facial asymmetry. Chest: Lungs are clear to auscultation bilaterally. No wheezes or crackles. CV: Heart was regular rate and rhythm. S1/S2. No murmurs, gallops, or rubs. Abd: Abdomen was soft. Nontender. Nondistended. Positive bowel sounds. Neuro: Patient is alert and oriented x1 (self). He is intermittently answering questions. DS: Data Data Completed and Pending Completed studies during hospitalization: chest XR abdomen/pelvis CT Labs on day of discharge: Labs from last 24 hours 09/13/24 06:23 WBC 8.4 RBC 3.17 L Hgb 9.9 L Hct 30.8 L MCV 97.2 MCH 31.2 MCHC 32.1 RDW 13.8 Plt Count 288 MPV 9.5 Immature Gran % (Auto) 0.5 Neut % (Auto) 73.0 Lymph % (Auto) 16.4 L [place] % (Auto) 5.8 Eos % (Auto) 3.9 Baso % (Auto) 0.4 Lymph # (Auto) 1.38 [place] # (Auto) 0.5 Eos # (Auto) 0.3 Baso # (Auto) 0.0 Abs Immat Gran (auto) 0.04 H Absolute Neuts (auto) 6.1 Absolute Nucleated RBC 0.000 Nucleated RBC % 0.0 Sodium 137 Potassium 3.7 Chloride 103 Carbon Dioxide 34 H Anion Gap 0 L BUN 14 Creatinine 0.60 L Estim Creat Clear Calc 66 Estimated GFR > 60 Glucose 92 Calcium 9.2 Total Bilirubin 0.4 AST 51 ALT 33 Alkaline Phosphatase 93 Total Protein 6.0 L Albumin 2.5 L Discharge Plan Discharge Attending physician on discharge: Hammad Dawson Consulting providers: Messi Carroll Discharging Clinician: Katelynn Martins Anticipated Discharge Date/Time: 09/13/24 16:22 Patient Disposition: NH Intermediate/Asst Living Activity: as tolerated Diet: as tolerated and heart healthy Di
[2024-09-13 17:21] LABS: SARS-CoV-2 RNA PCR Negative (Negative)
--- NOTE | 2024-09-13 17:38 | PC.NURSE ---
report called to Zaira of [facility] @0518 09/13/24; report given to Willow SMALL.
[2024-09-13 19:55] VITALS: BP 116/58; PULSE 60; RESP 18; TEMP 37.1; O2SAT 94
[2024-09-13 20:04] VITALS: PULSE 60
[2024-09-13] MEDS: TAMSULOSIN HCL 0.4 MG CAPSULE PO (20:05)
[2024-09-13] MEDS: ATORVASTATIN 40 MG TABLET 80 MG PO (20:05)
[2024-09-13 20:12] VITALS: O2SAT 93
--- NOTE | 2024-09-13 21:43 | PC.NURSE ---
Pt left vis EMS to [facility] at 2019. Report was given to Paul at approx 1735 by Minna ROQUE. His IV was removed he did discharge with a alonzo.
== END 2024-09-13 20:20 | DRG 872 ==
LOC: ANHED 14:46 → ANH3MEDSUR 16:10
PROVIDERS: General Practice; Nurse Practitioner Family; Physician Assistant; Admitting Provider Internal Medicine; Emergency Provider Emergency Medicine; Visit Provider Student in an Organized Health Care Education/Training Program
DX: A41.9 Sepsis, unspecified organism (principal); N39.0 Urinary tract infection, site not specified; Z16.12 Extended spectrum beta lactamase (ESBL) resistance; I50.32 Chronic diastolic (congestive) heart failure; B96.20 Unspecified Escherichia coli [E. coli] as the cause of diseases classified elsewhere; D64.9 Anemia, unspecified; E03.9 Hypothyroidism, unspecified; E87.6 Hypokalemia; F03.90 Unspecified dementia, unspecified severity, without behavioral disturbance, psychotic disturbance, mood disturbance, and anxiety; I11.0 Hypertensive heart disease with heart failure; J43.9 Emphysema, unspecified; N40.1 Benign prostatic hyperplasia with lower urinary tract symptoms; R33.8 Other retention of urine; N20.0 Calculus of kidney; N21.0 Calculus in bladder; Z11.52 Encounter for screening for COVID-19; Z87.442 Personal history of urinary calculi; Z86.73 Personal history of transient ischemic attack (TIA), and cerebral infarction without residual deficits; Z98.41 Cataract extraction status, right eye; Z98.42 Cataract extraction status, left eye; Z96.1 Presence of intraocular lens; Z97.8 Presence of other specified devices; Z79.02 Long term (current) use of antithrombotics/antiplatelets
CPT/HCPCS: 36415; 71045; 74176; 80048; 80053; 80202; 81001; 83605; 83735; 84132; 85025; 85027; 86140; 87040; 87045; 87086; 87186; 87427; 87449; 87493; 87635; 93005; 94640; 96372; 99285; A9270; J1630; J1741; J2185; J2543; J3370; J3480; J7040; J7120; P9047

== ENCOUNTER 2024-09-17 03:35 | Emergency (ER) | payer MEDICARE, SELFPAY ==
--- NOTE | ~2024-09-17 | CT_ITS ---
EXAMINATION: CT brain wo con DATE: 09/17/2024 04:13 INDICATION: Head injury. TECHNIQUE: Computed tomography (CT) of the head was performed without intravenous contrast. The mA wa s adjusted according to patient size. Iterative reconstruction technique was employed. The dose-lengt h product was 756.67 mGy-cm. COMPARISON: Head CT 04/07/2024 FINDINGS: There is an old infarct in the left parietal lobe. There is an old infarct in the left caud ate nucleus. There are scattered areas of low attenuation in the cerebral white matter. There is no i ntracranial hemorrhage, acute infarction, or abnormal intracranial mass lesion. The ventricles are no rmal in size. There are likely changes of ocular lens replacement surgeries. There is mild mucosal th ickening in the paranasal sinuses. The mastoid air cells are normal. IMPRESSION: 1. 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 2. Stable moderate nonspecific cerebral white matter disease, which likely represents chronic small v essel ischemic disease. Reviewed, dictated and finalized at location A. IMPRESSION: 1. 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 2. Stable moderate nonspecific cerebral white matter disease, which likely repr esents chronic small vessel ischemic disease.
--- NOTE | ~2024-09-17 | XR_ITS ---
EXAMINATION: XR shoulder RT min 2V DATE: 09/17/2024 04:33 INDICATION: Fall. TECHNIQUE: 4 views of right shoulder were obtained. COMPARISON: None. FINDINGS: Alignment is normal. No acute fracture. There is severe osteoarthritis of glenohumeral join t and mild osteoarthritis of acromioclavicular joint. There are loose bodies in the glenohumeral join t. There is calcific tendinitis of the rotator cuff. Median sternotomy wires and mediastinal surgical clips are seen, likely from prior coronary artery bypass grafting. IMPRESSION: 1. Polyarticular osteoarthritis 2. Loose bodies in the glenohumeral joint. 3. Calcific tendinitis of the rotator cuff. Reviewed, dictated and finalized at location A.
[2024-09-17 03:38] VITALS: BP 137/61; PULSE 57; RESP 14; TEMP 36.5; O2SAT 98
--- NOTE | 2024-09-17 04:28 | ED.FALL ---
HPI - Fall General Chief Complaint: Fall Stated Complaint: R shoulder pain after falling off 12 inch bed Time Seen by Provider: 09/17/24 03:38 History of Present Illness HPI Narrative: Patient is an 83-year-old male who presents to the emergency department this morning from his nursing facility status post a ground level fall. Patient rolled out of bed and landed on the ground. EMS report states that the facility had a mat on the ground as patient tends to roll out of bed frequently. Patient landed on his right shoulder. Unsure if he hit his head or not. Patient is on Plavix. Initially patient was complaining of right shoulder pain but upon arrival to our facility, patient denied any pain in his shoulder and is able to move his right shoulder joint without any difficulty. Patient has no complaint and is answering all my questions appropriately. Related Data Home Medications Medication Instructions Recorded Confirmed acetaminophen 325 mg tablet 650 mg PO Q6H PRN Pain (Scale 03/09/24 09/06/24 Score 1-3) albuterol sulfate 90 mcg/actuation 2 puff inhalation Q6H PRN Wheezing 03/09/24 09/06/24 aerosol inhaler atorvastatin 80 mg tablet 80 mg PO HS 03/09/24 09/06/24 clopidogrel 75 mg tablet 75 mg PO DAILY 03/09/24 09/06/24 finasteride 5 mg tablet 5 mg PO DAILY 03/09/24 09/06/24 metoprolol succinate 25 mg 12.5 mg PO BID 03/09/24 09/06/24 tablet,extended release 24 hr pyridoxine (vitamin B6) 100 mg PO DAILY 03/09/24 09/06/24 quetiapine 50 mg tablet 50 mg PO Q12H 03/09/24 09/06/24 sennosides 8.6 mg capsule (senna) 17.2 mg PO DAILY PRN Constipation 03/09/24 09/06/24 sertraline 25 mg tablet 25 mg PO DAILY 03/09/24 09/06/24 tamsulosin 0.4 mg capsule 0.4 mg PO HS 03/09/24 09/06/24 tiotropium bromide 18 mcg capsule 18 mcg inhalation DAILY 03/09/24 09/06/24 with inhalation device (Spiriva with HandiHaler) cholecalciferol (vitamin D3) 10 10 mcg PO DAILY 05/02/24 09/06/24 mcg (400 unit) tablet ferrous sulfate 325 mg (65 mg 325 mg PO DAILY 05/02/24 09/06/24 iron) tablet,delayed release hydroxyzine HCl 50 mg tablet 50 mg PO TID PRN Anxiety 05/02/24 09/06/24 levothyroxine 150 mcg tablet 150 mcg PO DAILY 05/02/24 09/06/24 Allergies Allergy/AdvReac Type Severity Reaction Status Date / Time diphtheria toxoid,adsorbed Allergy Unknown Verified 05/03/24 14:13 fish derived Allergy Unknown Verified 05/03/24 14:13 iodine Allergy Unknown Verified 05/03/24 14:13 tetanus toxoid, adsorbed Allergy Unknown Verified 05/03/24 14:13 tositumomab Allergy Unknown Verified 05/03/24 14:13 Review of Systems Review of Systems: All systems are reviewed and are negative unless stated otherwise in the HPI. [facility] Past Medical History Medical History Benign prostatic hyperplasia with urinary retention Bladder stone Cerebrovascular accident Focal left parietal encephalomalacia, old lacunar infarct left caudate nucleus, moderate atrophy and chronic white matter changes. Chronic anemia Chronic indwelling Barry catheter Chronic obstructive pulmonary disease Dementia Essential hypertension Heart failure with preserved ejection fraction Echo in 04/2024 showed normal left ventricular size and systolic function with grade 1 diastolic noncompliance. History of nephrolithiasis Hyperlipidemia Hypothyroidism Kidney stones Surgical History Surgical History History of cataract extraction with lens replacement Family History Family History Other Unknown family medical history Social History Social History Social History: Legal guardian: Irena Zamorano Code status: Do not resuscitate. Smoking status: Never smoker Alcohol intake: unknown Substance use: unknown Living arrangements: correction Additional living arran
[2024-09-17 04:42] VITALS: BP 132/62; PULSE 54; RESP 13; O2SAT 95
[2024-09-17 07:10] VITALS: BP 133/67; PULSE 64; RESP 15; O2SAT 100
== END 2024-09-17 07:11 ==
PROVIDERS: Emergency Provider Emergency Medicine
DX: S43.401A Unspecified sprain of right shoulder joint, initial encounter (principal); S09.90XA Unspecified injury of head, initial encounter; F03.90 Unspecified dementia, unspecified severity, without behavioral disturbance, psychotic disturbance, mood disturbance, and anxiety; I10 Essential (primary) hypertension; J44.9 Chronic obstructive pulmonary disease, unspecified; E78.5 Hyperlipidemia, unspecified; E03.9 Hypothyroidism, unspecified; N40.1 Benign prostatic hyperplasia with lower urinary tract symptoms; R33.8 Other retention of urine; D64.9 Anemia, unspecified; Z66 Do not resuscitate; Z86.73 Personal history of transient ischemic attack (TIA), and cerebral infarction without residual deficits; Z87.442 Personal history of urinary calculi; Z79.899 Other long term (current) drug therapy; Z79.02 Long term (current) use of antithrombotics/antiplatelets; W06.XXXA Fall from bed, initial encounter
CPT/HCPCS: 70450; 73030; 99284

== ENCOUNTER 2024-11-12 23:18 | Emergency (ER) | payer MEDICARE, SELFPAY ==
--- NOTE | ~2024-11-12 | XR_ITS ---
Left Knee Technique: AP, lateral, and oblique views were obtained. Clinical History: Pain Findings: No fracture or dislocation is seen. Mild tricompartmental degenerative change present. Soft tissues are unremarkable. No joint effusion is seen. Impression: Mild tricompartmental degenerative change. Reviewed, dictated and finalized at [facility]. WOOD FLOOR LAYER Impression: Mild tricompartmental degenerative change.
--- NOTE | ~2024-11-12 | CT_ITS ---
CT head without contrast Indication: Trauma COMPARISON: 09/17/2024 Technique: Serial scans were obtained through the brain without the administration of contrast. Dose reduction technique was used on this scan by utilizing automated exposure control and iterative recon struction technique. The dose-length product (DLP) was 756.67 mGy-cm. Findings: There is no evidence of intracranial hemorrhage, mass lesion, or acute infarct. The ventri cles and subarachnoid spaces are dilated, consistent with moderate atrophy. Low attenuation regions are seen within the periventricular white matter bilaterally, likely representing changes from chroni c microvascular ischemic disease. There is no evidence of edema, mass effect or midline shift. The visualized paranasal sinuses and mastoid air cells are clear. Impression: No intracranial hemorrhage, mass, or acute infarct. Atrophy and chronic white matter changes, as above. Reviewed, dictated and finalized at [facility]. SAW OPERATOR Impression: No intracranial hemorrhage, mass, or acute infarct. Atrophy and chronic white matter changes, as above.
--- NOTE | ~2024-11-12 | CT_ITS ---
Noncontrast CT scan of the cervical spine Technique: Multiple contiguous axial [address] images of the cervical spine were obtained and rec onstructed in 2D sagittal and coronal planes on the acquisition scanner. Dose reduction technique was used on this scan by utilizing automated exposure control, adjustment of the mA and/or kV according to patient size. The dose-length product (DLP) was 323.60 mGy-cm. Clinical History: Pain COMPARISON: 04/07/2024 Findings: No fractures or dislocations. Osseous alignment unchanged from prior exam. Stable fusion a cross the C6-C7 disc space. Severe degenerative changes at remaining disc spaces are present. Extensi ve facet arthropathy is similar to prior exam. There is severe left neural foraminal narrowing at C3- C4. There is advanced bilateral neural foraminal narrowing at C4-C5. There is mild bilateral neural f oraminal narrowing at C5-C6 and C6-C7. No prevertebral soft tissue swelling. Impression: No fracture or subluxation of the cervical spine. Degenerative spondylosis, as above. Reviewed, dictated and finalized at [facility]. ICER INSTALLER Impression: No fracture or subluxation of the cervical spine. Degenerative spondylosis, as above.
--- NOTE | ~2024-11-12 | XR_ITS ---
AP view of the pelvis and AP and lateral views of the bilateral hips Clinical history: Pain Findings: No acute fracture or dislocation is seen. Osseous alignment is anatomic. Bilateral hip and SI joint spaces are preserved. Soft tissues are unremarkable. Impression: No significant abnormality is seen. Reviewed, dictated and finalized at [facility]. INDERGARTEN TEACHER Impression: No significant abnormality is seen.
--- NOTE | ~2024-11-12 | XR_ITS ---
Right Knee Technique: AP, lateral, and oblique views were obtained. Clinical History: Pain Findings: No fracture or dislocation is seen. There is moderate medial compartment degenerative pope e and mild lateral and patellofemoral compartment degenerative change.. Soft tissues are unremarkable . No joint effusion is seen. Impression: Degenerative change, as above. Reviewed, dictated and finalized at location M. L DEVELOPER Impression: Degenerative change, as above.
--- NOTE | ~2024-11-12 | CT_ITS ---
Clinical Indication: Blunt trauma CT Scan of the Chest, Abdomen, and Pelvis without Contrast: Technique: Contiguous sections were acquired throughout the chest, abdomen, and pelvis without IV con trast administration. Dose reduction technique was used on this scan by utilizing automated exposure control and iterative reconstruction technique. The dose-length product (DLP) was 769.65 mGy-cm. Findings: There is no evidence of any significant mediastinal, hilar or axillary lymphadenopathy. There are ext ensive atherosclerotic calcifications of the aorta and coronary arteries. No pericardial effusion. Probable minimal right pleural fluid. No left pleural effusion. Is mild to moderate emphysema with biapical scarring. 7 mm left basilar pulmonary nodule probably rep resents nodular scarring (axial image 104). 3 mm groundglass left upper lobe nodule noted (axial imag e 62). There is 7 mm spiculated nodule at the right lung apex (axial image 43).. The liver, spleen, pancreas, gallbladder, adrenals and left kidney are within normal limits. 6 mm non obstructing right renal stone present. There are atherosclerotic calcifications of the aorta. No lym phadenopathy. No bowel obstruction or bowel wall thickening. There is no evidence to suggest acute appendicitis. Sm all fat-containing umbilical hernia noted. There is small amount of air in the urinary bladder, with Barry catheter in place. Small layering uri nary bladder stones are present. No pelvic mass seen. No ascites. Impression: No acute posttraumatic abnormality. Subcentimeter pulmonary nodules as above measuring up to 7 mm. According to Fleischner Society criter ia, for a low-risk patient, follow-up CT scan in 6-12 months recommended, then consider additional 18 -[address] For a high-risk patient, follow-up CT scans at both 6-12 months and 18-24 months are re commended. Mild to moderate emphysema. 6 mm nonobstructing right renal stone and additional and urinary bladder stones. Reviewed, dictated and finalized at location M. UETTE MOLDER Impression: No acute posttraumatic abnormality. Subcentimeter pulmonary nodules as above measuring up to 7 mm. According to Fle ischner Society criteria, for a low-risk patient, follow-up CT scan in 6-12 mon ths recommended, then consider additional 18-[address] For a high-risk patie nt, follow-up CT scans at both 6-12 months and 18-24 months are recommended. Mild to moderate emphysema. 6 mm nonobstructing right renal stone and additional and urinary bladder stones .
[2024-11-12 23:26] VITALS: BP 135/64; PULSE 74; RESP 14; TEMP 36.6; O2SAT 100
[2024-11-13] VITALS (9 sets, daily range): BP systolic 108–154; BP diastolic 61–101; PULSE 63–72; RESP 12–20; O2SAT 99–100
[2024-11-13 01:27] LABS: Basophils Percent Auto 0.6 % (0.2-1.2); Eosinophils Absolute Auto 0.3 K/mm3 (0-0.3); Eosinophils Percent Auto 4.3 % (0-4.4); Hematocrit 33.3 % (42.0-52.0); Hemoglobin 10.5 g/dL (14.0-18.0); Immature Granulocyte Absolute 0.03 K/mm3 (0.00-0.031); Immature Granulocyte Percent A 0.4 % (0-0.5); Lymphocytes Absolute Auto 1.85 K/mm3 (0.9-3.2); Lymphocytes Percent Auto 26.7 % (18.3-44.2); Mean Corpuscular HGB Conc 31.5 g/dl (32-36); Mean Corpuscular Volume 98.2 fl (80-100); Mean Platelet Volume 9.2 fl (7.4-10.4); Monocytes Absolute Auto 0.4 K/mm3 (0.1-0.6); Monocytes Percent Auto 6.4 % (2.6-8.5); Neutrophils Absolute Auto 4.3 K/mm3 (1.3-6.7); Neutrophils Percent Auto 61.6 % (45.5-73.1); Platelet Count Result 214 k/mm3 (150-375); Red Blood Count 3.39 M/mm3 (4.6-6.20); Red Cell Distribution Width 15.6 % (11.5-14.5); White Blood Count 6.9 K/mm3 (4.5-10.0)
[2024-11-13 01:41] LABS: Alanine Aminotransferase 36 U/L (6-50); Albumin Level 2.8 g/dL (3.5-5.1); Alkaline Phosphatase 148 U/L (38-126); Anion Gap -1 mmol/L (4-12); Aspartate Amino Transferase 41 U/L (17-59); Bilirubin,Total 0.6 mg/dL (0.2-1.3); Blood Urea Nitrogen 18 mg/dL (9-20); Calcium 9.2 mg/dL (8.4-10.2); Carbon Dioxide 31 mmol/L (22-30); Chloride 107 mmol/L (98-107); Estimated CRCL calculation 60 ml/min; Estimated Glomerular Filt Rate > 60; Glucose 105 mg/dL (65-110); Potassium 4.2 mmol/L (3.4-5.0); Sodium 137 mmol/L (137-145)
[2024-11-13 02:43] LABS: Add Urine Microscopic? YES; Appearance Urine Cloudy (Clear); Bacteria Urine 4+ /hpf; Bilirubin Urine Negative (Negative); Blood Urine 3+ (Negative); Color Urine Yellow (Yellow); Glucose Urine UA Negative (Negative); Ketones Urine Negative (Negative); Leukocyte Esterase Ur 3+ LEU/UL (Negative); Nitrate Urine Negative (Negative); Non Pathogenic Casts 0-2; Protein Urine Negative (Negative); RBC Urine >100 /hpf (0-2); Specific Grav Ur 1.007 (1.001-1.035); Squamous Epithelial Cell Urine None Seen /hpf (Few); Urobilinogen Urine 0.2 mg/dL (<2.0); WBC Urine >100 /hpf (0-3); pH Urine 7.5 (5.0-9.0)
--- NOTE | 2024-11-13 02:44 | ED_ITS ---
HPI - General Adult General Chief complaint: Fall Stated complaint: fall Time Seen by Provider: 11/13/24 00:20 History of Present Illness HPI narrative: Patient is a 83-year-old gentleman presents emergency department with chief complaint of fall. Patient reports having discomfort in his abdomen reports he also has pain in his lower extremities. The facility found the patient laying on the floor and the patient is unable to provide history of how he ended up on the floor. Related Data Home Medications ?Medication ?Instructions ?Recorded ?Confirmed ?Last Taken ?Type acetaminophen 325 mg tablet 650 mg PO Q6H PRN Pain (Scale 03/09/24 09/06/24 Unknown History Score 1-3) albuterol sulfate 90 mcg/actuation 2 puff inhalation Q6H PRN Wheezing 03/09/24 09/06/24 Unknown History aerosol inhaler atorvastatin 80 mg tablet 80 mg PO HS 03/09/24 09/06/24 Unknown History clopidogrel 75 mg tablet 75 mg PO DAILY 03/09/24 09/06/24 Unknown History finasteride 5 mg tablet 5 mg PO DAILY 03/09/24 09/06/24 Unknown History metoprolol succinate 25 mg 12.5 mg PO BID 03/09/24 09/06/24 Unknown History tablet,extended release 24 hr pyridoxine (vitamin B6) 100 mg PO DAILY 03/09/24 09/06/24 Unknown History quetiapine 50 mg tablet 50 mg PO Q12H 03/09/24 09/06/24 Unknown History sennosides 8.6 mg capsule (senna) 17.2 mg PO DAILY PRN Constipation 03/09/24 09/06/24 Unknown History sertraline 25 mg tablet 25 mg PO DAILY 03/09/24 09/06/24 Unknown History tamsulosin 0.4 mg capsule 0.4 mg PO HS 03/09/24 09/06/24 Unknown History tiotropium bromide 18 mcg capsule 18 mcg inhalation DAILY 03/09/24 09/06/24 Unknown History with inhalation device (Spiriva with HandiHaler) cholecalciferol (vitamin D3) 10 10 mcg PO DAILY 05/02/24 09/06/24 Unknown History mcg (400 unit) tablet ferrous sulfate 325 mg (65 mg 325 mg PO DAILY 05/02/24 09/06/24 Unknown History iron) tablet,delayed release hydroxyzine HCl 50 mg tablet 50 mg PO TID PRN Anxiety 05/02/24 09/06/24 Unknown History levothyroxine 150 mcg tablet 150 mcg PO DAILY 05/02/24 09/06/24 Unknown History Allergies Allergy/AdvReac Type Severity Reaction Status Date / Time diphtheria toxoid,adsorbed Allergy Unknown Verified 05/03/24 14:13 fish derived Allergy Unknown Verified 05/03/24 14:13 iodine Allergy Unknown Verified 05/03/24 14:13 tetanus toxoid, adsorbed Allergy Unknown Verified 05/03/24 14:13 tositumomab Allergy Unknown Verified 05/03/24 14:13 Review of Systems 2 Review of Systems: A 10 system review of systems was completed on the patient and is negative except for what is stated in the HPI. Nursing and ancillary documentation was reviewed. [facility] Past Medical History Medical History Heart failure with preserved ejection fraction Echo in 04/2024 showed normal left ventricular size and systolic function with grade 1 diastolic noncompliance. Kidney stones Chronic anemia Cerebrovascular accident Focal left parietal encephalomalacia, old lacunar infarct left caudate nucleus, moderate atrophy and chronic white matter changes. Chronic obstructive pulmonary disease Benign prostatic hyperplasia with urinary retention Bladder stone History of nephrolithiasis Chronic indwelling Barry catheter Hypothyroidism Essential hypertension Hyperlipidemia Dementia Surgical History Surgical History History of cataract extraction with lens replacement Family History Family History Other Unknown family medical history Social History Social History Social History: Legal guardian: Irena Zamorano Code status: Do not resuscitate. Smoking status: Never smoker Alcohol intake: unknown Substance use: unknown Living arrangements: senior care Additional living arrangements comments: [facility]. Spiritual care concerns: No Exam 2 Narrative: GENERAL: Well-appearing, well-nourished, and in no acute distress. HEAD: Normocephalic, atraumatic. EYES: PERRLA and EOMI. ENT: Nares clear, no rhinorrhea or epistaxis. Mucous membranes moist. NECK: Supple. CHEST: Clear to auscultation. No respiratory distress. HEART: Regular rate and rhythm. No murmur heard. Normal peripheral pulses. ABDOMEN: Soft, nontender, nondistended, normal active bowel sounds. EXTREMITIES: Normal range of motion. No edema. SKIN: Warm, dry, no rash. NEURO: No focal deficits. Alert and oriented x3. PSYCH: Normal mood and affect. Course Vital Signs Vital signs: Vital Signs Temperature 36.6 C 11/12/24 23:26 Pulse Rate 74 11/12/24 23:26 Respiratory Rate 14 11/12/24 23:26 Blood Pressure 135/64 11/12/24 23:26 Pulse Oximetry 100 11/12/24 23:26 Oxygen Delivery Room Air 11/12/24 23:26 Temperature 36.6 C 11/12/24 23:26 Pulse Rate 67 11/13/24 04:16 Respiratory Rate 12 11/13/24 04:16 Blood Pressure 133/61 11/13/24 04:16 Pulse Oximetry 100 11/13/24 04:16 Oxygen Delivery Room Air 11/12/24 23:26 Medical Decision Making MDM Narrative Medical decision making narrative: Differential diagnosis includes intracranial hemorrhage, cervical spine fracture, intrathoracic or intra-abdominal trauma. Laboratory studies were obtained on the patient showed a white count of 6.9 electrolytes are within normal limits urinalysis did show evidence of leukocytosis with 4+ bacteria patient has a chronic indwelling Barry and is currently not febrile. The Barry catheter was changed and a urine culture will be sent Vital Signs Vital Signs: Vital Signs Temperature 36.6 C 11/12/24 23:26 Pulse Rate 74 11/12/24 23:26 Respiratory Rate 14 11/12/24 23:26 Blood Pressure 135/64 11/12/24 23:26 Pulse Oximetry 100 11/12/24 23:26 Oxygen Delivery Room Air 11/12/24 23:26 Temperature 36.6 C 11/12/24 23:26 Pulse Rate 67 11/13/24 04:16 Respiratory Rate 12 11/13/24 04:16 Blood Pressure 133/61 11/13/24 04:16 Pulse Oximetry 100 11/13/24 04:16 Oxygen Delivery Room Air 11/12/24 23:26 Lab Data 11/13/24 01:22 11/13/24 01:22 Labs: Lab Results 11/13/24 11/13/24 Range/Units 01:22 02:31 WBC 6.9 (4.5-10.0) K/mm3 RBC 3.39 L (4.6-6.20) M/mm3 Hgb 10.5 L (14.0-18.0) g/dL Hct 33.3 L (42.0-52.0) % MCV 98.2 (80-100) fl MCH 31.0 (26-34) pg MCHC 31.5 L (32-36) g/dl RDW 15.6 H (11.5-14.5) % Plt Count 214 (150-375) k/mm3 MPV 9.2 (7.4-10.4) fl Immature Gran % (Auto) 0.4 (0-0.5) % Neut % (Auto) 61.6 (45.5-73.1) % Lymph % (Auto) 26.7 (18.3-44.2) % Tillman % (Auto) 6.4 (2.6-8.5) % Eos % (Auto) 4.3 (0-4.4) % Baso % (Auto) 0.6 (0.2-1.2) % Lymph # (Auto) 1.85 (0.9-3.2) K/mm3 Tillman # (Auto) 0.4 (0.1-0.6) K/mm3 Eos # (Auto) 0.3 (0-0.3) K/mm3 Baso # (Auto) 0.0 (0.0-0.1) K/mm3 Abs Immat Gran (auto) 0.03 (0.00-0.031) K/mm3 Absolute Neuts (auto) 4.3 (1.3-6.7) K/mm3 Absolute Nucleated RBC 0.000 (0.0-0.012) K/mm3 Nucleated RBC % 0.0 (0.0-0.2) % Sodium 137 (137-145) mmol/L Potassium 4.2 (3.4-5.0) mmol/L Chloride 107 (98-107) mmol/L Carbon Dioxide 31 H (22-30) mmol/L Anion Gap -1 L (4-12) mmol/L BUN 18 (9-20) mg/dL Creatinine 0.80 (0.7-1.3) mg/dL Estim Creat Clear Calc 60 ml/min Estimated GFR > 60 (59 - ) Glucose 105 (65-110) mg/dL Calcium 9.2 (8.4-10.2) mg/dL Magnesium 2.0 (1.6-2.3) mg/dL Total Bilirubin 0.6 (0.2-1.3) mg/dL AST 41 (17-59) U/L ALT 36 (6-50) U/L Alkaline Phosphatase 148 H (38-126) U/L Total Protein 7.0 (6.3-8.2) g/dL Albumin 2.8 L (3.5-5.1) g/dL Urine Color Yellow (Yellow) Urine Appearance Cloudy H (Clear) Urine pH 7.5 (5.0-9.0) Ur Specific [place] 1.007 (1.001-1.035) Urine Protein Negative (Negative) mg/dL Urine Glucose (UA) Negative (Negative) mg/dL Urine Ketones Negative (Negative) mg/dL Ur Blood (Man) 3+ H (Negative) Urine Nitrate Negative (Negative) Urine Bilirubin Negative (Negative) Urine Urobilinogen 0.2 (<2.0) mg/dL Leukocyte Esterase Rfl 3+ H (Negative) TONY/UL Urine RBC >100 H (0-2) /hpf Urine WBC >100 H (0-3) /hpf Ur Squamous Epith Cells None seen (Few) /hpf Urine Bacteria 4+ H /hpf Urine Casts 0-2 Discharge Plan Discharge Clinical Impression: Ground-level fall, Abdominal pain, Head injury Patient Disposition: [place] Care Home/Asst Living Condition: Stable Instructions: Antibiotic Form, Head Injury (ED), Abdominal Pain (ED) Patient Language: Taiwanese Prescriptions: No Action atorvastatin 80 mg tablet 80 mg PO HS acetaminophen 325 mg Tablet 650 mg PO Q6H PRN (Reason: Pain (Scale Score 1-3)) clopidogrel 75 mg tablet 75 mg PO DAILY tamsulosin 0.4 mg capsule 0.4 mg PO HS sertraline 25 mg tablet 25 mg PO DAILY metoprolol succinate 25 mg tablet extended release 24 hr 12.5 mg PO BID albuterol sulfate 90 mcg/actuation HFA aerosol inhaler 2 puff INHALATION Q6H PRN (Reason: Wheezing) finasteride 5 mg tablet 5 mg PO DAILY tiotropium bromide [Spiriva with HandiHaler] 18 mcg capsule, w/inhalation device 18 mcg INHALATION DAILY senna 8.6 mg Capsule 17.2 mg PO DAILY PRN (Reason: Constipation) quetiapine 50 mg tablet 50 mg PO Q12H pyridoxine (vitamin B6) 100 mg PO DAILY hydroxyzine HCl 50 mg Tablet 50 mg PO TID PRN (Reason: Anxiety) levothyroxine 150 mcg Tablet 150 mcg PO DAILY cholecalciferol (vitamin D3) 10 mcg (400 unit) Tablet 10 mcg PO DAILY ferrous sulfate 325 mg (65 mg iron) tablet,delayed release (DR/EC) 325 mg PO DAILY Follow-up/Referrals: UNKNOWN,DOCTOR [Primary Care Provider] - Time of Disposition: 04:23
--- NOTE | 2024-11-13 04:37 | PC.NURSE ---
Patient report to [facility] attempted. No answer at facility.
--- NOTE | 2024-11-13 04:49 | PC.NURSE ---
attempted to call [facility] for second time. no answer at facility.
--- NOTE | 2024-11-13 05:16 | PC.NURSE ---
[facility] called for update. I informed the nurse the patient will be returning to the facility upon transport arrival scheduled for 0700. No other questions.
[2024-11-13 09:42] LABS: Glucose Point of Care 86 mg/dl (65-105)
== END 2024-11-13 09:48 ==
PROVIDERS: Emergency Provider Emergency Medicine
DX: S09.90XA Unspecified injury of head, initial encounter (principal); F03.90 Unspecified dementia, unspecified severity, without behavioral disturbance, psychotic disturbance, mood disturbance, and anxiety; I50.9 Heart failure, unspecified; J43.9 Emphysema, unspecified; D64.9 Anemia, unspecified; N40.1 Benign prostatic hyperplasia with lower urinary tract symptoms; R33.8 Other retention of urine; E03.9 Hypothyroidism, unspecified; E78.5 Hyperlipidemia, unspecified; Z66 Do not resuscitate; Z87.442 Personal history of urinary calculi; Z86.73 Personal history of transient ischemic attack (TIA), and cerebral infarction without residual deficits; Z96.1 Presence of intraocular lens; Z98.49 Cataract extraction status, unspecified eye; Z79.02 Long term (current) use of antithrombotics/antiplatelets; Z79.899 Other long term (current) drug therapy; W19.XXXA Unspecified fall, initial encounter; N20.0 Calculus of kidney; N21.0 Calculus in bladder; R91.8 Other nonspecific abnormal finding of lung field
CPT/HCPCS: 36415; 70450; 71250; 72125; 73521; 73562; 74176; 80053; 81001; 82948; 83735; 85025; 87077; 87086; 87186; 99284

== ENCOUNTER 2025-01-06 23:35 | Inpatient (IN) | payer MEDICARE, SELFPAY ==
--- NOTE | ~2025-01-06 | XR_ITS ---
EXAMINATION: XR shoulder RT min 2V DATE: 01/09/2025 12:27 INDICATION: Right shoulder pain. Fall. TECHNIQUE: 3 views of right shoulder on 4 radiographs were obtained. COMPARISON: Right shoulder radiographs 01/07/2025 FINDINGS: Alignment is normal. No fracture. There is severe osteoarthritis of glenohumeral joint and moderate osteoarthritis of acromioclavicular joint. There are loose bodies in the glenohumeral joint in bicipital groove. Median sternotomy wires and mediastinal surgical clips are seen, likely from braulio or coronary artery bypass grafting. IMPRESSION: 1. Polyarticular osteoarthritis. 2. Loose bodies in the glenohumeral joint in bicipital groove. Reviewed, dictated and finalized at location A. OLL ADMINISTRATIVE ASSISTANT
--- NOTE | ~2025-01-06 | CT_ITS ---
Clinical Indication: Altered mental status, status post fall CT Scan of the Chest, Abdomen, and Pelvis without Contrast: Technique: Contiguous sections were acquired throughout the chest, abdomen, and pelvis without IV con trast administration. Dose reduction technique was used on this scan by utilizing automated exposure control and iterative reconstruction technique. The dose-length product (DLP) was 987.60 mGy-cm. Comparison: 11/13/2024 Findings: There is no evidence of any significant mediastinal, hilar or axillary lymphadenopathy. There are ext ensive atherosclerotic calcifications of the aorta and coronary arteries. There is no evidence of pleural or pericardial effusion. [id number] emphysema present. Stable small spiculated density right upper lobe (axial image 38) . Stable calcified granulomas. The liver, spleen, pancreas, gallbladder, and adrenal glands are within normal limits. There is mild to moderate bilateral hydroureteronephrosis. There are atherosclerotic calcifications of the aorta. No lymphadenopathy. No bowel obstruction. Possible mild wall thickening of the distal rectum. Urinary bladder is markedly distended with multiple small layering bladder stones, and Barry catheter in place. No pelvic mass evident. No ascites. Impression: Mild to moderate hydroureteronephrosis, likely related to bladder outlet obstruction. No obstructing stone or mass evident. Markedly distended urinary bladder with multiple small layering stones, and Barry catheter in place. Ujak-bi-iynuvejk emphysema. Stable small spiculated nodule/density in the right upper lobe, as detail ed above. Possible mild wall thickening of the distal rectum. Correlate for proctitis. Reviewed, dictated and finalized at [facility]. TRICAL RESEARCH ENGINEER Impression: Mild to moderate hydroureteronephrosis, likely related to bladder outlet obstru ction. No obstructing stone or mass evident. Markedly distended urinary bladder with multiple small layering stones, and Fol ey catheter in place. [id number] emphysema. Stable small spiculated nodule/density in the right upper lobe, as detailed above. Possible mild wall thickening of the distal rectum. Correlate for proctitis.
--- NOTE | ~2025-01-06 | XR_ITS ---
Right elbow Technique: AP, oblique, and lateral views were obtained. Clinical History: Pain Findings: No acute fracture or dislocation is seen. Osseous alignment is anatomic. There is moderate degenerative change throughout the elbow joint. There is no displacement of the fat pads, and soft ti ssues are unremarkable. Impression: Moderate osteoarthritis throughout the elbow joint. No acute fracture or dislocation seen. Reviewed, dictated and finalized at location . ARCH SUBJECT Impression: Moderate osteoarthritis throughout the elbow joint. No acute fracture or dislocation seen.
--- NOTE | ~2025-01-06 | CT_ITS ---
EXAMINATION: CT brain wo con DATE: 01/09/2025 12:18 INDICATION: Fall. TECHNIQUE: Computed tomography (CT) of the head was performed without intravenous contrast. The mA wa s adjusted according to patient size. Iterative reconstruction technique was employed. The dose-lengt h product was 605.33 mGy-cm. COMPARISON: Head CT 01/07/2025 FINDINGS: There is an old infarct in the left basal ganglia. There are scattered areas of low attenua tion in the cerebral white matter. There is an old infarct in the left parietal lobe. There is mucosa l thickening in the paranasal sinuses. There are likely changes of ocular lens replacement surgeries. The mastoid air cells are normal. IMPRESSION: 1. 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 2. Stable moderate nonspecific cerebral white matter disease, which likely represents chronic small v essel ischemic disease. Reviewed, dictated and finalized at location A. K LAYER HEAD IMPRESSION: 1. 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 2. Stable moderate nonspecific cerebral white matter disease, which likely repr esents chronic small vessel ischemic disease.
--- NOTE | ~2025-01-06 | CT_ITS ---
Noncontrast CT scan of the cervical spine Technique: Multiple contiguous axial [address] images of the cervical spine were obtained and rec onstructed in 2D sagittal and coronal planes on the acquisition scanner. Dose reduction technique was used on this scan by utilizing automated exposure control, adjustment of the mA and/or kV according to patient size. The dose-length product (DLP) was 232.37 mGy-cm. Clinical History: Pain COMPARISON: 11/13/2024 Findings: No acute fracture or subluxation. Osseous alignment is unchanged. Stable minimal grade 1 a nterolisthesis of C5 over C6. There is extensive left facet arthropathy with disc osteophyte complex and disc space narrowing at C3-C4, with severe left neural foraminal narrowing. At C4-C5, there is di sc ossify complex and degenerative disc narrowing with bilateral neural foraminal narrowing, right wo rse than left. At C5-C6, there is degenerative disc narrowing with bilateral facet arthropathy. At C6 -C7, there is severe degenerative disc narrowing. No prevertebral soft tissue swelling. Impression: No acute fracture or subluxation of the cervical spine. Stable degenerative spondylosis. Reviewed, dictated and finalized at [facility]. R ADVISER Impression: No acute fracture or subluxation of the cervical spine. Stable degenerative spondylosis.
--- NOTE | ~2025-01-06 | XR_ITS ---
Right Shoulder Technique: AP and scapular Y views were obtained. Clinical History: Pain COMPARISON: 09/17/2024 Findings: No fracture or dislocation is seen. Osseous alignment is anatomic. The glenohumeral and acr omioclavicular joints demonstrate mild degenerative change. Multiple loose bodies are again seen in t he axillary pouch region of the joint. Impression: Loose bodies in the axillary pouch, similar to prior exam. Stable degenerative changes. No acute abnormality seen. Reviewed, dictated and finalized at location . LE NEEDLE TUFTING MACHINE OPERATOR Impression: Loose bodies in the axillary pouch, similar to prior exam. Stable degenerative changes. No acute abnormality seen.
--- NOTE | ~2025-01-06 | CT_ITS ---
CT head without contrast Indication: Altered mental status COMPARISON: 11/13/2024 Technique: Serial scans were obtained through the brain without the administration of contrast. Dose reduction technique was used on this scan by utilizing automated exposure control and iterative recon struction technique. The dose-length product (DLP) was 681.00 mGy-cm. Findings: There is no evidence of intracranial hemorrhage, mass lesion, or acute infarct. Stable foca l small chronic left parietal lobe infarct. The ventricles and subarachnoid spaces are dilated, consi stent with mild to moderate atrophy. Low attenuation regions are seen within the periventricular whi te matter bilaterally, likely representing changes from chronic microvascular ischemic disease. There is no evidence of edema, mass effect or midline shift. The visualized paranasal sinuses and mastoi d air cells are clear. Impression: No intracranial hemorrhage, mass, or acute infarct. 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 Atrophy and chronic white matter changes, as above. Reviewed, dictated and finalized at location . ICATION SPECIALIST Impression: No intracranial hemorrhage, mass, or acute infarct. 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 Atrophy and chronic white matter changes, as above.
--- NOTE | ~2025-01-06 | US_ITS ---
EXAMINATION: US renal BI DATE: 01/10/2025 08:19 INDICATION: Moderate bilateral hydroureteronephrosis. TECHNIQUE: Multiple ultrasound grayscale images of the kidneys were obtained. COMPARISON: CT 01/07/2025 FINDINGS: The right kidney measures 11.3 x 4.9 x 4.3 cm. The left kidney measures 11.8 x 6.0 x 3.8 cm. The kidn eys demonstrate normal parenchymal echogenicity. There is a 1.8 cm cyst in right kidney. There is no hydronephrosis. The bladder is decompressed by a Barry catheter. IMPRESSION: 1. Normal kidney sizes. No hydronephrosis. Reviewed, dictated and finalized at location A. DEVELOPMENT SPECIALIST
--- NOTE | ~2025-01-06 | XR_ITS ---
Portable chest x-ray Comparison: 09/06/2024 Clinical History: Fever Findings: Stable mild blunting of the right costophrenic angle. No acute pulmonary abnormality seen. Cardiomediastinal silhouette is stable. Bones and soft tissues are unremarkable. Impression: Chronic right costophrenic angle blunting versus minimal pleural effusion. Appearance is stable from prior exam. Status post CABG. Reviewed, dictated and finalized at [facility]. ING MACHINE OPERATOR GAS Impression: Chronic right costophrenic angle blunting versus minimal pleural effusion. Appe arance is stable from prior exam. Status post CABG.
[2025-01-07] VITALS (10 sets, daily range): BP systolic 113–167; BP diastolic 60–90; PULSE 66–89; RESP 14–21; TEMP 36.2–36.6; O2SAT 96–100
--- NOTE | 2025-01-07 01:00 | ED.AMS ---
HPI - Altered Mental Status General Chief Complaint: Altered Mental Status Stated Complaint: FEVER, MORE CONFUSED, COMBATIVE Time Seen by Provider: 01/06/25 23:53 Source: RN notes reviewed Mode of arrival: EMS Limitations: altered mental status, clinical condition and dementia History of Present Illness HPI narrative: senior living documentation has a written note that states that patient reportedly fell was found with his head on the floor. They gave Tylenol 1000mg at 10:45pm. He reportedly had a fever of 101.2, blood pressure 168/98, and respirations 20. He was complaining of pain to his right arm, elbow and shoulder at the time. He is alert and oriented x1 at baseline but apparently worse today in regards to It is reported that he has had increasing confusion and has been combative. Patient is frequently touching his penis. He denies any abdominal pain or headache but when I attempt to ask further questions he tells me to shut up. This is altered with him repeatedly crying out for his mother. Related Data Home Medications ?Medication ?Instructions ?Recorded ?Confirmed ?Last Taken ?Type acetaminophen 325 mg tablet 650 mg PO Q6H PRN Pain (Scale 03/09/24 09/06/24 Unknown History Score 1-3) albuterol sulfate 90 mcg/actuation 2 puff inhalation Q6H PRN Wheezing 03/09/24 09/06/24 Unknown History aerosol inhaler atorvastatin 80 mg tablet 80 mg PO HS 03/09/24 09/06/24 Unknown History clopidogrel 75 mg tablet 75 mg PO DAILY 03/09/24 09/06/24 Unknown History finasteride 5 mg tablet 5 mg PO DAILY 03/09/24 09/06/24 Unknown History metoprolol succinate 25 mg 12.5 mg PO BID 03/09/24 09/06/24 Unknown History tablet,extended release 24 hr pyridoxine (vitamin B6) 100 mg PO DAILY 03/09/24 09/06/24 Unknown History quetiapine 50 mg tablet 50 mg PO Q12H 03/09/24 09/06/24 Unknown History sennosides 8.6 mg capsule (senna) 17.2 mg PO DAILY PRN Constipation 03/09/24 09/06/24 Unknown History sertraline 25 mg tablet 25 mg PO DAILY 03/09/24 09/06/24 Unknown History tamsulosin 0.4 mg capsule 0.4 mg PO HS 03/09/24 09/06/24 Unknown History tiotropium bromide 18 mcg capsule 18 mcg inhalation DAILY 03/09/24 09/06/24 Unknown History with inhalation device (Spiriva with HandiHaler) cholecalciferol (vitamin D3) 10 10 mcg PO DAILY 05/02/24 09/06/24 Unknown History mcg (400 unit) tablet ferrous sulfate 325 mg (65 mg 325 mg PO DAILY 05/02/24 09/06/24 Unknown History iron) tablet,delayed release hydroxyzine HCl 50 mg tablet 50 mg PO TID PRN Anxiety 05/02/24 09/06/24 Unknown History levothyroxine 150 mcg tablet 150 mcg PO DAILY 05/02/24 09/06/24 Unknown History Allergies Allergy/AdvReac Type Severity Reaction Status Date / Time diphtheria toxoid,adsorbed Allergy Unknown Verified 01/07/25 05:48 fish derived Allergy Unknown Verified 01/07/25 05:48 iodine Allergy Unknown Verified 01/07/25 05:48 tetanus toxoid, adsorbed Allergy Unknown Verified 01/07/25 05:48 tositumomab Allergy Unknown Verified 01/07/25 05:48 [facility] Past Medical History Medical History Unspecified lack of coordination Unsteadiness on feet Dysphagia, oropharyngeal phase Aphasia Retention of urine, unspecified Other viral conjunctivitis Heart failure with preserved ejection fraction Echo in 04/2024 showed normal left ventricular size and systolic function with grade 1 diastolic noncompliance. Kidney stones Chronic anemia Cerebrovascular accident Focal left parietal encephalomalacia, old lacunar infarct left caudate nucleus, moderate atrophy and chronic white matter changes. Chronic obstructive pulmonary disease Benign prostatic hyperplasia with urinary retention Bladder stone History of nephrolithiasis Chronic indwelling Goldstein catheter Hypothyroidism Essential hypertension Hyperlipidemia Dementia Surgical History Surgical History History of cataract extraction with lens replacement Family History Family History Other Unknown family medical history Social History Social History Social History: Legal guardian: Irena Zamorano Code status: Do not resuscitate per [facility] documentation (including No CPR, comfort focused treatment POLST signed 03/18/24) Smoking status: Former smoker Alcohol intake: unknown Substance use: unknown Living arrangements: [facility] Additional living arrangements comments: [facility] Occupation/Education: retired 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 HEAD: Normocephalic, atraumatic. EYES: Non injected, non icteric ENT: Nares clear, no rhinorrhea or epistaxis. NECK: Supple. CHEST: Speaking in full sentences. No respiratory distress. HEART: Regular rate and rhythm. . ABDOMEN: Soft, nondistended. Patient has remnants of stool at rectum and buttocks. GABRIELLA performed with nurse Layla and tech present as chaperones/assistants. Normal rectal tone. There is soft stool but no firm stool ball in the rectal vault. Tenderness to palpation along prostate where there is a slight spongy mass. FOBT/guiaic negative. EXTREMITIES: Normal range of motion. No lower extremity edema. : Goldstein inserts along side of penis and there appears to be tissue resection from part of penis. Goldstein has stool around though it seems the collection bag might have been touched along the top and tubing. SKIN: Warm, dry, no rash. NEURO: No focal deficits. Alert and but not oriented or able to provide health history. PSYCH: Normal mood and affect. Course Vital Signs Vital signs: Vital Signs Pulse Rate 89 01/07/25 00:05 Respiratory Rate 21 H 01/07/25 00:05 Temperature 97.9 F 01/07/25 03:51 Pulse Rate 68 01/07/25 08:32 Respiratory Rate 18 01/07/25 08:32 Blood Pressure 167/79 H 01/07/25 08:32 Pulse Oximetry 100 01/07/25 08:32 MDM - Altered Mental Status MDM Narrative Medical decision making narrative: Patient reportedly alert oriented x1 at baseline but worse today with increasing confusion and more combative. He reportedly had a fever at the facility and fell. Received Tylenol prior to arrival. In the emergency department he is afebrile with acceptable blood pressure, mild tachypnea. Medication list from facility is reviewed which shows patient is on clopidogrel but no trevin anticoagulant. Morphine ordered for pain. Notified by surveying or spatial science technician that patient has a contrast allergy. He has a leukocytosis and normocytic anemia, the latter is stable from previous. Patient has an isolated azotemia but with normal renal function. He has hyperglycemia but without anion gap acidosis. Isolated alkaline phosphatase elevation and he is mildly hypoalbuminemic. Initial attempt to obtain CT scans unsuccessful as patient is moving too much. 2 mg Ativan ordered. 1 L IV fluids ordered. Additional fluids ordered. Broad spectrum Vanc/cefepime ordered given concern for sepsis (possibly due to UTI) but vancomycin cancelled after discussing with pharmacy. Discussed with urology who suspect that patient likely has urethral erosion. Recommends nursing staff attempt to irrigate and flush the current indwelling Goldstein and then replace and note that replacement is only different in the insertion site but otherwise should be similar. He does ask that general surgery also be consulted. Compared to previous CT abd/pelvis, the hydro is new. Discussed with Dr Kaur who concurs with decompressing the bladder. Reasonable to investigate the tract first to see if it appears to to actually be fistulous. Multiple nurses attempt to remove Goldstein but unsuccessful. Discussed with Dr Higginbotham at 08:35. Will come to bedside; requests cysto cart. Discussed with Dr Kellogg. Will be med surg bed. Differential Diagnosis Differential diagnosis: Likely altered mental status, delirium, dementia, hypoglycemia, hyponatremia, subarachnoid hemorrhage, sepsis (Urinary tract infection, intra-abdominal pathology including abscess or colovesicular fistula; pneumonia; acute viral syndrome/influenza/COVID) and other (prostatitis/proctitis; ) Medical Records Attestation: I reviewed the patient's medical records. Medical records narrative: Urology consultation had previously stated: He likely has a wrist (sic) to traumatically removed the catheter so I would recommend inflating the Goldstein balloon to 30 cc and securely fastening the catheter to his thigh. Lab Data Attestation: I reviewed the patient's lab results. 01/07/25 02:03 01/07/25 02:03 Labs: Lab Results 01/07/25 01/07/25 01/07/25 Range/Units 02:03 03:37 05:02 WBC 13.3 H (4.5-10.0) K/mm3 RBC 3.70 L (4.6-6.20) M/mm3 Hgb 11.6 L (14.0-18.0) g/dL Hct 35.3 L (42.0-52.0) % MCV 95.4 (80-100) fl MCH 31.4 (26-34) pg MCHC 32.9 (32-36) g/dl RDW 14.7 H (11.5-14.5) % Plt Count 244 (150-375) k/mm3 MPV 9.5 (7.4-10.4) fl Immature Gran % (Auto) 0.5 (0-0.5) % Neut % (Auto) 84.3 H (45.5-73.1) % Lymph % (Auto) 9.9 L (18.3-44.2) % [place] % (Auto) 4.3 (2.6-8.5) % Eos % (Auto) 0.5 (0-4.4) % Baso % (Auto) 0.5 (0.2-1.2) % Lymph # (Auto) 1.31 (0.9-3.2) K/mm3 [place] # (Auto) 0.6 (0.1-0.6) K/mm3 Eos # (Auto) 0.1 (0-0.3) K/mm3 Baso # (Auto) 0.1 (0.0-0.1) K/mm3 Abs Immat Gran (auto) 0.06 H (0.00-0.031) K/mm3 Absolute Neuts (auto) 11.2 H (1.3-6.7) K/mm3 Absolute Nucleated RBC 0.000 (0.0-0.012) K/mm3 Nucleated RBC % 0.0 (0.0-0.2) % PT 14.8 H (11.1-14.7) Seconds INR 1.1 APTT 33.4 (22.3-36.8) Seconds Sodium 141 (137-145) mmol/L Potassium 4.1 (3.4-5.0) mmol/L Chloride 110 H (98-107) mmol/L Carbon Dioxide 24 (22-30) mmol/L Anion Gap 7 (4-12) mmol/L BUN 31 H D (9-20) mg/dL Creatinine 0.84 (0.7-1.3) mg/dL Estim Creat Clear Calc Not Reportable Estimated GFR > 60 (59 - ) Glucose 146 H (65-110) mg/dL POC Capillary Glucose 148 H (65-105) mg/dl Lactic Acid 1.9 (0.7-2.0) mmol/L Calcium 9.6 (8.4-10.2) mg/dL Magnesium 1.8 (1.6-2.3) mg/dL Total Bilirubin 0.5 (0.2-1.3) mg/dL AST 49 (17-59) U/L ALT 49 (6-50) U/L Alkaline Phosphatase 189 H (38-126) U/L Ammonia 36 H (9-30) umol/L Total Creatine Kinase 24 L (55-170) U/L Troponin I < 0.012 (0.000-0.034) ng/mL Total Protein 7.0 (6.3-8.2) g/dL Albumin 3.3 L (3.5-5.1) g/dL TSH 45.500 H (0.465-4.680) uIU/mL Free T4 0.49 L (0.78-2.19) ng/dL Free T3 pg/mL 2.29 L (2.34-5.61) pg/mL Salicylates < 1.0 L (2-20) mg/dL Acetaminophen < 10 L (10-30) ug/mL Ethyl Alcohol < 10 (<10) mg/dL Influenza A (RT-PCR) Negative (Negative) Influenza B (RT-PCR) Negative (Negative) RSV (RT-PCR) Negative (Negative) SARS-CoV-2 RNA (RT-PCR) Negative (Negative) Imaging Data Attestation: I personally reviewed and interpreted this imaging study as follows: My impression: Sternotomy wires present on chest x-ray but otherwise no acute intrathoracic process identified. Radiologist's impression: CT C spine Stat Rad: No acute fracture or malalignment in the cervical spine. Multilevel degenerative changes in the cervical spine. No incidental findings. CT Head Stat Rad: No evidence of acute intracranial hemorrhage, mass effect or midline shift. Old parietal lobe infarct. Periventricular white matter disease, nonspecific but most commonly associated with sequela of chronic microvascular ischemic changes. Preservation of cantor-white matter differentiation. Generalized volume loss. No acute calvarial abnormality. Paraspinal sinuses and mastoid air cells are clear. No incidental findings. CT Chest w/o Contrast Stat Rad: There is a subacute right 6th anterior rib fracture. Spiculated right upper lobe pulmonary nodule. Emphysema. Coronary artery calcifications. No pericardial effusion. No mediastinal hematoma. No acute findings in the chest. Gynecomastia. CT Abd & Pelvis w/o contrast Stat Rad: Urinary bladder is distended. Goldstein catheter balloon noted at the base of the urinary bladder. There bladder stones. Circumferential wall thickening of the rectum which abuts the urinary bladder without fat plane in between. If there is concern for fistula, CT with rectal contrast may be obtained with premedication protocol. Bilateral hydroureteronephrosis. Right intrarenal calculus. No acute traumatic injury. ECG Data EKG #1: Attestation: I personally reviewed and interpreted this ECG as follows: ECG completion date: 01/07/25 ECG completion time: 03:49 Interpretation: Normal sinus rhythm at a rate of 74 beats per minute with occasional PVC. OK interval 164. QRS 99. QT/QTC 415/442. R-wave progression across the precordial leads. No T-wave inversions. Discharge Plan Discharge Clinical Impression: Leukocytosis, Anemia, Azotemia, Hyperglycemia, Alkaline phosphatase elevation, Hypoalbuminemia, Fracture, rib, Pulmonary nodule, Emphysema, unspecified, Erosion of urethra, Acute on chronic urinary retention, Primary hypothyroidism Patient Disposition: Still a Patient Condition: Stable
[2025-01-07] MEDS: MORPHINE SULFATE (*CRX) 4 MG/ML INJ IV PUSH (01:56)
[2025-01-07 02:09] LABS: Basophils Absolute Auto 0.1 K/mm3 (0.0-0.1); Basophils Percent Auto 0.5 % (0.2-1.2); Eosinophils Absolute Auto 0.1 K/mm3 (0-0.3); Eosinophils Percent Auto 0.5 % (0-4.4); Hematocrit 35.3 % (42.0-52.0); Hemoglobin 11.6 g/dL (14.0-18.0); Immature Granulocyte Absolute 0.06 K/mm3 (0.00-0.031); Immature Granulocyte Percent A 0.5 % (0-0.5); Lymphocytes Absolute Auto 1.31 K/mm3 (0.9-3.2); Lymphocytes Percent Auto 9.9 % (18.3-44.2); Mean Corpuscular HGB Conc 32.9 g/dl (32-36); Mean Corpuscular Hemoglobin 31.4 pg (26-34); Mean Corpuscular Volume 95.4 fl (80-100); Mean Platelet Volume 9.5 fl (7.4-10.4); Monocytes Absolute Auto 0.6 K/mm3 (0.1-0.6); Monocytes Percent Auto 4.3 % (2.6-8.5); Neutrophils Absolute Auto 11.2 K/mm3 (1.3-6.7); Neutrophils Percent Auto 84.3 % (45.5-73.1); Platelet Count Result 244 k/mm3 (150-375); Red Cell Distribution Width 14.7 % (11.5-14.5); White Blood Count 13.3 K/mm3 (4.5-10.0)
[2025-01-07 02:27] LABS: INR 1.1; Prothrombin Time 14.8 Seconds (11.1-14.7)
[2025-01-07 02:28] LABS: Partial Thromboplastin Time 33.4 Seconds (22.3-36.8)
[2025-01-07 02:29] LABS: Creatine Kinase 24 U/L (55-170)
[2025-01-07 02:30] LABS: Lactic Acid Reflex 1.9 mmol/L (0.7-2.0)
[2025-01-07 02:31] LABS: Alanine Aminotransferase 49 U/L (6-50); Albumin Level 3.3 g/dL (3.5-5.1); Alkaline Phosphatase 189 U/L (38-126); Anion Gap 7 mmol/L (4-12); Aspartate Amino Transferase 49 U/L (17-59); Bilirubin,Total 0.5 mg/dL (0.2-1.3); Blood Urea Nitrogen 31 mg/dL (9-20); Calcium 9.6 mg/dL (8.4-10.2); Carbon Dioxide 24 mmol/L (22-30); Chloride 110 mmol/L (98-107); Estimated Glomerular Filt Rate > 60; Glucose 146 mg/dL (65-110); Potassium 4.1 mmol/L (3.4-5.0); Sodium 141 mmol/L (137-145)
[2025-01-07 02:32] LABS: Magnesium 1.8 mg/dL (1.6-2.3)
[2025-01-07 02:48] LABS: Troponin I < 0.012 ng/mL (0.000-0.034)
--- NOTE | 2025-01-07 03:00 | ECG_ITS ---
Test Date: 2025-01-07 03:49:23 Measurements Intervals Carney Rate: 74 P: 30 CT: 164 QRS: 48 QRSD: 99 T: 52 QT: 415 QTc: 462 Interpretive Statements SINUS RHYTHM WITH OCCASIONAL VENTRICULAR PREMATURE COMPLEXES BORDERLINE ECG Compared to ECG 09/06/2024 14:22:01 SUPRAVENTRICULAR TACHYCARDIA NO LONGER PRESENT Electronically Signed On 01-07-2025 06:56:35 SENIOR FINANCIAL ANALYST by Tj Mosley D.O.
[2025-01-07] MEDS: SODIUM CHLORIDE 0.9% IV 1,000 ML 999 ML IV CONT ×3 (03:42→07:12)
[2025-01-07] MEDS: LORazepam INJ (*CRX) 2 MG/ML VIAL IV PUSH (03:54)
[2025-01-07 03:57] LABS: Acetaminophen < 10 ug/mL (10-30); Ammonia 36 umol/L (9-30); Ethanol < 10 mg/dL (<10); Salicylate < 1.0 mg/dL (2-20)
[2025-01-07 04:24] LABS: Influenza A QL RT-PCR Negative (Negative); Influenza B QL RT-PCR Negative (Negative); RSV RNA, RT-PCR Negative (Negative); SARS-CoV-2 RNA PCR Negative (Negative)
[2025-01-07 05:04] LABS: Glucose Point of Care 148 mg/dl (65-105)
[2025-01-07 05:19] LABS: Free T4 Free Thyroxine 0.49 ng/dL (0.78-2.19)
[2025-01-07 05:56] LABS: Free T3 2.29 pg/mL (2.34-5.61)
--- NOTE | 2025-01-07 06:05 | PC.NURSE ---
This RN spoke with pt RN at [facility] and updated about pt POC
--- NOTE | 2025-01-07 06:09 | PC.NURSE ---
This RN spoke to pt sister and updated her about POC
[2025-01-07] MEDS: CEFEPIME 1 GM/NS 50 ML 1 GM/50 ML BAG IVPB (06:48)
[2025-01-07] MEDS: WATER FOR IRRIGATION, STERILE 500 ML BOTTLE (08:32)
--- NOTE | 2025-01-07 09:00 | WPDURCON ---
Assessment and Plan Assessment and plan (1) Acute on chronic urinary retention: Code(s): R33.9 - Retention of urine, unspecified Status: Acute Assessment and Plan: Needs to be managed with chronic indwelling Barry but needs to be changed on a monthly basis. This needs to be adamantly expressed to the group home. Barry catheter was encrusted at the end. I was able to retrieve it and replace the other catheter with 10 cc in the balloon. Will have nurse add another 10 cc to balloon (2) Erosion of urethra: Code(s): N36.8 - Other specified disorders of urethra Status: Acute Assessment and Plan: Due to pressure from the Barry catheter. Needs to have better care at group home regarding lack of tension on Barry catheter. Not a candidate for any surgical repair (3) Bladder stones: Code(s): N21.0 - Calculus in bladder Status: Acute Assessment and Plan: Irrelevant at this time given chronic indwelling Barry. (4) Hydronephrosis: Code(s): N13.30 - Unspecified hydronephrosis Status: Acute Assessment and Plan: Half likely secondary to the obstruction and/or chronic in nature. Can have a repeat ultrasound in the several days to see if hydronephrosis has decreased. Urology Consult Note HPI Date Seen: 01/07/25 Time Seen: 09:00 Primary Care Provider: UNKNOWN,DOCTOR Consult Narrative Reason for consult: Urinary retention with malfunctioning Barry catheter Narrative: Stewart La is a 84 year old male who was brought in from the [facility]. He was seen recently in August of [address] Carroll. At that time a Barry catheter was changed and recommendations for monthly catheter changes were made. What occurred at the group home was unclear. The LEs he presents today he is disoriented. CT scan reveals bilateral hydro ureter with a distended bladder and minimal output. Nursing staff was unable to remove the Barry catheter. Review of Systems Review of Systems: All systems reviewed & are unremarkable except as noted in HPI and below PMFSH Past Medical History Medical History Unspecified lack of coordination Unsteadiness on feet Dysphagia, oropharyngeal phase Aphasia Retention of urine, unspecified Other viral conjunctivitis Heart failure with preserved ejection fraction Echo in 04/2024 showed normal left ventricular size and systolic function with grade 1 diastolic noncompliance. Kidney stones Chronic anemia Cerebrovascular accident Focal left parietal encephalomalacia, old lacunar infarct left caudate nucleus, moderate atrophy and chronic white matter changes. Chronic obstructive pulmonary disease Benign prostatic hyperplasia with urinary retention Bladder stone History of nephrolithiasis Chronic indwelling Barry catheter Hypothyroidism Essential hypertension Hyperlipidemia Dementia Surgical History Surgical History History of cataract extraction with lens replacement Family History Family History Other Unknown family medical history Social History Social History Social History: Legal guardian: Irena Zamorano Code status: Do not resuscitate per group home documentation (including No CPR, comfort focused treatment POLST signed 03/18/24) Smoking status: Former smoker Alcohol intake: unknown Substance use: unknown Living arrangements: group home Additional living arrangements comments: [facility] Occupation/Education: retired 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 Spiritual care concerns: No (Sikh) Meds Home Medications and Allergies Home Medications ?Medication ?Instructions ?Recorded ?Confirmed ?Type acetaminophen 325 mg tablet 650 mg PO Q6H PRN Pain (Scale 03/09/24 09/06/24 History Score 1-3) albuterol sulfate 90 mcg/actuation 2 puff inhalation Q6H PRN Wheezing 03/09/24 09/06/24 History aerosol inhaler atorvastatin 80 mg tablet 80 mg PO HS 03/09/24 09/06/24 History clopidogrel 75 mg tablet 75 mg PO DAILY 03/09/24 09/06/24 History finasteride 5 mg tablet 5 mg PO DAILY 03/09/24 09/06/24 History metoprolol succinate 25 mg 12.5 mg PO BID 03/09/24 09/06/24 History tablet,extended release 24 hr pyridoxine (vitamin B6) 100 mg PO DAILY 03/09/24 09/06/24 History quetiapine 50 mg tablet 50 mg PO Q12H 03/09/24 09/06/24 History sennosides 8.6 mg capsule (senna) 17.2 mg PO DAILY PRN Constipation 03/09/24 09/06/24 History sertraline 25 mg tablet 25 mg PO DAILY 03/09/24 09/06/24 History tamsulosin 0.4 mg capsule 0.4 mg PO HS 03/09/24 09/06/24 History tiotropium bromide 18 mcg capsule 18 mcg inhalation DAILY 03/09/24 09/06/24 History with inhalation device (Spiriva with HandiHaler) cholecalciferol (vitamin D3) 10 10 mcg PO DAILY 05/02/24 09/06/24 History mcg (400 unit) tablet ferrous sulfate 325 mg (65 mg 325 mg PO DAILY 05/02/24 09/06/24 History iron) tablet,delayed release hydroxyzine HCl 50 mg tablet 50 mg PO TID PRN Anxiety 05/02/24 09/06/24 History levothyroxine 150 mcg tablet 150 mcg PO DAILY 05/02/24 09/06/24 History Allergies Allergy/AdvReac Type Severity Reaction Status Date / Time diphtheria toxoid,adsorbed Allergy Unknown Verified 01/07/25 05:48 fish derived Allergy Unknown Verified 01/07/25 05:48 iodine Allergy Unknown Verified 01/07/25 05:48 tetanus toxoid, adsorbed Allergy Unknown Verified 01/07/25 05:48 tositumomab Allergy Unknown Verified 01/07/25 05:48 Vital Signs Vital Signs - 24 hr 01/07/25 00:05 01/07/25 02:21 01/07/25 03:51 Temperature 36.6 C Pulse Rate 89 83 Respiratory Rate 21 H 17 Blood Pressure 142/90 H Pulse Oximetry 100 01/07/25 03:51 01/07/25 07:07 01/07/25 08:32 Temperature Pulse Rate 68 71 68 Respiratory Rate 20 18 Blood Pressure 147/75 H 167/79 H Pulse Oximetry 97 100 Exam Const: General: comfortable and confusion : Meatus: other (Urethral erosion from Barry catheter) Results Labs 01/07/25 02:03 01/07/25 02:03 Labs: Short CBC 01/07/25 Range/Units 02:03 WBC 13.3 H (4.5-10.0) K/mm3 Hgb 11.6 L (14.0-18.0) g/dL Hct 35.3 L (42.0-52.0) % Plt Count 244 (150-375) k/mm3 BMP 02/11/25 02:03 Sodium 141 Potassium 4.1 Chloride 110 H Carbon Dioxide 24 BUN 31 H D Creatinine 0.84 Glucose 146 H Calcium 9.6 Cardiac Enzymes 01/07/25 Range/Units 02:03 Total Creatine Kinase 24 L (55-170) U/L Troponin I < 0.012 (0.000-0.034) ng/mL Liver Function 01/07/25 Range/Units 02:03 Total Bilirubin 0.5 (0.2-1.3) mg/dL AST 49 (17-59) U/L ALT 49 (6-50) U/L Alkaline Phosphatase 189 H (38-126) U/L Albumin 3.3 L (3.5-5.1) g/dL
[2025-01-07] MEDS: metroNIDAZOLE 500 MG/ISO 100ML 500 MG/100 ML BAG 100 MG IVPB (09:01)
--- NOTE | 2025-01-07 09:15 | PC.NURSE ---
Another 10mL saline added to catheter balloon per DEMETRIUS Early, totaling 20mL inside urinary catheter balloon
[2025-01-07 09:21] LABS: Add Urine Microscopic? YES; Appearance Urine Turbid (Clear); Bacteria Urine 4+ /hpf; Bilirubin Urine Negative (Negative); Blood Urine 3+ (Negative); Color Urine Orange (Yellow); Glucose Urine UA Negative (Negative); Ketones Urine Negative (Negative); Leukocyte Esterase Ur 3+ LEU/UL (Negative); Need Manual Microscopic Reviewed; Nitrate Urine Positive (Negative); Non Pathogenic Casts >20; Protein Urine 2+ mg/dL (Negative); RBC Urine >100 /hpf (0-2); Specific Grav Ur 1.013 (1.001-1.035); Squamous Epithelial Cell Urine None Seen /hpf (Few); Urobilinogen Urine 0.2 mg/dL (<2.0); WBC Urine >100 /hpf (0-3); pH Urine >=9.0 (5.0-9.0)
[2025-01-07 09:43] LABS: Amphetamine Screen Urine Negative (Negative); Barbiturate Screen Urine Negative (Negative); Benzodiazepines Screen Urine Negative (Negative); Cannabinoid Screen Urine Negative (Negative); Cocaine Screen Urine Negative (Negative); Methadone Screen Urine Negative (Negative); Opiate Screen Urine Positive (Negative); Phencyclidine Screen Urine Negative (Negative)
--- NOTE | 2025-01-07 10:36 | PC.NURSE ---
This patient, Stewart La, was admitted to [facility] Surg Room 323-02. Patient/family oriented to hospital policies and general routines including ID bracelet, bed and alarms, visiting hours, pain management, procedures, bathroom and other care routines, personal items, smoking policy, room service/diet, and visiting hours. Information on how to activate the Rapid Response Team has been discussed. Patient/Family are encouraged to report perceived risks to care and to ask questions if they do not understand what they are told or what they should do.
[2025-01-07] MEDS: CIPROFLOXACIN 400 MG/D5W 200ML 200 ML 200 MG IVPB (12:23)
--- NOTE | 2025-01-07 12:49 | P.HP_ITS ---
H&P: HPI History of Present Illness Date/Time: 01/07/25 12:49 Chief Complaint: Mental status and fever Narrative: 84-year-old male with history of memory obstruction chronic Barry, hypothyroid asthma, hypertension, hyperlipidemia and dementia from a jail presents with altered mental status and fever. Per the ED records the patient fallen and was found on the floor with altered mental status at his jail and a fever. HPI limited due to patient only being oriented to self. Patient has leukocytosis at 13.3, hemoglobin of 11.6 BUN of 31, lactic acid 1.9, on a fall a 189, ammonia 36, TSH high at 45.5, free T4 low at 0.49, free T3 low at 2.29. UA shows positive for nitrates, 3+ blood, 3+ leukocyte esterase, turbid and [place]. Influenza A/B, RSV, COVID negative. CT shows hydronephrosis distended urinary bladder, stable small nodule in the right upper lobe. And mild wall thickening of the distal rectum. Patient was found to have urethral injury from chronically not being changed and UTI urology was consulted. Review of Systems Review of Systems: ROS unobtainable: Yes unobtainable due to mental status PMFSH Past Medical History Medical History Unspecified lack of coordination Unsteadiness on feet Dysphagia, oropharyngeal phase Aphasia Retention of urine, unspecified Other viral conjunctivitis Heart failure with preserved ejection fraction Echo in 04/2024 showed normal left ventricular size and systolic function with grade 1 diastolic noncompliance. Kidney stones Chronic anemia Cerebrovascular accident Focal left parietal encephalomalacia, old lacunar infarct left caudate nucleus, moderate atrophy and chronic white matter changes. Chronic obstructive pulmonary disease Benign prostatic hyperplasia with urinary retention Bladder stone History of nephrolithiasis Chronic indwelling Barry catheter Hypothyroidism Essential hypertension Hyperlipidemia Dementia Surgical History Surgical History History of cataract extraction with lens replacement Family History Family History Other Unknown family medical history Social History Social History Social History: Legal guardian: Irena Zamorano Code status: Do not resuscitate per jail documentation (including No CPR, comfort focused treatment POLST signed 03/18/24) Smoking status: Former smoker Alcohol intake: unknown Substance use: unknown Substance use type: unknown Living arrangements: jail Additional living arrangements comments: [facility] Occupation/Education: retired Additional occupation/education comments: [employer] Spiritual care concerns: No Meds Home Medications and Allergies Home Medications ?Medication ?Instructions ?Recorded ?Confirmed ?Type acetaminophen 325 mg tablet 650 mg PO Q6H PRN Pain (Scale 03/09/24 01/07/25 History Score 1-3) albuterol sulfate 90 mcg/actuation 2 puff inhalation Q6H PRN Wheezing 03/09/24 01/07/25 History aerosol inhaler atorvastatin 80 mg tablet 80 mg PO HS 03/09/24 01/07/25 History clopidogrel 75 mg tablet 75 mg PO DAILY 03/09/24 01/07/25 History finasteride 5 mg tablet 5 mg PO DAILY 03/09/24 01/07/25 History metoprolol succinate 25 mg 12.5 mg PO BID 03/09/24 01/07/25 History tablet,extended release 24 hr pyridoxine (vitamin B6) 100 mg PO DAILY 03/09/24 01/07/25 History quetiapine 50 mg tablet 50 mg PO Q12H 03/09/24 01/07/25 History sennosides 8.6 mg capsule (senna) 17.2 mg PO DAILY PRN Constipation 03/09/24 01/07/25 History sertraline 25 mg tablet 25 mg PO DAILY 03/09/24 01/07/25 History tamsulosin 0.4 mg capsule 0.4 mg PO HS 03/09/24 01/07/25 History cholecalciferol (vitamin D3) 10 10 mcg PO DAILY 05/02/24 01/07/25 History mcg (400 unit) tablet ferrous sulfate 325 mg (65 mg 325 mg PO DAILY 05/02/24 01/07/25 History iron) tablet,delayed release levothyroxine 150 mcg tablet 150 mcg PO DAILY 05/02/24 01/07/25 History albuterol sulfate 90 mcg/actuation 1 inh inhalation DAILY 01/07/25 01/07/25 History breath activated powder inhaler (ProAir RespiClick) budesonide 90 mcg/actuation breath 1 inh inhalation Q12H 01/07/25 01/07/25 History activated powder inhaler (Pulmicort Flexhaler) Allergies Allergy/AdvReac Type Severity Reaction Status Date / Time diphtheria toxoid,adsorbed Allergy Unknown Verified 01/07/25 10:37 fish derived Allergy Unknown Verified 01/07/25 10:37 iodine Allergy Unknown Verified 01/07/25 10:37 tetanus toxoid, adsorbed Allergy Unknown Verified 01/07/25 10:37 tositumomab Allergy Unknown Verified 01/07/25 10:37 Vital Signs Vital Signs - 24 hr 01/07/25 00:05 01/07/25 02:21 01/07/25 03:51 Temperature 97.9 F Pulse Rate 89 83 Respiratory Rate 21 H 17 Blood Pressure 142/90 H Pulse Oximetry 100 01/07/25 03:51 01/07/25 07:07 01/07/25 08:32 Temperature Pulse Rate 68 71 68 Respiratory Rate 20 18 Blood Pressure 147/75 H 167/79 H Pulse Oximetry 97 100 01/07/25 09:30 01/07/25 09:45 Temperature 97.1 F L 97.5 F L Pulse Rate 66 77 Respiratory Rate 18 14 Blood Pressure 147/66 H 113/62 Pulse Oximetry 97 98 Exam Narrative: General: Chronically ill-appearing HEENT: normocephalic, atraumatic. Mucous membranes moist. EOMI, PERRLA, bilateral sclera anicteric, no conjunctival injection. Neck supple without JVD, lymphadenopathy, or bruit. Respiratory: clear to ascultation bilaterally. No rales/rhonic/wheezes. Cardiovascular: Regular rate and rhythm, normal S1-S2 upon ascultation. No murmurs, rubs, or clicks. PMI is nondisplaced, capillary refill less than 3 second. Abdomen: Soft, round, no pulsatile masses, nondistended and nontender. No rebound, no guarding. No CVA tenderness, no hepatosplenomegaly. Bowel sounds present to all four quadrants. No high pitch or tinkling sounds, resonant to percussion. Extremities: No cyanosis, clubbing, or edema present. Pulses are palpable 2/2. Active ROM to all four extremities. Neuro: Alert and orientated x 1. PERRLA. Cranial nerves 2-12 intact without focal deficit. Skin: Warm, dry, and intact, without rash, erythema, or lesion. Psych: pleasant, cooperative, normal speech, normal affect, no hallucinations, no dysarthia Chronic Barry, questionable urethra erosion from Barry H&P: Results Labs Labs: Short CBC 01/07/25 Range/Units 02:03 WBC 13.3 H (4.5-10.0) K/mm3 Hgb 11.6 L (14.0-18.0) g/dL Hct 35.3 L (42.0-52.0) % Plt Count 244 (150-375) k/mm3 BMP 01/07/25 02:03 Sodium 141 Potassium 4.1 Chloride 110 H Carbon Dioxide 24 BUN 31 H D Creatinine 0.84 Glucose 146 H Calcium 9.6 Cardiac Enzymes 01/07/25 Range/Units 02:03 Total Creatine Kinase 24 L (55-170) U/L Troponin I < 0.012 (0.000-0.034) ng/mL Liver Function 01/07/25 Range/Units 02:03 Total Bilirubin 0.5 (0.2-1.3) mg/dL AST 49 (17-59) U/L ALT 49 (6-50) U/L Alkaline Phosphatase 189 H (38-126) U/L Albumin 3.3 L (3.5-5.1) g/dL Urine 01/07/25 Range/Units 08:55 Urine Color Kin[place] H (Yellow) Urine Appearance Turbid H (Clear) Urine pH >=9.0 H (5.0-9.0) Ur Specific [place] 1.013 (1.001-1.035) Urine Protein 2+ H (Negative) mg/dL Urine Glucose (UA) Negative (Negative) mg/dL Assessment and Plan Assessment and plan (1) Altered mental status: Code(s): R41.82 - Altered mental status, unspecified Status: Acute Assessment and Plan: Likely from UTI versus baseline dementia versus other UA positive Blood cultures pending (2) UTI (urinary tract infection) due to urinary indwelling Barry catheter: Qualifiers: Encounter type: initial encounter Indwelling urinary catheter type: indwelling urethral catheter Qualified Code(s): T83.511A - Infection and inflammatory reaction due to indwelling urethral catheter, initial encounter; N39.0 - Urinary tract infection, site not specified Code(s): T83.511A - Infection and inflammatory reaction due to indwelling urethral catheter, initial encounter; N39.0 - Urinary tract infection, site not specified Status: Ruled-out Assessment and Plan: Given cefepime, Cipro, Flagyl, and 3 L normal saline bolus in the emergency room Continue antibiotics Barry catheter exchange by Urology (3) Erosion of urethra: Code(s): N36.8 - Other specified disorders of urethra Status: Acute Assessment and Plan: Secondary to chronic Barry, and poor ramirez Care, neglect? ? Barry placed by Urology Online report filed with Adult protective service (4) Hypothyroidism: Qualifiers: Hypothyroidism type: unspecified Qualified Code(s): E03.9 - Hypothyroi dism, unspecified Code(s): E03.9 - Hypothyroidism, unspecified Status: Chronic Assessment and Plan: TSH high at 45.5, free T4 low at 0.49, free T3 low at 2.29 Home dose Synthroid 150 mcg (5) Heart failure with preserved ejection fraction: Code(s): I50.30 - Unspecified diastolic (congestive) heart failure Status: Acute Assessment and Plan: Not on diuretics Monitor for fluid overload (6) Proctitis: Code(s): K62.89 - Other specified diseases of anus and rectum Status: Acute Assessment and Plan: GI consulted pending recommendations (7) Hydronephrosis: Code(s): N13.30 - Unspecified hydronephrosis Status: Acute Assessment and Plan: Urology consult Plan for repeat scan (8) Dementia: Qualifiers: Dementia behavioral or psychological symptom: with other behavioral disturbance Dementia severity: severe Dementia type: vascular dementia Qualified Code(s): F01.C18 - Vascular dementia, severe, with other behavioral disturbance Code(s): F03.90 - Unspecified dementia, unspecified severity, without behavioral disturbance, psychotic disturbance, mood disturbance, and anxiety Status: Chronic Assessment and Plan: Holding Seroquel due to patient being drowsy Continue Zoloft Quality VTE Prophylaxis VTE prophylaxis: mechanical ordered and pharmacologic ordered Hospitalist MIPS Advance Care Plan I have confirmed that the patient's Advanced Care Plan is present, code status is documented, or surrogate decision maker is listed in patient medical record.: Yes Medication Reconciliation I have utilized all available resources to obtain, update and review the patients current medications (includes all prescriptions, OTC, herbals, cannabis, and nutritional supplements).: Yes
--- NOTE | 2025-01-07 13:53 | PM.CNGS ---
Assessment and Plan Assessment and plan (1) Abnormal computed tomography of abdomen and pelvis: Code(s): R93.5 - Abnormal findings on diagnostic imaging of other abdominal regions, including retroperitoneum Status: Acute Assessment and Plan: Patient presented after a suspected fall at the senior living with a reported fever and increased confusion. On evaluation in the ED, his chronic indwelling Barry catheter was not draining and his CT scan of the abdomen and pelvis showed bilateral hydronephrosis with a distended bladder, which is likely secondary to the obstructed Barry catheter. There was also mention on the Radiologist impression of mild wall thickening of the rectum that is abutting the bladder, could consider further evaluation if concerned for a fistula. This is the reason for our consultation. After his urinary catheter was exchanged by Urology, he has clear yellow urine draining from the Barry catheter. There is no evidence of any stool draining within the catheter, and no gas seen within the bladder on the CT scan that would suggest a possible colovesical fistula. Would not recommend any further workup unless he begins to have any urinary drainage from the catheter that appears consistent with stool. Also of note, the patient is an overall poor surgical candidate as well. No need for further investigation at this time without any clinical evidence of a fistula. We will sign off as there are no current surgical needs. Call with any questions or concerns. (2) Chronic indwelling Barry catheter: Code(s): Z97.8 - Presence of other specified devices Status: Chronic (3) Erosion of urethra: Code(s): N36.8 - Other specified disorders of urethra Status: Acute (4) Hydronephrosis: Code(s): N13.30 - Unspecified hydronephrosis Status: Acute (5) History of CVA (cerebrovascular accident): Code(s): Z86.73 - Personal history of transient ischemic attack (TIA), and cerebral infarction without residual deficits Status: Acute (6) Dementia: Qualifiers: Dementia type: vascular dementia Dementia severity: severe Dementia behavioral or psychological symptom: with other behavioral disturbance Qualified Code(s): F01.C18 - Vascular dementia, severe, with other behavioral disturbance Code(s): F03.90 - Unspecified dementia, unspecified severity, without behavioral disturbance, psychotic disturbance, mood disturbance, and anxiety Status: Chronic Plan I have discussed the patient's case and plan of care with Dr. Kaur. History of Present Illness Consult details Consult date: 01/07/25 Reason for consult: other (Possible fistula) Requesting physician: Jackelyn Gonzales MD Narrative: This is an 84-year-old man with history of CVA, COPD, and multiple other medical problems, who resides in a senior living and was brought into the ED overnight after he was reportedly found after a fall with his head on the floor. We have been asked to see him in surgical consultation for a possible fistula. He is a poor historian due to his dementia and is only alert and oriented x1 at baseline. Therefore, history is obtained by review of the electronic medical record. There was report from the senior living that he had a fever, elevated blood pressure, and increasing confusion with him being combative. He was brought in after a suspected ground level fall. He has a chronic indwelling urinary catheter and is previously seen Urology. In the ED, CT scan showed bilateral hydroureter with a distended bladder and bladder stones. The virtual radiologist also mentioned in his impression some possible wall thickening of the rectum which abuts the urinary bladder without obvious fat planes between, and recommended CT with rectal contrast if there is concern for a fistula. Per staff, he was constantly messing with his penis and found to have some thick drainage around the urinary catheter with no output. Urology evaluated the patient and change out his catheter. There was no findings of any air within the bladder on the CT scan. He now has a catheter that is functioning well with clear yellow urine. Review of Systems Review of Systems: All systems reviewed & are unremarkable except as noted in HPI and below PMFSH Past Medical History Medical History Unspecified lack of coordination Unsteadiness on feet Dysphagia, oropharyngeal phase Aphasia Retention of urine, unspecified Other viral conjunctivitis Heart failure with preserved ejection fraction Echo in 04/2024 showed normal left ventricular size and systolic function with grade 1 diastolic noncompliance. Kidney stones Chronic anemia Cerebrovascular accident Focal left parietal encephalomalacia, old lacunar infarct left caudate nucleus, moderate atrophy and chronic white matter changes. Chronic obstructive pulmonary disease Benign prostatic hyperplasia with urinary retention Bladder stone History of nephrolithiasis Chronic indwelling Barry catheter Hypothyroidism Essential hypertension Hyperlipidemia Dementia Surgical History Surgical History History of cataract extraction with lens replacement Family History Family History Other Unknown family medical history Social History Social History Social History: Legal guardian: Irena Zamorano Code status: Do not resuscitate per senior living documentation (including No CPR, comfort focused treatment POLST signed 03/18/24) Smoking status: Former smoker Alcohol intake: unknown Substance use: unknown Substance use type: unknown Living arrangements: senior living Additional living arrangements comments: [facility] Occupation/Education: 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: No Meds Home Medications and Allergies Home Medications ?Medication ?Instructions ?Recorded ?Confirmed ?Type acetaminophen 325 mg tablet 650 mg PO Q6H PRN Pain (Scale 03/09/24 01/07/25 History Score 1-3) albuterol sulfate 90 mcg/actuation 2 puff inhalation Q6H PRN Wheezing 03/09/24 01/07/25 History aerosol inhaler atorvastatin 80 mg tablet 80 mg PO HS 03/09/24 01/07/25 History clopidogrel 75 mg tablet 75 mg PO DAILY 03/09/24 01/07/25 History finasteride 5 mg tablet 5 mg PO DAILY 03/09/24 01/07/25 History metoprolol succinate 25 mg 12.5 mg PO BID 03/09/24 01/07/25 History tablet,extended release 24 hr pyridoxine (vitamin B6) 100 mg PO DAILY 03/09/24 01/07/25 History quetiapine 50 mg tablet 50 mg PO Q12H 03/09/24 01/07/25 History sennosides 8.6 mg capsule (senna) 17.2 mg PO DAILY PRN Constipation 03/09/24 01/07/25 History sertraline 25 mg tablet 25 mg PO DAILY 03/09/24 01/07/25 History tamsulosin 0.4 mg capsule 0.4 mg PO HS 03/09/24 01/07/25 History cholecalciferol (vitamin D3) 10 10 mcg PO DAILY 05/02/24 01/07/25 History mcg (400 unit) tablet ferrous sulfate 325 mg (65 mg 325 mg PO DAILY 05/02/24 01/07/25 History iron) tablet,delayed release levothyroxine 150 mcg tablet 150 mcg PO DAILY 05/02/24 01/07/25 History albuterol sulfate 90 mcg/actuation 1 inh inhalation DAILY 01/07/25 01/07/25 History breath activated powder inhaler (ProAir RespiClick) budesonide 90 mcg/actuation breath 1 inh inhalation Q12H 01/07/25 01/07/25 History activated powder inhaler (Pulmicort Flexhaler) Allergies Allergy/AdvReac Type Severity Reaction Status Date / Time diphtheria toxoid,adsorbed Allergy Unknown Verified 01/07/25 10:37 fish derived Allergy Unknown Verified 01/07/25 10:37 iodine Allergy Unknown Verified 01/07/25 10:37 tetanus toxoid, adsorbed Allergy Unknown Verified 01/07/25 10:37 tositumomab Allergy Unknown Verified 01/07/25 10:37 Vital Signs Vital Signs - 24 hr 01/07/25 00:05 01/07/25 02:21 01/07/25 03:51 Temperature 97.9 F Pulse Rate 89 83 Respiratory Rate 21 H 17 Blood Pressure 142/90 H Pulse Oximetry 100 01/07/25 03:51 01/07/25 07:07 01/07/25 08:32 Temperature Pulse Rate 68 71 68 Respiratory Rate 20 18 Blood Pressure 147/75 H 167/79 H Pulse Oximetry 97 100 01/07/25 09:30 01/07/25 09:45 Temperature 97.1 F L 97.5 F L Pulse Rate 66 77 Respiratory Rate 18 14 Blood Pressure 147/66 H 113/62 Pulse Oximetry 97 98 Exam Const: General: comfortable and no acute distress Nutritional Appearance: average body habitus Orientation/consciousness: lethargic (opened his eyes but would not answer questions, nonverbal on my exam) HENMT: Head: normocephalic and atraumatic Eyes: General: appearance normal, both eyes and all related structures Pupils: Equal, round and reactive pupils present Neck: Neck: normal visual inspection and full ROM Resp: Effort & Inspection: normal respiratory effort Auscultation: clear to auscultation bilaterally Cardio: Rate: regular rate Rhythm: regular rhythm Peripheral pulses: Peripheral pulses 2+ throughout GI: Inspection: non-distended GI Palp: Yes Soft to palpation, No Tenderness to palpation present (GI), No Guarding due to palpation present (GI) and No Rebound tenderness present Auscultation: normal bowel sounds : Penis: Yes other (Urethral erosion from Barry catheter) Scrotum: scrotum normal Urinary Catheter: Urinary Catheter: patent and draining and urine clear Skin: General skin exam: normal color Neuro: General: moves all extremities and other (Exam limited, would not follow commands, confused at baseline) Extrem: General: normal to inspection and no edema Psych: Insight: Limited insight present (Psych) Judgement: Limited judgement present (Psych) Results Labs 01/07/25 02:03 01/07/25 02:03 Labs: Abnormal lab results 01/07/25 01/07/25 01/07/25 Range/Units 02:03 03:37 05:02 WBC 13.3 H (4.5-10.0) K/mm3 RBC 3.70 L (4.6-6.20) M/mm3 Hgb 11.6 L (14.0-18.0) g/dL Hct 35.3 L (42.0-52.0) % RDW 14.7 H (11.5-14.5) % Neut % (Auto) 84.3 H (45.5-73.1) % Lymph % (Auto) 9.9 L (18.3-44.2) % Abs Immat Gran (auto) 0.06 H (0.00-0.031) K/mm3 Absolute Neuts (auto) 11.2 H (1.3-6.7) K/mm3 PT 14.8 H (11.1-14.7) Seconds Chloride 110 H (98-107) mmol/L BUN 31 H D (9-20) mg/dL Glucose 146 H (65-110) mg/dL POC Capillary Glucose 148 H (65-105) mg/dl Alkaline Phosphatase 189 H (38-126) U/L Ammonia 36 H (9-30) umol/L Total Creatine Kinase 24 L (55-170) U/L Albumin 3.3 L (3.5-5.1) g/dL TSH 45.500 H (0.465-4.680) uIU/mL Free T4 0.49 L (0.78-2.19) ng/dL Free T3 pg/mL 2.29 L (2.34-5.61) pg/mL Urine Color (Yellow) Urine Appearance (Clear) Urine pH (5.0-9.0) Urine Protein (Negative) mg/dL Ur Blood (Man) (Negative) Urine Nitrate (Negative) Leukocyte Esterase Rfl (Negative) TONY/UL Urine RBC (0-2) /hpf Urine WBC (0-3) /hpf Salicylates < 1.0 L (2-20) mg/dL Urine Opiates Screen (Negative) Acetaminophen < 10 L (10-30) ug/mL 01/07/25 Range/Units 08:55 WBC (4.5-10.0) K/mm3 RBC (4.6-6.20) M/mm3 Hgb (14.0-18.0) g/dL Hct (42.0-52.0) % RDW (11.5-14.5) % Neut % (Auto) (45.5-73.1) % Lymph % (Auto) (18.3-44.2) % Abs Immat Gran (auto) (0.00-0.031) K/mm3 Absolute Neuts (auto) (1.3-6.7) K/mm3 PT (11.1-14.7) Seconds Chloride (98-107) mmol/L BUN (9-20) mg/dL Glucose (65-110) mg/dL POC Capillary Glucose (65-105) mg/dl Alkaline Phosphatase (38-126) U/L Ammonia (9-30) umol/L Total Creatine Kinase (55-170) U/L Albumin (3.5-5.1) g/dL TSH (0.465-4.680) uIU/mL Free T4 (0.78-2.19) ng/dL Free T3 pg/mL (2.34-5.61) pg/mL Urine Color [place] H (Yellow) Urine Appearance Turbid H (Clear) Urine pH >=9.0 H (5.0-9.0) Urine Protein 2+ H (Negative) mg/dL Ur Blood (Man) 3+ H (Negative) Urine Nitrate Positive H (Negative) Leukocyte Esterase Rfl 3+ H (Negative) TONY/UL Urine RBC >100 H (0-2) /hpf Urine WBC >100 H (0-3) /hpf Salicylates (2-20) mg/dL Urine Opiates Screen Positive A (Negative) Acetaminophen (10-30) ug/mL Diabetes panel 01/07/25 Range/Units 02:03 Sodium 141 (137-145) mmol/L Potassium 4.1 (3.4-5.0) mmol/L Chloride 110 H (98-107) mmol/L Carbon Dioxide 24 (22-30) mmol/L BUN 31 H D (9-20) mg/dL Creatinine 0.84 (0.7-1.3) mg/dL Glucose 146 H (65-110) mg/dL Calcium 9.6 (8.4-10.2) mg/dL AST 49 (17-59) U/L ALT 49 (6-50) U/L Alkaline Phosphatase 189 H (38-126) U/L Total Protein 7.0 (6.3-8.2) g/dL Albumin 3.3 L (3.5-5.1) g/dL Thyroid panel 01/07/25 Range/Units 02:03 TSH 45.500 H (0.465-4.680) uIU/mL Calcium panel 01/07/25 Range/Units 02:03 Calcium 9.6 (8.4-10.2) mg/dL Albumin 3.3 L (3.5-5.1) g/dL Pituitary panel 01/07/25 Range/Units 02:03 Sodium 141 (137-145) mmol/L Potassium 4.1 (3.4-5.0) mmol/L Chloride 110 H (98-107) mmol/L Carbon Dioxide 24 (22-30) mmol/L BUN 31 H D (9-20) mg/dL Creatinine 0.84 (0.7-1.3) mg/dL Glucose 146 H (65-110) mg/dL Calcium 9.6 (8.4-10.2) mg/dL TSH 45.500 H (0.465-4.680) uIU/mL Adrenal panel 01/07/25 Range/Units 02:03 Sodium 141 (137-145) mmol/L Potassium 4.1 (3.4-5.0) mmol/L Chloride 110 H (98-107) mmol/L Carbon Dioxide 24 (22-30) mmol/L BUN 31 H D (9-20) mg/dL Creatinine 0.84 (0.7-1.3) mg/dL Glucose 146 H (65-110) mg/dL Calcium 9.6 (8.4-10.2) mg/dL Total Bilirubin 0.5 (0.2-1.3) mg/dL AST 49 (17-59) U/L ALT 49 (6-50) U/L Alkaline Phosphatase 189 H (38-126) U/L Total Protein 7.0 (6.3-8.2) g/dL Albumin 3.3 L (3.5-5.1) g/dL All other labs normal. Imaging Additional studies: ITS Impressions Cervical Spine CT 01/07/25 06:08 Impression: No acute fracture or subluxation of the cervical spine. Stable degenerative spondylosis. Head CT 01/07/25 06:10 Impression: No intracranial hemorrhage, mass, or acute infarct. 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 Atrophy and chronic white matter changes, as above. Chest X-Ray 01/07/25 06:12 Impression: Chronic right costophrenic angle blunting versus minimal pleural effusion. Appearance is stable from prior exam. Status post CABG. Elbow X-Ray 01/07/25 06:12 Impression: Moderate osteoarthritis throughout the elbow joint. No acute fracture or dislocation seen. Shoulder X-Ray 01/07/25 06:13 Impression: Loose bodies in the axillary pouch, similar to prior exam. Stable degenerative changes. No acute abnormality seen. Chest/Abdomen/Pelvis CT 01/07/25 06:18 Impression: Mild to moderate hydroureteronephrosis, likely related to bladder outlet obstruction. No obstructing stone or mass evident. Markedly distended urinary bladder with multiple small layering stones, and Barry catheter in place. [id number] emphysema. Stable small spiculated nodule/density in the right upper lobe, as detailed above. Possible mild wall thickening of the distal rectum. Correlate for proctitis.
[2025-01-07] MEDS: DOCUSATE SODIUM 100 MG CAPSULE PO (17:42)
[2025-01-08 00:12] VITALS: PULSE 56
[2025-01-08] MEDS: METOPROLOL SUCCINATE EXT REL 12.5 MG TABCR PO ×3 (00:12→20:52)
[2025-01-08] MEDS: ATORVASTATIN 40 MG TABLET 80 MG PO ×2 (00:12→20:49)
[2025-01-08] MEDS: TAMSULOSIN HCL 0.4 MG CAPSULE PO ×2 (00:12→20:50)
[2025-01-08 00:25] LABS: Glucose Point of Care 86 mg/dl (65-105)
[2025-01-08] MEDS: LEVOTHYROXINE SODIUM 150 MCG TABLET PO (05:20)
[2025-01-08 06:00] VITALS: BP 119/67; PULSE 67; RESP 20; TEMP 36.4; O2SAT 95
[2025-01-08 07:55] LABS: Basophils Absolute Auto 0.1 K/mm3 (0.0-0.1); Basophils Percent Auto 0.5 % (0.2-1.2); Eosinophils Absolute Auto 0.2 K/mm3 (0-0.3); Eosinophils Percent Auto 2.6 % (0-4.4); Hematocrit 31.3 % (42.0-52.0); Hemoglobin 9.7 g/dL (14.0-18.0); Immature Granulocyte Absolute 0.03 K/mm3 (0.00-0.031); Immature Granulocyte Percent A 0.3 % (0-0.5); Lymphocytes Absolute Auto 1.19 K/mm3 (0.9-3.2); Mean Corpuscular Hemoglobin 30.6 pg (26-34); Mean Corpuscular Volume 98.7 fl (80-100); Mean Platelet Volume 9.4 fl (7.4-10.4); Monocytes Absolute Auto 0.5 K/mm3 (0.1-0.6); Monocytes Percent Auto 5.3 % (2.6-8.5); Neutrophils Absolute Auto 7.1 K/mm3 (1.3-6.7); Neutrophils Percent Auto 78.3 % (45.5-73.1); Platelet Count Result 197 k/mm3 (150-375); Red Blood Count 3.17 M/mm3 (4.6-6.20); Red Cell Distribution Width 14.9 % (11.5-14.5); White Blood Count 9.1 K/mm3 (4.5-10.0)
[2025-01-08 08:17] LABS: Anion Gap 4 mmol/L (4-12); Blood Urea Nitrogen 17 mg/dL (9-20); Carbon Dioxide 26 mmol/L (22-30); Chloride 113 mmol/L (98-107); Estimated Glomerular Filt Rate > 60; Glucose 81 mg/dL (65-110); Potassium 3.5 mmol/L (3.4-5.0); Sodium 143 mmol/L (137-145)
[2025-01-08 09:02] VITALS: PULSE 80
[2025-01-08] MEDS: FERROUS SULFATE 325 MG TABLET DR PO (09:02)
[2025-01-08] MEDS: FINASTERIDE 5 MG TABLET PO (09:02)
[2025-01-08] MEDS: DOCUSATE SODIUM 100 MG CAPSULE PO ×2 (09:02→18:44)
[2025-01-08] MEDS: CLOPIDOGREL BISULFATE 75 MG TABLET PO (09:02)
[2025-01-08] MEDS: SERTRALINE HCL 25 MG TABLET PO (09:02)
[2025-01-08] MEDS: ENOXAPARIN 30 MG/0.3 ML SYRINGE SUB-Q (09:04)
[2025-01-08] MEDS: FLUTICASONE PROP 44 MCG (*SP) 10.6 GM 2 PUFF INHALATION ×2 (09:33→22:09)
--- NOTE | 2025-01-08 10:58 | WPDUROPN2 ---
Progress Note: A&P Assessment and Plan (1) Hydronephrosis: Code(s): N13.30 - Unspecified hydronephrosis Status: Acute Assessment and Plan: Possibly 2/2 catheter obstruction and/or chronic in nature. Can have a repeat ultrasound 01/10/25 to see if hydronephrosis has decreased. (2) Chronic indwelling Barry catheter: Code(s): Z97.8 - Presence of other specified devices Status: Chronic Assessment and Plan: Exchanged by Dr. Higginbotham at bedside 01/07/25 (3) Acute on chronic urinary retention: Code(s): R33.9 - Retention of urine, unspecified Status: Acute Assessment and Plan: Acute on chronic 2/2 obstructed catheter (4) UTI (urinary tract infection) due to urinary indwelling Barry catheter: Qualifiers: Indwelling urinary catheter type: indwelling urethral catheter Encounter type: initial encounter Qualified Code(s): T83.511A - Infection and inflammatory reaction due to indwelling urethral catheter, initial encounter; N39.0 - Urinary tract infection, site not specified Code(s): T83.511A - Infection and inflammatory reaction due to indwelling urethral catheter, initial encounter; N39.0 - Urinary tract infection, site not specified Status: Suspected Assessment and Plan: Present on admission Urine culture pending (5) Obstruction of Barry catheter: Qualifiers: Encounter type: initial encounter Qualified Code(s): T83.091A - Other mechanical complication of indwelling urethral catheter, initial encounter Code(s): T83.091A - Other mechanical complication of indwelling urethral catheter, initial encounter Status: Chronic Assessment and Plan: Encrusted on admission. Required urology consultation to remove old catheter. Date of last Barry exchange at nursing facility unknown. Resolved. Plan - Agree with culture-directed antibiotics for suspected CAUTI. - DAYO ordered for 01/10/25 to reassess hydronephrosis now that catheter is draining freely. - Maintain indwelling Barry catheter properly secured to upper thigh AND off tension. He requires daily and PRN genital hygiene to reduce incidence of CAUTI. - Plan for monthly Barry exchange at nursing facility every 3-4 weeks (Next due 02/04/25) - No plan for inpatient urologic surgical intervention. Subjective Subjective Date/Time Seen: 01/08/25 10:58 Interval history: NAEO; Patient resting comfortably in bed. Indwelling Barry draining clear yellow urine. Exam Const: General: comfortable and no acute distress Resp: Effort & Inspection: normal respiratory effort Urinary Catheter: Urinary Catheter: patent and draining and urine clear Psych: Affect: normal affect Objective Data Vital Signs Vital Signs: Vital Signs - 24 hr 01/07/25 14:00 01/07/25 20:00 01/07/25 22:00 Temperature 97.8 F 97.3 F L Pulse Rate 66 66 81 Respiratory Rate 18 18 20 Blood Pressure 140/60 131/62 Pulse Oximetry 96 96 100 Oxygen Delivery Room Air 01/08/25 00:12 01/08/25 06:00 01/08/25 09:02 Temperature 97.5 F L Pulse Rate 56 L 67 80 Respiratory Rate 20 Blood Pressure 119/67 Pulse Oximetry 95 Oxygen Delivery Intake/Output Intake/Output: Intake & Output 01/05/25 01/06/25 01/07/25 01/08/25 23:59 23:59 23:59 23:59 Intake Total 3050 490 Output Total 800 750 Balance 2250 -260 Meds/Results Medications: Active Medications Generic Name Dose Route Start Last Admin Trade Name Freq PRN Reason Stop Dose Admin Acetaminophen 650 mg 01/07/25 08:05 Acetaminophen 325 Mg Tablet PO Q4H PRN Mild Pain (1-3) or Fever Hydrocodone Bitart/Acetaminophen 1 tab 01/07/25 13:00 Hydrocodone/Acetaminophen (*Crx) 5-325 Mg Tablet PO Q4H PRN Moderate Pain (4-6) Albuterol 1 puff 01/08/25 09:00 Albuterol Sulfate (*Sp) Aerosol 1 Puff INHALATION DAILY SAYRA Albuterol 2 puff 01/07/25 23:18 Albuterol Sulfate (*Sp) Aerosol 1 Puff INHALATION Q6H PRN Wheezing Atorvastatin Calcium 80 mg 01/07/25 23:30 01/08/25 00:12 Atorvastatin 40 Mg Tablet PO 80 mg HS SAYRA Administration Clopidogrel Bisulfate 75 mg 01/08/25 09:00 01/08/25 09:02 Clopidogrel Bisulfate 75 Mg Tablet PO 75 mg DAILY SAYRA Administration Docusate Sodium 100 mg 01/07/25 17:00 01/08/25 09:02 Docusate Sodium 100 Mg Capsule PO 100 mg BID SAYRA Administration Enoxaparin Sodium 30 mg 01/08/25 09:00 01/08/25 09:04 Enoxaparin 30 Mg/0.3 Ml Syringe SUB-Q 30 mg DAILY SAYRA Administration Ferrous Sulfate 325 mg 01/08/25 09:00 01/08/25 09:02 Ferrous Sulfate [address] PO 325 mg DAILY SAYRA Administration Finasteride 5 mg 01/08/25 09:00 01/08/25 09:02 Finasteride 5 Mg Tablet PO 5 mg DAILY SAYRA Administration Fluticasone Propionate 2 puff 01/07/25 23:30 01/08/25 09:33 Fluticasone Prop 44 Mcg (*Sp) 10.6 Gm INHALATION 2 puff Q12HRT SAYRA Administration Ceftriaxone Sodium 1 gm in 50 mls @ 100 mls/hr 01/07/25 14:00 01/07/25 14:54 Rocephin 1 Gm/Ns 50 Ml IVPB 100 mls/hr Q24H SAYRA Administration Levothyroxine Sodium 150 mcg 01/08/25 06:30 01/08/25 05:20 Levothyroxine Sodium 150 Mcg Tablet PO 150 mcg DAILY@0630 SAYRA Administration Metoprolol Succinate 12.5 mg 01/07/25 23:30 01/08/25 09:02 Metoprolol Succinate Ext Rel 12.5 Mg Tabcr PO 12.5 mg Q12HR SAYRA Administration Morphine Sulfate 4 mg 01/07/25 08:05 Morphine Sulfate (*Crx) 4 Mg/Ml Inj IV PUSH Q2H PRN Pain Rated 7-10 Ondansetron HCl 4 mg 01/07/25 08:05 Ondansetron Inj 4 Mg/2 Ml Vial IV PUSH Q4H PRN Nausea Sertraline HCl 25 mg 01/08/25 09:00 01/08/25 09:02 Sertraline Hcl 25 Mg Tablet PO 25 mg DAILY SAYRA Administration Tamsulosin HCl 0.4 mg 01/07/25 23:30 01/08/25 00:12 Tamsulosin Hcl 0.4 Mg Capsule PO 0.4 mg HS SAYRA Administration Radiology Results: ITS Impressions Cervical Spine CT 01/07/25 06:08 Impression: No acute fracture or subluxation of the cervical spine. Stable degenerative spondylosis. Head CT 01/07/25 06:10 Impression: No intracranial hemorrhage, mass, or acute infarct. 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 Atrophy and chronic white matter changes, as above. Chest X-Ray 01/07/25 06:12 Impression: Chronic right costophrenic angle blunting versus minimal pleural effusion. Appearance is stable from prior exam. Status post CABG. Elbow X-Ray 01/07/25 06:12 Impression: Moderate osteoarthritis throughout the elbow joint. No acute fracture or dislocation seen. Shoulder X-Ray 01/07/25 06:13 Impression: Loose bodies in the axillary pouch, similar to prior exam. Stable degenerative changes. No acute abnormality seen. Chest/Abdomen/Pelvis CT 01/07/25 06:18 Impression: Mild to moderate hydroureteronephrosis, likely related to bladder outlet obstruction. No obstructing stone or mass evident. Markedly distended urinary bladder with multiple small layering stones, and Barry catheter in place. [id number] emphysema. Stable small spiculated nodule/density in the right upper lobe, as detailed above. Possible mild wall thickening of the distal rectum. Correlate for proctitis. Labs Labs: Laboratory Results - last 24 hr 01/08/25 01/08/25 00:22 07:19 WBC 9.1 RBC 3.17 L Hgb 9.7 L Hct 31.3 L MCV 98.7 MCH 30.6 MCHC 31.0 L RDW 14.9 H Plt Count 197 MPV 9.4 Immature Gran % (Auto) 0.3 Neut % (Auto) 78.3 H Lymph % (Auto) 13.0 L [place] % (Auto) 5.3 Eos % (Auto) 2.6 Baso % (Auto) 0.5 Lymph # (Auto) 1.19 [place] # (Auto) 0.5 Eos # (Auto) 0.2 Baso # (Auto) 0.1 Abs Immat Gran (auto) 0.03 Absolute Neuts (auto) 7.1 H Absolute Nucleated RBC 0.000 Nucleated RBC % 0.0 Sodium 143 Potassium 3.5 Chloride 113 H Carbon Dioxide 26 Anion Gap 4 BUN 17 D Creatinine 0.64 L Estim Creat Clear Calc Not Reportable Estimated GFR > 60 Glucose 81 POC Capillary Glucose 86 Calcium 9.0
--- NOTE | 2025-01-08 11:21 | PM.IMPN ---
Progress Note: A&P Assessment and Plan (1) Hypertension: Code(s): I10 - Essential (primary) hypertension Status: Acute (2) Severe protein-calorie malnutrition: Code(s): E43 - Unspecified severe protein-calorie malnutrition Status: Acute (3) UTI (urinary tract infection) due to urinary indwelling Barry catheter: Qualifiers: Encounter type: initial encounter Indwelling urinary catheter type: indwelling urethral catheter Qualified Code(s): T83.511A - Infection and inflammatory reaction due to indwelling urethral catheter, initial encounter; N39.0 - Urinary tract infection, site not specified Code(s): T83.511A - Infection and inflammatory reaction due to indwelling urethral catheter, initial encounter; N39.0 - Urinary tract infection, site not specified Status: Suspected (4) Sepsis: Code(s): A41.9 - Sepsis, unspecified organism Status: Resolved Plan (1) Altered mental status: Code(s): R41.82 - Altered mental status, unspecified Status: Acute Assessment and Plan: Likely from UTI and dehydration versus baseline dementia versus other UA positive Blood cultures pending Patient is able to answer questions, not oriented x3, Complicated UTI (urinary tract infection) due to urinary indwelling Barry catheter: Qualifiers: Encounter type: initial encounter Indwelling urinary catheter type: indwelling urethral catheter Qualified Code(s): T83.511A - Infection and inflammatory reaction due to indwelling urethral catheter, initial encounter; N39.0 - Urinary tract infection, site not specified Code(s): T83.511A - Infection and inflammatory reaction due to indwelling urethral catheter, initial encounter; N39.0 - Urinary tract infection, site not specified Status: Ruled-out Assessment and Plan: Given cefepime, Cipro, Flagyl, and 3 L normal saline bolus in the emergency room Continue antibiotics Barry catheter exchange by Urology CT scan that would suggest a possible colovesical fistula Consulted general surgeon, doubt fistula monitor Dehydration Upon arrival to ED, elevated BUN creatinine ratio 31/0.84, dehydration Start normal saline IV Erosion of urethra: Code(s): N36.8 - Other specified disorders of urethra Status: Acute Assessment and Plan: Secondary to chronic Barry, and poor ramirez Care, neglect? ? Barry placed by [facility]rology Online report filed with Adult protective service Hypothyroidism: Qualifiers: Hypothyroidism type: unspecified Qualified Code(s): E03.9 - Hypothyroidism, unspecified Code(s): E03.9 - Hypothyroidism, unspecified Status: Chronic Assessment and Plan: TSH high at 45.5, free T4 low at 0.49, free T3 low at 2.29 Home dose Synthroid 150 mcg (5) Heart failure with preserved ejection fraction: Code(s): I50.30 - Unspecified diastolic (congestive) heart failure Status: Acute Assessment and Plan: Not on diuretics Monitor for fluid overload (6) Proctitis: Code(s): K62.89 - Other specified diseases of anus and rectum Status: Acute Assessment and Plan: GI consulted pending recommendations (7) Hydronephrosis: Code(s): N13.30 - Unspecified hydronephrosis Status: Acute Assessment and Plan: Urology consult Plan for repeat scan (8) Dementia: Qualifiers: Dementia behavioral or psychological symptom: with other behavioral disturbance Dementia severity: severe Dementia type: vascular dementia Qualified Code(s): F01.C18 - Vascular dementia, severe, with other behavioral disturbance Code(s): F03.90 - Unspecified dementia, unspecified severity, without behavioral disturbance, psychotic disturbance, mood disturbance, and anxiety Status: Chronic Assessment and Plan: Holding Seroquel due to patient being drowsy Continue Zoloft Subjective Date/time seen: 01/08/25 11:21 Interval history: I saw examined the patient today, patient still has lower abdomen pain, Barry catheter in-situ, clear urine drained out. Patient does not have obvious distress. Exam Narrative: GENERAL: Ill-appearing, in no acute distress. Well-nourished. - EYES: EOMI. Anicteric. - HENT: Moist mucous membranes. - LUNGS: Clear to auscultation bilaterally, no wheezing, rhonchi, or rales. - CARDIOVASCULAR: Regular rate and rhythm. No murmur. No JVD. - ABDOMEN: Soft, non-tender and non-distended. No palpable masses. - EXTREMITIES: No edema. Peripheral pulses 2+. Non-tender. - NEUROLOGIC: No focal neurological deficits. CN II-XII grossly intact. - PSYCHIATRIC: Awake, Alert and not oriented x 3. Appropriate mood and affect. - SKIN: No rashes or lesions. Warm. - LYMPH: No cervical lymphadenopathy. Objective Data Vital Signs Vital Signs: Vital Signs - 24 hr 01/07/25 14:00 01/07/25 20:00 01/07/25 22:00 Temperature 97.8 F 97.3 F L Pulse Rate 66 66 81 Respiratory Rate 18 18 20 Blood Pressure 140/60 131/62 Pulse Oximetry 96 96 100 Oxygen Delivery Room Air 01/08/25 00:12 01/08/25 06:00 01/08/25 09:02 Temperature 97.5 F L Pulse Rate 56 L 67 80 Respiratory Rate 20 Blood Pressure 119/67 Pulse Oximetry 95 Oxygen Delivery Intake/Output Intake/Output: Intake & Output 01/05/25 01/06/25 01/07/25 01/08/25 23:59 23:59 23:59 23:59 Intake Total 3050 490 Output Total 800 750 Balance 2250 -260 Meds/Results Medications: Active Medications Generic Name Dose Route Start Last Admin Trade Name Freq PRN Reason Stop Dose Admin Acetaminophen 650 mg 01/07/25 08:05 Acetaminophen 325 Mg Tablet PO Q4H PRN Mild Pain (1-3) or Fever Hydrocodone Bitart/Acetaminophen 1 tab 01/07/25 13:00 Hydrocodone/Acetaminophen (*Crx) 5-325 Mg Tablet PO Q4H PRN Moderate Pain (4-6) Albuterol 1 puff 01/08/25 09:00 Albuterol Sulfate (*Sp) Aerosol 1 Puff INHALATION DAILY [facility] Albuterol 2 puff 01/07/25 23:18 Albuterol Sulfate (*Sp) Aerosol 1 Puff INHALATION Q6H PRN Wheezing Atorvastatin Calcium 80 mg 01/07/25 23:30 01/08/25 00:12 Atorvastatin 40 Mg Tablet PO 80 mg HS SAYRA Administration Clopidogrel Bisulfate 75 mg 01/08/25 09:00 01/08/25 09:02 Clopidogrel Bisulfate 75 Mg Tablet PO 75 mg DAILY SAYRA Administration Docusate Sodium 100 mg 01/07/25 17:00 01/08/25 09:02 Docusate Sodium 100 Mg Capsule PO 100 mg BID SAYRA Administration Enoxaparin Sodium 30 mg 01/08/25 09:00 01/08/25 09:04 Enoxaparin 30 Mg/0.3 Ml Syringe SUB-Q 30 mg DAILY SAYRA Administration Ferrous Sulfate 325 mg 01/08/25 09:00 01/08/25 09:02 Ferrous Sulfate [address] PO 325 mg DAILY SAYRA Administration Finasteride 5 mg 01/08/25 09:00 01/08/25 09:02 Finasteride 5 Mg Tablet PO 5 mg DAILY SAYRA Administration Fluticasone Propionate 2 puff 01/07/25 23:30 01/08/25 09:33 Fluticasone Prop 44 Mcg (*Sp) 10.6 Gm INHALATION 2 puff Q12HRT SAYRA Administration Ceftriaxone Sodium 1 gm in 50 mls @ 100 mls/hr 01/07/25 14:00 01/07/25 14:54 Rocephin 1 Gm/Ns 50 Ml IVPB 100 mls/hr Q24H SAYRA Administration Levothyroxine Sodium 150 mcg 01/08/25 06:30 01/08/25 05:20 Levothyroxine Sodium 150 Mcg Tablet PO 150 mcg DAILY@0630 SAYRA Administration Metoprolol Succinate 12.5 mg 01/07/25 23:30 01/08/25 09:02 Metoprolol Succinate Ext Rel 12.5 Mg Tabcr PO 12.5 mg Q12HR SAYRA Administration Morphine Sulfate 4 mg 01/07/25 08:05 Morphine Sulfate (*Crx) 4 Mg/Ml Inj IV PUSH Q2H PRN Pain Rated 7-10 Ondansetron HCl 4 mg 01/07/25 08:05 Ondansetron Inj 4 Mg/2 Ml Vial IV PUSH Q4H PRN Nausea Sertraline HCl 25 mg 01/08/25 09:00 01/08/25 09:02 Sertraline Hcl 25 Mg Tablet PO 25 mg DAILY SAYRA Administration Tamsulosin HCl 0.4 mg 01/07/25 23:30 01/08/25 00:12 Tamsulosin Hcl 0.4 Mg Capsule PO 0.4 mg HS SAYRA Administration Radiology Results: ITS Impressions Cervical Spine CT 01/07/25 06:08 Impression: No acute fracture or subluxation of the cervical spine. Stable degenerative spondylosis. Head CT 01/07/25 06:10 Impression: No intracranial hemorrhage, mass, or acute infarct. 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 Atrophy and chronic white matter changes, as above. Chest X-Ray 01/07/25 06:12 Impression: Chronic right costophrenic angle blunting versus minimal pleural effusion. Appearance is stable from prior exam. Status post CABG. Elbow X-Ray 01/07/25 06:12 Impression: Moderate osteoarthritis throughout the elbow joint. No acute fracture or dislocation seen. Shoulder X-Ray 01/07/25 06:13 Impression: Loose bodies in the axillary pouch, similar to prior exam. Stable degenerative changes. No acute abnormality seen. Chest/Abdomen/Pelvis CT 01/07/25 06:18 Impression: Mild to moderate hydroureteronephrosis, likely related to bladder outlet obstruction. No obstructing stone or mass evident. Markedly distended urinary bladder with multiple small layering stones, and Barry catheter in place. [id number] emphysema. Stable small spiculated nodule/density in the right upper lobe, as detailed above. Possible mild wall thickening of the distal rectum. Correlate for proctitis. Labs Labs: Laboratory Results - last 24 hr 01/08/25 01/08/25 00:22 07:19 WBC 9.1 RBC 3.17 L Hgb 9.7 L Hct 31.3 L MCV 98.7 MCH 30.6 MCHC 31.0 L RDW 14.9 H Plt Count 197 MPV 9.4 Immature Gran % (Auto) 0.3 Neut % (Auto) 78.3 H Lymph % (Auto) 13.0 L [place] % (Auto) 5.3 Eos % (Auto) 2.6 Baso % (Auto) 0.5 Lymph # (Auto) 1.19 [place] # (Auto) 0.5 Eos # (Auto) 0.2 Baso # (Auto) 0.1 Abs Immat Gran (auto) 0.03 Absolute Neuts (auto) 7.1 H Absolute Nucleated RBC 0.000 Nucleated RBC % 0.0 Sodium 143 Potassium 3.5 Chloride 113 H Carbon Dioxide 26 Anion Gap 4 BUN 17 D Creatinine 0.64 L Estim Creat Clear Calc Not Reportable Estimated GFR > 60 Glucose 81 POC Capillary Glucose 86 Calcium 9.0
[2025-01-08 11:57] VITALS: BMI 20.9
[2025-01-08] MEDS: DEXTROSE 5%/0.9% SOD CHL 1,000 ML 80 ML IV CONT (13:39)
[2025-01-08 14:56] VITALS: BP 107/53; PULSE 75; RESP 18; TEMP 37.3; O2SAT 98
[2025-01-08 20:51] LABS: Glucose Point of Care 92 mg/dl (65-105)
[2025-01-08 20:52] VITALS: PULSE 69
[2025-01-08 21:38] VITALS: BP 128/67; PULSE 67; RESP 20; TEMP 36.4; O2SAT 99
[2025-01-08] MEDS: ALBUTEROL SULFATE (*SP) AEROSOL 1 PUFF INHALATION (22:09)
[2025-01-09] VITALS (7 sets, daily range): BP systolic 115–144; BP diastolic 67–111; PULSE 60–79; RESP 16–20; TEMP 36.6–36.9; O2SAT 96–100
[2025-01-09 00:09] LABS: Glucose Point of Care 91 mg/dl (65-105)
[2025-01-09] MEDS: DEXTROSE 5%/0.9% SOD CHL 1,000 ML 80 ML IV CONT ×2 (01:20→16:33)
[2025-01-09 05:50] LABS: Glucose Point of Care 95 mg/dl (65-105)
[2025-01-09] MEDS: ALBUTEROL SULFATE (*SP) AEROSOL 1 PUFF INHALATION (08:31)
[2025-01-09] MEDS: FLUTICASONE PROP 44 MCG (*SP) 10.6 GM 2 PUFF INHALATION ×2 (08:31→20:20)
[2025-01-09] MEDS: SERTRALINE HCL 25 MG TABLET PO (09:18)
[2025-01-09] MEDS: METOPROLOL SUCCINATE EXT REL 12.5 MG TABCR PO ×2 (09:18→20:17)
[2025-01-09] MEDS: FINASTERIDE 5 MG TABLET PO (09:19)
[2025-01-09] MEDS: FERROUS SULFATE 325 MG TABLET DR PO (09:19)
[2025-01-09] MEDS: DOCUSATE SODIUM 100 MG CAPSULE PO (09:19)
[2025-01-09] MEDS: ENOXAPARIN 30 MG/0.3 ML SYRINGE SUB-Q (09:19)
[2025-01-09] MEDS: CLOPIDOGREL BISULFATE 75 MG TABLET PO (09:19)
[2025-01-09 12:04] LABS: Glucose Point of Care 85 mg/dl (65-105)
[2025-01-09] MEDS: ATORVASTATIN 40 MG TABLET 80 MG PO (20:17)
[2025-01-09] MEDS: TAMSULOSIN HCL 0.4 MG CAPSULE PO (20:17)
[2025-01-10 02:39] LABS: Glucose Point of Care 119 mg/dl (65-105)
[2025-01-10] MEDS: DEXTROSE 5%/0.9% SOD CHL 1,000 ML 80 ML IV CONT (04:57)
[2025-01-10] MEDS: LEVOTHYROXINE SODIUM 150 MCG TABLET PO (04:57)
[2025-01-10 06:48] VITALS: BP 145/65; PULSE 63; RESP 16; TEMP 36.7; O2SAT 98
[2025-01-10 09:15] VITALS: PULSE 63
[2025-01-10] MEDS: METOPROLOL SUCCINATE EXT REL 12.5 MG TABCR PO ×2 (09:15→20:01)
[2025-01-10] MEDS: CLOPIDOGREL BISULFATE 75 MG TABLET PO (09:15)
[2025-01-10] MEDS: DOCUSATE SODIUM 100 MG CAPSULE PO ×2 (09:15→16:55)
[2025-01-10] MEDS: SERTRALINE HCL 25 MG TABLET PO (09:15)
[2025-01-10] MEDS: FINASTERIDE 5 MG TABLET PO (09:15)
[2025-01-10] MEDS: FERROUS SULFATE 325 MG TABLET DR PO (09:15)
[2025-01-10] MEDS: ENOXAPARIN 30 MG/0.3 ML SYRINGE SUB-Q (09:16)
--- NOTE | 2025-01-10 09:31 | PCNFU ---
Nutrition Follow-Up Complete: Unintentional weight loss related to chronic dementia, as evidenced by weight loss 8%/4 months Adequate PO intake at least 75% meals and supplements - Slow progress. Intakes 0-100% Goal: Pt current nutrition is 2 g Na diet. Ensure Enlive BID (350 kcal, 20 g protein each). Nutrition recommendation: No new recommendations. Continue current nutrition care plan and orders.. Agree with orders Last recorded weight is 62.6 kg. Bowel Motility: No BMs are charted Labs Reviewed: No labs since 01/09 Meds Noted:Colace, Zofran Skin: No pressure injuries Additional Notes: Intakes vary, pt has some confusion. Continue current care plan and orders. Monitoring intakes, weights, labs, supplement tolerance, plan of care Follow up in 5 days
[2025-01-10] MEDS: ALBUTEROL SULFATE (*SP) AEROSOL 1 PUFF INHALATION (10:26)
[2025-01-10] MEDS: FLUTICASONE PROP 44 MCG (*SP) 10.6 GM 2 PUFF INHALATION ×2 (10:26→20:43)
[2025-01-10 10:29] VITALS: O2SAT 97
--- NOTE | 2025-01-10 11:43 | WPDUROPN2 ---
Progress Note: A&P Assessment and Plan (1) Hydronephrosis: Code(s): N13.30 - Unspecified hydronephrosis Status: Acute Assessment and Plan: Possibly 2/2 catheter obstruction and/or chronic in nature. Resolved, confirmed with repeat ultrasound 01/10/25 (2) Chronic indwelling Barry catheter: Code(s): Z97.8 - Presence of other specified devices Status: Chronic Assessment and Plan: Exchanged by Dr. Higginbotham at bedside 01/07/25 (3) Acute on chronic urinary retention: Code(s): R33.9 - Retention of urine, unspecified Status: Acute Assessment and Plan: Acute on chronic 2/2 obstructed catheter Resolved with catheter exchange. (4) UTI (urinary tract infection) due to urinary indwelling Barry catheter: Qualifiers: Indwelling urinary catheter type: indwelling urethral catheter Encounter type: initial encounter Qualified Code(s): T83.511A - Infection and inflammatory reaction due to indwelling urethral catheter, initial encounter; N39.0 - Urinary tract infection, site not specified Code(s): T83.511A - Infection and inflammatory reaction due to indwelling urethral catheter, initial encounter; N39.0 - Urinary tract infection, site not specified Status: Suspected Assessment and Plan: Present on admission Urine culture growing Proteus Mirabilis (5) Obstruction of Barry catheter: Qualifiers: Encounter type: initial encounter Qualified Code(s): T83.091A - Other mechanical complication of indwelling urethral catheter, initial encounter Code(s): T83.091A - Other mechanical complication of indwelling urethral catheter, initial encounter Status: Chronic Assessment and Plan: Encrusted on admission. Required urology consultation to remove old catheter. Date of last Barry exchange at nursing facility unknown. Resolved. Plan - Agree with culture-directed antibiotics for CAUTI. Oral abx per medicine service. - Maintain indwelling Barry catheter properly secured to upper thigh AND off tension. He requires daily and PRN genital hygiene to reduce incidence of CAUTI. - Plan for monthly Barry exchange at nursing facility every 3-4 weeks (Next due 02/04/25) - No plan for inpatient urologic surgical intervention. Urologically cleared for discharge. Signing off. Please call with questions. Subjective Subjective Date/Time Seen: 01/10/25 11:43 Interval history: NAEO Proteus Mirabilis CAUTI Renal ultrasound this morning shows resolution of hydronephrosis Urologically cleared for discharge pending transition to oral abx Objective Data Vital Signs Vital Signs: Vital Signs - 24 hr 01/09/25 14:00 01/09/25 20:00 01/09/25 21:57 Temperature 97.9 F 98.5 F Pulse Rate 63 63 63 Respiratory Rate 20 20 16 Blood Pressure 115/67 125/72 Pulse Oximetry 100 100 98 Oxygen Delivery Room Air 01/10/25 06:48 01/10/25 09:15 01/10/25 10:29 Temperature 98.0 F Pulse Rate 63 63 Respiratory Rate 16 Blood Pressure 145/65 H Pulse Oximetry 98 97 Oxygen Delivery Room Air Intake/Output Intake/Output: Intake & Output 01/07/25 01/08/25 01/09/25 01/10/25 23:59 23:59 23:59 23:59 Intake Total 3100 780 2299.7 1640 Output Total 800 1050 2125 950 Balance 2300 -270 174.7 690 Meds/Results Medications: Active Medications Generic Name Dose Route Start Last Admin Trade Name Freq PRN Reason Stop Dose Admin Acetaminophen 650 mg 01/07/25 08:05 Acetaminophen 325 Mg Tablet PO Q4H PRN Mild Pain (1-3) or Fever Hydrocodone Bitart/Acetaminophen 1 tab 01/07/25 13:00 Hydrocodone/Acetaminophen (*Crx) 5-325 Mg Tablet PO Q4H PRN Moderate Pain (4-6) Albuterol 1 puff 01/08/25 09:00 01/10/25 10:26 Albuterol Sulfate (*Sp) Aerosol 1 Puff INHALATION 1 puff DAILY SAYRA Administration Albuterol 2 puff 01/07/25 23:18 Albuterol Sulfate (*Sp) Aerosol 1 Puff INHALATION Q6H PRN Wheezing Atorvastatin Calcium 80 mg 01/07/25 23:30 01/09/25 20:17 Atorvastatin 40 Mg Tablet PO 80 mg HS SAYRA Administration Clopidogrel Bisulfate 75 mg 01/08/25 09:00 01/10/25 09:15 Clopidogrel Bisulfate 75 Mg Tablet PO 75 mg DAILY SAYRA Administration Docusate Sodium 100 mg 01/07/25 17:00 01/10/25 09:15 Docusate Sodium 100 Mg Capsule PO 100 mg BID SAYRA Administration Enoxaparin Sodium 30 mg 01/08/25 09:00 01/10/25 09:16 Enoxaparin 30 Mg/0.3 Ml Syringe SUB-Q 30 mg DAILY SAYRA Administration Ferrous Sulfate 325 mg 01/08/25 09:00 01/10/25 09:15 Ferrous Sulfate [address] PO 325 mg DAILY SAYRA Administration Finasteride 5 mg 01/08/25 09:00 01/10/25 09:15 Finasteride 5 Mg Tablet PO 5 mg DAILY SAYRA Administration Fluticasone Propionate 2 puff 01/07/25 23:30 01/10/25 10:26 Fluticasone Prop 44 Mcg (*Sp) 10.6 Gm INHALATION 2 puff Q12HRT SAYRA Administration Ceftriaxone Sodium 1 gm in 50 mls @ 100 mls/hr 01/07/25 14:00 01/09/25 13:28 Rocephin 1 Gm/Ns 50 Ml IVPB 100 mls/hr Q24H SAYRA Administration Dextrose/Sodium Chloride 1,000 mls @ 80 mls/hr 01/08/25 11:35 01/10/25 04:57 Dextrose 5% Sodium Chloride 0.9% IV CONT 80 mls/hr .[id number] SAYRA Administration Levothyroxine Sodium 150 mcg 01/08/25 06:30 01/10/25 04:57 Levothyroxine Sodium 150 Mcg Tablet PO 150 mcg DAILY@0630 SAYRA Administration Lidocaine HCl 10 ml 01/08/25 15:28 Lidocaine 2% Gel Urojet 10 Ml Pkg MUCOUS MEM Q3HR PRN Pain Metoprolol Succinate 12.5 mg 01/07/25 23:30 01/10/25 09:15 Metoprolol Succinate Ext Rel 12.5 Mg Tabcr PO 12.5 mg Q12HR SAYRA Administration Morphine Sulfate 4 mg 01/07/25 08:05 Morphine Sulfate (*Crx) 4 Mg/Ml Inj IV PUSH Q2H PRN Pain Rated 7-10 Ondansetron HCl 4 mg 01/07/25 08:05 Ondansetron Inj 4 Mg/2 Ml Vial IV PUSH Q4H PRN Nausea Sertraline HCl 25 mg 01/08/25 09:00 01/10/25 09:15 Sertraline Hcl 25 Mg Tablet PO 25 mg DAILY SAYRA Administration Tamsulosin HCl 0.4 mg 01/07/25 23:30 01/09/25 20:17 Tamsulosin Hcl 0.4 Mg Capsule PO 0.4 mg HS SYARA Administration Radiology Results: ITS Impressions Cervical Spine CT 01/07/25 06:08 Impression: No acute fracture or subluxation of the cervical spine. Stable degenerative spondylosis. Chest X-Ray 01/07/25 06:12 Impression: Chronic right costophrenic angle blunting versus minimal pleural effusion. Appearance is stable from prior exam. Status post CABG. Elbow X-Ray 01/07/25 06:12 Impression: Moderate osteoarthritis throughout the elbow joint. No acute fracture or dislocation seen. Chest/Abdomen/Pelvis CT 01/07/25 06:18 Impression: Mild to moderate hydroureteronephrosis, likely related to bladder outlet obstruction. No obstructing stone or mass evident. Markedly distended urinary bladder with multiple small layering stones, and Barry catheter in place. [id number] emphysema. Stable small spiculated nodule/density in the right upper lobe, as detailed above. Possible mild wall thickening of the distal rectum. Correlate for proctitis. Head CT 01/09/25 12:19 IMPRESSION: 1. 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 2. Stable moderate nonspecific cerebral white matter disease, which likely represents chronic small vessel ischemic disease. Shoulder X-Ray 01/09/25 12:32 IMPRESSION: 1. Polyarticular osteoarthritis. 2. Loose bodies in the glenohumeral joint in bicipital groove. Renal Ultrasound 01/10/25 08:24 IMPRESSION: 1. Normal kidney sizes. No hydronephrosis. Labs Labs: Laboratory Results - last 24 hr 01/09/25 01/10/25 11:35 02:33 POC Capillary Glucose 85 119 H
[2025-01-10 14:00] VITALS: BP 129/66; PULSE 63; RESP 18; TEMP 36.6; O2SAT 95
--- NOTE | 2025-01-10 14:56 | P.PNIM_ITS ---
Progress Note: A&P Assessment and Plan (1) Hypertension: Code(s): I10 - Essential (primary) hypertension Status: Acute (2) Severe protein-calorie malnutrition: Code(s): E43 - Unspecified severe protein-calorie malnutrition Status: Acute (3) UTI (urinary tract infection) due to urinary indwelling Barry catheter: Qualifiers: Encounter type: initial encounter Indwelling urinary catheter type: indwelling urethral catheter Qualified Code(s): T83.511A - Infection and inflammatory reaction due to indwelling urethral catheter, initial encounter; N39.0 - Urinary tract infection, site not specified Code(s): T83.511A - Infection and inflammatory reaction due to indwelling urethral catheter, initial encounter; N39.0 - Urinary tract infection, site not specified Status: Suspected (4) Sepsis: Code(s): A41.9 - Sepsis, unspecified organism Status: Resolved Plan (1) Altered mental status: Code(s): R41.82 - Altered mental status, unspecified Status: Acute Assessment and Plan: Likely from UTI and dehydration versus baseline dementia versus other UA positive Blood cultures pending Patient is able to answer questions, not oriented x3, Complicated UTI (urinary tract infection) due to urinary indwelling Barry catheter: Qualifiers: Encounter type: initial encounter Indwelling urinary catheter type: indwelling urethral catheter Qualified Code(s): T83.511A - Infection and infl ammatory reaction due to indwelling urethral catheter, initial encounter; N39.0 - Urinary tract infection, site not specified Code(s): T83.511A - Infection and inflammatory reaction due to indwelling urethral catheter, initial encounter; N39.0 - Urinary tract infection, site not specified Status: Ruled-out Assessment and Plan: Given cefepime, Cipro, Flagyl, and 3 L normal saline bolus in the emergency room Continue antibiotics Barry catheter exchange by Urology Urine culture grows Proteus mirabilis, switch from ceftriaxone IV to Augmentin p.o. he will January 13 per ID pharmacist recommendation CT scan that would suggest a possible colovesical fistula Consulted general surgeon, doubt fistula Urine clear, sign off a stool Dehydration Upon arrival to ED, elevated BUN creatinine ratio 31/0.84, dehydration Start normal saline IV Corrected Erosion of urethra: Code(s): N36.8 - Other specified disorders of urethra Status: Acute Assessment and Plan: Secondary to chronic Barry, and poor ramirez Care, neglect? ? Barry placed by [facility]rology [facility] report filed with Adult protective service Urologist also recommends: Maintain indwelling Barry catheter properly secured to upper thigh AND off tension. He requires daily and PRN genital hygiene to reduce incidence of CAUTI. monthly Barry exchange at nursing facility every 3-4 weeks (Next due 02/04/25). No plan for inpatient urologic surgical intervention. Urologically cleared for discharge. Signing off. Please call with questions. Hypothyroidism: Qualifiers: Hypothyroidism type: unspecified Qualified Code(s): E03.9 - Hypothyroidism, unspecified Code(s): E03.9 - Hypothyroidism, unspecified Status: Chronic Assessment and Plan: TSH high at 45.5, free T4 low at 0.49, free T3 low at 2.29 Home dose Synthroid 150 mcg (5) Heart failure with preserved ejection fraction: Code(s): I50.30 - Unspecified diastolic (congestive) heart failure Status: Acute Assessment and Plan: Not on diuretics Monitor for fluid overload Patient is euvolemic (6) Proctitis: Code(s): K62.89 - Other specified diseases of anus and rectum Status: Acute Assessment and Plan: Received antibiotics see above (7) Hydronephrosis: Code(s): N13.30 - Unspecified hydronephrosis Status: Acute Assessment and Plan: Urology consult No need of surgical treatment (8) Dementia: Qualifiers: Dementia behavioral or psychological symptom: with other behavioral disturbance Dementia severity: severe Dementia type: vascular dementia Qualified Code(s): F01.C18 - Vascular dementia, severe, with other behavioral disturbance Code(s): F03.90 - Unspecified dementia, unspecified severity, without behavioral disturbance, psychotic disturbance, mood disturbance, and anxiety Status: Chronic Assessment and Plan: Holding Seroquel due to patient being drowsy Continue Zoloft Mental status improves, now at the baseline. Resume home medication discharge Subjective Date/time seen: 01/10/25 14:56 Interval history: I saw examined the patient today, patient still has lower abdomen pain, Barry catheter in-situ, clear urine drained out. Patient does not have obvious distress. Exam Narrative: GENERAL: Ill-appearing, in no acute distress. Well-nourished. - EYES: EOMI. Anicteric. - HENT: Moist mucous membranes. - LUNGS: Clear to auscultation bilateral ly, no wheezing, rhonchi, or rales. - CARDIOVASCULAR: Regular rate and rhyth m. No murmur. No JVD. - ABDOMEN: Soft, non-tender and non-dist ended. No palpable masses. - EXTREMITIES: No edema. Peripheral puls es 2+. Non-tender. - NEUROLOGIC: No focal neurological defi cits. CN II-XII grossly intact. - PSYCHIATRIC: Awake, Alert and not orie nted x 3. Appropriate mood and affect. - SKIN: No rashes or lesions. Warm. - LYMPH: No cervical lymphadenopathy. Objective Data Vital Signs Vital Signs: Vital Signs - 24 hr 01/09/25 20:00 01/09/25 21:57 01/10/25 06:48 Temperature 98.5 F 98.0 F Pulse Rate 63 63 63 Respiratory Rate 20 16 16 Blood Pressure 125/72 145/65 H Pulse Oximetry 100 98 98 Oxygen Delivery Room Air 01/10/25 08:00 01/10/25 09:15 01/10/25 10:29 Temperature Pulse Rate 63 Respiratory Rate Blood Pressure Pulse Oximetry 97 Oxygen Delivery Room Air Room Air Intake/Output Intake/Output: Intake & Output 01/07/25 01/08/25 01/09/25 01/10/25 23:59 23:59 23:59 23:59 Intake Total 3100 780 2349.7 1880 Output Total 800 1050 2125 950 Balance 2300 -270 224.7 930 Meds/Results Medications: Active Medications Generic Name Dose Route Start Last Admin Trade Name Freq PRN Reason Stop Dose Admin Acetaminophen 650 mg 01/07/25 08:05 Acetaminophen 325 Mg Tablet PO Q4H PRN Mild Pain (1-3) or Fever Hydrocodone Bitart/Acetaminophen 1 tab 01/07/25 13:00 Hydrocodone/Acetaminophen (*Crx) 5-325 Mg Tablet PO Q4H PRN Moderate Pain (4-6) Albuterol 1 puff 01/08/25 09:00 01/10/25 10:26 Albuterol Sulfate (*Sp) Aerosol 1 Puff INHALATION 1 puff DAILY SAYRA Administration Albuterol 2 puff 01/07/25 23:18 Albuterol Sulfate (*Sp) Aerosol 1 Puff INHALATION Q6H PRN Wheezing Atorvastatin Calcium 80 mg 01/07/25 23:30 01/09/25 20:17 Atorvastatin 40 Mg Tablet PO 80 mg HS SAYRA Administration Clopidogrel Bisulfate 75 mg 01/08/25 09:00 01/10/25 09:15 Clopidogrel Bisulfate 75 Mg Tablet PO 75 mg DAILY SAYRA Administration Docusate Sodium 100 mg 01/07/25 17:00 01/10/25 09:15 Docusate Sodium 100 Mg Capsule PO 100 mg BID SAYRA Administration Enoxaparin Sodium 30 mg 01/08/25 09:00 01/10/25 09:16 Enoxaparin 30 Mg/0.3 Ml Syringe SUB-Q 30 mg DAILY SAYRA Administration Ferrous Sulfate 325 mg 01/08/25 09:00 01/10/25 09:15 Ferrous Sulfate [address] PO 325 mg DAILY SAYRA Administration Finasteride 5 mg 01/08/25 09:00 01/10/25 09:15 Finasteride 5 Mg Tablet PO 5 mg DAILY SAYRA Administration Fluticasone Propionate 2 puff 01/07/25 23:30 01/10/25 10:26 Fluticasone Prop 44 Mcg (*Sp) 10.6 Gm INHALATION 2 puff Q12HRT SAYRA Administration Ceftriaxone Sodium 1 gm in 50 mls @ 100 mls/hr 01/07/25 14:00 01/10/25 13:28 Rocephin 1 Gm/Ns 50 Ml IVPB 100 mls/hr Q24H SAYRA Administration Dextrose/Sodium Chloride 1,000 mls @ 80 mls/hr 01/08/25 11:35 01/10/25 04:57 Dextrose 5% Sodium Chloride 0.9% IV CONT 80 mls/hr .[id number] SAYRA Administration Levothyroxine Sodium 150 mcg 01/08/25 06:30 01/10/25 04:57 Levothyroxine Sodium 150 Mcg Tablet PO 150 mcg DAILY@0630 SAYRA Administration Lidocaine HCl 10 ml 01/08/25 15:28 Lidocaine 2% Gel Urojet 10 Ml Pkg MUCOUS MEM Q3HR PRN Pain Metoprolol Succinate 12.5 mg 01/07/25 23:30 01/10/25 09:15 Metoprolol Succinate Ext Rel 12.5 Mg Tabcr PO 12.5 mg Q12HR SAYRA Administration Morphine Sulfate 4 mg 01/07/25 08:05 Morphine Sulfate (*Crx) 4 Mg/Ml Inj IV PUSH Q2H PRN Pain Rated 7-10 Ondansetron HCl 4 mg 01/07/25 08:05 Ondansetron Inj 4 Mg/2 Ml Vial IV PUSH Q4H PRN Nausea Sertraline HCl 25 mg 01/08/25 09:00 01/10/25 09:15 Sertraline Hcl 25 Mg Tablet PO 25 mg DAILY SAYRA Administration Tamsulosin HCl 0.4 mg 01/07/25 23:30 01/09/25 20:17 Tamsulosin Hcl 0.4 Mg Capsule PO 0.4 mg HS SAYRA Administration Radiology Results: ITS Impressions Cervical Spine CT 01/07/25 06:08 Impression: No acute fracture or subluxation of the cervical spine. Stable degenerative spondylosis. Chest X-Ray 01/07/25 06:12 Impression: Chronic right costophrenic angle blunting versus minimal pleural effusion. Appearance is stable from prior exam. Status post CABG. Elbow X-Ray 01/07/25 06:12 Impression: Moderate osteoarthritis throughout the elbow joint. No acute fracture or dislocation seen. Chest/Abdomen/Pelvis CT 01/07/25 06:18 Impression: Mild to moderate hydroureteronephrosis, likely related to bladder outlet obstruction. No obstructing stone or mass evident. Markedly distended urinary bladder with multiple small layering stones, and Barry catheter in place. [id number] emphysema. Stable small spiculated nodule/density in the right upper lobe, as detailed above. Possible mild wall thickening of the distal rectum. Correlate for proctitis. Head CT 01/09/25 12:19 IMPRESSION: 1. 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 2. Stable moderate nonspecific cerebral white matter disease, which likely represents chronic small vessel ischemic disease. Shoulder X-Ray 01/09/25 12:32 IMPRESSION: 1. Polyarticular osteoarthritis. 2. Loose bodies in the glenohumeral joint in bicipital groove. Renal Ultrasound 01/10/25 08:24 IMPRESSION: 1. Normal kidney sizes. No hydronephrosis. Labs Labs: Laboratory Results - last 24 hr 01/10/25 02:33 POC Capillary Glucose 119 H
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
[2025-01-10 19:46] VITALS: BP 146/78; PULSE 62; RESP 18; TEMP 36.7; O2SAT 100
[2025-01-10 20:00] VITALS: PULSE 62; RESP 18; O2SAT 100
[2025-01-10] MEDS: ATORVASTATIN 40 MG TABLET 80 MG PO (20:01)
[2025-01-10] MEDS: TAMSULOSIN HCL 0.4 MG CAPSULE PO (20:01)
== END 2025-01-11 03:44 | DRG 698 ==
LOC: ANHED 01-07 08:00 → ANH3MEDSUR 01-07 09:07
PROVIDERS: Nurse Practitioner Gerontology; Admitting Provider Hospitalist; Emergency Provider Student in an Organized Health Care Education/Training Program; Visit Provider Hospitalist
DX: T83.511A Infection and inflammatory reaction due to indwelling urethral catheter, initial encounter (principal); E43 Unspecified severe protein-calorie malnutrition; N13.30 Unspecified hydronephrosis; T76.01XA Adult neglect or abandonment, suspected, initial encounter; N39.0 Urinary tract infection, site not specified; F03.90 Unspecified dementia, unspecified severity, without behavioral disturbance, psychotic disturbance, mood disturbance, and anxiety; D64.9 Anemia, unspecified; N36.8 Other specified disorders of urethra; J43.9 Emphysema, unspecified; R91.1 Solitary pulmonary nodule; R33.9 Retention of urine, unspecified; E03.9 Hypothyroidism, unspecified; D72.829 Elevated white blood cell count, unspecified; R73.9 Hyperglycemia, unspecified; E88.09 Other disorders of plasma-protein metabolism, not elsewhere classified; W19.XXXA Unspecified fall, initial encounter; I11.0 Hypertensive heart disease with heart failure; K62.89 Other specified diseases of anus and rectum; N21.0 Calculus in bladder; I50.9 Heart failure, unspecified; J44.9 Chronic obstructive pulmonary disease, unspecified; R93.5 Abnormal findings on diagnostic imaging of other abdominal regions, including retroperitoneum; B96.4 Proteus (mirabilis) (morganii) as the cause of diseases classified elsewhere; N40.1 Benign prostatic hyperplasia with lower urinary tract symptoms; R33.8 Other retention of urine; E78.5 Hyperlipidemia, unspecified; Z86.73 Personal history of transient ischemic attack (TIA), and cerebral infarction without residual deficits; Z96.1 Presence of intraocular lens; Z98.49 Cataract extraction status, unspecified eye; Z66 Do not resuscitate; E86.0 Dehydration; Z68.21 Body mass index [BMI] 21.0-21.9, adult
CPT/HCPCS: 36415; 70450; 71045; 71250; 72125; 73030; 73070; 74176; 76775; 80048; 80053; 80143; 80179; 80307; 81001; 82077; 82140; 82550; 82948; 83605; 83735; 84439; 84443; 84481; 84484; 85025; 85610; 85730; 87040; 87086; 87186; 87637; 93005; 94640; 96361; 96365; 96367; 96368; 96375; 96376; 99212; 99285; A9270; G0378; G0463; J0692; J0696; J0744; J1650; J1836; J2060; J2270; J7030; J7042

== ENCOUNTER 2025-01-28 20:47 | Inpatient (IN) | payer MEDICARE, SELFPAY ==
--- NOTE | ~2025-01-28 | XR_ITS ---
HISTORY: fall COMPARISON: 01/07/2025 TECHNIQUE: 3 views of the right ribs were performed along with a frontal view of the chest. FINDINGS: No acute displaced fracture is appreciated. The lungs are clear. Diffuse bony demineralization is present. Sternal wires and mediastinal clips are identified, the wires are midline and intact. The remainder of the cardiomediastinal silhouette is otherwise unremarkable. IMPRESSION: No acute displaced right-sided fracture, as detailed above. Reviewed, dictated and finalized at location A. STICKER
--- NOTE | ~2025-01-28 | CT_ITS ---
History: Fall PROCEDURE: CT cervical spine without intravenous contrast. COMPARISON: 01/07/2025 TECHNIQUE: Multiple contiguous axial images of the cervical spine were performed without the administration of i ntravenous contrast. DLP: 216 mGy-cm FINDINGS: Degenerative disease is identified within the cervical spine, with osteophyte formation, disc space n arrowing, ankylosis, and facet arthropathy. Stable grade 1 anterolisthesis of C5 over C6, unchanged from prior. Diffuse bony demineralization is also noted. No acute fractures are appreciated. Biapical scarring. No soft tissue abnormality is present. The airway is patent. Impression: Severe degenerative disease, unchanged, without acute fracture. Reviewed, dictated and finalized at location A. NISTRATION ASSISTANT Impression: Severe degenerative disease, unchanged, without acute fracture.
--- NOTE | ~2025-01-28 | CT_ITS ---
History: Fall PROCEDURE: CT head without contrast. COMPARISON: 01/09/2025 TECHNIQUE: Axial imaging of the head performed from the skull base to the vertex without IV contrast. Sagittal a nd coronal reformations obtained. DLP: 605 mGy-cm FINDINGS: The ventricles are enlarged. The dilatation of the ventricles is proportional to the degree of sulcal prominence, not uncommon in the senescent brain. Decreased attenuation is identified within the periventricular white matter, likely secondary to micr ovascular ischemic disease, in a patient of this age. There is no mass, mass effect or midline shift. There is no abnormal extra-axial fluid collection or intracranial hemorrhage. Visualized paranasal sinuses are clear. The mastoid air cells are well aerated. No acute displaced fractures within the overlying cranium. Impression: No acute intracranial hemorrhage or suspicious mass effect. Reviewed, dictated and finalized at location A. TESTER AND INSPECTOR Impression: No acute intracranial hemorrhage or suspicious mass effect.
--- NOTE | ~2025-01-28 | XR_ITS ---
HISTORY: fall COMPARISON: 01/07/2025 TECHNIQUE: 2 views of the right elbow were performed FINDINGS: No acute fracture is identified. No elevation of the anterior or posterior fat pads are identified to suggest a supracondylar fracture . Overlying soft tissues are unremarkable. Diffuse bony demineralization. Significant degenerative disease with osteophyte formation. Alignment is anatomic. IMPRESSION: Diffuse degenerative disease, without acute fracture Reviewed, dictated and finalized at location A. ACE CLERK
--- NOTE | ~2025-01-28 | CT_ITS ---
History: Fall PROCEDURE: CT lumbar spine without intravenous contrast. COMPARISON: 03/24/2024 TECHNIQUE: Multiple contiguous axial images of the lumbar spine were performed without the administration of int ravenous contrast. DLP: 861 mGy-cm FINDINGS: Diffuse bony demineralization is identified within the lower thoracic and lumbosacral spines. Significant degenerative disease is identified with osteophyte formation, disc space narrowing, endpl ate changes and vacuum phenomena. Significant facet arthropathy is also noted. No acute compression fractures are present. Densely calcified atherosclerotic disease within the abdominal aorta. Redemonstration of a 7 mm calculus within the interpolar region of the right kidney. The loculated right-sided pleural effusion is no longer visualized on the current study. Multiple calcifications within the minimally visualized bladder, unchanged from prior. Redemonstration of 15 degrees of levoscoliotic curvature within the lumbar spine. Impression: Severe degenerative disease, without acute fracture. Reviewed, dictated and finalized at location A. ING AND SPEECH ASSISTANT Impression: Severe degenerative disease, without acute fracture.
--- NOTE | ~2025-01-28 | XR_ITS ---
HISTORY: fall COMPARISON: 01/09/2025 TECHNIQUE: 3 views of the right shoulder were performed FINDINGS: No acute fracture. The glenohumeral joint space is maintained. Widening of the acromioclavicular joint space is redemonstrated likely representing acromioclavicular joint injury. Redemonstration of multiple loose bodies in the glenohumeral joint space, within the bicipital groove . Sternal wires and mediastinal clips are identified, the wires are midline and intact. The visualized portion of the adjacent right lung is clear. The humeral head is well seated within the glenoid fossa. IMPRESSION: Severe degenerative disease, without acute fracture or anterior dislocation. Findings suggesting acromioclavicular joint injury Reviewed, dictated and finalized at location A.
[2025-01-28 20:50] VITALS: BP 126/63; PULSE 71; RESP 17; O2SAT 100
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
[2025-01-28 21:24] VITALS: PULSE 77; RESP 15; O2SAT 99
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
--- NOTE | 2025-01-28 23:44 | PC.NURSE ---
ok to not change alonzo per edp
[2025-01-29] VITALS (17 sets, daily range): BP systolic 100–138; BP diastolic 52–71; PULSE 63–78; RESP 13–19; TEMP 36.1–37; O2SAT 95–99; BMI 20.6
[2025-01-29 02:07] LABS: Basophils Percent Auto 0.5 % (0.2-1.2); Eosinophils Absolute Auto 0.4 K/mm3 (0-0.3); Eosinophils Percent Auto 4.3 % (0-4.4); Hematocrit 36.8 % (42.0-52.0); Hemoglobin 11.4 g/dL (14.0-18.0); Immature Granulocyte Absolute 0.02 K/mm3 (0.00-0.031); Immature Granulocyte Percent A 0.2 % (0-0.5); Lymphocytes Absolute Auto 1.41 K/mm3 (0.9-3.2); Lymphocytes Percent Auto 16.1 % (18.3-44.2); Mean Corpuscular Hemoglobin 30.6 pg (26-34); Mean Corpuscular Volume 98.7 fl (80-100); Mean Platelet Volume 9.5 fl (7.4-10.4); Monocytes Absolute Auto 0.6 K/mm3 (0.1-0.6); Monocytes Percent Auto 7.1 % (2.6-8.5); Neutrophils Absolute Auto 6.3 K/mm3 (1.3-6.7); Neutrophils Percent Auto 71.8 % (45.5-73.1); Platelet Count Result 215 k/mm3 (150-375); Red Blood Count 3.73 M/mm3 (4.6-6.20); Red Cell Distribution Width 15.7 % (11.5-14.5); White Blood Count 8.8 K/mm3 (4.5-10.0)
[2025-01-29 02:16] LABS: Alanine Aminotransferase 45 U/L (6-50); Albumin Level 3.4 g/dL (3.5-5.1); Alkaline Phosphatase 177 U/L (38-126); Anion Gap 7 mmol/L (4-12); Aspartate Amino Transferase 43 U/L (17-59); Bilirubin,Total 0.4 mg/dL (0.2-1.3); Blood Urea Nitrogen 25 mg/dL (9-20); Calcium 9.6 mg/dL (8.4-10.2); Carbon Dioxide 28 mmol/L (22-30); Chloride 105 mmol/L (98-107); Estimated CRCL calculation 56 ml/min; Estimated Glomerular Filt Rate > 60; Glucose 99 mg/dL (65-110); Potassium 4.6 mmol/L (3.4-5.0); Sodium 140 mmol/L (137-145)
[2025-01-29 02:20] LABS: Add Urine Microscopic? YES; Appearance Urine Cloudy (Clear); Bacteria Urine 4+ /hpf; Bilirubin Urine Negative (Negative); Blood Urine 3+ (Negative); Color Urine Yellow (Yellow); Glucose Urine UA Negative (Negative); Ketones Urine Negative (Negative); Leukocyte Esterase Ur 3+ LEU/UL (Negative); Need Manual Microscopic Reviewed; Nitrate Urine Negative (Negative); Protein Urine Trace mg/dL (Negative); RBC Urine >100 /hpf (0-2); Specific Grav Ur 1.015 (1.001-1.035); Squamous Epithelial Cell Urine None Seen /hpf (Few); WBC Urine >100 /hpf (0-3); pH Urine 6.5 (5.0-9.0)
--- NOTE | 2025-01-29 05:21 | ADMGEN ---
This patient, Stewart La, was admitted to [facility] Surg Room 304-01. Patient/family oriented to hospital policies and general routines including ID bracelet, bed and alarms, visiting hours, pain management, procedures, bathroom and other care routines, personal items, smoking policy, room service/diet, and visiting hours. Information on how to activate the Rapid Response Team has been discussed. Patient/Family are encouraged to report perceived risks to care and to ask questions if they do not understand what they are told or what they should do.
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
[2025-01-29 09:15] LABS: Basophils Percent Auto 0.6 % (0.2-1.2); Eosinophils Absolute Auto 0.4 K/mm3 (0-0.3); Eosinophils Percent Auto 5.4 % (0-4.4); Hematocrit 34.2 % (42.0-52.0); Hemoglobin 10.9 g/dL (14.0-18.0); Immature Granulocyte Absolute 0.02 K/mm3 (0.00-0.031); Immature Granulocyte Percent A 0.3 % (0-0.5); Lymphocytes Percent Auto 18.8 % (18.3-44.2); Mean Corpuscular HGB Conc 31.9 g/dl (32-36); Mean Corpuscular Hemoglobin 31.3 pg (26-34); Mean Corpuscular Volume 98.3 fl (80-100); Mean Platelet Volume 9.2 fl (7.4-10.4); Monocytes Absolute Auto 0.5 K/mm3 (0.1-0.6); Monocytes Percent Auto 7.8 % (2.6-8.5); Neutrophils Absolute Auto 4.6 K/mm3 (1.3-6.7); Neutrophils Percent Auto 67.1 % (45.5-73.1); Platelet Count Result 191 k/mm3 (150-375); Red Blood Count 3.48 M/mm3 (4.6-6.20); Red Cell Distribution Width 15.8 % (11.5-14.5); White Blood Count 6.9 K/mm3 (4.5-10.0)
[2025-01-29 09:26] LABS: Anion Gap 7 mmol/L (4-12); Blood Urea Nitrogen 21 mg/dL (9-20); Calcium 9.2 mg/dL (8.4-10.2); Carbon Dioxide 27 mmol/L (22-30); Chloride 106 mmol/L (98-107); Estimated CRCL calculation 58 ml/min; Estimated Glomerular Filt Rate > 60; Glucose 92 mg/dL (65-110); Potassium 4.2 mmol/L (3.4-5.0); Sodium 140 mmol/L (137-145)
[2025-01-29] MEDS: SERTRALINE HCL 25 MG TABLET PO (09:59)
[2025-01-29] MEDS: FINASTERIDE 5 MG TABLET PO (09:59)
[2025-01-29] MEDS: FERROUS SULFATE 325 MG TABLET DR PO (09:59)
[2025-01-29] MEDS: CLOPIDOGREL BISULFATE 75 MG TABLET PO (09:59)
[2025-01-29] MEDS: LEVOTHYROXINE SODIUM 150 MCG TABLET PO (09:59)
[2025-01-29] MEDS: SODIUM CHLORIDE 0.9% IV 1,000 ML 100 ML IV CONT (10:00)
--- NOTE | 2025-01-29 13:39 | WPDURCON ---
Assessment and Plan Assessment and plan (1) Chronic indwelling Barry catheter: Code(s): Z97.8 - Presence of other specified devices Status: Chronic Assessment and Plan: - Last exchanged by Dr. Higginbotham at bedside 01/07/25. Catheter was encrusted and difficult to remove, likely due to not being exchanged at nursing facility in months (last documented exchange in clinic 08/2024). 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 - Other specified disorders of urethra Status: Chronic Assessment and Plan: - Due to pressure from chronic Barry catheter - Not a candidate for any surgical repair (3) Benign prostatic hyperplasia with urinary retention: Code(s): N40.1 - Benign prostatic hyperplasia with lower urinary tract symptoms; R33.8 - Other retention of urine Status: Acute Assessment and Plan: - Managed with Barry, finasteride, tamsulosin (4) UTI (urinary tract infection) due to urinary indwelling Barry catheter: Qualifiers: Encounter type: initial encounter Indwelling urinary catheter type: indwelling urethral catheter Qualified Code(s): T83.511A - Infection and inflammatory reaction due to indwelling urethral catheter, initial encounter; N39.0 - Urinary tract infection, site not specified Code(s): T83.511A - Infection and inflammatory reaction due to indwelling urethral catheter, initial encounter; N39.0 - Urinary tract infection, site not specified Status: Suspected Assessment and Plan: - UA suspicious for infection, however, urine sample was collected off old Barry catheter which is going to be contaminated. - Renal function stable, no leukocytosis, afebrile - Barry draining freely with adequate urinary output - Low suspicion for active infection, suspect asymptomatic bacteruria Plan - Antibiotics ordered per primary team - Maintain indwelling Barry catheter properly secured to upper thigh AND off tension. He requires assistance with daily and PRN genital hygiene to reduce incidence of CAUTI. - Plan for monthly Barry exchange at nursing facility every 3-4 weeks (Next due 02/04/25). Catheter does not need to be exchanged by a urologist. - No plan for inpatient urologic surgical intervention. - Urology to follow peripherally. Please call with questions. Urology Consult Note HPI Date Seen: 01/29/25 Requesting Physician: Amena Aviles, DO Primary Care Provider: UNKNOWN,DOCTOR Consult Narrative Reason for consult: Difficult Barry catheter change Narrative: Stewart La is an 84 year old male with history obstructive BPH admitted overnight after falling at his nursing facility. Urology was consulted for evaluation of Barry catheter. He was last evaluated inpatient last month after his chronic indwelling Barry was found to be encrusted with worsening penile erosion from poor catheter care. He was treated for a CAUTI as well. It was successfully exchanged. Recommendation on discharge was to exchange indwelling Barry at nursing facility every 4 weeks and keep properly secured off tension. DNR code status noted. Patient pleasantly confused working with therapy this afternoon. No distress. Denies pain. Indwelling Barry draining light angely urine with some sediment. Denies issue with Barry. Review of Systems Review of Systems: ROS unobtainable: Yes unobtainable due to mental status (dementia ) [facility] Past Medical History Medical History Unspecified lack of coordination Unsteadiness on feet Dysphagia, oropharyngeal phase Aphasia Retention of urine, unspecified Other viral conjunctivitis Heart failure with preserved ejection fraction Echo in 04/2024 showed normal left ventricular size and systolic function with grade 1 diastolic noncompliance. Kidney stones Chronic anemia Cerebrovascular accident Focal left parietal encephalomalacia, old lacunar infarct left caudate nucleus, moderate atrophy and chronic white matter changes. Chronic obstructive pulmonary disease Benign prostatic hyperplasia with urinary retention Bladder stone History of nephrolithiasis Chronic indwelling Barry catheter Hypothyroidism Essential hypertension Hyperlipidemia Dementia Surgical History Surgical History History of cataract extraction with lens replacement Family History Family History Other Unknown family medical history Social History Social History Social History: Legal guardian: Irena Zamorano Code status: Do not resuscitate per longterm documentation (including No CPR, comfort focused treatment POLST signed 03/18/24) Smoking status: Never smoker Second hand tobacco smoke exposure: No Alcohol intake: never Substance use: never Substance use type: does not use Living arrangements: longterm Additional living arrangements comments: [facility] Occupation/Education: retired 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 Spiritual care concerns: No Meds Home Medications and Allergies Home Medications ?Medication ?Instructions ?Recorded ?Confirmed ?Type acetaminophen 325 mg tablet 650 mg PO Q6H PRN Pain (Scale 03/09/24 01/29/25 History Score 1-3) albuterol sulfate 90 mcg/actuation 2 puff inhalation Q6H PRN Wheezing 03/09/24 01/29/25 History aerosol inhaler atorvastatin 80 mg tablet 80 mg PO HS 03/09/24 01/29/25 History clopidogrel 75 mg tablet 75 mg PO DAILY 03/09/24 01/29/25 History finasteride 5 mg tablet 5 mg PO DAILY 03/09/24 01/29/25 History metoprolol succinate 25 mg 12.5 mg PO BID 03/09/24 01/29/25 History tablet,extended release 24 hr pyridoxine (vitamin B6) 100 mg PO DAILY 03/09/24 01/29/25 History quetiapine 50 mg tablet 50 mg PO Q12H 03/09/24 01/29/25 History sennosides 8.6 mg capsule (senna) 17.2 mg PO DAILY PRN Constipation 03/09/24 01/29/25 History sertraline 25 mg tablet 25 mg PO DAILY 03/09/24 01/29/25 History tamsulosin 0.4 mg capsule 0.4 mg PO HS 03/09/24 01/29/25 History cholecalciferol (vitamin D3) 10 10 mcg PO DAILY 05/02/24 01/29/25 History mcg (400 unit) tablet ferrous sulfate 325 mg (65 mg 325 mg PO DAILY 05/02/24 01/29/25 History iron) tablet,delayed release levothyroxine 150 mcg tablet 150 mcg PO DAILY 05/02/24 01/29/25 History albuterol sulfate 90 mcg/actuation 1 inh inhalation DAILY 01/07/25 01/29/25 History breath activated powder inhaler (ProAir RespiClick) budesonide 90 mcg/actuation breath 1 inh inhalation Q12H 01/07/25 01/29/25 History activated powder inhaler (Pulmicort Flexhaler) mirtazapine 15 mg tablet (Remeron) 7.5 mg PO HS 01/29/25 01/29/25 History Allergies Allergy/AdvReac Type Severity Reaction Status Date / Time diphtheria toxoid,adsorbed Allergy Unknown Verified 01/07/25 10:37 fish derived Allergy Unknown Verified 01/07/25 10:37 iodine Allergy Unknown Verified 01/07/25 10:37 tetanus toxoid, adsorbed Allergy Unknown Verified 01/07/25 10:37 tositumomab Allergy Unknown Verified 01/07/25 10:37 Vital Signs Vital Signs - 24 hr 01/28/25 20:50 01/28/25 21:24 01/29/25 00:40 Temperature Pulse Rate 71 77 72 Respiratory Rate 17 15 14 Blood Pressure 126/63 Pulse Oximetry 100 99 Oxygen Delivery 01/29/25 00:41 01/29/25 00:45 01/29/25 01:01 Temperature Pulse Rate 73 68 Respiratory Rate 14 16 Blood Pressure 138/71 138/59 L Pulse Oximetry Oxygen Delivery 01/29/25 02:01 01/29/25 02:02 01/29/25 02:31 Temperature Pulse Rate 68 70 Respiratory Rate 19 Blood Pressure 100/68 125/52 L Pulse Oximetry Oxygen Delivery 01/29/25 03:01 01/29/25 03:16 01/29/25 03:31 Temperature Pulse Rate Respiratory Rate Blood Pressure 121/58 L 121/59 L 117/57 L Pulse Oximetry Oxygen Delivery 01/29/25 04:01 01/29/25 04:04 01/29/25 04:15 Temperature Pulse Rate Respiratory Rate Blood Pressure 115/58 L Pulse Oximetry 96 95 Oxygen Delivery 01/29/25 04:34 01/29/25 06:00 01/29/25 08:00 Temperature 98.6 F 97.9 F Pulse Rate 78 66 Respiratory Rate 16 17 Blood Pressure 104/66 116/53 L Pulse Oximetry 97 96 Oxygen Delivery Room Air Exam Const: General: comfortable and no acute distress HENMT: Face/Nose/Sinus: Normal nares present Eyes: General: appearance normal, both eyes and all related structures Resp: Effort & Inspection: normal respiratory effort Urinary Catheter: Urinary Catheter: patent and draining Neuro: Speech: normal speech Psych: Speech and movement: Normal speech and movement present Other: Pleasantly confused, hx dementia Results Labs 01/29/25 09:07 01/29/25 09:07 Labs: Short CBC 01/29/25 01/29/25 Range/Units 02:01 09:07 WBC 8.8 6.9 (4.5-10.0) K/mm3 Hgb 11.4 L 10.9 L (14.0-18.0) g/dL Hct 36.8 L 34.2 L (42.0-52.0) % Plt Count 215 191 (150-375) k/mm3 BMP 01/29/25 01/29/25 02:01 09:07 Sodium 140 140 Potassium 4.6 4.2 Chloride 105 106 Carbon Dioxide 28 27 BUN 25 H 21 H Creatinine 0.74 0.70 Glucose 99 92 Calcium 9.6 9.2 Liver Function 01/29/25 Range/Units 02:01 Total Bilirubin 0.4 (0.2-1.3) mg/dL AST 43 (17-59) U/L ALT 45 (6-50) U/L Alkaline Phosphatase 177 H (38-126) U/L Albumin 3.4 L (3.5-5.1) g/dL Urine 01/29/25 Range/Units 02:01 Urine Color Yellow (Yellow) Urine Appearance Cloudy H (Clear) Urine pH 6.5 (5.0-9.0) Ur Specific [place] 1.015 (1.001-1.035) Urine Protein Trace (Negative) mg/dL Urine Glucose (UA) Negative (Negative) mg/dL
[2025-01-29] MEDS: TAMSULOSIN HCL 0.4 MG CAPSULE PO (21:43)
[2025-01-29] MEDS: ATORVASTATIN 40 MG TABLET 80 MG PO (21:43)
[2025-01-30] MEDS: SODIUM CHLORIDE 0.9% IV 1,000 ML 100 ML IV CONT ×2 (06:43→18:08)
[2025-01-30 07:52] LABS: Basophils Absolute Auto 0.1 K/mm3 (0.0-0.1); Basophils Percent Auto 0.8 % (0.2-1.2); Eosinophils Absolute Auto 0.3 K/mm3 (0-0.3); Eosinophils Percent Auto 4.9 % (0-4.4); Hematocrit 34.9 % (42.0-52.0); Immature Granulocyte Absolute 0.01 K/mm3 (0.00-0.031); Immature Granulocyte Percent A 0.2 % (0-0.5); Lymphocytes Absolute Auto 1.54 K/mm3 (0.9-3.2); Mean Corpuscular HGB Conc 31.5 g/dl (32-36); Mean Corpuscular Hemoglobin 30.8 pg (26-34); Mean Corpuscular Volume 97.8 fl (80-100); Mean Platelet Volume 9.6 fl (7.4-10.4); Monocytes Absolute Auto 0.5 K/mm3 (0.1-0.6); Monocytes Percent Auto 8.1 % (2.6-8.5); Neutrophils Absolute Auto 3.8 K/mm3 (1.3-6.7); Platelet Count Result 190 k/mm3 (150-375); Red Blood Count 3.57 M/mm3 (4.6-6.20); Red Cell Distribution Width 15.6 % (11.5-14.5); White Blood Count 6.2 K/mm3 (4.5-10.0)
[2025-01-30 08:03] LABS: Anion Gap 5 mmol/L (4-12); Blood Urea Nitrogen 20 mg/dL (9-20); Calcium 8.9 mg/dL (8.4-10.2); Carbon Dioxide 26 mmol/L (22-30); Chloride 107 mmol/L (98-107); Estimated CRCL calculation 52 ml/min; Estimated Glomerular Filt Rate > 60; Glucose 84 mg/dL (65-110); Sodium 138 mmol/L (137-145)
[2025-01-30] MEDS: FINASTERIDE 5 MG TABLET PO (08:08)
[2025-01-30] MEDS: SERTRALINE HCL 25 MG TABLET PO (08:08)
[2025-01-30] MEDS: CLOPIDOGREL BISULFATE 75 MG TABLET PO (08:08)
[2025-01-30] MEDS: FERROUS SULFATE 325 MG TABLET DR PO (08:08)
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
[2025-01-30 21:10] VITALS: BP 150/67; PULSE 85; RESP 18; TEMP 37.2; O2SAT 98
[2025-01-30 21:18] VITALS: O2SAT 98
[2025-01-30] MEDS: ATORVASTATIN 40 MG TABLET 80 MG PO (21:35)
[2025-01-30] MEDS: TAMSULOSIN HCL 0.4 MG CAPSULE PO (21:35)
[2025-01-31] MEDS: SODIUM CHLORIDE 0.9% IV 1,000 ML 100 ML IV CONT (03:44)
[2025-01-31 05:30] VITALS: PULSE 79; RESP 18; TEMP 36.8; O2SAT 95
[2025-01-31] MEDS: LEVOTHYROXINE SODIUM 150 MCG TABLET PO (06:32)
[2025-01-31 06:35] LABS: Basophils Percent Auto 0.3 % (0.2-1.2); Eosinophils Absolute Auto 0.3 K/mm3 (0-0.3); Eosinophils Percent Auto 4.7 % (0-4.4); Hematocrit 34.7 % (42.0-52.0); Immature Granulocyte Absolute 0.01 K/mm3 (0.00-0.031); Immature Granulocyte Percent A 0.2 % (0-0.5); Lymphocytes Absolute Auto 1.29 K/mm3 (0.9-3.2); Lymphocytes Percent Auto 20.3 % (18.3-44.2); Mean Corpuscular HGB Conc 31.7 g/dl (32-36); Mean Corpuscular Volume 97.7 fl (80-100); Mean Platelet Volume 9.5 fl (7.4-10.4); Monocytes Absolute Auto 0.6 K/mm3 (0.1-0.6); Monocytes Percent Auto 8.8 % (2.6-8.5); Neutrophils Absolute Auto 4.2 K/mm3 (1.3-6.7); Neutrophils Percent Auto 65.7 % (45.5-73.1); Platelet Count Result 169 k/mm3 (150-375); Red Blood Count 3.55 M/mm3 (4.6-6.20); Red Cell Distribution Width 15.2 % (11.5-14.5); White Blood Count 6.4 K/mm3 (4.5-10.0)
[2025-01-31 06:45] LABS: Anion Gap 8 mmol/L (4-12); Blood Urea Nitrogen 18 mg/dL (9-20); Calcium 8.7 mg/dL (8.4-10.2); Carbon Dioxide 23 mmol/L (22-30); Chloride 107 mmol/L (98-107); Estimated CRCL calculation 65 ml/min; Estimated Glomerular Filt Rate > 60; Glucose 95 mg/dL (65-110); Potassium 3.7 mmol/L (3.4-5.0); Sodium 138 mmol/L (137-145)
--- NOTE | 2025-01-31 10:16 | PCPTNOTE ---
945- HOLD PT abraham: discussed pt with JUDE Grissom; she reported pt was sleeping and not to disturb him due to agitation. Plans are for him to go to [place] for senior living care and possible Hospice.
[2025-01-31] MEDS: CLOPIDOGREL BISULFATE 75 MG TABLET PO (10:35)
[2025-01-31] MEDS: FERROUS SULFATE 325 MG TABLET DR PO (10:35)
[2025-01-31] MEDS: SERTRALINE HCL 25 MG TABLET PO (10:35)
[2025-01-31] MEDS: FINASTERIDE 5 MG TABLET PO (10:38)
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
[2025-01-31 14:00] VITALS: BP 138/60; PULSE 72; RESP 20; TEMP 36.5; O2SAT 96
[2025-01-31] MEDS: MEROPENEM 1 GM/NS 100 ML 1 GM/100 ML BAG IVPB ×2 (16:11→21:55)
[2025-01-31 21:25] VITALS: O2SAT 96
[2025-01-31] MEDS: ATORVASTATIN 40 MG TABLET 80 MG PO (21:51)
[2025-01-31] MEDS: TAMSULOSIN HCL 0.4 MG CAPSULE PO (21:53)
[2025-01-31 22:00] VITALS: BP 133/69; PULSE 82; RESP 20; TEMP 37.4; O2SAT 95
[2025-02-01 06:00] VITALS: BP 117/62; PULSE 82; RESP 18; TEMP 37.1; O2SAT 94
[2025-02-01] MEDS: MEROPENEM 1 GM/NS 100 ML 1 GM/100 ML BAG IVPB ×2 (06:08→23:41)
[2025-02-01] MEDS: LEVOTHYROXINE SODIUM 150 MCG TABLET PO (06:09)
[2025-02-01] MEDS: FINASTERIDE 5 MG TABLET PO (09:50)
[2025-02-01] MEDS: CLOPIDOGREL BISULFATE 75 MG TABLET PO (09:50)
[2025-02-01] MEDS: FERROUS SULFATE 325 MG TABLET DR PO (09:50)
[2025-02-01] MEDS: SERTRALINE HCL 25 MG TABLET PO (09:55)
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
[2025-02-01 14:00] VITALS: BP 123/53; PULSE 80; RESP 14; TEMP 36.3; O2SAT 95
[2025-02-01] MEDS: OLANZapine 10 MG INJ VIAL 5 MG IM (16:57)
[2025-02-01] MEDS: MIRTAZAPINE 7.5 MG TABLET PO (21:04)
[2025-02-01] MEDS: QUEtiapine FUMARATE 25 MG TABLET 50 MG PO (21:04)
[2025-02-01 21:10] VITALS: PULSE 76; RESP 16; O2SAT 97
[2025-02-01 21:19] VITALS: BP 126/61; PULSE 76; RESP 16; TEMP 36.6; O2SAT 97
--- NOTE | 2025-02-02 00:38 | PC.NURSE ---
daylight savings time
--- NOTE | 2025-02-02 03:04 | PC.NURSE ---
Daylight Savings Time For Daylight Savings Time Ending in the Fall - Clocks are moved back. For Daylight Savings Time Beginning in the Spring - Clocks are moved ahead. For [facility], the time of change occurs at 0200 hrs. Time is taken from the observer helper. This entry on the patient's chart recognizes the change in time reflected during documentation. Example: 2 entries for vital signs may be charted for 0200 hrs.
[2025-02-02] MEDS: FLUTICASONE PROP 44 MCG (*SP) 10.6 GM 2 PUFF INHALATION (07:33)
[2025-02-02 07:36] VITALS: O2SAT 95
[2025-02-02] MEDS: MEROPENEM 1 GM/NS 100 ML 1 GM/100 ML BAG IVPB ×3 (08:03→23:09)
[2025-02-02] MEDS: ACETAMINOPHEN 325 MG TABLET 650 MG PO (09:55)
[2025-02-02] MEDS: METOPROLOL SUCCINATE EXT REL 12.5 MG TABCR PO ×2 (09:56→16:11)
[2025-02-02] MEDS: SERTRALINE HCL 25 MG TABLET PO (09:56)
[2025-02-02] MEDS: CHOLECALCIFEROL 400 UNITS TABLET (VIT D) PO (09:57)
[2025-02-02] MEDS: CLOPIDOGREL BISULFATE 75 MG TABLET PO (09:57)
[2025-02-02] MEDS: PYRIDOXINE HCL 50 MG TABLET 100 MG PO (09:57)
[2025-02-02] MEDS: FINASTERIDE 5 MG TABLET PO (09:58)
[2025-02-02] MEDS: FERROUS SULFATE 325 MG TABLET DR PO (09:58)
[2025-02-02] MEDS: QUEtiapine FUMARATE 25 MG TABLET 50 MG PO (09:58)
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
[2025-02-02 14:00] VITALS: BP 112/56; PULSE 76; RESP 18; TEMP 37.2; O2SAT 96
[2025-02-02 21:36] VITALS: BP 104/63; PULSE 80; RESP 16; TEMP 37.4; O2SAT 94
[2025-02-03 00:36] VITALS: BMI 18.3
[2025-02-03] MEDS: ACETAMINOPHEN 325 MG TABLET 650 MG PO ×2 (02:20→21:34)
[2025-02-03 06:00] VITALS: RESP 16
[2025-02-03] MEDS: MEROPENEM 1 GM/NS 100 ML 1 GM/100 ML BAG IVPB ×2 (06:00→17:16)
[2025-02-03] MEDS: LEVOTHYROXINE SODIUM 150 MCG TABLET PO (06:00)
[2025-02-03 08:47] VITALS: PULSE 84; O2SAT 95
[2025-02-03] MEDS: FLUTICASONE PROP 44 MCG (*SP) 10.6 GM 2 PUFF INHALATION (08:47)
[2025-02-03] MEDS: QUEtiapine FUMARATE 25 MG TABLET 50 MG PO (12:21)
[2025-02-03] MEDS: CLOPIDOGREL BISULFATE 75 MG TABLET PO (12:21)
[2025-02-03] MEDS: SERTRALINE HCL 25 MG TABLET PO (12:21)
[2025-02-03] MEDS: CHOLECALCIFEROL 400 UNITS TABLET (VIT D) PO (12:23)
[2025-02-03] MEDS: FERROUS SULFATE 325 MG TABLET DR PO (12:23)
[2025-02-03] MEDS: PYRIDOXINE HCL 50 MG TABLET 100 MG PO (12:23)
[2025-02-03 12:25] VITALS: PULSE 76
[2025-02-03] MEDS: FINASTERIDE 5 MG TABLET PO (12:25)
[2025-02-03] MEDS: METOPROLOL SUCCINATE EXT REL 12.5 MG TABCR PO (12:25)
[2025-02-03 14:00] VITALS: BP 109/64; PULSE 69; RESP 16; TEMP 36.8; O2SAT 94
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
[2025-02-03 17:30] LABS: SARS-CoV-2 RNA PCR Negative (Negative)
== END 2025-02-03 21:50 | disposition hospice, inpatient (51) | DRG 699 ==
LOC: ANHED 01-29 02:57 → ANH3MEDSUR 01-29 03:59
PROVIDERS: Hospitalist; Admitting Provider Internal Medicine; Emergency Provider Physician Assistant; Visit Provider Internal Medicine
DX: T83.511A Infection and inflammatory reaction due to indwelling urethral catheter, initial encounter (principal); I50.32 Chronic diastolic (congestive) heart failure; R47.01 Aphasia; I11.0 Hypertensive heart disease with heart failure; J44.9 Chronic obstructive pulmonary disease, unspecified; E86.0 Dehydration; E03.9 Hypothyroidism, unspecified; E78.5 Hyperlipidemia, unspecified; D64.9 Anemia, unspecified; B96.20 Unspecified Escherichia coli [E. coli] as the cause of diseases classified elsewhere; N40.1 Benign prostatic hyperplasia with lower urinary tract symptoms; R33.8 Other retention of urine; R26.81 Unsteadiness on feet; R13.12 Dysphagia, oropharyngeal phase; R07.81 Pleurodynia; M25.511 Pain in right shoulder; M25.521 Pain in right elbow; W19.XXXA Unspecified fall, initial encounter; F03.90 Unspecified dementia, unspecified severity, without behavioral disturbance, psychotic disturbance, mood disturbance, and anxiety; Z87.442 Personal history of urinary calculi; Z79.02 Long term (current) use of antithrombotics/antiplatelets; Z11.52 Encounter for screening for COVID-19; Z51.5 Encounter for palliative care; Z68.20 Body mass index [BMI] 20.0-20.9, adult
CPT/HCPCS: 36415; 70450; 71101; 72125; 72131; 73030; 73070; 73080; 80048; 80053; 81001; 85025; 87086; 87186; 87635; 94640; 96361; 96365; 96376; 97165; 99285; A4565; A9270; G0378; J0696; J2185; J2359; J7030

== ENCOUNTER 2025-03-08 11:59 | Emergency (ER) | payer MEDICARE, SELFPAY ==
--- NOTE | ~2025-03-08 | CT_ITS ---
CT abdomen pelvis wo con Ordering provider: Jackelyn Gonzales MD History: 84 years Male with . transaminitis; unknown if still has Gallbladder . Comparison: January 07, 2025 Technique: CT abdomen and pelvis without IV and without oral contrast. Automated exposure control and iterative reconstruction technique were employed. The dose-length product was 585.62 mGy-cm. Findings: VISUALIZED LOWER CHEST: Emphysematous changes of the lungs. UPPER ABDOMINAL ORGANS: Liver: Normal. Gallbladder: Normal. Spleen: Normal. Stomach/duodenum: Normal. Pancreas: Normal. Adrenals: Normal. Kidneys: 7.4 mm right kidney stone. Small right kidney lower pole cyst measuring 2 cm. Tiny cyst in t he right kidney upper pole. Mild right hydronephrotic changes. No ureteric stones. No definite left kidney stones. Calcification seen in the left side of the pelvis is most likely outs mary the ureter. No hydroureter or hydronephrosis seen. PELVIC ORGANS: Barry's catheter is seen in the urinary bladder with multiple stones seen in the poste rior aspect of the urinary bladder more on the right side. BOWEL AND MESENTERY: Colon: No evidence of diverticulitis. No evidence of appendicitis.. Small Bowel: Normal. No obstruction. Peritoneum/mesentery: No free air or free fluid. No mesenteric lymphadenopathy. RETROPERITONEUM: Mild atheromatous disease of the abdominal aorta. No retroperitoneal lymphadenopat hy. MUSCULOSKELETAL: Superficial soft tissues: Small fat-containing umbilical hernia. Otherwise, The superficial soft tiss ues are normal. Bones: Age appropriate degenerative changes of the spine. IMPRESSION: 1. No evidence of appendicitis, diverticulitis or intestinal obstruction. 2. Right kidney stone with hydronephrotic changes. No ureteric stones. 3. Multiple stones in the urinary bladder with Barry's catheter. Reviewed, dictated and finalized at location A.
--- NOTE | ~2025-03-08 | CT_ITS ---
EXAM: CT brain wo con, CT cervical spine wo con - 03/08/2025 13:17 CDT HISTORY: 84 years old Male with syncope; combative COMPARISON: 01/28/2025 PROCEDURE: CT of the head and cervical spine without contrast. Axial, sagittal and coronal reformat sofía planes were evaluated. Automatic exposure control was used for this study. FINDINGS: CT HEAD: BRAIN PARENCHYMA: No interval change. No acute hemorrhage. No mass effect or herniation. Chavez-white m atter differentiation is maintained. Mild chronic volume loss. Scattered hypodensities in subcortical and periventricular white matter, likely representing chronic microvascular ischemic changes in this age group. Atherosclerotic calcification of the intracranial vessels is noted. VENTRICLES/ EXTRA-AXIAL SPACES: No hydrocephalus or extra-axial fluid collection. EXTRACRANIAL STRUCTURES: No calvarial fracture. CT CERVICAL SPINE: No acute fracture or subluxation. Normal cervical lordosis is maintained. Ankylosis of C6-7 vertebral bodies. Grade 1 anterolisthesis of C5 on C6, likely degenerative. Multilevel degenerative changes of the cervical spine include varying degrees of disk space narrowing , endplate osteophytosis as well as facet and uncal arthropathy. Prevertebral soft tissues are within normal limits. Biapical pleuroparenchymal scarring. Emphysematous changes are seen in both lung apices. Atherosclero tic calcifications are seen in the arch of aorta. IMPRESSION: 1. No evidence for acute intracranial hemorrhage or calvarial fracture. 2. No evidence for cervical spine fracture or traumatic subluxation. 3. Multilevel degenerative changes of the cervical spine. Reviewed, dictated and finalized at location A. IMPRESSION: 1. No evidence for acute intracranial hemorrhage or calvarial fracture. 2. No evidence for cervical spine fracture or traumatic subluxation. 3. Multilevel degenerative changes of the cervical spine.
--- NOTE | ~2025-03-08 | XR_ITS ---
EXAM/PROCEDURE: XR chest 1V portable - 03/08/2025 13:05 CDT HISTORY: 84 years old Male with syncope/unresponsive while eating TECHNIQUE: AP view(s) of the chest. COMPARISON: 01/28/2025 FINDINGS: LUNGS/ PLEURA: No focal consolidation. No appreciable pneumothorax or large pleural effusion. HEART/ MEDIASTINUM: Cardiomediastinal silhouette is unchanged. Findings of prior median sternotomy ar e noted. BONES: Degenerative changes. Multiple loose bodies are again seen in the bicipital groove. OTHER: Visualized upper abdomen is unremarkable. IMPRESSION: No acute process. Reviewed, dictated and finalized at location A. IMPRESSION: No acute process.
[2025-03-08 12:02] VITALS: BP 109/61; PULSE 82; RESP 18; TEMP 36.4; O2SAT 95
[2025-03-08 12:09] VITALS: PULSE 81
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
--- NOTE | 2025-03-08 12:28 | ED_ITS ---
HPI - Syncope General Chief Complaint: Syncope Stated Complaint: syncope while eating, combative, A&Ox1 baseline Time Seen by Provider: 03/08/25 12:09 Source: patient and RN notes reviewed Mode of arrival: EMS Limitations: dementia History of Present Illness HPI narrative: Patient presents door all episode of syncope/unresponsive will swell eating in the dining orally a at the nursing facility where he resides. He is alert oriented times 1 at which is his baseline. He is also noted to be combative which is also his baseline. He does not want to be touched upon arrival. Facility had noted some blood in of possible lip laceration although denied that he fall. Initially upon arrival he is refusing assessment he tried to bite the nurse. Patient repeatedly saying to me get out of my fucking face. I'm going to kick you. He does attempt to strike out/kick. Related Data Home Medications ?Medication ?Instructions ?Recorded ?Confirmed ?Last Taken ?Type acetaminophen 325 mg tablet 650 mg PO Q6H PRN Pain (Scale 03/09/24 01/29/25 Unknown History Score 1-3) albuterol sulfate 90 mcg/actuation 2 puff inhalation Q6H PRN Wheezing 03/09/24 01/29/25 Unknown History aerosol inhaler atorvastatin 80 mg tablet 80 mg PO HS 03/09/24 01/29/25 01/27/25 21:00 History clopidogrel 75 mg tablet 75 mg PO DAILY 03/09/24 01/29/25 01/28/25 09:00 History finasteride 5 mg tablet 5 mg PO DAILY 03/09/24 01/29/25 01/28/25 09:00 History metoprolol succinate 25 mg 12.5 mg PO BID 03/09/24 01/29/25 01/28/25 09:00 History tablet,extended release 24 hr pyridoxine (vitamin B6) 100 mg PO DAILY 03/09/24 01/29/25 01/28/25 09:00 History quetiapine 50 mg tablet 50 mg PO Q12H 03/09/24 01/29/25 01/28/25 09:00 History sennosides 8.6 mg capsule (senna) 17.2 mg PO DAILY PRN Constipation 03/09/24 01/29/25 Unknown History sertraline 25 mg tablet 25 mg PO DAILY 03/09/24 01/29/2525 09:00 History tamsulosin 0.4 mg capsule 0.4 mg PO HS 03/09/24 01/29/25 01/27/25 09:00 History cholecalciferol (vitamin D3) 10 10 mcg PO DAILY 05/02/24 01/29/25 01/28/25 09:00 History mcg (400 unit) tablet ferrous sulfate 325 mg (65 mg 325 mg PO DAILY 05/02/24 01/29/25 01/28/25 09:00 History iron) tablet,delayed release levothyroxine 150 mcg tablet 150 mcg PO DAILY 05/02/24 01/29/25 01/28/25 09:00 History albuterol sulfate 90 mcg/actuation 1 inh inhalation DAILY 01/07/25 01/29/25 01/28/25 09:00 History breath activated powder inhaler (ProAir RespiClick) budesonide 90 mcg/actuation breath 1 inh inhalation Q12H 01/07/25 01/29/25 01/28/25 09:00 History activated powder inhaler (Pulmicort Flexhaler) mirtazapine 15 mg tablet (Remeron) 7.5 mg PO HS 01/29/25 01/29/25 01/27/25 21:00 History Allergies Allergy/AdvReac Type Severity Reaction Status Date / Time diphtheria toxoid,adsorbed Allergy Unknown Verified 01/07/25 10:37 fish derived Allergy Unknown Verified 01/07/25 10:37 iodine Allergy Unknown Verified 01/07/25 10:37 tetanus toxoid, adsorbed Allergy Unknown Verified 01/07/25 10:37 tositumomab Allergy Unknown Verified 01/07/25 10:37 [facility] Past Medical History Medical History (Updated 03/09/25 @ 00:00 by Background Daemon) Depression, unspecified Urinary tract infection Unspecified lack of coordination Unsteadiness on feet Dysphagia, oropharyngeal phase Aphasia Retention of urine, unspecified Other viral conjunctivitis Heart failure with preserved ejection fraction Echo in 04/2024 showed normal left ventricular size and systolic function with grade 1 diastolic noncompliance. Kidney stones Chronic anemia Cerebrovascular accident Focal left parietal encephalomalacia, old lacunar infarct left caudate nucleus, moderate atrophy and chronic white matter changes. Chronic obstructive pulmonary disease Benign prostatic hyperplasia with urinary retention Bladder stone History of nephrolithiasis Chronic indwelling Alonzo catheter Hypothyroidism Essential hypertension Hyperlipidemia Dementia Surgical History Surgical History History of cataract extraction with lens replacement Family History Family History Other Unknown family medical history Social History Social History Social History: Legal guardian: Irena Zamorano Code status: Do not resuscitate per halfway documentation (including No CPR, comfort focused treatment POLST signed 03/18/24) Smoking status: Never smoker Second hand tobacco smoke exposure: No Alcohol intake: never Substance use: never Substance use type: does not use Living arrangements: halfway Additional living arrangements comments: [facility] Occupation/Education: retired Additional occupation/education comments: [employer] Spiritual care concerns: No Exam 2 Narrative: GENERAL: Well-appearing, well-nourished, and in no acute distress. HEAD: Normocephalic, atraumatic. EYES: Non injected, non icteric ENT: Nares clear, no rhinorrhea or epistaxis. Patient will not let me to examine his mouth. Attempts to bite. His teeth which appears false appear intact from gross visualization. No bleeding is appreciated as he speaks. NECK: Supple. CHEST: Speaking in full sentences. No respiratory distress. Lungs clear on auscultation briefly before he pushes it away. HEART: Regular rate and rhythm. . ABDOMEN: Soft, nondistended. : Indwelling alonzo EXTREMITIES: Normal range of motion. No lower extremity edema. SKIN: Warm, dry, no rash. NEURO: No focal deficits. Alert and oriented x3. PSYCH: Normal mood and affect. Course Vital Signs Vital signs: Vital Signs Temperature 97.6 F 03/08/25 12:02 Pulse Rate 82 03/08/25 12:02 Respiratory Rate 18 03/08/25 12:02 Blood Pressure 109/61 03/08/25 12:02 Pulse Oximetry 95 03/08/25 12:02 Oxygen Delivery Room Air 03/08/25 12:02 Temperature 97.6 F 03/08/25 12:02 Pulse Rate 76 03/08/25 17:02 Respiratory Rate 17 03/08/25 17:02 Blood Pressure 109/60 03/08/25 17:02 Pulse Oximetry 100 03/08/25 17:02 Oxygen Delivery Room Air 03/08/25 12:02 MDM - Syncope MDM Narrative Medical decision making narrative: Patient presents after a reported syncopal episode/period of unconsciousness. In the emergency department they are afebrile with vital signs within normal limits. Ativan order to facilitate workup/studies given patient's agitation/combativeness, for the safety of patient and staff. [place] Syncope Rule: Congestive heart failure history: History of HFpEF (normal LV size and systolic function , grade 1 diastolic dysfunction on echo 04/2024 per review of EMR). Patient has a mildly elevated BNP but not to a degree to suggest acute heart failure based on the reference range of the assay for patient's age. Hematocrit <30%: 0 EKG abnormal (changed or any non-sinus rhythm): SOB symptoms: 0 SBP <90mmHg at triage: 0 He has hypoalbuminemia which is chronic. He has chronically had an elevated alkaline phosphatase but the other AST/ALT elevations are new compared to previous. Will proceed with CT imaging and obtain lipase. This is changed to noncontrast study given patient lists a contrast allergy. He does have a gallbladder per preious imaging. Patient's service advocate contact does call and notify us that patient is on hospice. He does have evidence of urinary tract infection. First dose of antibiotic given in the emergency department with rest the course prescribed. Antibiotic therapy as guided by previous urine culture from 02/03/25 which grew E coli that was sensitive to a variety of medications. Patient discharged back to facility. Hospice had indicated that they would do education at the facility so that patient is not sent here in every instance in the future but rather to discuss with hospice/family/DPOA first. EMS transportation arranged. Patient otherwise resting comfortably on multiple reassessments, snoring respirations but protecting his airway without bradypnea or hypoxia. Differential Diagnosis Differential diagnosis: Likely syncope due to orthostatic hypotension, vasovagal syncope, complete atrioventricular block, subarachnoid hemorrhage, dehydration and other (seizure) Lab Data Attestation: I reviewed the patient's lab results. Lab results narrative: Normocytic anemia, stable from previous. Normal troponin 03/08/25 12:48 03/08/25 12:48 Labs: Lab Results 03/08/25 03/08/25 Range/Units 12:48 14:48 WBC 7.4 (4.5-10.0) K/mm3 RBC 3.31 L (4.6-6.20) M/mm3 Hgb 10.2 L (14.0-18.0) g/dL Hct 32.8 L (42.0-52.0) % MCV 99.1 (80-100) fl MCH 30.8 (26-34) pg MCHC 31.1 L (32-36) g/dl RDW 15.1 H (11.5-14.5) % Plt Count 167 (150-375) k/mm3 MPV 9.4 (7.4-10.4) fl Immature Gran % (Auto) 0.4 (0-0.5) % Neut % (Auto) 67.0 (45.5-73.1) % Lymph % (Auto) 21.3 (18.3-44.2) % Jack % (Auto) 7.8 (2.6-8.5) % Eos % (Auto) 3.1 (0-4.4) % Baso % (Auto) 0.4 (0.2-1.2) % Lymph # (Auto) 1.58 (0.9-3.2) K/mm3 Jack # (Auto) 0.6 (0.1-0.6) K/mm3 Eos # (Auto) 0.2 (0-0.3) K/mm3 Baso # (Auto) 0.0 (0.0-0.1) K/mm3 Abs Immat Gran (auto) 0.03 (0.00-0.031) K/mm3 Absolute Neuts (auto) 5.0 (1.3-6.7) K/mm3 Absolute Nucleated RBC 0.000 (0.0-0.012) K/mm3 Nucleated RBC % 0.0 (0.0-0.2) % PT 14.8 H (11.1-14.7) Seconds INR 1.1 APTT 33.4 (22.3-36.8) Seconds Sodium 142 (137-145) mmol/L Potassium 3.9 (3.4-5.0) mmol/L Chloride 107 (98-107) mmol/L Carbon Dioxide 30 (22-30) mmol/L Anion Gap 5 (4-12) mmol/L BUN 21 H (9-20) mg/dL Creatinine 0.86 (0.7-1.3) mg/dL Estim Creat Clear Calc 54 ml/min Estimated GFR > 60 (59 - ) Glucose 72 (65-110) mg/dL Calcium 9.2 (8.4-10.2) mg/dL Total Bilirubin 0.3 (0.2-1.3) mg/dL AST 68 H (17-59) U/L ALT 65 H (6-50) U/L Alkaline Phosphatase 130 H (38-126) U/L Troponin I < 0.012 (0.000-0.034) ng/mL NT-Pro-B Natriuret Pep 493 H (19.9-100) pg/mL Total Protein 7.0 (6.3-8.2) g/dL Albumin 3.1 L (3.5-5.1) g/dL Lipase 47 (23-300) U/L Urine Color Yellow (Yellow) Urine Appearance Turbid H (Clear) Urine pH 7.0 (5.0-9.0) Ur Specific Ellinger 1.014 (1.001-1.035) Urine Protein 1+ H (Negative) mg/dL Urine Glucose (UA) Negative (Negative) mg/dL Urine Ketones Negative (Negative) mg/dL Ur Blood (Man) 3+ H (Negative) Urine Nitrate Positive H (Negative) Urine Bilirubin Negative (Negative) Urine Urobilinogen 0.2 (<2.0) mg/dL Add Ur Microanalysis Reviewed Leukocyte Esterase Rfl 3+ H (Negative) TONY/UL Urine RBC >100 H (0-2) /hpf Urine WBC >100 H (0-3) /hpf Ur Squamous Epith Cells None seen (Few) /hpf Urine Bacteria 4+ H /hpf Urine Casts 6-10 Imaging Data Radiologist's impression: Impressions Chest X-Ray 03/08/25 13:12 IMPRESSION: No acute process. Cervical Spine CT 03/08/25 13:23 IMPRESSION: 1. No evidence for acute intracranial hemorrhage or calvarial fracture. 2. No evidence for cervical spine fracture or traumatic subluxation. 3. Multilevel degenerative changes of the cervical spine. Head CT 03/08/25 13:23 IMPRESSION: 1. No evidence for acute intracranial hemorrhage or calvarial fracture. 2. No evidence for cervical spine fracture or traumatic subluxation. 3. Multilevel degenerative changes of the cervical spine. Abdomen/Pelvis CT 03/08/25 14:31 IMPRESSION: 1. No evidence of appendicitis, diverticulitis or intestinal obstruction. 2. Right kidney stone with hydronephrotic changes. No ureteric stones. 3. Multiple stones in the urinary bladder with Alonzo's catheter. ECG Data EKG #1: Attestation: I personally reviewed and interpreted this ECG as follows: ECG completion date: 03/08/25 ECG completion time: 13:32 Interpretation: Normal sinus rhythm at a rate of 81 beats per minute. There is some R to R variation consistent with a sinus arrhythmia, likely due to respiratory variation. [place] interval 156. QRS 102. QT/QTC 362/399. Good R-wave progression across the precordial leads. Normal axis. Discharge Plan Discharge Clinical Impression: Hypoalbuminemia, Transaminitis, Syncope, Disc disease, degenerative, cervical, Bladder stones, UTI (urinary tract infection) Patient Disposition: NH Group Home/Asst Living Condition: Stable Instructions: Antibiotic Form, Degenerative Disc Disease (ED), Catheter- associated Urinary Tract Infection (ED), Bladder Stones (ED), Syncope in Older Adults (ED), Transaminitis (ED) Additional Instructions: Patient's workup was generally unremarkable. He did have elevated liver enzymes but is CT scan was not concerning for any pathology in gallbladder or liver. He did have evidence of urinary tract infection which, based on the previous urine culture, had previously been sensitive to the antibiotic being prescribed. He Received the 1st dose in the emergency department. We were informed that patient is on hospice. Please clarify if so to identify goals of care and indications to go to or defer going to ED. Follow-up with primary care physician/facility medical office worker/hospice medical office worker if he is a hospice patient. Alternatively, he is immediately primary care provider, the name of a doctor is listed below Patient Language: Turkmen Prescriptions: New amoxicillin-pot clavulanate 875-125 mg tablet 1 tablet PO Q12H 10 Days Qty: 19 0RF Rx Instructions: patient received first dose in ED 03/08/25 PM No Action ProAir RespiClick 90 mcg/actuation aerosol powdr breath activated 1 inh INHALATION DAILY Pulmicort Flexhaler 90 mcg/actuation aerosol powdr breath activated 1 inh INHALATION Q12H atorvastatin 80 mg tablet 80 mg PO HS acetaminophen 325 mg Tablet 650 mg PO Q6H PRN (Reason: Pain (Scale Score 1-3)) clopidogrel 75 mg tablet 75 mg PO DAILY tamsulosin 0.4 mg capsule 0.4 mg PO HS sertraline 25 mg tablet 25 mg PO DAILY metoprolol succinate 25 mg tablet extended release 24 hr 12.5 mg PO BID albuterol sulfate 90 mcg/actuation HFA aerosol inhaler 2 puff INHALATION Q6H PRN (Reason: Wheezing) finasteride 5 mg tablet 5 mg PO DAILY senna 8.6 mg Capsule 17.2 mg PO DAILY PRN (Reason: Constipation) quetiapine 50 mg tablet 50 mg PO Q12H pyridoxine (vitamin B6) 100 mg PO DAILY levothyroxine 150 mcg Tablet 150 mcg PO DAILY cholecalciferol (vitamin D3) 10 mcg (400 unit) Tablet 10 mcg PO DAILY ferrous sulfate 325 mg (65 mg iron) tablet,delayed release (DR/EC) 325 mg PO DAILY mirtazapine [Remeron] 15 mg tablet 7.5 mg PO HS nitrofurantoin macrocrystal 100 mg capsule 100 mg PO Q12H Qty: 8 5RF Rx Instructions: must administer with a meal/food Follow-up/Referrals: Sarabjit Galloway MD [Physician] - UNKNOWN,DOCTOR [Primary Care Provider] - Stand Alone Forms: Half-Way Discharge Time of Disposition: 15:35
--- NOTE | 2025-03-08 12:29 | ECG_ITS ---
Test Date: 2025-03-08 13:32:16 Measurements Intervals [place] Rate: 81 P: 31 [place]: 156 QRS: 48 QRSD: 102 T: 41 QT: 362 QTc: 421 Interpretive Statements SINUS RHYTHM WITH SINUS ARRHYTHMIA MINIMAL Q WAVES- INFERIOR LEADS BORDERLINE ST-T WAVE ABNORMALITY- INFERIOR LEADS BASELINE ARTIFACT- I, II, III, AVF BORDERLINE ECG Compared to ECG 01/07/2025 03:49:23 NO SIGNIFICANT CHANGE Electronically Signed On 03-09-2025 07:24:18 CDT by Tj Mosley D.O.
[2025-03-08 12:54] LABS: Basophils Percent Auto 0.4 % (0.2-1.2); Eosinophils Absolute Auto 0.2 K/mm3 (0-0.3); Eosinophils Percent Auto 3.1 % (0-4.4); Hematocrit 32.8 % (42.0-52.0); Hemoglobin 10.2 g/dL (14.0-18.0); Immature Granulocyte Absolute 0.03 K/mm3 (0.00-0.031); Immature Granulocyte Percent A 0.4 % (0-0.5); Lymphocytes Absolute Auto 1.58 K/mm3 (0.9-3.2); Lymphocytes Percent Auto 21.3 % (18.3-44.2); Mean Corpuscular HGB Conc 31.1 g/dl (32-36); Mean Corpuscular Hemoglobin 30.8 pg (26-34); Mean Corpuscular Volume 99.1 fl (80-100); Mean Platelet Volume 9.4 fl (7.4-10.4); Monocytes Absolute Auto 0.6 K/mm3 (0.1-0.6); Monocytes Percent Auto 7.8 % (2.6-8.5); Platelet Count Result 167 k/mm3 (150-375); Red Blood Count 3.31 M/mm3 (4.6-6.20); Red Cell Distribution Width 15.1 % (11.5-14.5); White Blood Count 7.4 K/mm3 (4.5-10.0)
[2025-03-08] MEDS: LORazepam INJ (*CRX) 2 MG/ML VIAL IV PUSH (12:54)
--- NOTE | 2025-03-08 12:59 | PC.NURSE ---
pt taken to CT
[2025-03-08 13:04] LABS: Alanine Aminotransferase 65 U/L (6-50); Albumin Level 3.1 g/dL (3.5-5.1); Alkaline Phosphatase 130 U/L (38-126); Anion Gap 5 mmol/L (4-12); Aspartate Amino Transferase 68 U/L (17-59); Bilirubin,Total 0.3 mg/dL (0.2-1.3); Blood Urea Nitrogen 21 mg/dL (9-20); Calcium 9.2 mg/dL (8.4-10.2); Carbon Dioxide 30 mmol/L (22-30); Chloride 107 mmol/L (98-107); Estimated CRCL calculation 54 ml/min; Estimated Glomerular Filt Rate > 60; Glucose 72 mg/dL (65-110); Potassium 3.9 mmol/L (3.4-5.0); Sodium 142 mmol/L (137-145)
[2025-03-08 13:10] LABS: INR 1.1; Prothrombin Time 14.8 Seconds (11.1-14.7)
[2025-03-08 13:11] LABS: Partial Thromboplastin Time 33.4 Seconds (22.3-36.8)
[2025-03-08 13:16] LABS: NT Pro B Type Natriuretic Pept 493 pg/mL (19.9-100); Troponin I < 0.012 ng/mL (0.000-0.034)
[2025-03-08 13:22] LABS: Lipase 47 U/L (23-300)
[2025-03-08 15:14] LABS: Add Urine Microscopic? YES; Appearance Urine Turbid (Clear); Bacteria Urine 4+ /hpf; Bilirubin Urine Negative (Negative); Blood Urine 3+ (Negative); Color Urine Yellow (Yellow); Glucose Urine UA Negative (Negative); Ketones Urine Negative (Negative); Leukocyte Esterase Ur 3+ LEU/UL (Negative); Need Manual Microscopic Reviewed; Nitrate Urine Positive (Negative); Protein Urine 1+ mg/dL (Negative); RBC Urine >100 /hpf (0-2); Specific Grav Ur 1.014 (1.001-1.035); Squamous Epithelial Cell Urine None Seen /hpf (Few); Urobilinogen Urine 0.2 mg/dL (<2.0); WBC Urine >100 /hpf (0-3)
[2025-03-08] MEDS: AMOXICILLIN/CLAVULANATE K 875-125 MG TAB 1 TABLET PO (16:07)
--- NOTE | 2025-03-08 16:08 | PC.NURSE ---
Pt refused the medication, spit it out, pushed the nurse's hand away.
[2025-03-08 17:02] VITALS: BP 109/60; PULSE 76; RESP 17; O2SAT 100
== END 2025-03-08 17:13 | disposition hospice, home (50) ==
PROVIDERS: Emergency Provider Student in an Organized Health Care Education/Training Program
DX: N39.0 Urinary tract infection, site not specified (principal); R55 Syncope and collapse; E88.09 Other disorders of plasma-protein metabolism, not elsewhere classified; R74.01 Elevation of levels of liver transaminase levels; M50.322 Other cervical disc degeneration at C5-C6 level; N21.0 Calculus in bladder; F03.90 Unspecified dementia, unspecified severity, without behavioral disturbance, psychotic disturbance, mood disturbance, and anxiety; I11.0 Hypertensive heart disease with heart failure; I50.9 Heart failure, unspecified; J44.9 Chronic obstructive pulmonary disease, unspecified; D64.9 Anemia, unspecified; N40.1 Benign prostatic hyperplasia with lower urinary tract symptoms; R33.8 Other retention of urine; E03.9 Hypothyroidism, unspecified; E78.5 Hyperlipidemia, unspecified; F32.A Depression, unspecified; Z87.442 Personal history of urinary calculi; Z96.1 Presence of intraocular lens; Z98.49 Cataract extraction status, unspecified eye; R94.31 Abnormal electrocardiogram [ECG] [EKG]; N20.0 Calculus of kidney
CPT/HCPCS: 36415; 70450; 71045; 72125; 74176; 80053; 81001; 83690; 83880; 84484; 85025; 85610; 85730; 87086; 93005; 96374; 99284; A9270; J2060